=== PATIENT | male | born 1965 | race Caucasian/White ===

== ENCOUNTER 2023-10-23 12:50 | Outpatient (OUT) | payer MEDICARE, MEDICAID, SELFPAY ==
--- NOTE | 2023-10-23 12:53 | VEIN_ITS ---
Patient Name: KEEGAN AUSTIN MR#: [id number] : 1965 Exam Date: 10/23/2023 Ordering Doctor: DR RUBI MATTHEWS M.D. RADIOLOGY REPORT PROCEDURE: VC EXT VENOUS REFLUX TERRELL LMTD COMPARISON: None. INDICATIONS: Pain due to varicose veins of bilateral legs I83.813 TECHNIQUE: Duplex imaging of the lower extremity to assess the deep and superficial venous system for the presence of deep or superficial venous incompetence and to document the location and severity of disease. The study includes evaluation of the great saphenous vein (GSV), anterior accessory saphenous vein (AASV) and small saphenous vein (SSV). Patient scanned in reverse Trendelenburg and standing. FINDINGS: RIGHT LOWER EXTREMITY: Saphenofemoral Junction Reflux: Yes 12.4mm 2.0 sec GSV: Diam (mm) Reflux/ Time (sec) Proximal Thigh 4.6 Yes 1.2 Mid Thigh N/A Distal Thigh N/A Prox Calf N/A Mid Calf N/A Saphenopopliteal Junction Reflux: 6.4mm Yes 1.3 SSV: Proximal Calf 6.1 Yes 0.9 Mid Calf 4.8 Yes 0.5 AASV: Proximal Thigh 8.7 Yes 1.4 Mid Thigh No Distal Thigh No Thrombi: No acute or chronic thrombus. Compressibility: Normal. Flow: Severe deep venous reflux. Preforator: Mid medial lower leg 3.6 mm with 2.3s reflux. Tech Note: Previously treated GSV and AASV. Distal GSV is patent 5.8 mm with 0.3s reflux. Incompetent varicose vein mid medial lower leg measures 4.0 mm with 0.9s reflux. Incompetent varicose vein mid posterior calf measures 4.0 mm with 1.2s reflux. 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 Compressibility: Partial compressibility of distal FV and popliteal. Flow: Severe deep venous reflux. Wall Insulation Sprayer: Prox posterior calf 3.5 mm with 0.4s reflux. Distal medial lower leg measures 2.8 mm with 0.3s reflux. Tech Note: Previously treated GSV. Incompetent varicose vein distal medial ankle measures 2.4 mm with 0.6s reflux. Varicose vein proximal anterior/medial lower leg measures 4.0 mm with 0.8s reflux. Proximal posterior calf varicose vein off SSV measures 4.1 mm with 1.2s reflux. CONCLUSION: 1. Mildly dilated and incompetent small saphenous veins bilaterally. 2. Multiple dilated incompetent branch saphenous varicosities within lower extremities bilaterally. Dictated by: Byron Gonzalez M.D. on 10/23/2023 at 14:09 Approved by: Byron Gonzalez M.D. on 10/23/2023 at 14:20
--- NOTE | 2023-10-23 12:53 | VEIN_ITS ---
Patient Name: KEEGAN AUSTIN MR#: [id number] : 1965 Exam Date: 10/23/2023 Ordering Doctor: DR RUBI MATTHEWS M.D. RADIOLOGY REPORT PROCEDURE: [facility] - OFFICE VISIT INITIAL COMPARISON: None. PROGRESS NOTES: [age] year old male who presents with a 10 year history of dilated bulging veins, discolored veins, leg pain and swelling, muscle cramping. The patient's right leg symptoms are worse than the left. There has been a progression of symptoms over time. This increases with prolonged leg dependency. The patient describes an improvement with rest, elevation, exercise, support stockings, and ibuprofen.. The patient denies any signs and symptoms to suggest arterial ischemia. The patient describes a family history varicose veins on maternal side. The patient has drinking and smoking history of : None. Patient has a past medical history significant for hypertension, prior DVT and superficial thrombophlebitis. See separate history and physical for medication list. Prior treatment for varicose or spider veins. Current use of compression stockings. After review of nurse notes, history and physical exam I discussed at length the pathophysiology of venous hypertension and possible treatments, therapies and strategies available. We discussed at length the importance of elevating the lower extremities above the level of the heart, increased physical activity and compression stocking use. Ultrasound venous reflux study performed today was discussed at length with the patient. The report demonstrates abnormally dilated and incompetent small saphenous veins bilaterally with multiple arising branch saphenous varicosities. PHYSICAL EXAM: The right leg demonstrates several lower extremity varicosities, a few spider veins, no ulceration, mild edema, mild skin discoloration. The left leg demonstrates several varicosities, a few spider veins, no ulceration, mild edema, mild skin discoloration. Both thighs, legs and feet were symmetrically warm to the touch. Good posterior tibial and dorsalis pedis pulses were present bilaterally. VEIN/ Facility EST Comprehensive IMPRESSION: 1. Bilateral distal lower extremity venous insufficiency 2. Bilateral lower extremity varicose veins 3. Mild bilateral lower extremity subcutaneous edema 4. No flow significant arterial disease 5. CEAP: C3, EC, , [place] PLAN: 1. Continued use of compression stockings 2. Elevated legs and increased physical activity symptomatic relief 3. Endovenous laser ablation of right and left small saphenous veins. 4. Microfoam chemical ablation of incompetent branch saphenous varicosities of bilateral lower extremities. Nurse notes, history and physical were reviewed and confirmed, see attached forms. The nurse was present throughout the physical exam and consultation Dictated by: Byron Gonzalez M.D. on 10/23/2023 at 14:20 Approved by: Byron Gonzalez M.D. on 10/23/2023 at 15:23
== END 2023-10-23 12:51 | disposition home or self-care (01) ==
PROVIDERS: PCP Radiology Diagnostic Radiology; Visit Provider Radiology Diagnostic Radiology
DX: I83.813 Varicose veins of bilateral lower extremities with pain (principal)
CPT/HCPCS: 93970; G0463

== ENCOUNTER 2023-11-15 10:27 | Outpatient (OUT) | payer MEDICARE, MEDICAID, SELFPAY ==
--- NOTE | 2023-11-15 10:29 | VEIN_ITS ---
[address] [address] Patient Name: KEEGAN AUSTIN MRN: [id number] date: 1965 Sex: M Assigned Patient Location: Current Patient Location: Accession/Order Number: [id number] Exam Date: 11/15/2023 10:33 Report Date: 11/15/2023 11:36 At the request of: RUBI MATTHEWS Procedure: VC Endovenous Ablation 1VeinLT EXAMINATION: VC Endovenous Ablation 1Vein, left small saphenous vein HISTORY: I83.813 bilateral leg painful varicose veins COMPARISON: No relevant comparison available. TECHNIQUE: The risks and benefits of the procedure had been previously discussed, and were rediscussed at length. Informed written consent was obtained. Cindy Houston and Jose R Shahid assisted. Time out procedure was performed. The left lower extremity was prepared and draped in the usual sterile fashion. Duplex ultrasound probe was draped in a sterile cover, sterile transmission gel was used. Venous mapping was performed with the areas of dilation and large tributaries marked. The total length was 29 cm from the entry 3 cm above the lateral malleolus to 3 cm from the saphenopopliteal junction. The diameter of the wall saphenous vein ranged from 4-6 mm. A 30 gauge needle and 1% buffered lidocaine was used to anesthetize the entry site. A 4 mm incision was made with a scalpel and the saphenous vein was entered percutaneously under direct ultrasound guidance with a micropuncture set, a single stick was successful in gaining access. A micro-guide wire was inserted and the needle removed. A micro-set including a dilator was inserted over the microwire and the needle and dilator were removed. A 0.018 guide wire was inserted through the micro-set and threaded through the saphenous vein. The dilator was removed and an introducer sheath was inserted over the wire. The dilator and wire were removed and the 600 micron fiber was introduced and placed and positioned so that it extended beyond the sheath and was 3 cm peripheral to the saphenopopliteal junction. Final position of the fiber was determined by ultrasound guidance and duplex imaging. Tumescent anesthetic was delivered by ultrasound guidance. 125 cc of fluid was delivered along the entire course of the saphenous vein. The solution consisted of 1000 cc of normal saline with 40 mL of 1% lidocaine and 20 mL of sodium bicarbonate. A final positioning check was made. The energy source was turned on by means of the foot pedal and the fiber and sheath were withdrawn. The total number of Joules delivered was 1366. The laser was active for 171seconds under continuous pulse, average laser use of 8 J. Laser start time 11:24 AM 10/16/2023 . Laser stop time 11:26 AM 10/16/2023 . A duplex ultrasound revealed compressibility and flow at the saphenofemoral junction immediately after the procedure. Hemostasis at the access site was achieved. The skin incision of the saphenous vein was closed with a 4 x 4. A compression stocking was applied. Postop instructions were given. A follow up appointment was recommended and scheduled. The patient tolerated the procedure well and was discharged in good condition . VEIN/VC Endovenous Ablation 1VeinLT IMPRESSION: Technically successful endovenous laser ablation of the left small saphenous vein Electronically authenticated by: RUBI MATTHEWS Date: 11/15/2023 11:36
[2023-11-15] MEDS: 0.9 % SODIUM CHLORIDE 500 ML, LIDOCAINE HCL 20 ML, SODIUM BICARBONATE 10 MEQ INJ (10:31)
[2023-11-15] MEDS: LIDOCAINE HCL 1% 100 MG/10 ML MDV INJ (10:31)
--- OUTSIDE RECORDS SUMMARY | 2023-11-15 10:42 | XMS_ITS | CCD ---
Author Organization [facility] Care Team Providers Care Bid Analyst Name Role Phone Sarah Bruce Primary Care Physician BYRON, DR RUBI Solomon Consulting Unavailable WEST, DR RUBI Solomon Attending Unavailable WEST, DR RUBI Solomon Admitting Unavailable WEST, DR RUBI Solomon Consulting Unavailable WEST, DR RUBI Solomon Attending Unavailable WEST, DR RUBI Solomon Admitting Unavailable ZIEBER, DR ALLISON Gama Consulting Unavailable WEST, DR RUBI Solomon Consulting Unavailable WEST, DR RUBI Solomon Attending Unavailable WEST, DR RUBI Solomon Admitting Unavailable ZIEBER, DR ALLISON Gama Consulting Unavailable WEST, DR RUBI Solomon Consulting Unavailable WEST, DR RUBI Solomon Attending Unavailable WEST, DR RUBI Solomon Admitting Unavailable WEST, DR RUBI Solomon Consulting Unavailable WEST, DR RUBI Solomon Attending Unavailable WEST, DR RUBI Solomon Admitting Unavailable ZIEBER, DR ALLISON Gama Consulting Unavailable WEST, DR RUBI Solomon Consulting Unavailable WEST, DR RUBI Solomon Attending Unavailable WEST, DR RUBI Solomon Admitting Unavailable ZIEBER, DR ALLISON Gama Consulting Unavailable WEST, DR RUBI Solomon Consulting Unavailable WEST, DR RUBI Solomon Attending Unavailable WEST, DR RUBI Solomon Admitting Unavailable WEST, DR RUBI Solomon Consulting Unavailable WEST, DR RUBI Solomon Attending Unavailable WEST, DR RUBI Solomon Admitting Unavailable WEST, DR RUBI Solomon Consulting Unavailable WEST, DR RUBI Solomon Attending Unavailable WEST, DR RUBI Solomon Admitting Unavailable ZIEBER, DR ALLISON Gama Consulting Unavailable WEST, DR RUBI Solomon Consulting Unavailable WEST, DR RUBI Solomon Attending Unavailable WEST, DR RUBI Solomon Admitting Unavailable WEST, DR RUBI Solomon Consulting Unavailable WEST, DR RUBI Solomon Attending Unavailable WEST, DR RUBI Solomon Admitting Unavailable WEST, DR RUBI Solomon Consulting Unavailable WEST, DR RUBI Solomon Attending Unavailable WEST, DR RUBI Solomon Admitting Unavailable WEST, DR RUBI Solomon Consulting Unavailable WEST, DR RBUI Solomon Attending Unavailable WEST, DR RUBI Solomon Admitting Unavailable ZIEBER, DR ALLISON Gama Consulting Unavailable WEST, DR RUBI Solomon Consulting Unavailable WEST, DR RUBI Solomon Attending Unavailable WEST, DR RUBI Solomon Admitting Unavailable ALLSOSARAH Landeros Attending Unavailable Favian SCHMITT Referring Unavailable Ciscosodelfin, Sarah Abbott Admitting Unavailable Sarah Bruce Attending Unavailable Burt, Allison Consulting Unavailable Favian SCHMITT P Admitting Unavailable Favian SCHMITT Attending Unavailable Tulio, Allison Consulting Unavailable Burt, Allison Consulting Unavailable Burt, Allison Consulting Unavailable Burt, Allison Consulting Unavailable Burt, Allison Consulting Unavailable Burt, Allison Consulting Unavailable Burt, Allison Consulting Unavailable Burt, Allison Consulting Unavailable Yaakov Betancourt Attending Unavailable Medications Current Medications Medication Drug Class(es) Dates Sig (Normalized) Sig (Original) acetaminophen 325 mg / HYDROcodone bitartrate 5 mg oral tablet (12 sources) Opioid Agonist Start: 08-18-2020 Curlew 325 mg-5 mg oral tablet 1 tab(s), Oral, q6hr for pain, 10 tab(s), Refill(s) 0 Start Date: 04/14/21 Status: Ordered amLODIPine 2.5 mg oral tablet (6 sources) Dihydropyridine Calcium Channel Harlan Start: 08-04-2020 take 1 tablet by mouth once daily amLODIPine 2.5 mg Tab 2.5 mg = 1 tab(s), Oral, Daily, Refills(s) 0, High blood pressure Start Date: 08/04/20 Status: Ordered bacitracin 0.5 unt/mg topical ointment (5 sources) Start: 09-06-2021 Bacitracin top 500 units/g Oint TUBE (15 gram) 1 mary ann, Topical, QID, 30 gm, Refill(s) 0, [facility]/pharmacy #[id number], 178, cm, 09/06/21 14:56:00 EST, Height/Length Dosing, 132, kg, 09/06/21 14:56:00 EST, Weight Dosing Start Date: 09/06/21 Status: Ordered busPIRone hydrochloride 10 mg oral tablet (6 sources) Start: 07-31-2019 take 2 tablets by mouth twice daily busPIRone 10 mg Tab 20 mg = 2 tab(s), Oral, BID, Refills(s) 0, Anxiety Start Date: 07/31/19 Status: Ordered cephalexin 500 mg oral capsule (1 source) Cephalosporin Antibacterial Start: 09-02-2023 End: 09-09-2023 take 1 capsule by mouth three times daily Keflex 500 mg Cap 500 mg = 1 cap(s), Oral, TID, X 7 day(s), # 21 cap(s), Refills(s) 0, Pharmacy: [facility], 177.8, cm, 09/02/23 8:58:00 EST, Height/Length Dosing, 124.9, kg, 09/02/23 8:58:00 EST, Weight Dosing Start Date: 09/02/23 Stop Date: 09/09/23 Status: Ordered cyclobenzaprine hydrochloride 10 mg oral tablet (6 sources) Muscle Relaxant Start: 12-14-2019 take 1 tablet by mouth three times daily as needed for muscle spasms cyclobenzaprine 10 mg Tab 10 mg = 1 tab(s), Oral, TID, PRN for spasm, # 30 tab(s), Refills(s) 0 Start Date: 12/14/19 Status: Ordered Docusate (6 sources) Start: 12-02-2018 take 8 tablets by mouth at bedtime Dulcolax Stool Softener = 8 tab(s), Oral, Bedtime, Refills(s) 0, Constipation Start Date: 12/02/18 Status: Ordered doxazosin 4 mg oral tablet (6 sources) alpha-Adrenergic Harlan Start: 05-18-2016 take 1 tablet by mouth at bedtime doxazosin 4 mg Tab 4 mg = 1 tab(s), Oral, Bedtime, Refills(s) 0, High blood pressure Start Date: 05/18/16 Status: Ordered ezetimibe 10 mg oral tablet (6 sources) Dietary Cholesterol Absorption Inhibitor Start: 12-09-2014 take 1 tablet by mouth at bedtime Zetia 10 mg Tab 10 mg = 1 tab(s), Oral, Bedtime, Refills(s) 0, High cholesterol Start Date: 12/09/14 Status: Ordered LORazepam 0.5 mg oral tablet (6 sources) Benzodiazepine Start: 08-04-2020 take 1 tablet by mouth once daily LORazepam 0.5 mg Tab 0.5 mg = 1 tab(s), Oral, Daily, Refills(s) 0, Anxiety Start Date: 08/04/20 Status: Ordered meclizine hydrochloride 12.5 mg oral tablet (2 sources) Antiemetic Start: 09-10-2022 take 1 tablet by mouth every six hours as needed for dizziness meclizine 12.5 mg Tab 12.5 mg = 1 tab(s), Oral, q6hr, PRN Dizziness, # 100 tab(s), Refills(s) 0, Pharmacy: [facility]/pharmacy #[id number], 177, cm, 09/08/22 18:23:00 EST, Height/Length Dosing, 121, kg, 09/08/22 18:23:00 EST, Weight Dosing Start Date: 09/10/22 Status: Ordered nortriptyline 25 mg oral capsule (4 sources) Tricyclic Antidepressant Start: 08-04-2020 take 1 capsule by mouth once daily at bedtime nortriptyline 25 mg Cap 25 mg = 1 cap(s), Oral, Once a day (at bedtime), Refills(s) 0, Sleep Start Date: 08/04/20 Status: Ordered omeprazole 40 mg delayed release oral capsule (5 sources) Proton Pump Inhibitor Start: 05-18-2016 omeprazole 40 mg Cap-DR 40 mg = 1 cap(s), Oral, Bedtime, Refills(s) 0, Control of stomach acid Start Date: 05/18/16 Status: Ordered omeprazole 40 mg Cap-DR (1 source) Start: 05-18-2016 omeprazole 40 mg Cap-DR 40 mg = 1 cap(s), Oral, Bedtime, Refills(s) 0, Control of stomach acid Start Date: 05/18/16 Status: Ordered Outpatient physical therapy (2 sources) Start: 09-10-2022 Outpatient physical therapy Outpatient physical therapy, For gait training, Print Requisition, Supply Start Date: 09/10/22 Status: Ordered simvastatin 20 mg oral tablet (6 sources) HMG-CoA Reductase Inhibitor Start: 02-10-2019 take 1 tablet by mouth once daily at bedtime simvastatin 20 mg Tab 20 mg = 1 tab(s), Oral, Once a day (at bedtime), Refills(s) 0, High cholesterol Start Date: 02/10/19 Status: Ordered warfarin sodium 10 mg oral tablet (6 sources) Vitamin K Antagonist Start: 11-30-2011 take 1 tablet by mouth at bedtime Coumadin 10 mg oral tablet 10 mg = 1 tab(s), Oral, Bedtime, Refills(s) 0, Other (see comment) Start Date: 11/30/11 Status: Ordered Completed/Discontinued Medications Medication Drug Class(es) Dates Sig (Normalized) Sig (Original) Betamethasone (6 sources) Corticosteroid Start: 08-04-2020 betamethasone dipropionate topical 0.05% cream 1 mary ann, Topical, Daily Other (see comment), Refill(s) 0 Start Date: 08/04/20 Status: Ordered Start: 08-04-2020 betamethasone dipropionate topical 0.05% cream 1 mary ann, Topical, Daily Other (see comment), Refill(s) 0 Start Date: 08/04/20 Status: Ordered Problems Active Problems Problem Classification Problem Date Documented Da te Episodic/Chronic Acquired foot deformities (6 sources) Acquired hallux valgus 08-04-2020 Chronic Acute myocardial infarction (6 sources) Myocardial infarction 09-11-2013 Chronic Comment on above: at age 20 yrs Anxiety disorders (7 sources) Anxiety; Translations: [Anxiety disorder] Onset: 3 08-18-2020 Chronic Disorders of lipid metabolism (7 sources) Hyperlipidemia; Translations: [Hyperlipidemia, unspecified] Onset: 3 02-12-2019 Chronic Esophageal disorders (7 sources) Gastroesophageal reflux disease; Translations: [Gastroesophageal reflux disease without esophagitis] Onset: 3 08-18-2020 Chronic Essential hypertension (6 sources) Hypertensive disorder 02-12-2019 Chronic Genitourinary symptoms and ill-defined conditions (6 sources) Nocturia 05-18-2016 Episodic Hypertension with complications and secondary hypertension (1 source) Hypertensive urgency ; Translations: [Hypertensive urgency] Onset: 3 Chronic Mood disorders (6 sources) Depressive disorder 02-12-2019 Chronic Open wounds of extremities (1 source) Open wound of foot; Translations: [Puncture wound without foreign body, unspecified foot, initial encounter] Onset: 4 Episodic Other circulatory disease (1 source) Disorder of respiratory system; Translations: [Other specified symptoms and signs involving the circulatory and respiratory systems] Onset: 3 Episodic Other connective tissue disease (1 source) Pain in lower limb; Translations: [Pain in unspecified lower leg] Onset: 2 Episodic Other connective tissue disease (6 sources) Impingement syndrome of shoulder region 09-09-2014 Episodic Comment on above: right Other connective tissue disease (1 source) Pain in right lower limb; Translations: [Pain in right leg] Onset: 2 Episodic Other injuries and conditions due to external causes (6 sources) Nerve injury 08-18-2020 Episodic Comment on above: right side Other screening for suspected conditions (not mental disorders or infectious disease) (1 source) Coag./bleeding tests abnormal; Translations: [Abnormal coagulation profile] Onset: 2 Episodic Peripheral and visceral atherosclerosis (4 sources) 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 Spondylosis; intervertebral disc disorders; other back problems (6 sources) Neck pain 07-31-2019 Episodic Substance-related disorders (13 sources) Smoker; Translations: [Nicotine dependence] Onset: 3 02-10-2019 Chronic Comment on above: Added secondary to d ocumentation in Social History. patient quit smoking in 2001 Syncope (1 source) Syncope and collapse; Translations: [Syncope and collapse] Onset: 3 Episodic Unclassified (6 sources) Blood clot (morphologic abnormality) 11-30-2011 Varicose veins of lower extremity (4 sources) Varicose veins of bilateral lower extremities with pain; Translations: [VARICOSE VNS TERRELL LOW EXTREM W/PAIN] Onset: 2 Episodic Past or Other Problems Problem Classification Problem Date Documented Da te Episodic/Chronic Conditions associated with dizziness or vertigo (2 sources) Dizziness and giddiness; Translations: [Dizziness and giddiness] Onset: 09-08-2022 Episodic Unclassified (4 sources) neck problems( Confirmed ) 11-30-2011 Unclassified (2 sources) neck problems 11-30-2011 Results Test Name Value Interpretation Reference Range Facility ED Note-Physicianon 09-03-19 ED Note-Physician Basic Information Time Seen: Anastasia VILLAR Everton 09/02/2023 08:55 Chief Complaint c/o piece of metal stuck in left heel. History of Present Illness 58-year-old male comes into the ED for evaluation of a left foot puncture wound and concerns for retained foreign body. He states he stepped on a piece of metal this morning. Family tried to remove the object but were not successful. He is concerned there is no metal in his foot. He has localized pain to the area. No other complaints or concerns. Review of Systems A 10 point review of systems is negative except as noted above. Medical and Surgical History: Reviewed and noted Social history: Lives at home Tobacco: Denies Physical Exam Vitals & Measurements T: 36.4 ?C(Oral) HR: 71(Peripheral) RR: 16 BP: 188/86 SpO2: 97% HT: 177.8 cm WT: 124.9 kg BMI: 39.51 Nurses notes and vital signs reviewed and patient is not hypoxic. General: The patient appears well, resting comfortably. Skin: Warm, dry. Head: Atraumatic. Neck: No JVD. Eye: Normal conjunctiva. Ears, Nose, Mouth, and Throat: Moist mucous membranes. Cardiovascular: Strong distal pulses. Chest wall: Respiratory: Respirations are nonlabored. Back: Normal range of motion. Musculoskeletal: There is a small puncture wound to the plantar aspect of the left foot of the calcaneus. No obvious foreign bodies. No significant soft tissue swelling. No bleeding or drainage. Gastrointestinal: Urological: Neurological: Awake and alert. No focal deficits. Follows commands. Psychiatric: Cooperative. Medical Decision Making Imaging shows no evidence of foreign body. The patient's wound was visualized with otoscope magnification. There is a small piece of debris that was removed with fine point tweezers. No other foreign bodies are appreciated. Tetanus is updated. He is started on prophylactic antibiotics and is discharged home PCP follow-up. Patient was encouraged to return to the ED if symptoms worsen or change. Assessment/Plan Puncture wound of foot (S91.339A: Puncture wound without foreign body, unspecified foot, initial encounter) Orders: cephalexin, 500 mg = 1 cap(s), Oral, TID, X 7 day(s), # 21 cap(s), Refills(s) 0, Pharmacy: [facility], 177.8, cm, 09/02/23 8:58:00 EST, Height/Length Dosing, 124.9, kg, 09/02/23 8:58:00 EST, Weight Dosing tetanus/diphtheria/pe rtussis, acel (Tdap), 0.5 mL, Injection, Intramuscular-Immuniz ation, Once, Stop date 09/02/23 9:49:00 EST, STAT, Start date 09/02/23 9:49:00 EST XR Foot 3+ Views Left Disposition Plan Patient Discharge Condition Disposition: Discharged home Condition: Improved and stable Counseled: Patient and/or family were counseled to workup, results, treatment plan and follow-up recommendations Discharge Prescription List Prescriptions Keflex 500 mg Cap, 500 mg= 1 cap(s), Oral, TID Follow-up With When Contact Information Sarah Bruce In 3 days 09/05/2023 EST [facility] [place] [id number] [employer] (1) Additional Instructions: Patient Education Puncture Wound Attestation I performed a substantive part of the MDM during the patient?s E/M visit. I personally made or approved the documented management plan and acknowledge its risk of complications. (Independent Interpretation) My (EKG/X-Ray/US/CT) interpretation as above. (Discussion) Management/test interpretation discussed with APC. This report was transcribed using voice recognition software. Every effort was made to ensure accuracy, however, inadvertently computerized ceramic painter mistakes may be present. Appropriate healthcare PPE was used in evaluating this patient. Problem List/Past Medical History Ongoing Acid reflux Anxiety Blood clot Depression DVT (deep venous thrombosis) Hyperlipidemia Hypertension Impingement syndrome of shoulder Nerve damage Smoker Historical Heart attack neck problems Smoker Procedure/Surgical History Bunionectomy (08/18/2020), Cheilectomy (08/18/2020), Arthroscopy of knee (12/18/2019), Cervical spinal fusion (08/04/2019), Epidural injection of cervical spine using fluoroscopic guidance (06/17/2019), Epidural injection of cervical spine using fluoroscopic guidance (05/20/2019), Epidural injection of cervical spine using fluoroscopic guidance (04/08/2019), Colonoscopy (2016), right shoulder arthroscopy with glenohumeral debridement, subacromial decompression, partial distal clavulectomy (09/21/2014), Shoulder (2013), neck surgery. Medications Inpatient tetanus/diphtheria/pe rtussis, acel (Tdap) 5 units-2.5 units-18.5 mcg/0.5 mL intramuscular suspensio, 0.5 mL, Intramuscular-Immuniz ation, Once Home amLODIPine 2.5 mg Tab, 2.5 mg= 1 tab(s), Oral, Daily Bacitracin top 500 units/g Oint TUBE (15 gram), 1 mary ann, Topical, QID betamethasone dipropionate topical 0.05% cream, 1 mary ann, Topical, Daily, PRN busPIRone 10 mg Tab, 20 mg= 2 tab(s), Oral, BID, Not taking Coumadin 10 mg oral tablet, 10 mg= 1 tab(s), Oral (more content not included)... [facility] Comment on above: Result Comment: Elec tronically Signed By: Everton Oconnor PA-C\.br\Date and Time Signed: 09/02/23 09:52 EST\.br\Electronically Co-Signed By: Yaakov Betancourt DO\.br\Date and Time Co-Signed: 09/03/23 07:08 EST Consent for Treatmenton Consent for Treatment [id number] [facility] Consent for Treatment [id number] [facility] Discharge Instructionson Discharge Instructions [id number] [facility] ED Clinical Summaryon 2023 ED Clinical Summary [address] [address] ED Clinical Summary Person Information Name: KEEGAN AUSTIN Megan/[facility]_Malcolm Age: 58 Years : 1965 Sex: Male Language: Zambian PCP: Sarah Bruce DO Marital Status: Phone: [phone] Visit Id: Visit Reason: Foot pain-swelling; PIECE OF METAL IN LEFT FOOT Speciality: Acuity: 4 Enc Type: Emergency Med Service: Emergency Arrival: 09/02/2023 08:49:21 Discharge: 09/02/2023 10:07:42 LOS: 000 01:18 Checkin: 09/02/2023 08:49:21 Checkout: 09/02/2023 10:07:42 Dispo Type: Home (Routine DC) EVENTS: Event Name Event Status Request Date/Time Start Date/Time Complete Date/Time Arrive Complete 09/02/2023 08:49:21 09/02/2023 08:49:21 09/02/2023 08:49:21 Document Home Meds Request 09/02/2023 08:49:21 Triage Complete 09/02/2023 08:49:21 09/02/2023 08:58:54 09/02/2023 08:58:54 Bed Assign Complete 09/02/2023 08:54:06 09/02/2023 08:54:06 09/02/2023 08:54:06 Dr Exam Complete 09/02/2023 08:54:06 09/02/2023 08:55:40 09/02/2023 08:55:40 RN Exam Complete 09/02/2023 08:54:06 09/02/2023 09:10:19 09/02/2023 09:10:19 Registration Complete 09/02/2023 08:55:40 09/02/2023 08:55:44 09/02/2023 09:03:51 Dr Exam Complete 09/02/2023 09:00:43 09/02/2023 09:00:43 09/02/2023 09:00:43 X-Ray Complete 09/02/2023 09:03:05 09/02/2023 09:10:30 09/02/2023 09:25:00 Reg Complete Request 09/02/2023 09:03:51 Reg Bed Request Complete 09/02/2023 09:03:51 09/02/2023 09:03:51 09/02/2023 09:03:51 Wet Read Complete 09/02/2023 09:25:00 09/02/2023 09:30:07 09/02/2023 09:30:07 Meds Admin Complete 09/02/2023 09:49:48 09/02/2023 10:07:06 Discharge Complete 09/02/2023 09:50:12 09/02/2023 10:07:47 09/02/2023 10:07:47 Transfer Complete 09/02/2023 10:07:47 09/02/2023 10:07:47 09/02/2023 10:07:47 AD[address]: [address] [facility] [id number] PHYS DOC NOTES: MEDICAL INFORMATION: Prescriptions Given: New Medications [facility], [address] [facility] [place], [place] [id number], [phone] cephalexin (Keflex 500 mg Cap) 1 Capsules By Mouth 3 times a day for 7 Days. Refills: 0. Medications to Continue with No Changes Other Medications acetaminophen-hydroco done (Curlew 325 mg-5 mg oral tablet) 1 Tablets By Mouth every 6 hours as needed Pain 4-7. acetaminophen-hydroco done (Curlew 325 mg-5 mg oral tablet) 1 Tablets By Mouth every 6 hours as needed for pain. Refills: 0. amlodipine (amLODIPine 2.5 mg Tab) 1 Tablets By Mouth every day. bacitracin topical (Bacitracin top 500 units/g Oint TUBE (15 gram)) 1 Application Topical 4 times a day. Refills: 0. betamethasone topical (betamethasone dipropionate topical 0.05% cream) 1 Application Topical every day as needed Other (see comment). busPIRone (busPIRone 10 mg Tab) 2 Tablets By Mouth 2 times a day. cyclobenzaprine (cyclobenzaprine 10 mg Tab) 1 Tablets By Mouth 3 times a day as needed for spasm. doxazosin (doxazosin 4 mg Tab) 1 Tablets By Mouth at bedtime. ezetimibe (Zetia 10 mg Tab) 1 Tablets By Mouth at bedtime. lorazepam (LORazepam 0.5 mg Tab) 1 Tablets By Mouth every day. meclizine (meclizine 12.5 mg Tab) 1 Tablets By Mouth every 6 hours as needed Dizziness. Refills: 0. Misc Prescription (Outpatient physical therapy) 0. For gait training. Refills: 0. omeprazole (omeprazole 40 mg Cap-DR) 1 Capsules By Mouth at bedtime. simvastatin (simvastatin 20 mg Tab) 1 Tablets By Mouth once a day (at bedtime). warfarin (Coumadin 10 mg oral tablet) 1 Tablets By Mouth at bedtime. PATIENT EDUCATION INFORMATION: Instructions: Puncture Wound Follow up: With: Address: When: Sarah Bruce [place] [place] [place] [address] Business (1) In 3 days 09/05/2023 DIAGNOSIS: Puncture wound of foot Normal [facility] ED Patient Education Noteon 09-02-2023 ED Patient Education Note Dermatology Puncture Wound A puncture wound is an injury that is caused by a sharp, thin object that penetrates your skin. Usually, a puncture wound does not leave a large opening in your skin, so it may not bleed a lot. However, when you get a puncture wound, dirt or other materials (foreign bodies) can be forced into your wound and can break off inside. This increases the chance of infection, such as tetanus. There are many sharp, pointed objects that can cause puncture wounds, including teeth, nails, splinters of glass, fishhooks, and needles. Treatment may include washing out the wound with a germ-free (sterile) salt-water solution and having the wound opened surgically to remove a foreign object. The wound may be closed with stitches (sutures), skin glue, or adhesive strips and covered with antibiotic ointment and a bandage (dressing). Depending on what caused the injury, you may also need a tetanus shot or a rabies shot. Follow these instructions at home: Medicines ? Take or apply [id number] and prescription medicines only as told by your health care provider. ? If you were prescribed antibiotics, take or apply them as told by your health care provider. Do not stop using the antibiotic even if you start to feel better. Bathing ? Keep the dressing clean and dry as told by your health care provider. ? Do not take baths, swim, or use a hot tub until your health care provider approves. Ask your health care provider if you may take showers. You may only be allowed to take sponge baths. Wound care ? Follow instructions from your health care provider about how to take care of your wound. Make sure you: ? Wash your hands with soap and water for at least 20 seconds before and after you change your dressing. If soap and water are not available, use hand medical affairs director. ? Change your dressing as told by your health care provider. ? Leave sutures, skin glue, or adhesive strips in place. These skin closures may need to stay in place for 2 weeks or longer. If adhesive strip edges start to loosen and curl up, you may trim the loose edges. Do not remove adhesive strips completely unless your health care provider tells you to do that. ? Clean the wound as told by your health care provider. ? Do not scratch or pick at the wound. ? Check your wound every day for signs of infection. Check for: ? Redness, swelling, or pain. ? Fluid or blood. ? Warmth. ? Pus or a bad smell. General instructions ? Raise (elevate) the injured area above the level of your heart while you are sitting or lying down. ? If your puncture wound is in your foot, ask your health care provider if you need to avoid putting weight on your foot and for how long. Do not use the injured limb to support your body weight until your health care provider says that you can. Use crutches as told by your health care provider. ? Keep all follow-up visits. This is important. Contact a health care provider if: ? You received a tetanus or rabies shot and you have swelling, severe pain, redness, or bleeding at the injection site. ? You have any of these signs of wound infection: ? Redness, swelling, or pain. ? Fluid or blood. ? Warmth. ? Pus or a bad smell. ? Your sutures come out. ? You notice something coming out of your wound, such as wood or glass. ? Your pain is not controlled with medicine. ? You develop numbness around your wound. Get help right away if: ? You develop severe swelling around your wound. ? You have a red streak going away from your wound. ? You develop painful skin lumps. ? The wound is on your hand or foot and you: ? Cannot properly move a finger or toe. ? Notice that your fingers or toes look pale or bluish. Summary ? A puncture wound is an injury that is caused by a sharp, thin object that penetrates your skin. ? Treatment may include washing out the wound and having the wound opened surgically to remove a foreign object, ? The wound may be closed with stitches (sutures), skin glue, or adhesive strips and covered with antibiotic ointment and a bandage (dressing). ? Follow instructions from your health care provider about how to take care of your wound. ? Contact a health care provider if you have redness, swelling, or pain at the site of your wound. This information is not intended to replace advice given to you by your health care provider. Make sure you discuss any questions you have with your health care provider. Document Revised: 07/18/2022 Document Reviewed: 07/18/2022 Elsevier Patient Education ? 2022 [employer] Normal [facility] ED Patient Summaryon 024 ED Patient Summary [address] [address] Patient Discharge Instructions Person Information Name: KEEGAN AUSTIN Age: 58 Years Arrival Date: 09/02/2023 08:49:21 Discharge Diagnosis: Puncture wound of foot Primary Care Physician: Sarah Bruce DO Provider Information Primary Provider: Yaakov Betancourt DO Advanced Animal Behaviourist:Everton Oconnor PA-C The exam and treatment you received in the Emergency Department were for an urgent problem and are not intended as complete care. It is important that you follow up with a doctor, nurse practitioner, or physician?s ophthalmic assistant for ongoing care. If your symptoms become worse or you do not improve as expected and you are unable to reach your usual health care provider, you should return to the Emergency Department. We are available 24 hours a day. KEEGAN AUSTIN has been given the following list of patient education materials, prescriptions and follow-up instructions: Follow-up Instructions: With: Address: When: [place] [address] Business (1) In 3 days 09/05/2023 In the event that this physician does not participate in your insurance network, please consult with your insurance company to find a nearby participating provider. Patient Education Materials: Puncture Wound A MESSAGE TO ALL PATIENTS REGARDING OPIOIDS PRESCRIPTION OPIOIDS: WHAT YOU NEED TO KNOW Prescription opioids can be used to help relieve dshrsduh-fr-cljwmt pain and are often prescribed following a surgery or injury, or for certain health conditions. These medications can be an important part of the treatment but also come with serious risks. It is important to work with your healthcare provider to make sure you are getting the safest, most effective care. WHAT ARE THE RISKS AND SIDE EFFECTS OF OPIOID USE? Prescription opioids carry serious risks of addiction and overdose, especially with prolonged use. An opioid overdose, often marked by slowed breathing, can cause sudden . The use of prescription opioids can have a number of side effects as well, even when taken as directed: ? Tolerance?meaning you might need to take more of the medication for the same pain relief ? Physical dependence?meaning you have symptoms of withdrawal when a medication is stopped ? Increased sensitivity to pain ? Constipation ? Nausea, vomiting, and dry mouth ? Sleepiness and dizziness ? Confusion ? Depression ? Low levels of testosterone that can result in lower sex drive, energy, and strength ? Itching and sweating RISKS ARE GREATER WITH: ? History of drug misuse, substance use disorder, or overdose ? Mental health conditions (such as depression or anxiety) ? Sleep apnea ? Older age (65 years and older) ? Avoid alcohol while taking prescription opioids. Also, unless specifically advised by your health care provider, medications to avoid include: ? Benzodiazepines (such as Xanax or Valium) ? Muscle relaxants (such as Soma or Flexeril) ? Hypnotics (such as Ambien or Lunesta) ? Other prescription opioids KNOW YOUR OPTIONS Talk to your health care provider about ways to manage your pain that don?t involve prescription opioids. Some of these options may actually work better and have fewer risks and side effects. Options may include: ? Pain relievers such as acetaminophen, ibuprofen, and naproxen ? Some medication that are also used for depression or seizures ? Physical therapy and exercise ? Cognitive behavioral therapy, a psychological, goal-directed approach, in which patients learn how to modify physical, behavioral, and emotional triggers of pain and stress. IF YOU ARE PRESCRIBED OPIOIDS FOR PAIN: ? Never take opioids in greater amounts or more often than prescribed. ? Follow up with your primary health care provider. o Work together to create a plan on how to manage your pain. o Talk about ways to help manage your pain that don?t involve prescription opioids. o Talk about any and all concerns and side effects. ? Help prevent misuse and abuse o Never sell or share prescription opioids. o Never use another person?s prescription opioids. ? Store prescription opioids in a secure place and out of reach of others (this may include visitors, children, friends, and family). ? Safely dispose of unused prescription opioids: Find your community drug take-back program or your pharmacy mail-back program, or flush them down the toilet, following guidance from the Food and Drug Administration (www.fda.gov/Drugs/Re sourcesForYou). ? Visit www.cdc.gov/drugoverd ose to learn about the risks of opioids abuse and overdose. ? If you believe you may be struggling with addiction, tell your health customer care manager and ask for guidance or call [facility]?S National Helpline at 0-383-560-GNWX. k Source (more content not included)... Normal [facility] Vaccinationson 09-02-2023 Vaccinations [id number] #1.00TIFF Normal [facility] XR Foot 3+ Views Lefton XR Foot 3+ Views Left Exam Date/Time: 09/02/2023 09:25 EST Reason for Exam: Pain, Traumatic Report IMPRESSION: No acute osseous findings. No radiopaque foreign body. EXAMINATION/TECHNIQUE : XR Foot 3+ Views Left HISTORY: Pain to the left heel. Possible foreign body. COMPARISON: None available. RESULT: No evidence for acute fracture. No dislocation. Moderate degenerative changes of the first MTP joint. Other scattered mild to moderate degenerative changes throughout the foot, especially of the midfoot. Mild hallux valgus. Chronic appearing well-corticated densities at the base of the fifth metatarsal. Os peroneum. Small plantar and posterior calcaneal enthesophytes. Vascular calcifications. No radiopaque foreign body. No other significant abnormality. Ordering Provider: Everton Oconnor FINAL REPORT Dictated: 09/02/2023 10:46 am Flaco Merlos MD Signed (Electronic Signature): 09/02/2023 10:46 am Signed by: Flaco Merlos MD Transcribed by: USHA Technologist: LEVON Technical Comments Radiation Dose: Kar in mGy = na DAP = na [facility] Consent for Treatmenton 040 Consent for Treatment [id number]# 1.00CD:127 [facility] Nonvisit Note - PTon 023 Nonvisit Note - PT Spoke with pt this date- he is symptom free and in no need of PT vestibular therapy at this time. Plan to hold chart open 30 days. Normal [facility] Coding Summary.on 09-14-2022 Coding Summary. CD:[id number] G h0bWw+PGhlYWQ+MB3MLBN fH65taFCtfO1zQ1GXGYnF SywgQVBQTElOSyIgbmFtZ R2adKZsQKQp IC8+DX4aYEDtSxxlgYQub 4Z0fND9A28yhf9sDOefyO W1BXPeAaNpaaskc7trqLu 6IDcuNmluOyBt AOSypQ56SHB1nU37Gh09q MOyoUYlq8vanZv0LiNyRK NmEQY0dZqrCAzqs6WaLAY qX46shIFrl6V3 HDIjmKcifZMeNyExeDZ0g U7sZJqijnxkl7nkytmmVr u2jo35hYEga9Y6uTX8L5W dxwH9XZHkvMKb DwcoaIKEiX5umzfrd9nxt fifFsQbKJFnZHi7GSt3LF CtxGqkHgUoMT48GFG8YRY fiiOsJ3HoYYCl nPyhUjF8n8B4Fw7ZA4IZH peiJ9OCLLYJMAlbbPJ+PC 13bs87W9IyWjqkEfm6AOT kBQK3hLV9dZ7k XRRaIFjmq0R9gFX9R8Zve vFbvr4ny4glAZZjFIgcN8 0ogBPrx1U8XNZsqGX3DEJ zpCvjZiKwmX51 Oyc+UTBmnXubp1BoAasot 7eoq3brfBt4LeguGKMtsb UdwTyjQNP1y8YdAk4lJLS jgJF9mGH5fX5w BlHkYlM5LMvyU158TaAwg NIlRudaH64bX8MekEQ+PH ZxTqq6AMZafZggTV1eU4Q hZGRpbmctbGVm kHxgDB7jQHKrfrumUTBdw V2nTODnC0g2EvSjDiF0HY nyA7EjYUCfwwerIy74mJ6 gGpJfHbM5EGqf E9MhtbR4LERpvKHdWIpmS MF9R08du5X5CPRvDDTrWN O0jID7lL0czPbhbrjauAB mdDsgdmVydGlj NXplHJmeD524ONTqeHzwR kNvZGluZyBEYXRlOiAgMD MvMTcvMjAyMzwvdGQ+PHR nYIZ0tDqkYBJx mDDaCEemIe1rgHckaPkhF L9cUQQvntsoUTTjpU9kHC SqgOPfaOmpKO7aMZEfrmw vk619IxIeXPA0 LJKviYWrD6UivX0iRgYfJ WLcUMEcD4LvsAHqBYmgU8 37DFzdKaJ1DBQuetNdM9K sLWFsaWduOiB0 s5C7Pa2Hz3AfzighY4Vgs SNuMgUkYhhyEYy9F4UhWm wvdHI+HQ24BIAdWT12ALm 5CBT0uHurKIvx GIYpT4XpkA7wDdMfMBFcM GRkOyc+PHRhYmxlIHdpZH RoPScxMDAlJyBzdHlsZT0 sNt3pQEYhWUVu mWfufCZqLfMce8dkGAUuJ OdaUK5kfNsxL9BfdGY4MX Tfa1c7La32E05nS1UmiTX +IWOqiYV5uRH2 dR9eXfNcAgC5FTviX862Q sSqtANgNcvti2ufv1vmbC f1DbM7GGLnrvUfbCtqXZH 0p6XlYb02T45x IHdpZHRoPSIxNSUiIHZhb Eyyhf8icO7xQr6+PGNvbC P1mDU2nZ7yYhUtQmX4ASa qY892DyMxdLQa Tqoyl1sep7wrpOa0LmGhG FNdsaIykJvhJNF7c8ZxSm 07Y3QvwXeji0VoZrm9xg4 2mWAoc9Z1aJI0 X9NpEHLnbuaimELlqQwyV N8jPYCtjingRTKhzE7uYC ScR7h3VhNfMfY8WTucY8H kxvZ7MZYfeXRp ZUWplTLXmT2oscisy2pew wykJxNeTDEoGWn0LEu6QY MzhNvxYpUlGJY7ScZ7DVZ 2pGRiyN5grJod yicxhL8iAgn+UWB1fRDsf HZOLB5yMnmgzMA+PHRkIH X4jOlgUKqwQBLlzI9bMCI wY2i4XtNiSkF1 UJmgS0CcklH3ICSbkROlY WXyrXEJbP2rmijrw8yksk reAfObHSUdKFi7YJs7KEB saWduOiBsZWZ0 GmY7CXY8oQSlqB3wdYhir tqrzD9cIfc+QmlydGggRG J6DXb2E0IrWgl2HTHnfUv pCI9unVUrYDbm Rp0liSkbdFfvAD6eVLGzv wusd585XpWah4agPMGuoN WjRHeyXSO0B78kw8D1BCW sUDEdOQP5iDQ6 sY0rnPlkrsgutSQelWlzx yXmhTtrXJgrWSnjQ924ER DbfUkaQiZrDIw8D1EfXml 6FMEoxIvkFI7n sYEaCBusQs9ovCwtaHaoM Y7jHJTjfxroi296XqPlz9 hmEEIziQNhRPanQDS3L67 om7K1WFJjKWDb GSB6hKO7jW0opRwwlevdq GVmdDsgdmVydGljYWwtYW wvA846RSDmuWahUwBjbZd 7Y3JsFdw7DAGw rBfhFN3fmRKsKIqbGq2ni KgybTjqVI6pZHIalrwxh5 09ItGry4jjVKNnaLCpZQh sVSI9X02ds1Y6 TWTpNQEpGQG7fNJ3gL4dm GlnbjogbGVmdDsgdmVydG uoKCmtBMtgM744TVJtoTr nPlBhdGllbnQg YSrhIMf4V0EvJsgokTL+P G65WKQmIK14xERgqGInk2 rvtNm9AySnFUHhSJN1wBz uSFiry3YaAZCr V50psPGqj0M9XDPsjYshp HLvSrQptPN6lF3fKLelss xbt6voclpyQrybv5dstg5 5mC58Y43dJCij ZHRoPSIzMCUiIHZhbGlnb b7ywZ6bLr0+FTIawTB2dV W7vH1bQVQgMhG6YFltX60 9InRvcCIvPjxj f3gwk6bpmCo5XtN8LPFix eIjkBbrKFG9j0NbIs52Y9 9sIHdpZHRoPSIyMCUiIHZ zqDkfoq9lmI3m Ii8+JGSgrUK6wEM3zM8qY fIrOgO8WQdtF986TbVknZ VtFhtwE32pX8WoaYY+PHR wIyc9DKXszHuq VM2bmXFgRDplSs3nMTP2P xFuLbDrLBlyG8NcIAUosz dgaeahsJM4EGWmHVAwmG4 4Jg8dcQmyQZTj hKQXfR3ojvhdr6kbctixE sPhOBFjVDi5LAg1LCRueV cbVbBaQCD0QjW7AQB7kZP vkZ5knAzpexgj oH1pM7AxKRCarxudBh73z Y3hWkHfMeL9WKcfHpu+QV GWNLBPWD1ITQRgQGGIXUO OFE7zIEodjUP+ CVWqRYY4kFrfZJxjMQTlq I2wNSFcE3j9ChCgYhJ9VG uzK1WsWSFfbfcwUh70bE1 rCyMaEeG2DMvz V1ZzbpL9COWmtHSfLRwrG RR3E46un6J8JLGiEJFxBB L7oMR4yJ6tbRmerwlmqFP mdDsgdmVydGlj EJxjGWctF263CQPohAnlB yA5MfKsQpX2IsX1G0LvDh d1IHGyrKkcPS2efQZtAJc lTj3ihOnldEkn IA2mCXUucrwwUHZhhY6rM TUbjXThgLkuSR5kKMCdtf qcc220PyAjRVU9YXIexPE qE1QpgY6tVqAp YCQsAUZkP4OmxUVqMHrpQ 522KCmfRpV8YZWopmDvJ8 CoGGUreMjlWkD7c7T2Aw4 1NyBZZWFyczwv dGQ+ZCTzBIN0iIjzLChkS MXlmA6hXRNyI3l0JcHgKz G7BUhhQ9HpMAKejzirKe6 7qS8eSdLsDdZ6 LKytD3NxntE0KWGbpAYsV KajWML1R85cr5L3NIWcDX XwYGA0dVI5oM8dzThubht gbGVmdDsgdmVy lQjzEGinWVtvX046XOBuo SeqJw5oiRL6X4DaXpe6VK MkgLonTO2phTReYMooUx4 lfQrejMpcOB9y AYBtvxipRADcdN9pZPYsi DJvrMmlMO3gEEEdmrpmm6 46GtRhSDS7HEAamTOaP6Q weK2hIqPaAHRr JEHxW5AynDWaXTbgG508Y PjkYaF0AQXychZqE9PmCB OyeLorVeS5k6P3Ko4XGJP 4ycPlrfz5L1Pq PjwvdHI+NT60UOGbPL24p LTjuNSaw3eipQz4BoGnVH QlYCX2iEnsPSrzf6DhTTS tS60ftJTxk7X9 YEUjfRbljOFaIaHrsYB5b A1lPXnszikti4ufkmlvBi zej0oknj97hS59T62eLFx pZHRoPSIzMCUi XJNwiRqhwf3jhW8fRk3+P DZwyXQ6rVQ8gM1wRqFoOh Z5PFxyY989RrWlwWDwVyx qo3vkm5ireJs4 BySbHFWdwyGtfDgbMWT5u 8QhSr34G55lXMwqTIQmYT VxPHNqAVYzdXsxvl6muO3 wIi8+EJ2cy1tw je43hG48oNU+NDYpMCT4n WibRIwwGWBsxD7fUJbbZv R4OSCvSvXibX86kOTtRLc yAd8oeLrzwKjr QI1yPAUptfxgx485HsFez 4duEBEfkCLzMKakNEP9X8 0qs0Q2JWZpWXRrNHJ6pFD 6jA5nsQwlnunt bGVmdDsgdmVydGljYWwtY NgrO721UHQxsPoyEcOnjK ZnO0vzicTGPD6zRqpqgBL +JHQtKQW8yMcu IPmdCNUlzM2mKHElB1y9T pSgGgR6GIthN0AoisD3OA JjpMOcEFRmbHHWnP6xyya gm2stqueuEiXa QEVmRMz3IIk5EZYhuZkjT wYpDXC3UmL3HCH3aILruW 2cbPjcwzgvnY6bQsc+Rkl OOjwvdGQ+PHRk YHU9zYwiUSyrTGDyvD0zW ULjY9p5BfZoBnH0DQlqQ6 FdjyJ1RLRadOUtMSFvgLV DcR0seuech7hw stdhFfAlNDEsIDk1MAu2M VWqtRziRqFmTHF8EiY5GF O3rSTdnF3sgYunnewsqO9 wOyc+TVJOOjwv dGQ+AVAiIQI4zFbeBKjzJ TFkoG2fXOOdZ8i6ZbAoFs M7DQftF9EshuW4AZVepKG zIEYpiXFXmR4h bapna1wtzccuUvPyLBZzE Rg3ELp1IEDjiCzeInNiDQ H2IgN4BKX7uISowZ9xbSa qgmjzsT2xLzt+ DKW1VNL0AR25KJ81U8SqN jwvdGFibGU+PHRhYmxlIH dpZHRoPScxMDAlJyBzdHl gZD8eSr5fKWFi LWNv (more content not included)... [facility] Consent for Treatmenton 08-29 Consent for Treatment [id number]#1 .00CD:[address] [facility] Insurance Correspondenceon 0 09-14-2022 Insurance Correspondence [id number]# 1.00CD:[address] [facility] PT - Assessmentson PT - Assessments [id number]# 1.00CD:[address] [facility] PT - Assessments [id number]# 1.00CD:[address] [facility] PT - Assessments [id number]# 1.00CD:[address] [facility] PT - Home Exercise Programon 09-14-2022 PT - Home Exercise Program [id number]# 1.00CD:[address] [facility] PT - Orderson 09-14-2022 PT - Orders [id number]# 1.00CD:127 Normal [facility] Coding Summary.on 09-11-2022 Coding Summary. CD:[id number] G h0bWw+PGhlYWQ+NQ2MFJF zJ63goZLjbU4sL1MTYYvJ SywgQVBQTElOSyIgbmFtZ A8odDJbMAZn IC8+OY4rTRVzVzmrqZAxr 4L4aPX0T71grq9dHQjbgC Z1OWBhOvFkxgdsy6lpmYq 6IDcuNmluOyBt FBHjbJ32TAG4aD23Jx93z PHtwQQlv9flhNd4JeSoJX YcCYD7kDxrYAkez9CzIWH tJ67bvURbl0V5 NMFqvDsehMTgHzNazLA1r L1wCYgjuchqd3sffiuuZk r7xy18yTAxi1V5pGO5V1Z gptF1ZPXnuLXz OmyhmFUUdM2saxbrh4euf gyjSdTcCHFbCYp2USe5QT GifRdePiLlWF47MJQ0XLC tzdXsG6DrYPUw uDygEaW2f7D9Ol6ZF3RUY ogkH0GXJKPRJXaknUL+PC 51bv21L9OrTkwcRoy9IQS pCPI9vUN8aG3j WJQiFXhlo7J2rHK1Q7Ijq cQogv1sc1vkYPEjYCanT9 1jsFDxc5Z1WDKqyIU7BGS hwJhqRpLiwF45 Oyc+SOFhhSzpb3NvRcclf 6qjx6rmvOo5YrxrZYAgdf SdwDynDHI3y4OeZd9mQUI svJW7hFE7vH0t TtObTyO8LPgiW272FaGkg LTzQxaxT77xB6HorUH+PH MqKpf0VCZhkJlwEM8cI5G hZGRpbmctbGVm fLogNF4iXTHwhxpzDHOfs Q1hFYJyK8i9IrOrFsP8GK aaN5MvRWUyhsodTj18oU7 gJuTvRxS2SXgx R3KqgjM2EOBtlINsECwfE AK7F49xz6C4PADaDAVqJS A2hCC9pO6dvJftbpknlUO mdDsgdmVydGlj HAyeTStmL288PIIhjIrfK kNvZGluZyBEYXRlOiAgMD MvMTQvMjAyMzwvdGQ+PHR iXHW2wOqnTFTq nOXwHHybRv7piGzwwXoxO R2iKIUckuglTGCtwI7tVM WrnXMdrPyePU7iNBTscoz rd100RfQoSLX8 ZYXvqJIuC4UfaC8rAtFsF OPqYKPeP6KuwDUaXFbmP7 24PUltRxJ2CAYsroKuK5G sLWFsaWduOiB0 a7G3Jo4Kq7JduruiH3Gxk REpJdDyWenqHWo1U5DaEh wvdHI+WG64ODRgEO00NOk 0DLF0sMhzGFsg FPLaA7BltW3jLkOnKPWbT GRkOyc+PHRhYmxlIHdpZH RoPScxMDAlJyBzdHlsZT0 xUk8gELFzRSDb yQpidKXlTrEze7siGZCtF HhyHQ2opVgpP6RltIV4XD Gtp2i0Fq07L88pK5WcwWN +GDNnlUU3vIO6 pE4ySxSaWeN1EYpwV045D jVuqJDlWniif6nfp2shkK e6XeC0YOCklpIxbXozEAR 6j6IpCs05V88d IHdpZHRoPSIxNSUiIHZhb Kvhww7tpB8gAc6+PGNvbC J4uGT6vW0jPzHgUsO3HNm xE086NbQgqVQi Hzjxi1grl8sdzFf3KaMlC FWxizDwnJrwIFX4o1FpMq 00K7RjtDnju9GnEtx8ty0 2zCSts7F9fAD2 J1IfUVKklbzkhOOrlScxC R5dXYCxgmouPMTzkW0tDM OsI1i0AcCqFjB8XWqoU0K lrvK2DJOlcKOt GDLipMVRiH9mbwztb0qde ypuHoHfMRGiKCa3FUz8PB OexDhoVtTmCCE4IeY4CSG 1qIYmqU9bbOmm lgcdcO0qSbt+MWY7vAKbg IZBUP7pKmoyjQT+PHRkIH F2hSpaKSjrYKXcbW7dHXV tQ7o6AtAnRaX7 HTidX0DqrtY7OAWljFJzT RChlDCDhU9afjrxn0khsi ysRlLaBPClVQy6BNg5TWD saWduOiBsZWZ0 TbG5KEK8kFQxmP7ncKyvh jnmcL9jJxt+QmlydGggRG V1ABh4V4YxXgm4APVmoHo pVD2usHNtDVxm Bw6frEryqQhrXR7hNZIhc qxyf853WqYma4rxTCIqlI SyYKgzKAS8Q01hw9S0DHM vDANbBVG8yGC6 zK5vjThaukmflWPhzLlao mOipJglSWdlKCrsB610KG UbiPozSzMgVIh1K4FtKel 9MAFjkBnpWM0b zLSkEKvpBn4ulMgowWvaS U3cHUMoagkdn447KgAtj9 ioNINcmMLjTCodNMM5I07 pk0A0BDSjUAJc AYR6hTI4zM0haMombglku GVmdDsgdmVydGljYWwtYW joU463LORddJdfDuVteMn 5B4ZjMre3FJWf bYkmDU2swRKjIPlqPd3rb CbpyLcaGS9eOAFvqgyyu9 52SmDzi7siOQIikVMiSJn eBHG5E45ux7B9 XKGvFCQgLNL1uTP4qA8pk GlnbjogbGVmdDsgdmVydG zgVEkeMTdzY430RZSwvWg nPlBhdGllbnQg QFhdAPe3M7HiCrddhZH+P Y02SRKeWN82gPGsaPVwz0 pbhIb2TmNxOTNzBNG9xFq pEPzxq3ZwBQPv V44vlDQux7N7SHOjlMhgz DVcTsSveJA3iE4fLMfmof vqi7wezierCuwye2cdjs0 3lL78U90uXQnn ZHRoPSIzMCUiIHZhbGlnb p2ggH5hSz2+YNLnqVX5rB A4bU6dSMOaHeK1BIavC73 9InRvcCIvPjxj p5lbf7aycNs4CpB9IZLcz rRopEhaEUV9z7OeZo59Y7 9sIHdpZHRoPSIyMCUiIHZ vmJbqpc9xcZ5j Ii8+APMtjPO9dPB9qN6dM xImJjL5KKknG095XtJztX GoDqisK46kA1AoiGB+PHR xWbs7UBIezOqa UC5kpEWpVXrnSb8wWQM4N nChUvZeNIvrG0EwBJZhlk nsevfqnOX8WIDoYDTqsE2 5Og4nrAemQHDm aVGXoT2jnuxhx1fclsmuW dIsZMHfSJl9YHi6EVUrcH eyTuJlGGE6AhY0VLW7uCU stP9bsSrkwjbw eU7fB2YnPRMbksefXu87e N7dGeSgYbV6QWrtNbi+QV VUOKTRYT1ZNMFsAQYTUJJ NEA6dPLoxpVC+ DILbWCI0qKwpXVmrGKUac M5gDWSzZ6x8WcUxQaJ3NM mcR6HtASCagguuIx83zP8 iQoDrQqW6JTkz E2PhmlB9SCTjbUBaTVxzG OS6I77cx7Q6EMNxEXZdAB O8xYO5iG9saFeguwoyaBU mdDsgdmVydGlj GTzsPOlmZ222DKTagShiK jV6AnMzBhQ4VjZ3K0EwNf y2UCZciUwpRD3oiCKgGPf bIy5nmVjmnPgq AG2gNWFfdxqmMLOlnO6jM NWjpRLpjWvePB4iTESbca lcc231EhJqAHC5QFPxxDX tD7YawA8hDlVd INSgJUXdR0ZoqYHeDSqlL 926DUcjTfC3QIVrjvMxJ7 YtCPYklOvmOmM1l2I0Vb6 1NyBZZWFyczwv dGQ+DKXhQSC8dMzlWLmaA QMvkB8vJCWtN0o2JgDqZz J2ZImtP9JiSBCetpalUn2 0nU0dReUcVsY1 XYkvI6NxtqH1GIUkcILeX MbgANG7P82hj3L1SFFaWN ZvRRN7vXK1sZ5stIeodyl gbGVmdDsgdmVy fKbeMSebIJmbL589LZCzf YjpGf3xxIZ0R9WnCed0OY HjhWxeIO4onWHnQXxaEy6 ccVennJlbJT0z MPSkvacfUTQzsF8eOJJfm UWyrIldSD0cOOWzuikaa5 94GgYsFGZ0VLOiuFSkJ1U iiW8dZkZhHZJv OSFsO5DkoBGsNXjcS832N VidAlW6CYDnvsPtR2TjRD PkfSylMgC1o8J8Mc9KStB lcnZhdGlvbjwv dGQ+HC96ey68T1PxMnydJ rw5LRIdDUZ1bWG2fX4lPW TkPMoua1Y5eWL5N1LgxpK ydb1rc6usDIKa TKlsY33ifIYve3G2YFDxh ZB6RHVwnHhuDwEwxB96Fq c+MYFumFevx6EeOrdlt4u kw0fhaGo0SkPp FNZcqxQyzPrsSZP1n7DuL o80B07wABeeZRAfRPLiWS AhVDAdgXiwih6sbB2kHj4 +LJOpqWR2sOB3 xC8qPjIbLeG8TKufC730A xMtwNZnHpzcu0dct2vdsG f4TyKqDPXsaiAxnZrxJMS 8g7JmGg70S8Iv vXvlf3FmBsf7be82vUQwf 7C8hXH0C9UhFGNeqhfgfY HeqDfnLM8pZKCpcjltZCG yfC0cYHAoL3k8 WnPiHgH1OOluB3PojuA3R PXxiBXgGCHhsYNIiI7cdy gfc0cvwzwiMaVhBTKnAQb 0CWy8YUIfnVuh ApCqOIZ3SmX2NMS7cZFgb Z8pgDsrwadoyF8qHmq+UG e4j4gmdHXxBF4lbXP0AW2 0ZQ94vGOkv3G9 bJQ1U1OeTXVudcgrjytrb ER5AGGiKALxoQ72Gr3ijA olNy4nVYAjCIS3RRGgbAJ gU4KssK5rFqOc WGQbHRWeG4OohSSnTLrrN 324SZllUiZ0OUXdctZcT6 GhHICcaGffTyN2o5C5Bl1 ONG12FB54IT60 cUOgw9U3yLR9E2WmCPRwq ybnhprzrYY8EFTvHBCjtT 71Gw4ypLupQw8bCTWbSWF 6IVGlxOJbW9Iy jJ5qRzNwYTMpHAArL6Wvi SYkYHnnW597YLjeEkS0NO EzecXgX9EcZPAvgHqkCwU 9s7E8Wf0HYh01 ES93DJ14mRAnv8F7qED1B 6ZnFPXugkoookayzTY0FD BqGTUpbD17Sn9hkAfyRw8 zLVMaOTG2BDPv oOTzZ5XnzH8vYkVuEVXfO DZgL2VmfECrNCraN803GU vyAoH4HEXhsaGjQ3PiUFF olWaiGrN8o5D5 Zb3ZFPdyipr9B7IdRxrkp HI+JH84JHMoSQ71iBVoeK Pij5kfgFj0IvRlGTWjZEJ 8zIliDRguq1Iw ZXIt (more content not included)... Normal [facility] ED Note-Physicianon 09-12-19 ED Note-Physician Basic Information Time Seen: Jennifer Liang PA-C 09/08/2022 18:38 Chief Complaint Pt. came here d/t dizziness, lightheadedness and blurring of vision for a week now. pt said he was in [facility] and they took his Temp and it was 87F, BP high when they took it, feels short of breath, cold and clammy. TAkes coumadin daily. Denies weakness,. History of Present Illness Patient is a 57-year-old male with complicated medical history that includes poorly controlled HTN, DVT (on Coumadin), anxiety, HLD and obesity who presents to the ED with his mother today at the referral of [facility] pharmacist after they checked his blood pressure and it was in the 200s. He says they also took his temperature and it was 87. On arrival to the ED patient's pressure is greater than 220 systolic and greater than 110 diastolic. He says he is on doxazosin for his blood pressure. Amlodipine is also listed he is not sure whether he takes this. Patient says that he has had 3-4 falls this past week secondary to dizziness. He describes it as room spinning dizziness like I am on a boat . He says he catches himself every time he is about to fall. Denies hitting his head nor losing consciousness. He he said occasionally feels short of breath. Denies any chest pain. Occasionally gets palpitations does not have any right now. Patient denies any vomiting but endorses nausea. Denies any ear pain, tinnitus, numbness, tingling, extremity weakness. Review of Systems A 10 point review of systems is negative except as noted above. Medical and Surgical History: Reviewed and noted Social history: Lives at home Substance use: Denies Physical Exam Vitals & Measurements T: 36.5 ?C(Oral) HR: 68(Monitored) RR: 16 BP: 139/89 SpO2: 96% HT: 177 cm WT: 121 kg BMI: 38.62 Appearance: Obese. Anxious appearing, alert and awake. Speaking in complete sentences. Vital signs reviewed, per tensive otherwise WNL Skin: Cool and clammy Head: Normocephalic, atraumatic NECK: Supple. Nml Inspection with good ROM, no JVD Eyes: PERRL. Vision grossly intact. EOMI. Reports dizziness with eye movement. Denies pain with eye movement. No nystagmus. ENT: Buccal mucosa pink and moist. Uvula is midline. Normal facial symmetry. Bilateral TMs clear. Hearing grossly normal Respiratory: LCTA b/l with normal bilateral excursion. No wheezes, rhonchi, rales. Cardiovascular: Hypertensive. RRR, no murmurs. 2+ symmetrical radial and dorsalis pedis pulses. Normal cap refill. No LE edema. Chest wall: Normal chest wall appearance and motion. Abdomen/GI: Obese abdomen. Tender LLQ. Soft, nondistended. No guarding, rigidity, rebound tenderness. NABS x4. Neuro: Alert and awake, speech Clear, cranial nerves grossly intact. No focal neurological deficit observed. Normal sensation to light touch in all 4 extremities. Normal gait. Extremities: No deformity noted on exam. Patient spontaneously moves all 4 extremities. Psych: Cooperative. Anxious Mood. Affect appropriate to context. Medical Decision Making Limitations to history: None Nursing Notes: Reviewed and utilized the nursing notes. MDM: Patient is a 57-year-old male presents to the ED for evaluation of dizziness and high blood pressure. Initially on arrival patient's blood pressure was greater than 200 systolic and greater than 100 diastolic with both automatic and manual blood pressure check. With his dizziness concern for hypertensive emergency. Have ordered head CT and 10 mg hydralazine. Prior to receiving any medication, patient's blood pressure improved to 140s systolic over 110s diastolic. I checked patient's medication list and he is not on amlodipine nor is he taking any of his anxiety medications. I feel that most likely his dizziness is from labile hypertension especially given the fact that he is on Coumadin however posterior CVA is on the differential. He does have normal test of skew and no nystagmus on exam along with no focal neurological symptoms so my suspicion for CVA is low. We will obtain up to include troponin and coags. On reassessment, patient's pressure seems stable but now he is complaining of chest pain. He reports the pain is in his left chest. Describes it as enough to be noticeable and uncomfortable but not crushing or horrible. I usually get chest pain like this with my anxiety attacks. Have added a second troponin. Patient to be given 1 mg of Ativan. Still waiting for head CT results. Imaging: I personally reviewed head CT and interpreted as no evidence of intracranial bleed. Radiologist reads as no ICH. No midline shift or mass effect. Territorial pryor-white matter differentiation is maintained throughout. Ventricles and sulci are commensurate with age. On reassessment, patient still anxious. I feel that it would be best to admit him for further management of his blood pressure and possible MRI head neck for further evaluation of posterior CVA. I discussed this with patient and he is agreeable to admit. The patient was discussed with hospitalis (more content not included)... Normal [facility] Comment on above: Result Comment: Elec tronically Signed By: Jennifer Liang PA-C\.br\Date and Time Signed: 09/08/22 21:53 EST\.br\Electronically Co-Signed By: Abdi Barger MD\.br\Date and Time Co-Signed: 09/11/22 07:21 EDT Insurance Correspondence Off iceon 09-11-2022 Insurance Correspondence Office [id number]:127 Normal [facility] COAGULATIONOrdered By: Helena Hopkins on 09-10-2022 INR Coag (PPP) [Relative time] 2.0 {INR} Invalid Interpretation Code [facility] [place] Comment on above: Result Comment: Resu lts Verified By Repeat Analysis PT Coag (PPP) [Time] 22.8 s High 9.4 - 1 2.5 second(s) [facility] [place] Discharge Instructionson Discharge Instructions [id number]:127 Normal [facility] Discharge Note-Nursingon Discharge Note-Nursing KEEGAN AUSTIN :1965 Visit Date:09/08/2022 Inpatient Discharge Instructions Your Care Team Admitting Physician - OSKAR LAZARO, Favian Landeros Consulting Physician - Tulio LAZARO, Allison aYncey MD, Miky Davies Reason for Your Visit blurry vision with a headache and dizzyness for a week saw pharmacist at [facility] who sent him to hospital Your Diagnosis Dizziness Syncope Labile hypertension Anxiety Hypertensive urgency Hyperlipidemia Smoker DVT (deep venous thrombosis) Acid reflux BPPV (benign paroxysmal positional vertigo) Dizziness Hypertension Shortness of breath Tests Performed Automated Diff Basic Metabolic Panel Capillary Glucose POC CBC w/ Auto Diff CMP eGFR HgbA1c -- Results Pending -- Lactic Acid Lipid Panel Magnesium Level PT PT & PTT Troponin Troponin 3 Hr. UA With Cult Reflex Head or Brain CT w/o Contrast MRA Head w/o Contrast MRA Neck w/o Contrast MRI Brain w/o Contrast XR Chest Single View Please visit your patient portal for your results or contact your primary care physician. This Is Your Medications List [facility] [place] ([place] physical therapy) acetaminophen-hydroco done (Curlew 325 mg-5 mg oral tablet) acetaminophen-hydroco done (Curlew 325 mg-5 mg oral tablet) amlodipine (amLODIPine 2.5 mg Tab) bacitracin topical (Bacitracin top 500 units/g Oint TUBE (15 gram)) betamethasone topical (betamethasone dipropionate topical 0.05% cream) busPIRone (busPIRone 10 mg Tab) cyclobenzaprine (cyclobenzaprine 10 mg Tab) docusate (Dulcolax Stool Softener) doxazosin (doxazosin 4 mg Tab) ezetimibe (Zetia 10 mg Tab) lorazepam (LORazepam 0.5 mg Tab) meclizine (meclizine 12.5 mg Tab) omeprazole (omeprazole 40 mg Cap-DR) simvastatin (simvastatin 20 mg Tab) warfarin (Coumadin 10 mg oral tablet) [Image Removed: STOP]Stop taking these medications nortriptyline (nortriptyline 25 mg Cap) Procedure History Bunionectomy (08/18/2020), Cheilectomy (08/18/2020), Arthroscopy of knee (12/18/2019), Cervical spinal fusion (08/04/2019), Epidural injection of cervical spine using fluoroscopic guidance (06/17/2019), Epidural injection of cervical spine using fluoroscopic guidance (05/20/2019), Epidural injection of cervical spine using fluoroscopic guidance (04/08/2019), Colonoscopy (2016), right shoulder arthroscopy with glenohumeral debridement, subacromial decompression, partial distal clavulectomy (09/21/2014), Shoulder (2012), neck surgery. Discharge Vitals Temperature (Oral) 36.4 ?C Heart Rate (Monitored) 76 Respiratory Rate 16 Blood Pressure 150/96 Blood Pressure 152/108(Standing) Blood Pressure 123/86(Supine) Weight 124.9 kg What to do next Instructions From Your Doctor Event Name Event Result Discharge Restrictions No restrictions Discharge Diet(s) Low Sodium- 2000 mg Pending Diagnostic Test Results None Pharmacy Information [facility] New Follow Up Appointments after Discharge Follow Up with Tulio LAZARO, MIGEUL Matthews When: 09/17/2022 10:00 AM EDT Where: [address] [place] [address]- Business (1) Follow Up with Sarah Bruce When: 09/12/2022 09:00 AM EDT Comments: Appointment is with Kirstin Joshi. Call physician if symptoms worsen Where: [address] [place] [address]- Business (1) Medications What How Much When Why Instructions Next Dose New meclizine (meclizine 12.5 mg Tab) 1 Tablets By Mouth Every 6 hours as needed for Dizziness Pickup at [facility]/pharmacy #[id number] Take as needed for dizziness every 6 hours New Misc Prescription (Outpatient physical therapy) 0 Dizziness BPPV (benign paroxysmal positional vertigo) For gait training Printed Prescription Unchanged acetaminophen-hydroco done (Curlew 325 mg-5 mg oral tablet) 1 Tablets By Mouth Every 6 hours as needed for for pain Dislocation of right thumb Take as needed for severe pain Unchanged amlodipine (amLODIPine 2.5 mg Tab) 1 Tablets By Mouth Every day 09/11/22 @ 9am Unchanged bacitracin topical (Bacitracin top 500 units/ g Oint TUBE (15 gram)) 1 Application Topical 4 times a day 09/10/22 @ 12pm, 4pm, and 8pm Unchanged betamethasone topical (betamethasone dipropionate topical 0.05% cream) 1 Application Topical Every day as needed for Other (see comment) 09/11/22 @ 9am Unchanged busPIRone (busPIRone 10 mg Tab) 2 Tablets By Mouth 2 times a day 09/10/22 @ 9pm Unchanged cyclobenzaprine (cyclobenzaprine 10 mg Tab) 1 Tablets By Mouth 3 times a day as needed for for spasm Take as needed for muscle spasms up to 3x a day Unchanged docusate (Dulcolax Stool Softener) 8 Tablets By Mouth At bedtime 09/10/22 @ 9pm Unchanged doxazosin (doxazosin 4 mg Tab) 1 Tablets By Mouth At bedtime 09/10/22 @ 9pm Unchanged ezetimibe (Zetia 10 mg Tab) 1 Tablets By Mouth At bedtime 09/10/12 @ 9pm Unchanged lorazepam (LORazepam 0.5 mg Tab) 1 Tablets (more content not included)... Normal [facility] [id number] 09-10-2022 HbA1c (Bld) [Mass fraction] 5.4 % Normal <=5.9 [facility] Comment on above: Performed By: #### [id number] ####[facility] [address] [place] [address] Inpatient Clinical Summaryon 09-10-2022 Inpatient Clinical Summary [place] [id number] Clinical Summary Person Information: Name: KEEGAN AUSTIN Age: 57 Years : 1965 Sex: Male PCP: Sarah Bruce DO Marital Status: Phone: [phone] Race: White Ethnicity: Non- or Language: Zambian Visit Id: Visit Reason: Hypertension; Dizziness; Shortness of breath; DIZZINESS, LABILE HYPERTENSION, ANXIETY Speciality: Acuity: Enc Type: Observation Med Service: Medical Arrival: 09/08/2022 18:08:16 Discharge: Dispo Type: Admitted as IP to this Hosp Address: [facility] [id number] Provider Notes: Diagnosis: 1:Dizziness; 2:Syncope; 3:Labile hypertension; 4:Anxiety; 5:Hypertensive urgency; 6:Hyperlipidemia; 7:Smoker; 8:DVT (deep venous thrombosis); 9:Acid reflux Problems Active Nerve damage Acid reflux Anxiety Hypertension Hyperlipidemia Depression DVT (deep venous thrombosis) Smoker Impingement syndrome of shoulder Blood clot Smoking Status: Former Smoker Functional Status: Sensory Deficits: History of Falls: Immediately prior to hospitalization Mobility Assistance Prior to Admission: Independent ADLs: Independent Current Level of Assistance for Self-Care/Mobility: Cognitive Status: Oriented x 3 Allergies No Known Allergies Measurements: Height: 177.80 cm Weight: 124.9 kg Blood Pressure: 125 mmHg / 89 mmHg BMI: 38.28 kg/m2 Procedures No Procedures Documented Immunizations No Immunizations Documented This Visit Final Med List: acetaminophen-hydroco done (Curlew 325 mg-5 mg oral tablet) 1 Tablets By Mouth every 6 hours as needed Pain 4-7. acetaminophen-hydroco done (Curlew 325 mg-5 mg oral tablet) 1 Tablets By Mouth every 6 hours as needed for pain. Refills: 0. amlodipine (amLODIPine 2.5 mg Tab) 1 Tablets By Mouth every day. bacitracin topical (Bacitracin top 500 units/g Oint TUBE (15 gram)) 1 Application Topical 4 times a day. Refills: 0. betamethasone topical (betamethasone dipropionate topical 0.05% cream) 1 Application Topical every day as needed Other (see comment). busPIRone (busPIRone 10 mg Tab) 2 Tablets By Mouth 2 times a day. cyclobenzaprine (cyclobenzaprine 10 mg Tab) 1 Tablets By Mouth 3 times a day as needed for spasm. docusate (Dulcolax Stool Softener) 8 Tablets By Mouth at bedtime. doxazosin (doxazosin 4 mg Tab) 1 Tablets By Mouth at bedtime. ezetimibe (Zetia 10 mg Tab) 1 Tablets By Mouth at bedtime. lorazepam (LORazepam 0.5 mg Tab) 1 Tablets By Mouth every day. meclizine (meclizine 12.5 mg Tab) 1 Tablets By Mouth every 6 hours as needed Dizziness. Refills: 0. omeprazole (omeprazole 40 mg Cap-DR) 1 Capsules By Mouth at bedtime. simvastatin (simvastatin 20 mg Tab) 1 Tablets By Mouth once a day (at bedtime). warfarin (Coumadin 10 mg oral tablet) 1 Tablets By Mouth at bedtime. Care Team Members: Attending Physician: Favian SCHMITT MD Consulting Physician: Allison Antunez MD; Bc LAZARO, Miky Davies Referring Physician: Follow up: With: Address: When: Sarah Bruce [address] [place] [address] Business (1) Within 7 to 10 days Comments: Call for followup appointment Call physician if symptoms worsen With: Address: When: Allison Antunez MD [facility] [address] [place] [address] Within 2 to 4 weeks Patient Education Information: Benign Positional Vertigo Normal [facility] Inpatient Patient Summaryon 09-10-2022 Inpatient Patient Summary [address] [address] Patient Discharge Instructions PERSON INFORMATION Name: KEEGAN AUSTIN Date of : 1965 Current Date: 09/10/2022 09:11:47 PHYSICIANS Admitting Physician: Favian SCHMITT MD Primary Care Physician: Sarah Bruce DO PCP Comment: Discharge Diagnosis: 1:Dizziness; 2:Syncope; 3:Labile hypertension; 4:Anxiety; 5:Hypertensive urgency; 6:Hyperlipidemia; 7:Smoker; 8:DVT (deep venous thrombosis); 9:Acid reflux Condition at Discharge: Stable KEEGAN AUSTIN has been given the following list of follow-up instructions, prescriptions, and patient education materials: PATIENT FOLLOW-UP INFORMATION Diet: Low Sodium- 2000 mg Discharge Activity: Discharge Restrictions: No restrictions Wound Care Instructions: Remove Your Dressing In Days Call Your Doctor For: IF UNABLE TO CONTACT YOUR PHYSICIAN AND YOU FEEL IT IS AN EMERGENCY, GO TO THE NEAREST EMERGENCY ROOM OR CALL 911 Home Treatment: Devices/Equipment: None Special Services: Additional Instructions: Primary Care Physician to provide the following pending test results: None Follow up: With: Address: When: Sarah Bruce [address] [place] [address] Business (1) Within 7 to 10 days Comments: Call for followup appointment Call physician if symptoms worsen With: Address: When: [facility]io [facility] [address] [place] [address] Within 2 to 4 weeks In the event that this physician does not participate in your insurance network, please consult with your insurance company to find a nearby participating provider. Comment: GEOVANNA Kyle STEPHEN L, have received the attached patient education materials/instruction s and have verbalized understanding: Patient Signature Date Clinican/Nurse Signature Date HERE ARE THE MEDICATION CHANGES THAT OCCURRED DURING YOUR HOSPITAL STAY New Medications [id number], [address] [place], [place] [id number], [phone] meclizine (meclizine 12.5 mg Tab) 1 Tablets By Mouth every 6 hours as needed Dizziness. Refills: 0. Last Dose: ____Next Dose: ____ Medications to Continue with No Changes Other Medications acetaminophen-hydroco done (Curlew 325 mg-5 mg oral tablet) 1 Tablets By Mouth every 6 hours as needed Pain 4-7., nerve damage Last Dose: ____Next Dose: ____ acetaminophen-hydroco done (Curlew 325 mg-5 mg oral tablet) 1 Tablets By Mouth every 6 hours as needed for pain. Refills: 0. Last Dose: ____Next Dose: ____ amlodipine (amLODIPine 2.5 mg Tab) 1 Tablets By Mouth every day. Last Dose: ____Next Dose: ____ bacitracin topical (Bacitracin top 500 units/g Oint TUBE (15 gram)) 1 Application Topical 4 times a day. Refills: 0. Last Dose: ____Next Dose: ____ betamethasone topical (betamethasone dipropionate topical 0.05% cream) 1 Application Topical every day as needed Other (see comment)., psoriasis Last Dose: ____Next Dose: ____ busPIRone (busPIRone 10 mg Tab) 2 Tablets By Mouth 2 times a day. Last Dose: ____Next Dose: ____ cyclobenzaprine (cyclobenzaprine 10 mg Tab) 1 Tablets By Mouth 3 times a day as needed for spasm. Last Dose: ____Next Dose: ____ docusate (Dulcolax Stool Softener) 8 Tablets By Mouth at bedtime. Last Dose: ____Next Dose: ____ doxazosin (doxazosin 4 mg Tab) 1 Tablets By Mouth at bedtime. Last Dose: ____Next Dose: ____ ezetimibe (Zetia 10 mg Tab) 1 Tablets By Mouth at bedtime. Last Dose: ____Next Dose: ____ lorazepam (LORazepam 0.5 mg Tab) 1 Tablets By Mouth every day. Last Dose: ____Next Dose: ____ omeprazole (omeprazole 40 mg Cap-DR) 1 Capsules By Mouth at bedtime. Last Dose: ____Next Dose: ____ simvastatin (simvastatin 20 mg Tab) 1 Tablets By Mouth once a day (at bedtime). Last Dose: ____Next Dose: ____ warfarin (Coumadin 10 mg oral tablet) 1 Tablets By Mouth at bedtime., JESSICA SMITH Dr[facility] Last Dose: ____Next Dose: ____ No Longer Take the Following Medications nortriptyline (nortriptyline 25 mg Cap) 1 Capsules By Mouth once a day (at bedtime). Comment: MEDICATION LIST PROVIDED FOR YOU IS A LIST OF YOUR CURRENT MEDICATIONS. PLEASE CARRY THIS WITH YOU AT ALL TIMES. acetaminophen-hydroco done (Curlew 325 mg-5 mg oral tablet) 1 Tablets By Mouth every 6 hours as needed (more content not included)... [facility] Interdisciplinary Note - Sravan e Manageron 09-10-2022 Interdisciplinary Note - Cleaner And Dyer Patient DC before CRM to room to make rounds Unsure if patient had DC needs Normal [facility] Comment on above: Result Comment: Elec tronically Signed By: Em Farmer\.denae\Date and Time Signed: 09/10/22 15:55 EDT MRA Head w/o Contraston 08-29 MRA Head w/o Contrast Exam Date/Time: 09/09/2022 15:23 EDT Reason for Exam: TIA Report IMPRESSION: THERE IS NO EVIDENCE OF SIGNIFICANT STENOSIS OR LARGE VESSEL CUT OFF. CLINICAL HISTORY: TIA COMPARISON: NONE. FINDINGS: The visualized portions of the intracranial circulation including the cavernous carotid arteries, the supraclinoid carotid arteries and the carotid bifurcations are within normal limits. The A1 and A2 segments of the anterior cerebral arteries are unremarkable. The middle cerebral arteries are without stenosis or cut off to the level of bifurcation. The M2 and M3 segments are within normal limits. The posterior circulation demonstrates codominant vertebral arteries. The basilar artery is within normal limits and the posterior cerebral arteries are unremarkable. Ordering Provider: Favian SCHMITT FINAL REPORT Dictated: 09/10/2022 8:57 am Scooter Tovar MD, V. Signed (Electronic Signature): 09/10/2022 8:57 am Signed by: Scooter Tovar MD, V. Transcribed by: USHA Technologist: AYAN Technical Comments None Normal [facility] MRA Neck w/o Contraston 08-29 MRA Neck w/o Contrast Exam Date/Time: 09/09/2022 15:23 EDT Reason for Exam: TIA Report IMPRESSION: There is no hemodynamically significant stenosis of the internal carotid arteries. Evaluation of the vertebral arteries is limited due to the presence of orthopedic hardware. EXAMINATION: MRA Neck w/o Contrast DATE AND TIME:09/09/2022 1:07 PM CLINICAL HISTORY: Stroke symptoms TIA COMPARISON: Cervical spine x-rays from 04/18/2021 TECHNIQUE: [id number] images of the common carotid arteries, carotid bifurcations and internal and external carotid arteries are performed including 3-dimensional MIP reconstructions. MRA NECK FINDINGS Carotid: There is no hemodynamically significant stenosis, vascular dissection or aneurysm of the right common or internal carotid arteries. There is no hemodynamically significant stenosis, vascular dissection or aneurysm in the left common or internal carotid arteries. Cervical Vertebral Arteries: Patency: Evaluation is limited due to metallic artifact. There is no focal stenosis aneurysm or dissection in the visualized portions. Vertebral arteries are codominant. Ordering Provider: Favian SCHMITT FINAL REPORT Dictated: 09/10/2022 9:01 am Scooter Tovar MD, V. Signed (Electronic Signature): 09/10/2022 9:01 am Signed by: Scooter Tovar MD, V. Transcribed by: USHA Technologist: AYAN Technical Comments None Normal [facility] MRI Brain w/o Contraston MRI Brain w/o Contrast Exam Date/Time: 09/09/2022 15:23 EDT Reason for Exam: TIA Report IMPRESSION: There are no acute intracranial changes, no evidence of ischemia or hemorrhage. There are no regions of signal abnormality. EXAMINATION: MRI Brain w/o Contrast CLINICAL HISTORY: TIA COMPARISONS: Brain CT from 09/08/2022 TECHNIQUE: Multiplanar multisequence images of the brain were obtained without contrast. Diffusion perfusion imaging was obtained. BRAIN MRI FINDINGS: There are no extra-axial collections. There is no evidence of hemorrhage. There are no areas of perfusion diffusion signal abnormality to suggest ischemia. The susceptibility images do not demonstrate evidence of hemosiderin deposition within the brain parenchyma or the leptomeninges. There is preservation of the pryor-white matter differentiation. There are a few foci of T2/FLAIR increased signal in the subcortical and periventricular white matter without associated edema or mass effect. The sulci and ventricles are within normal limits without evidence of hydrocephalus. The midline structures are intact, the corpus callosum is within normal limits. The region of the pineal gland and the sella turcica are unremarkable. There are no space-occupying lesions in the posterior fossa. The basilar cisterns are patent. The craniocervical junction is unremarkable. The visualized portions of the orbits are within normal limits, the globes are intact. The visualized portions of the paranasal sinuses are within normal limits. The calvarium and soft tissues are unremarkable. Report Ordering Provider: Favian SCHMITT FINAL REPORT Dictated: 09/10/2022 8:54 am Scooter Tovar MD, V. Signed (Electronic Signature): 09/10/2022 8:54 am Signed by: Scooter Tovar MD, V. Transcribed by: USHA Technologist: AYAN Technical Comments None Normal [facility] Message from Medicareon 08-29 Message from Medicare [id number] .[id number]:127 Normal [facility] PTon 09-10-2022 INR Coag (PPP) [Relative time] 2.0 {INR} Invalid Interpretation Code [facility] Comment on above: Result Comment: Resu lts Verified By Repeat Analysis INR results are specifically intended to assess patients stabilized on long-term Anticoagulation therapy suggested INR?s ?Less Intensive Anticoagulation? 2.0 ? 3.0 Conventional Range 3.0 ? 4.5 Performed By: #### 2 [id number] #### [facility] [address] [place] [address] PT Coag (PPP) [Time] 22.8 second(s) High 9.4-12.5 [facility] Comment on above: Result Comment: 15 d ays - 4 weeks 1 - 5 months 6 -11 months 1 ? 5 years 6 ? 10 years 11 -17 years Mean: 11.2 (9.5 ? 12.6) Mean: 11.0 (9.7 ? 12.8) Mean: 11.0 (9.8 ? 13.0) Mean: 11.3 (9.9 ? 13.4) Mean: 11.7 (10.0 ? 14.6) Mean: 11.8 (10.0 - 14.1) Pediatric Reference ranges were obtained from a study by Bryan Raines et al. prepared from 1437 samples obtained at 7 different centers using the same coagulation reagent and instrumentation as [facility] [place] Currently there are no coagulation studies available worldwide for children to 14 days, and no normal ranges. Performed By: #### 2 [id number] #### [facility] [address] [place] [address] Progress Note - Pharmacyon 0 09-10-2022 Progress Note - Pharmacy Pharmacy to Dose Warfarin Indication for warfarin therapy: DVT Target INR: 2.0-3.0 Ordering Provider: Favian Schmitt Taking warfarin prior to admission: Yes Home regimen: 10 mg daily per Med Rec Total weekly dose: 70 mg INR values/Dose given: 09/08/22 INR: 2.8 - no dose ordered/given by telepharmacy 09/09/22 INR: 2.3 - 15 mg 09/10/22 INR: 2.0 Scheduled dose for today: Other comments: 09/10/22: INR continues to trend down likely from omitted dose 09/08. Will given another booster of 12.5 mg for today. 09/09/22: INR is therapeutic, patient last received warfarin on 09/07/22, per med rec. Patient takes at bedtime and no dose was ordered on 09/08/22 by telepharmacy. Therefore, plan to give a booster dose of 15 mg tonight due to INR dropping from 2.8 to 2.3 over night. Home Dose Recommendation: TBD Please contact pharmacy at ext. [phone] with any questions. dose for today of 12.5 mg Normal [facility] Progress Note-Physicianon Progress Note-Physician Assessment/Plan Reason for consult: ASSESSMENT: Dizziness with position change or movement may be 2 things simultaneously here: 1. Vertigo, peripheral in nature. Initially with episodes of room spinning, these have decreased in intensity and are now more like a boat like sensation. Angular movements such as sitting up out of bed can set it off. MRI of brain is without any findings concerning for a central vertigo syndrome. Anterior and posterior circulation appear to be intact, with some slight visualization limitations in the neck related to his cervical hardware. 2. Orthostatic hypotension with syncope. 3 events. Syncopal events pretty clearly preceded by presyncopal symptoms. Do not suspect seizure. Orthostatic vital signs here were unremarkable. PLAN: 1. Continue home warfarin 2. No clear indication for the continuation of the aspirin 81 mg daily that was started here 3. No other recommendations at this time 4. He is going to have outpatient vestibular physical therapy 1. Dizziness (R42: Dizziness and giddiness) 2. Syncope (R55: Syncope and collapse) 3. Labile hypertension (R09.89: Other specified symptoms and signs involving the circulatory and respiratory systems) 4. Anxiety (F41.9: Anxiety disorder, unspecified) 5. Hypertensive urgency (I16.0: Hypertensive urgency) 6. Hyperlipidemia (E78.5: Hyperlipidemia, unspecified) 7. Smoker (F17.200: Nicotine dependence, unspecified, uncomplicated) 8. DVT (deep venous thrombosis) (I82.409: Acute embolism and thrombosis of unspecified deep veins of unspecified lower extremity) 9. Acid reflux (K21.9: Gastro-esophageal reflux disease without esophagitis) Subjective He is feeling much better today. He can move his head around and ambulate without any significant dizziness symptoms. Review of Systems GEN: No fevers or chills. CV/PULM: No chest pain at this time. No shortness of breath. No palpitations. NEURO: No headaches. No loss of vision. No double vision. No dysphagia. No speech changes. No focal weakness. No sensory loss. Objective Vitals & Measurements T: 36.3 ?C(Oral) HR: 89(Monitored) RR: 18 BP: 125/89 BP: 152/108(Standing) BP: 123/86(Supine) SpO2: 95% WT: 124.9 kg Intake & Output This visit (24 hour periods starting at 07:00 EDT) 09/09/22 * 09/08/22 09/07/22 Total Summary Intake mL 2 201 -- Output mL 900 300 -- Fluid Balance -898 -99 -- Intake (4) Oral Intake mL -- 200 -- hydrALAZINE mL -- 0.5 -- lorazepam mL -- 0.5 -- ondansetron mL 2 -- -- Total 2 201 -- Output (1) Urine Voided mL 900 300 -- Total 900 300 -- Counts (0) * This column has not completed the indicated time period. Indicates a 23 hour day. Physical Exam GEN: General appearance normal. Well-kempt. No distress. No visualized deformities or trauma. CARDIO/VASC: Limbs without significant edema and appear well-perfused. PULM: Normal work of breathing. SKIN: Visualized skin is intact and without lesions aside from age-related findings. MS: Affect is normal. Patient is alert and generally oriented. Normal attention. LANG: Speech is fluent and non-dysarthric. EYES: Pupils equal/reactive/consen sual. Ocular motility full. No pathologic nystagmus. CN: Facial sensation normal. Hearing acuity normal. Face without droop and with normal motor function. MOTOR: Muscle bulk normal. Muscle tone normal. Muscle strength normal. No tremors. REFLEXES: Reflexes normoactive in the upper extremities and +3/4 at bilateral patella with crossed adductors SENSORY: Light touch normal. Vibratory sensation intact in distal extremities. CEREBELLAR: No limb ataxia. Lab Results PT: 26.3 second(s) High (09/09/22 07:56:00) INR: 2.3 (09/09/22 07:56:00) Diagnostic Results (09/08/2022 19:[address] Head or Brain w/o Contrast) * Final Report * Reason For Exam Headache POWERSCRIBE REPORT IMPRESSION: NO ACUTE FINDINGS. CT BRAIN WITHOUT INTRAVENOUS CONTRAST MEDIUM. History: Dizziness, blurring vision. Technical factors: CT imaging of the brain was obtained and formatted as 5 mm contiguous axial images. 2.5 mm contiguous axial images were obtained through the osseous structures. Sagittal and coronal reconstruction obtained during postprocessing. Comparison: February 10, 2019. Findings: Extra-axial spaces: Normal. Intracranial hemorrhage: None. Ventricular system: Without anomaly. Basal Cisterns: Normal. Cerebral Parenchyma: Without anomaly.. Midline Shift: None. Cerebellum: Normal. Paranasal sinuses and mastoid air cells: Normal. Visualized Orbits: Normal. All CT scans at this facility use dose modulation, iterative reconstruction, and/or weight based dosing when appropriate to reduce radiation dose to as low as reasonably achievable. Ordering Provider: Jennifer Liang Signature Line FINAL REPORT Dictated: 09/09/2022 (more content not included)... Normal [facility] Comment on above: Result Comment: Elec tronically Signed By: Teri Moore RN\.br\Date and Time Signed: 09/10/22 06:57 EDT\.br\Electronically Co-Signed By: Familia Acosta DO\.br\Date and Time Co-Signed: 09/10/22 10:18 EDT Auto Diffon 09-09-2022 Basophils/100 WBC (Bld) 1.1 % Normal 0.0-2.0 [facility] Comment on above: Order Comment: Order Added by Discern Expert. Performed By: #### 1 [id number], 5209585, 0948383, 5365865, 0475929, [id number] #### [facility] [address] [place] [address] Basophils/Leukocytes Auto (Bld) [Pure # fraction] 0.1 E9/L Normal 0.0-0.2 [facility] Comment on above: Order Comment: Order Added by Discern Expert. Performed By: #### 1 [id number], 8548379, 9077032, 7833751, 6172955, 8909819 #### [facility] [address] [place] [address] Eosinophils/100 WBC (Bld) 3.1 % Normal 0.0-8.0 [facility] Comment on above: Order Comment: Order Added by Discern Expert. Performed By: #### 1 5519189, 3683939, 9672154, 4521843, 1793227, 3639713 #### [facility] [address] [place] [address] Eosinophils/Leukocytes Auto (Bld) [Pure # fraction] 0.3 E9/L Normal 0.0-0.5 [facility] Comment on above: Order Comment: Order Added by Discern Expert. Performed By: #### 1 2524859, 7219135, 9460279, 6102369, 0050683, 6576401 #### [facility] [address] [place] [address] Lymphocytes/100 WBC (Bld) 25.3 % Normal 14.0-50.0 [facility] Comment on above: Order Comment: Order Added by Discern Expert. Performed By: #### 1 [id number], 5758185, 9658561, 5643898, 9680909, 7249550 #### [facility] [address] [place] [address] Lymphocytes/Leukocytes Auto (Bld) [Pure # fraction] 2.4 E9/L Normal 1.0-4.0 [facility] Comment on above: Order Comment: Order Added by Stephanie Expert. Performed By: #### 1 7311157, 7723463, 8080904, 0562627, 1610980, 9751975 #### [facility] [address] [place] [address] Monocytes/100 WBC (Bld) 8.7 % Normal 4.0-14.0 [facility] Comment on above: Order Comment: Order Added by Discern Expert. Performed By: #### 1 4297926, 1426502, 2813835, 1382836, 2732977, 7249353 #### [facility] [address] [place] [address] Monocytes/Leukocytes Auto (Bld) [Pure # fraction] 0.8 E9/L Normal 0.2-1.0 [facility] Comment on above: Order Comment: Order Added by Discern Expert. Performed By: #### 1 7795872, 9513453, 5729354, 7482604, 9917315, 5717763 #### [facility] [address] [place] [address] Neutrophils/100 WBC (Bld) 61.8 % Normal 36.0-75.0 [facility] Comment on above: Order Comment: Order Added by Discern Expert. Performed By: #### 1 3920584, 1082339, 1059568, 5558829, 4697536, 4682074 #### [facility] [address] [place] [address] Neutrophils/Leukocytes Auto (Bld) [Pure # fraction] 5.8 E9/L Normal 2.0-7.5 [facility] Comment on above: Order Comment: Order Added by Discern Expert. Performed By: #### 1 5360762, 8552352, 0302105, 6080019, 7336967, 1402961 #### [facility] [address] [place] [address] BMPon 09-09-2022 Anion gap [Moles/Vol] 17 mmol/L High 6-16 [facility] Comment on above: Performed By: #### 1 9212579, 7106692, 2876457, 1814299, 0576966, 1709727 #### [facility] [address] [place] [address] Calcium [Mass/Vol] 8.9 mg/dL Normal 8.9-11.1 [facility] Comment on above: Performed By: #### 1 7284414, 9685701, 3362604, 1278155, 1725332, 9534405 #### [facility] [address] [place] [address] Chloride [Moles/Vol] 100 mmol/L Low 101-111 [facility] Comment on above: Performed By: #### 1 4455656, 4682055, 4694217, 2615403, 4986490, 6138731 #### [facility] [address] [place] [address] CO2 [Moles/Vol] 21 mmol/L Normal 21-31 [facility] Comment on above: Performed By: #### 1 1794060, 6882700, 4081812, 2321418, 4040765, 6238952 #### [facility] [address] [place] [address] Creatinine [Mass/Vol] 1.0 mg/dL Normal 0.5-1.3 [facility] Comment on above: Performed By: #### 1 2978213, 8932980, 4589665, 1094219, 1574319, 2661614 #### [facility] [address] [place] [address] Glucose [Mass/Vol] 96 mg/dL Normal 55-199 [facility] Comment on above: Result Comment: If t his glucose result represents a fasting glucose, interpretation should refer to the following reference range: 55-99 mg/dL Performed By: #### 1 4480537, 9484467, 9275741, 8342086, 9658968, 7651671 #### [facility] [address] [place] [address] Potassium [Moles/Vol] 4.0 mmol/L Normal 3.5-5.3 [facility] Comment on above: Performed By: #### 1 9259661, 3772139, 1409248, 6591185, 4746760, 8767557 #### [facility] [address] [place] [address] Sodium [Moles/Vol] 134 mmol/L Low 135-145 [facility] Comment on above: Performed By: #### 1 0036536, 9699634, 6694033, 2080492, 7742741, 1527635 #### [facility] [address] [place] [address] Urea nitrogen [Mass/Vol] 14 mg/dL Normal 5-21 [facility] Comment on above: Performed By: #### 1 1553957, 1673473, 0939651, 5175729, 7848967, 5968689 #### [facility] [address] [place] [address] Urea nitrogen/Creatinine [Mass ratio] 14 No Units Normal 10-20 [facility] Comment on above: Performed By: #### 1 5089360, 8969969, 8777663, 6955614, 5691881, 9036340 #### [facility] [address] [place] [address] CBC w/ Auto Diffon Erythrocyte distribution width (RBC) [Ratio] 13.9 % Normal 10.9-14.2 [facility] Comment on above: Performed By: #### 1 7515644, 7448920, 6076995, 4368347, 1907621, 2927827 #### [facility] [address] [place] [address] Hematocrit (Bld) [Volume fraction] 51.6 % High 37.7-49.0 [facility] Comment on above: Performed By: #### 1 2393297, 8098995, 0216619, 7502119, 5865781, 2952392 #### [facility] [address] [place] [address] Hemoglobin (Bld) [Mass/Vol] 17.8 g/dL High 13.5-17.5 [facility] Comment on above: Performed By: #### 1 9705413, 5025480, 5809924, 0903089, 3937837, 9196419 #### [facility] [address] [place] [address] MCH (RBC) [Entitic mass] 29.2 pg Normal 27.0-34.0 [facility] Comment on above: Performed By: #### 1 0194298, 7954347, 9351436, 1313427, 8269337, 6347008 #### [facility] [address] [place] [address] MCHC (RBC) [Mass/Vol] 34.5 g/dL Normal 31.4-36.0 [facility] Comment on above: Performed By: #### 1 5056909, 5387069, 5028660, 9373431, 3723168, 4857230 #### [facility] [address] [place] [address] MCV (RBC) [Entitic vol] 84.6 fL Normal 80.0-100.0 [facility] Comment on above: Performed By: #### 1 9992958, 6013637, 4422428, 1010783, 4777626, 2942357 #### [facility] [address] [place] [address] Platelet mean volume (Bld) [Entitic vol] 9.8 fL Normal 6.4-10.8 [facility] Comment on above: Performed By: #### 1 3750739, 4085689, 7261001, 0948328, 5536784, 1436992 #### [facility] [address] [place] [address] Platelets (Bld) [#/Vol] 212.0 E9/L Normal 150.0-500.0 [facility] Comment on above: Performed By: #### 1 8464905, 8314891, 2147699, 8275530, 9514962, 4802920 #### [facility] [address] [place] [address] RBC (Bld) [#/Vol] 6.1 E12/L High 4.3-5.9 [facility] Comment on above: Performed By: #### 1 3991012, 4891226, 6719085, 7779233, 0740471, 1513736 #### [facility] [address] [place] [address] WBC corrected for nucl RBC Auto (Bld) [#/Vol] 9.5 E9/L Normal 4.0-11.0 [facility] Comment on above: Performed By: #### 1 1462742, 0888819, 6825183, 3120600, 3209177, 9575172 #### [facility] [address] [place] [address] CHEMISTRYOrdered By: SYSTEM SYSTEM on 09-09-2022 Anion gap [Moles/Vol] 17 mmol/L High 6 - 16 mEq/L [facility] Calcium [Mass/Vol] 8.9 mg/dL Normal 8.9 - 11. 1 mg/dL [facility] Chloride [Moles/Vol] 100 mmol/L Low 101 - 1 11 mmol/L [facility] Cholesterol [Mass/Vol] 139 mg/dL Normal 120 - 200 mg/dL [facility] Cholesterol in HDL [Mass/Vol] 41 mg/dL Invalid Interpretation Code [facility] Cholesterol in LDL [Mass/Vol] 82 mg/dL Normal <=129mg/dL [facility] Cholesterol in VLDL [Mass/Vol] 23 mg/dL Normal 7 - 40 mg/dL [facility] CO2 [Moles/Vol] 21 mmol/L Normal 21 - 31 mmol/L [facility] Creatinine [Mass/Vol] 1.0 mg/dL Normal 0.5 - 1.3 mg/dL [facility] GFR/1.73 sq M.predicted among blacks MDRD (S/P/Bld) [Vol rate/Area] mL/min/1.73 m2 Normal >=59mL/min/1 .73 m2 [facility] S GFR/1.73 sq M.predicted among non-blacks MDRD (S/P/Bld) [Vol rate/Area] mL/min/1.73 m2 Normal >=59mL/min/1 .73 m2 FT Chem S Glucose [Mass/Vol] 96 mg/dL Normal 55 - 199 mg/dL [facility] Magnesium [Mass/Vol] 2.3 mg/dL Normal 1.3 - 2 .4 mg/dL [facility] Potassium [Moles/Vol] 4.0 mmol/L Normal 3.5 - 5.3 mmol/L [facility] Sodium [Moles/Vol] 134 mmol/L Low 135 - 145 mmol/L [facility] [place] Triglyceride [Mass/Vol] 116 mg/dL Normal <=149mg/dL [facility] [place] [facility] Urea nitrogen [Mass/Vol] 14 mg/dL Normal 5 - 21 mg/dL [facility] [place]isol Urea nitrogen/Creatinine [Mass ratio] 14 mg/mg Normal 10 - 20 [facility] [place] [facility] COAGULATIONOrdered By: Emeli Chen on 09-09-2022 INR Coag (PPP) [Relative time] 2.3 {INR} Invalid Interpretation Code [facility] [place] Coag PT Coag (PPP) [Time] 26.3 s High 9.4 - 1 2.5 second(s) [facility] [place] Head or Brain w/o Contras ton 09-09-2022 CT Head or Brain w/o Contrast Exam Date/Time: 09/08/2022 19:11 EST Reason for Exam: Headache Report IMPRESSION: NO ACUTE FINDINGS. CT BRAIN WITHOUT INTRAVENOUS CONTRAST MEDIUM. History: Dizziness, blurring vision. Technical factors: CT imaging of the brain was obtained and formatted as 5 mm contiguous axial images. 2.5 mm contiguous axial images were obtained through the osseous structures. Sagittal and coronal reconstruction obtained during postprocessing. Comparison: February 10, 2019. Findings: Extra-axial spaces: Normal. Intracranial hemorrhage: None. Ventricular system: Without anomaly. Basal Cisterns: Normal. Cerebral Parenchyma: Without anomaly.. Midline Shift: None. Cerebellum: Normal. Paranasal sinuses and mastoid air cells: Normal. Visualized Orbits: Normal. All CT scans at this facility use dose modulation, iterative reconstruction, and/or weight based dosing when appropriate to reduce radiation dose to as low as reasonably achievable. Report Ordering Provider: Jennifer Liang FINAL REPORT Dictated: 09/09/2022 8:37 am Kirill Moncada MD Signed (Electronic Signature): 09/09/2022 8:37 am Signed by: Kirill Moncada MD Transcribed by: USHA Technologist: ALE [facility] Consultation Noteon 09-10-19 Consultation Note Chief Complaint blurry vision with a headache and dizzyness for a week saw pharmacist at [facility] who sent him to hospital Reason for Consultation Syncope History of Present Illness 57-year-old male with no prior cardiac history. Does have history of DVT hypertension hyperlipidemia. Very difficult historian sounds like he was hypertensive at the pharmacy in [facility] and apparently he was also hypothermic. He was sent to the hospital for this reason. He has been having lightheadedness dizziness and apparently has had 3 syncopal events that were unwitnessed the patient would just feel woozy and then find himself on the floor. He denies any chest pain or shortness of breath. Review of Systems Constitutional: no fever, no sweats, no weakness Skin: no rash, no lesions, nobruising/petechiae ENMT: no sore throat, no congestion, no hoarseness Respiratory: no shortness of breath, no cough, no orthopnea, no wheezing Cardiovascular: no chest pain, no palpitations, no edema Gastrointestinal: no nausea, no vomiting, no diarrhea, no GI bleeding Genitourinary: no anuria/oliguria no hematuria Musculoskeletal: no back pain, no trauma Neurologic: no headache, no dizziness, no numbness, no weakness Psychiatric: no sleeping problems, no irritability, no anxiety/depression. Heme/Lymph: no bleeding tendency, no bruising tendency Allergy/Immunologic: no recurrent infections, no impaired immunity Additional ROS info: Except as noted in the above Review of Systems and in the History of Present Illness all other systems have been reviewed and are negative or noncontributory. Physical Exam Vitals & Measurements T: 36.4 ?C(Oral) TMIN: 36.4 ?C(Oral) TMAX: 36.7 ?C(Oral) HR: 78(Monitored) RR: 18 BP: 155/99 BP: 152/108(Standing) BP: 123/86(Supine) SpO2: 98% HT: 177.80 cm WT: 121 kg General: alert, no acute distress Skin: warm, dry intact Head: atraumatic, normocephalic Neck: Trachea midline, no JVD, no bruit Eye: normal conjunctiva, sclera clear ENMT: oral mucosa moist Cardiovascular: regular rate and rhythm, nomurmur normal peripheral perfusion Respiratory: Lungs CTA, respirations non labored Chest wall: no deformity. Gastrointestinal: soft, non distended, no tenderness, no guarding. Back: No tenderness, Normal ROM, Normal alignment. Extremities: no edema, no deformity, no trauma Neurological: oriented x 4, LOC appropriate for agesensation equal & normal bilaterally, speech normal Psychiatric: cooperative, affect appropriate for age, normal judgement, normal psychiatric thoughts. Images EKG: Normal sinus rhythm no ischemia Assessment/Plan 57-year-old male with syncope of unclear etiology. No high risk features for arrhythmia. Does have history of hypertension hyperlipidemia and could have coronary disease we are not seeing any arrhythmias on the monitor however. No ACS type symptoms either. I will continue to monitor with you likely can be discharged follow-up as an outpatient. Thank for the consult 1. Dizziness (R42: Dizziness and giddiness) 2. Labile hypertension (R09.89: Other specified symptoms and signs involving the circulatory and respiratory systems) 3. Anxiety (F41.9: Anxiety disorder, unspecified) 4. Hypertensive urgency (I16.0: Hypertensive urgency) 5. Hyperlipidemia (E78.5: Hyperlipidemia, unspecified) 6. Smoker (F17.200: Nicotine dependence, unspecified, uncomplicated) 7. DVT (deep venous thrombosis) (I82.409: Acute embolism and thrombosis of unspecified deep veins of unspecified lower extremity) 8. Acid reflux (K21.9: Gastro-esophageal reflux disease without esophagitis) Problem List/Past Medical History Ongoing Acid reflux Anxiety Blood clot Depression DVT (deep venous thrombosis) Hyperlipidemia Hypertension Impingement syndrome of shoulder Nerve damage Smoker Historical Heart attack neck problems Smoker Procedure/Surgical History Bunionectomy (08/18/2020), Cheilectomy (08/18/2020), Arthroscopy of knee (12/18/2019), Cervical spinal fusion (08/04/2019), Epidural injection of cervical spine using fluoroscopic guidance (06/17/2019), Epidural injection of cervical spine using fluoroscopic guidance (05/20/2019), Epidural injection of cervical spine using fluoroscopic guidance (04/08/2019), Colonoscopy (2016), right shoulder arthroscopy with glenohumeral debridement, subacromial decompression, partial distal clavulectomy (09/21/2014), Shoulder (2012), neck surgery. Medications Inpatient acetaminophen 325 mg Tab, 650 mg= 2 tab(s), Oral, q6hr, PRN acetaminophen-hydroco done 325 mg-5 mg oral tablet, 1 tab(s), Oral, q6hr, PRN Al hydroxide/Mg hydroxide/simethicone 200 mg-200 mg-20 mg/5 mL oral suspension, 30 mL, Oral, q6hr, PRN amLODIPine 2.5 mg Tab, 2.5 mg= 1 tab(s), Oral, Daily aspirin 81 mg Oral EC Tab, 81 mg= 1 tab(s), Oral, Daily busPIRone 10 mg Tab, 20 mg= 2 tab(s), Oral, BID Colace 100 mg Cap, 100 mg= 1 cap(s), Oral, BID coumadin PHARMACY TO DOSE, Pharmacy to dose, Oral, As Dire (more content not included)... Normal [facility] Comment on above: Result Comment: Elec tronically Signed By: Bc LAZARO, Miky Davies\.br\Date and Time Signed: 09/09/22 14:50 EDT Consultation Note Chief Complaint blurry vision with a headache and dizzyness for a week saw pharmacist at [facility] who sent him to hospital Reason for Consultation TIA History of Present Illness 57-year-old man. History of lower extremity DVT on warfarin. History of hyperlipidemia, hypertension, traumatic cervical injury status post cervical surgery. For the past weeks he has had dizziness complaints. The dizziness does not occur at rest or when seated, reclined, or supine. The active getting up to move around causes a boat like sensation or room spinning sensation. He says he has had some pretty significant room spinning vertigo episodes in the past week but that seems to be improving and now his vertigo is more like a off-balance boat like sensation. She also says that with prolonged standing he has gotten lightheaded and blacked out, finding himself coming to on the carpeted floor. None of those syncopal events have been witnessed. He thinks he has had 3 syncopal events. At times with the dizziness he can feel clammy. He was at [facility] and was feeling dizzy and had his blood pressure checked and it was greater than 200 systolic and the pharmacist there recommended he go in for immediate medical evaluation. Review of Systems GEN: No fevers or chills. CV/PULM: No chest pain at this time. No shortness of breath. No palpitations. NEURO: No headaches. No loss of vision. No double vision. No dysphagia. No speech changes. No focal weakness. No sensory loss. Physical Exam Vitals & Measurements T: 36.4 ?C(Oral) TMIN: 36.4 ?C(Oral) TMAX: 36.7 ?C(Oral) HR: 66(Monitored) RR: 18 BP: 150/93 SpO2: 97% HT: 177.80 cm WT: 121 kg GEN: General appearance normal. Well-kempt. No distress. No visualized deformities or trauma. CARDIO/VASC: Limbs without significant edema and appear well-perfused. PULM: Normal work of breathing. SKIN: Visualized skin is intact and without lesions aside from age-related findings. MS: Affect is normal. Patient is alert and generally oriented. Normal attention. LANG: Speech is fluent and non-dysarthric. EYES: Pupils equal/reactive/consen sual. Ocular motility full. No pathologic nystagmus. CN: Facial sensation normal. Hearing acuity normal. Face without droop and with normal motor function. MOTOR: Muscle bulk normal. Muscle tone normal. Muscle strength normal. No tremors. REFLEXES: Reflexes normoactive in the upper extremities and +3/4 at bilateral patella with crossed adductors SENSORY: Light touch normal. Vibratory sensation intact in distal extremities. CEREBELLAR: No limb ataxia. Assessment/Plan Reason for consult: ASSESSMENT: Dizziness with position change or movement may be 2 things simultaneously here: 1. Vertigo. Initially with episodes of room spinning, these have decreased in intensity and are now more like a boat like sensation. Angular movements such as sitting up out of bed can set it off. Most likely peripheral, but central vertigo syndromes will have to be a consideration given his cerebrovascular risk factors (vascular disease, hypertensive urgency/emergency). 2. Orthostatic hypotension with syncope. 3 events. Syncopal events pretty clearly preceded by presyncopal symptoms. Do not suspect seizure. PLAN: 1. MRI brain pending 2. MRA head and neck pending 3. Continue home warfarin 4. Aspirin 81 mg daily started here 5. Check orthostatic vital signs 6. Further recommendations to follow 1. Dizziness (R42: Dizziness and giddiness) 2. Labile hypertension (R09.89: Other specified symptoms and signs involving the circulatory and respiratory systems) 3. Anxiety (F41.9: Anxiety disorder, unspecified) 4. Hypertensive urgency (I16.0: Hypertensive urgency) 5. Hyperlipidemia (E78.5: Hyperlipidemia, unspecified) 6. Smoker (F17.200: Nicotine dependence, unspecified, uncomplicated) 7. DVT (deep venous thrombosis) (I82.409: Acute embolism and thrombosis of unspecified deep veins of unspecified lower extremity) 8. Acid reflux (K21.9: Gastro-esophageal reflux disease without esophagitis) Problem List/Past Medical History Ongoing Acid reflux Anxiety Blood clot Depression DVT (deep venous thrombosis) Hyperlipidemia Hypertension Impingement syndrome of shoulder Nerve damage Smoker Historical Heart attack neck problems Smoker Procedure/Surgical History Bunionectomy (08/18/2020), Cheilectomy (08/18/2020), Arthroscopy of knee (12/18/2019), Cervical spinal fusion (08/04/2019), Epidural injection of cervical spine using fluoroscopic guidance (06/17/2019), Epidural injection of cervical spine using fluoroscopic guidance (05/20/2019), Epidural injection of cervical spine using fluoroscopic guidance (04/08/2019), Colonoscopy (2016), right shoulder arthroscopy with glenohumeral debridement, subacromial decompression, partial distal clavulectomy (09/21/2014), Shoulder (2012), neck surgery. Medications Inpatient acetaminophen 325 mg Tab, 650 mg= 2 tab(s), Oral, q6hr, PRN acetaminophen-hydroco done (more content not included)... Normal [facility] Comment on above: Result Comment: Elec tronically Signed By: Kinsey Shoemaker RN\.br\Date and Time Signed: 09/09/22 09:09 EDT\.br\Electronically Co-Signed By: Familia Acosta DO\.br\Date and Time Co-Signed: 09/09/22 09:24 EDT ED Clinical Summaryon 2022 ED Clinical Summary [address] [address] ED Clinical Summary Person Information Name: KEEGAN AUSTIN Megan/[facility] Age: 57 Years : 1965 Sex: Male Language: Zambian PCP: Sarah Bruce DO Marital Status: Phone: [phone] Visit Id: Visit Reason: Hypertension; Dizziness; Shortness of breath; DIZZINESS, LABILE HYPERTENSION, ANXIETY Speciality: Acuity: 1 Enc Type: Observation Med Service: Medical Arrival: 09/08/2022 18:08:16 Discharge: LOS: 000 04:56 Checkin: 09/08/2022 18:08:16 Checkout: 09/08/2022 23:04:06 Dispo Type: Admitted as IP to this [facility] EVENTS: Event Name Event Status Request Date/Time Start Date/Time Complete Date/Time Arrive Complete 09/08/2022 18:08:16 09/08/2022 18:08:16 09/08/2022 18:08:16 Document Home Meds Request 09/08/2022 18:08:16 Triage Complete 09/08/2022 18:08:16 09/08/2022 18:23:23 09/08/2022 18:23:23 Bed Assign Complete 09/08/2022 18:12:24 09/08/2022 18:12:24 09/08/2022 18:12:24 Dr Exam Complete 09/08/2022 18:12:24 09/08/2022 18:38:25 09/08/2022 18:38:25 RN Exam Complete 09/08/2022 18:12:24 09/08/2022 19:01:40 09/08/2022 19:01:40 EKG Complete 09/08/2022 18:14:53 09/08/2022 18:20:53 Pending Labs Complete 09/08/2022 18:17:44 09/08/2022 18:17:44 09/08/2022 18:17:45 Registration Complete 09/08/2022 18:38:25 09/08/2022 18:50:11 09/08/2022 18:50:11 Meds Admin Complete 09/08/2022 18:39:39 09/08/2022 18:41:09 CT Complete 09/08/2022 18:39:39 09/08/2022 18:58:05 09/08/2022 19:11:10 Reg Complete Request 09/08/2022 18:50:11 Pending Labs Inlab 09/08/2022 19:00:48 Lab Inlab 09/08/2022 19:00:48 Urine Collect Complete 09/08/2022 19:00:48 09/08/2022 20:07:52 Patient Care Request 09/08/2022 19:00:48 X-Ray Complete 09/08/2022 19:00:48 09/08/2022 19:11:22 RT Request 09/08/2022 19:00:48 Wet Read Request 09/08/2022 19:11:22 Pending Labs Complete 09/08/2022 19:18:38 09/08/2022 19:18:38 09/08/2022 19:18:45 Lab Complete 09/08/2022 19:18:38 09/08/2022 19:18:38 09/08/2022 19:18:45 Pending Labs Complete 09/08/2022 19:28:17 09/08/2022 19:28:17 09/08/2022 19:46:43 Lab Complete 09/08/2022 19:28:17 09/08/2022 19:28:17 09/08/2022 19:46:43 Meds Admin Complete 09/08/2022 20:53:31 09/08/2022 21:03:38 Consult Request 09/08/2022 21:06:46 Hospitalist Consult Request 09/08/2022 21:06:46 Pending Labs Complete 09/08/2022 21:07:16 09/08/2022 22:06:35 Patient Care Request 09/08/2022 21:09:15 Consult Request 09/08/2022 21:09:15 Pending Labs Request 09/08/2022 21:09:15 Lab Request 09/08/2022 21:09:15 Meds Admin Request 09/08/2022 21:09:15 MRI Request 09/08/2022 21:09:15 RT Request 09/08/2022 21:09:15 Bed Request Request 09/08/2022 21:09:15 Reg Bed Request Request 09/08/2022 21:09:15 Admit Request 09/08/2022 21:09:15 Meds Admin Request 09/08/2022 21:09:34 Pending Labs Inlab 09/08/2022 21:13:04 09/08/2022 21:13:04 Meds Admin Request 09/08/2022 21:20:43 Patient Care Request 09/08/2022 23:02:32 Patient Care Request 09/08/2022 23:02:32 Patient Care Request 09/08/2022 23:02:33 Patient Care Request 09/08/2022 23:02:33 [address]: [address] [facility] [id number] PHYS DOC NOTES: MEDICAL INFORMATION: Prescriptions Given: Medications to Continue with No Changes Other Medications acetaminophen-hydroco done (Curlew 325 mg-5 mg oral tablet) 1 Tablets By Mouth every 6 hours as needed Pain 4-7. acetaminophen-hydroco done (Curlew 325 mg-5 mg oral tablet) 1 Tablets By Mouth every 6 hours as needed for pain. Refills: 0. amlodipine (amLODIPine 2.5 mg Tab) 1 Tablets By Mouth every day. bacitracin topical (Bacitracin top 500 units/g Oint TUBE (15 gram)) 1 Application Topical 4 times a day. Refills: 0. betamethasone topical (betamethasone dipropionate topical 0.05% cream) 1 Application Topical every day as needed Other (see comment). busPIRone (busPIRone 10 mg Tab) 2 Tablets By Mouth 2 times a day. cyclobenzaprine (cyclobenzaprine 10 mg Tab) 1 Tablets By Mouth 3 times a day as needed for spasm. docusate (Dulcolax Stool Softener) 8 Tablets By Mouth at bedtime. doxazosin (doxazosin 4 mg Tab) 1 Tablets By Mouth at bedtime. ezetimibe (Zetia 10 mg Tab) 1 Tablets By Mouth at bedtime. lorazepam (LORazepam 0.5 mg Tab) 1 Tablets By Mouth every day. nortriptyline (nortriptyline 25 mg Cap) 1 Capsules By Mouth once a day (at bedtime). omeprazole (omeprazole 40 mg Cap-DR) 1 Capsules By Mouth at bedtime. simvastatin (simvastatin 20 mg Tab) 1 Tablets By Mouth once a day (at bedtime). warfarin (Coumadin 10 mg oral tablet) 1 Tablets By Mouth at bedtime. PATIENT EDUCATION INFORMATION: Instructions: Follow up: DIAGNOSIS: 1:Dizziness; 2:Labile hypertension; 3:Anxiety; 4:Hypertensive urgency; 5:Hyperlipidemia; 6:Smoker; 7:DVT (deep venous thrombosis); 8:Acid reflux Normal [facility] ED Patient Education Noteon 09-09-2022 ED Patient Education Note Normal [facility] ED Patient Summaryon 023 ED Patient Summary [place] [id number] Patient Discharge Instructions Person Information Name: KEEGAN AUSTIN Age: 57 Years Arrival Date: 09/08/2022 18:08:16 Discharge Diagnosis: 1:Dizziness; 2:Labile hypertension; 3:Anxiety; 4:Hypertensive urgency; 5:Hyperlipidemia; 6:Smoker; 7:DVT (deep venous thrombosis); 8:Acid reflux Primary Care Physician: Sarah Bruce DO Provider Information Primary Provider: Advanced Animal Behaviourist:Jennifer Liang PA-C The exam and treatment you received in the Emergency Department were for an urgent problem and are not intended as complete care. It is important that you follow up with a doctor, nurse practitioner, or physician?s ophthalmic assistant for ongoing care. If your symptoms become worse or you do not improve as expected and you are unable to reach your usual health care provider, you should return to the Emergency Department. We are available 24 hours a day. KEEGAN AUSTIN has been given the following list of patient education materials, prescriptions and follow-up instructions: Follow-up Instructions: In the event that this physician does not participate in your insurance network, please consult with your insurance company to find a nearby participating provider. Patient Education Materials: A MESSAGE TO ALL PATIENTS REGARDING OPIOIDS PRESCRIPTION OPIOIDS: WHAT YOU NEED TO KNOW Prescription opioids can be used to help relieve rswnbiyo-vm-smlkpr pain and are often prescribed following a surgery or injury, or for certain health conditions. These medications can be an important part of the treatment but also come with serious risks. It is important to work with your healthcare provider to make sure you are getting the safest, most effective care. WHAT ARE THE RISKS AND SIDE EFFECTS OF OPIOID USE? Prescription opioids carry serious risks of addiction and overdose, especially with prolonged use. An opioid overdose, often marked by slowed breathing, can cause sudden . The use of prescription opioids can have a number of side effects as well, even when taken as directed: ? Tolerance?meaning you might need to take more of the medication for the same pain relief ? Physical dependence?meaning you have symptoms of withdrawal when a medication is stopped ? Increased sensitivity to pain ? Constipation ? Nausea, vomiting, and dry mouth ? Sleepiness and dizziness ? Confusion ? Depression ? Low levels of testosterone that can result in lower sex drive, energy, and strength ? Itching and sweating RISKS ARE GREATER WITH: ? History of drug misuse, substance use disorder, or overdose ? Mental health conditions (such as depression or anxiety) ? Sleep apnea ? Older age (65 years and older) ? Avoid alcohol while taking prescription opioids. Also, unless specifically advised by your health care provider, medications to avoid include: ? Benzodiazepines (such as Xanax or Valium) ? Muscle relaxants (such as Soma or Flexeril) ? Hypnotics (such as Ambien or Lunesta) ? Other prescription opioids KNOW YOUR OPTIONS Talk to your health care provider about ways to manage your pain that don?t involve prescription opioids. Some of these options may actually work better and have fewer risks and side effects. Options may include: ? Pain relievers such as acetaminophen, ibuprofen, and naproxen ? Some medication that are also used for depression or seizures ? Physical therapy and exercise ? Cognitive behavioral therapy, a psychological, goal-directed approach, in which patients learn how to modify physical, behavioral, and emotional triggers of pain and stress. IF YOU ARE PRESCRIBED OPIOIDS FOR PAIN: ? Never take opioids in greater amounts or more often than prescribed. ? Follow up with your primary health care provider. o Work together to create a plan on how to manage your pain. o Talk about ways to help manage your pain that don?t involve prescription opioids. o Talk about any and all concerns and side effects. ? Help prevent misuse and abuse o Never sell or share prescription opioids. o Never use another person?s prescription opioids. ? Store prescription opioids in a secure place and out of reach of others (this may include visitors, children, friends, and family). ? Safely dispose of unused prescription opioids: Find your community drug take-back program or your pharmacy mail-back program, or flush them down the toilet, following guidance from the Food and Drug Administration (www.fda.gov/Drugs/Re sourcesForYou). ? Visit www.cdc.gov/drugoverd ose to learn about the risks of opioids abuse and overdose. ? If you believe you may be struggling with addiction, tell your health customer care manager and ask for guidance or call [facility]?S National Helpline at 2-074-562-WSNE. i Source: US Department of Health and Human Ser (more content not included)... Normal [facility] HEMATOLOGYOrdered By: SYSTEM SYSTEM on 09-09-2022 Basophils/100 WBC (Bld) 1.1 % Normal 0.0 - 2.0 % [facility] Basophils/Leukocytes Auto (Bld) [Pure # fraction] 0.1 E9/L Normal 0.0 - 0.2 E9/L [facility] Eosinophils/100 WBC (Bld) 3.1 % Normal 0.0 - 8.0 % [facility] Eosinophils/Leukocytes Auto (Bld) [Pure # fraction] 0.3 E9/L Normal 0.0 - 0.5 E9/L [facility] Lymphocytes/100 WBC (Bld) 25.3 % Normal 14.0 - 50.0 % [facility] Lymphocytes/Leukocytes Auto (Bld) [Pure # fraction] 2.4 E9/L Normal 1.0 - 4.0 E9/L [facility] Monocytes/100 WBC (Bld) 8.7 % Normal 4.0 - 14.0 % [facility] Monocytes/Leukocytes Auto (Bld) [Pure # fraction] 0.8 E9/L Normal 0.2 - 1.0 E9/L [facility] Neutrophils/100 WBC (Bld) 61.8 % Normal 36.0 - 75.0 % [facility] Neutrophils/Leukocytes Auto (Bld) [Pure # fraction] 5.8 E9/L Normal 2.0 - 7.5 E9/L [facility] HEMATOLOGYOrdered By: Elana Hendricks on 09-09-2022 Erythrocyte distribution width (RBC) [Ratio] 13.9 % Normal 10.9 - 14.2 % [facility] Hematocrit (Bld) [Volume fraction] 51.6 % High 37.7 - 49.0 % [facility] Hemoglobin (Bld) [Mass/Vol] 17.8 g/dL High 13.5 - 17.5 gm/dL [facility] MCH (RBC) [Entitic mass] 29.2 pg Normal 27.0 - 34.0 pg [facility] MCHC (RBC) [Mass/Vol] 34.5 g/dL Normal 31.4 - 36.0 gm/dL [facility] [place] [facility] MCV (RBC) [Entitic vol] 84.6 fL Normal 80.0 - 100.0 fL [facility] [place] [facility] Platelet mean volume (Bld) [Entitic vol] 9.8 fL Normal 6.4 - 10.8 fL [facility] [place] [facility] Platelets (Bld) [#/Vol] 212.0 E9/L Normal 150.0 - 500.0 E9/L [facility] [place] [facility] RBC (Bld) [#/Vol] 6.1 E12/L High 4.3 - 5.9 E12/L [facility] [place] [facility] WBC corrected for nucl RBC Auto (Bld) [#/Vol] 9.5 E9/L Normal 4.0 - 11.0 E9/L [facility] [place] [facility] Insurance Correspondence Off iceon 09-09-2022 Insurance Correspondence Office [id number] .[id number]:127 Normal [facility] Interdisciplinary Note - Sravan e Manageron 09-09-2022 Interdisciplinary Note - [employer] entered the room to discuss dc planning. PCP, DME and insurance discussed. Patient is alert and involved in justice of care. Contact information provided and whiteboard updated. Pt's mother will transport. PT will hold on eval due to symptoms. Pending MRIs, and cardiology. Pt has FWW, rollator and cane at home. ANt dc TBD. CRM to follow. Normal [facility] Comment on above: Result Comment: Elec tronically Signed By: Elana Hobbs.denae\Date and Time Signed: 09/09/22 12:54 EDT Lipid Panelon 09-09-2022 Cholesterol [Mass/Vol] 139 mg/dL Normal 120-200 [facility] Comment on above: Performed By: #### 1 [id number] #### [facility] [address] [place] [address] Cholesterol in HDL [Mass/Vol] 41 mg/dL Invalid Interpretation Code [facility] Comment on above: Result Comment: HDL > or equal to 60 mg/dL: Low cardiovascular risk HDL < 40 mg/dL : High cardiovascular risk Performed By: #### 1 [id number], [id number], [id number], [id number], [id number] #### [facility] [address] [place] [address] Cholesterol in LDL [Mass/Vol] 82 mg/dL Normal <=129 [facility] Comment on above: Performed By: #### 1 [id number], [id number], 0455443, [id number], [id number] #### [facility] [address] [place] [address] Cholesterol in VLDL [Mass/Vol] 23 mg/dL Normal 7-40 [facility] Comment on above: Performed By: #### 1 [id number], 7871206, [id number], 5870204, [id number] #### [facility] [address] [place] [address] Triglyceride [Mass/Vol] 116 mg/dL Normal <=149 [facility] Comment on above: Performed By: #### 1 [id number], [id number], 5554101, 2241970, [id number], [id number] #### [facility] [address] [place] [address] Magnesiumon 09-09-2022 Magnesium [Mass/Vol] 2.3 mg/dL Normal 1.3-2.4 [facility] Comment on above: Performed By: #### 1 [id number], [id number], 8634036, 8721255, 7365067, [id number] #### [facility] [address] [place] [address] Monitor Recordon 09-09-2022 Monitor Record [id number] .00CD:127 Normal [facility] Monitor Record [id number]#1 .00CD:127 Normal [facility] Monitor Record [id number] .00CD:127 Normal [facility] Monitor Record [id number]#1 .00CD:127 Normal [facility] PTon 09-09-2022 INR Coag (PPP) [Relative time] 2.3 {INR} Invalid Interpretation Code [facility] Comment on above: Order Comment: pleas e add on if possible to 09/09/22 am labs. thank you Result Comment: INR results are specifically intended to assess patients stabilized on long-term Anticoagulation therapy suggested INR?s ?Less Intensive Anticoagulation? 2.0 ? 3.0 Conventional Range 3.0 ? 4.5 Performed By: #### 2 [id number] #### [facility] [address] [place] [address] PT Coag (PPP) [Time] 26.3 second(s) High 9.4-12.5 [facility] Comment on above: Order Comment: pleas e add on if possible to 09/09/22 am labs. thank you Result Comment: 15 d ays - 4 weeks 1 - 5 months 6 -11 months 1 ? 5 years 6 ? 10 years 11 -17 years Mean: 11.2 (9.5 ? 12.6) Mean: 11.0 (9.7 ? 12.8) Mean: 11.0 (9.8 ? 13.0) Mean: 11.3 (9.9 ? 13.4) Mean: 11.7 (10.0 ? 14.6) Mean: 11.8 (10.0 - 14.1) Pediatric Reference ranges were obtained from a study by Bryan Raines et al. prepared from 1437 samples obtained at 7 different centers using the same coagulation reagent and instrumentation as [facility] [place] Currently there are no coagulation studies available worldwide for children to 14 days, and no normal ranges. Performed By: #### 2 [id number] #### [facility] [address] [place] [address] Progress Note - Pharmacyon 0 09-09-2022 Progress Note - Pharmacy Pharmacy to Dose Warfarin Indication for warfarin therapy: DVT Target INR: 2.0-3.0 Ordering Provider: Favian Schmitt Taking warfarin prior to admission: Yes Home regimen: 10 mg daily per Med Rec Total weekly dose: 70 mg INR values/Dose given: 09/08/22 INR: 2.8 - no dose ordered/given by telepharmacy 09/09/22 INR: 2.3 - Scheduled dose for today: 15 mg Other comments: 09/09/22: INR is therapeutic, patient last received warfarin on 09/07/22, per med rec. Patient takes at bedtime and no dose was ordered on 09/08/22 by telepharmacy. Therefore, plan to give a booster dose of 15 mg tonight due to INR dropping from 2.8 to 2.3 over night. Home Dose Recommendation: TBD Please contact pharmacy at ext. [phone] with any questions. Normal [facility] Progress Note-Physicianon Progress Note-Physician Assessment/Plan 1. Dizziness (R42: Dizziness and giddiness) Episodes of dizziness started this week + Syncopal episodes , 3 events in the last week MRI brain MRA head, and neck Meclizine as needed Aspirin 81 mg daily Telemetry PT for BPPV Follow-up orthostatic vitals Neurology consult, discussed in the morning 2-syncope : See #1 2. Labile hypertension (R09.89: Other specified symptoms and signs involving the circulatory and respiratory systems) Continue with chronic medications once reconciled 3. Anxiety (F41.9: Anxiety disorder, unspecified) Continue with as needed Ativan Buspirone, nortriptyline 4. Hypertensive urgency (I16.0: Hypertensive urgency) See above Permissive hypertension for 24 hours and then goal is to be normotensive by discharge 5. Hyperlipidemia (E78.5: Hyperlipidemia, unspecified) Simvastatin 6. Smoker (F17.200: Nicotine dependence, unspecified, uncomplicated) Recommended cessation 7. DVT (deep venous thrombosis) (I82.409: Acute embolism and thrombosis of unspecified deep veins of unspecified lower extremity) On Coumadin 8. Acid reflux (K21.9: Gastro-esophageal reflux disease without esophagitis) Protonix 1. Dizziness (R42: Dizziness and giddiness) 2. Syncope (R55: Syncope and collapse) 3. Labile hypertension (R09.89: Other specified symptoms and signs involving the circulatory and respiratory systems) 4. Anxiety (F41.9: Anxiety disorder, unspecified) 5. Hypertensive urgency (I16.0: Hypertensive urgency) 6. Hyperlipidemia (E78.5: Hyperlipidemia, unspecified) 7. Smoker (F17.200: Nicotine dependence, unspecified, uncomplicated) 8. DVT (deep venous thrombosis) (I82.409: Acute embolism and thrombosis of unspecified deep veins of unspecified lower extremity) 9. Acid reflux (K21.9: Gastro-esophageal reflux disease without esophagitis) Orders: Consult to Cardiology This report was transcribed using voice recognition software , Every effort was made to ensure accuracy , however, inadvertently computerized ceramic painter mistakes may be present . Subjective The patient was seen in the morning, states feeling better but still having dizziness especially when he change his position, movement + Syncope at home No chest pain no shortness of breath Review of Systems Except as noted above, all other systems have been reviewed and are negative or noncontributory. Objective Vitals & Measurements T: 36.4 ?C(Oral) TMIN: 36.4 ?C(Oral) TMAX: 36.7 ?C(Oral) HR: 72(Monitored) RR: 18 BP: 133/71 BP: 152/108(Standing) BP: 123/86(Supine) SpO2: 99% HT: 177.80 cm WT: 121 kg Intake & Output This visit (24 hour periods starting at 07:00 EDT) 09/09/22 * 09/08/22 09/07/22 Total Summary Intake mL 2 201 -- Output mL -- 300 -- Fluid Balance 2 -99 -- Intake (4) Oral Intake mL -- 200 -- hydrALAZINE mL -- 0.5 -- lorazepam mL -- 0.5 -- ondansetron mL 2 -- -- Total 2 201 -- Output (1) Urine Voided mL -- 300 -- Total -- 300 -- Counts (0) * This column has not completed the indicated time period. Indicates a 23 hour day. Physical Exam General: alert, no acute distress on Room air ENMT: TM's clear, oral mucosa moist, no pharyngeal erythema or exudate Cardiovascular: regular rate and rhythm, normal peripheral perfusion Respiratory: Lungs CTA, respirations non labored Abdomen: Soft, nontender, without rebound or rigidity, positive bowel sounds Extremities: no deformity, no trauma Genitourinary: Deferred Skin: Intact Hematological: No signs of large bruising/ecchymosis or petechiae Neurological: oriented x 4, LOC appropriate for age, CN II-XII intact, motor strength equal & normal bilaterally, sensation equal & normal bilaterally, speech normal Psych: He is anxious about being in the hospital. Lab Results WBC: 9.5 E9/L (09/09/22 06:12:00) RBC: 6.1 E12/L High (09/09/22 06:12:00) HGB: 17.8 gm/dL High (09/09/22 06:12:00) Hct: 51.6 % High (09/09/22 06:12:00) MCV: 84.6 fL (09/09/22 06:12:00) MCH: 29.2 pg (09/09/22 06:12:00) MCHC: 34.5 gm/dL (09/09/22 06:12:00) RDW: 13.9 % (09/09/22 06:12:00) Platelet: 212 E9/L (09/09/22 06:12:00) MPV: 9.8 fL (09/09/22 06:12:00) Neutro Auto: 61.8 % (09/09/22 06:12:00) Lymph Auto: 25.3 % (09/09/22 06:12:00) [place] Auto: 8.7 % (09/09/22 06:12:00) Eos Auto: 3.1 % (09/09/22 06:12:00) Basophil Auto: 1.1 % (09/09/22 06:12:00) Neutro Absolute: 5.8 E9/L (09/09/22 06:12:00) Lymph Absolute: 2.4 E9/L (09/09/22 06:12:00) [place] Absolute: 0.8 E9/L (09/09/22 06:12:00) Eos Absolute: 0.3 E9/L (09/09/22 06:12:00) Basophil Absolute: 0.1 E9/L (09/09/22 06:12:00) PT: 26.3 second(s) High (09/09/22 07:56:00) INR: 2.3 (09/09/22 07:56:00) PTT: 50.7 second(s) High (09/08/22 19:16:00) Glucose Lvl: 96 mg/dL (09/09/22 06:12:00) BUN: 14 mg/dL (09/09/22 06:12:00) Creatinine: 1 mg/dL (09/09/22 06:12:00) eGFR: >60 (09/09/22 06:12:00) eGFR AA: >60 (0 (more content not included)... Normal [facility] Comment on above: Result Comment: Elec tronically Signed By: Debra LAZARO, Jose\.br\Date and Time Signed: 09/09/22 16:14 EDT RAD - MRI Screening Formon 0 09-09-2022 RAD - MRI Screening Form [id number]# 1.00CD:127 Normal [facility] Troponin 3 Hr.on 09-09-2022 Troponin I.cardiac [Mass/Vol] 13.20 pg/mL Low 15.90-38.40 [facility] Comment on above: Result Comment: The 95% CI (Confidence Interval) PPV (Positive Predictive Value) for myocardial infarction in females is 38 pg/mL, in males 51 pg/mL. The results should be used in conjunction with clinical conditions of myocardial infarction. (Access High Sensitivity Troponin I Instructions For Use, Christofer Kika, January 2018) Performed By: #### 1 [id number] ####[facility] [id number] [place] [address] XR Chest Single Viewon 09-09 XR Chest Single View Exam Date/Time: 09/08/2022 19:11 EST Reason for Exam: Shortness of breath (SOB) Report IMPRESSION: NO ACUTE CARDIOPULMONARY DISEASE. CLINICAL HISTORY: Shortness of breath (SOB) COMPARISON: August 04, 2019 FINDINGS: Remote internal fixation cervical spine.. Cardiopericardial silhouette normal. Pulmonary vasculature normal. Right diaphragm elevated. Lungs clear. Ordering Provider: Jennifer Liang FINAL REPORT Dictated: 09/09/2022 8:28 am Kirill Moncada MD Signed (Electronic Signature): 09/09/2022 8:28 am Signed by: Kirill Moncada MD Transcribed by: USHA Technologist: ALE Technical Comments Radiation Dose: Ka,r in mGy = na DAP = na Normal [facility] eGFRon 09-09-2022 GFR/1.73 sq M.predicted among blacks MDRD (S/P/Bld) [Vol rate/Area] mL/min/{1.73_m2} Normal >=59 [facility] Comment on above: Order Comment: Order added by Discern Expert. Result Comment: eGFR is race adjusted. AA=. Performed By: #### 1 [id number], [id number], [id number], 5983936, [id number], [id number] #### [facility] [address] [place] [address] GFR/1.73 sq M.predicted among non-blacks MDRD (S/P/Bld) [Vol rate/Area] mL/min/{1.73_m2} Normal >=59 [facility] Comment on above: Order Comment: Order added by Stephanie Expert. Result Comment: Instrument Designer chu kidney disease could be indicated at eGFR's of less than 60 mL/min/1.73m2. Kidney failure is indicated at less than 15 mL/min/1.73m2. Performed By: #### 1 [id number], [id number], [id number], 5871733, [id number], [id number] #### [facility] [address] [place] [address] Auto Diffon 09-08-2022 Basophils/100 WBC (Bld) 1.0 % Normal 0.0-2.0 [facility] Comment on above: Order Comment: Order Added by Discern Expert. Performed By: #### 7 [id number], [id number], 0591764, 2452332, 8724018, [id number] ####[facility] [address] [place] [address] Basophils/Leukocytes Auto (Bld) [Pure # fraction] 0.1 E9/L Normal 0.0-0.2 [facility] Comment on above: Order Comment: Order Added by Stephanie Expert. Performed By: #### 7 [id number], 18908777, 9615750, 46214029, 1961994, 6525073, 7186070, 9856653 ####[address] [place] [address] Eosinophils/100 WBC (Bld) 3.7 % Normal 0.0-8.0 [facility] Comment on above: Order Comment: Order Added by Discern Expert. Performed By: #### 7 [id number], 83632260, 1224170, 39317578, 6723374, 0977374, 9311856, 9242997 ####[address] [place] [address] Eosinophils/Leukocytes Auto (Bld) [Pure # fraction] 0.3 E9/L Normal 0.0-0.5 [facility] Comment on above: Order Comment: Order Added by Discern Expert. Performed By: #### 7 39039929, 82689972, 9787153, 56067170, 2677757, 1242622, 6519466, 6992458 ####[address] [place] [address] Lymphocytes/100 WBC (Bld) 26.3 % Normal 14.0-50.0 [facility] Comment on above: Order Comment: Order Added by Discern Expert. Performed By: #### 7 94084138, 22926492, 3873943, 69495090, 4443966, 0054005, 0709569, 6989635 ####[address] [place] [address] Lymphocytes/Leukocytes Auto (Bld) [Pure # fraction] 2.1 E9/L Normal 1.0-4.0 [facility] Comment on above: Order Comment: Order Added by Discern Expert. Performed By: #### 7 [id number], 65315274, 7572475, 00788855, 3282476, 7530426, 0473893, 0933888 ####[address] [place] [address] Monocytes/100 WBC (Bld) 8.1 % Normal 4.0-14.0 [facility] Comment on above: Order Comment: Order Added by Discern Expert. Performed By: #### 7 43449153, 83196946, 6565756, 51005133, 8869151, 7370720, 9578830, 3472092 ####[address] [place] [address] Monocytes/Leukocytes Auto (Bld) [Pure # fraction] 0.6 E9/L Normal 0.2-1.0 [facility] Comment on above: Order Comment: Order Added by Discern Expert. Performed By: #### 7 85251607, 02497384, 6015788, 27692437, 7531716, 5083953, 9951482, 1829112 ####[address] [place] [address] Neutrophils/100 WBC (Bld) 60.9 % Normal 36.0-75.0 [facility] Comment on above: Order Comment: Order Added by Discern Expert. Performed By: #### 7 [id number], 07443002, 9630503, 62729073, 1823898, 7270373, 1484476, 6437282 ####[address] [address] Neutrophils/Leukocytes Auto (Bld) [Pure # fraction] 4.9 E9/L Normal 2.0-7.5 [facility] Comment on above: Order Comment: Order Added by Discern Expert. Performed By: #### 7 07177918, 04208529, 0743731, 74510046, 0763274, 8165248, 7918866, 3288139 ####[address] [place] [address] CBC w/ Auto Diffon 3 Erythrocyte distribution width (RBC) [Ratio] 13.7 % Normal 10.9-14.2 [facility] Comment on above: Performed By: #### 7 01665788, 08988651, 1726355, 60846063, 4382574, 4398766, 2302893, 3884569 ####[address] [place] [address] Hematocrit (Bld) [Volume fraction] 54.2 % High 37.7-49.0 [facility] Comment on above: Performed By: #### 7 83219651, 09799212, 0607287, 28718549, 8221580, 7608340, 8341922, 0254952 ####[facility] [address] [place] [address] Hemoglobin (Bld) [Mass/Vol] 18.4 g/dL High 13.5-17.5 [facility] Comment on above: Performed By: #### 7 88068393, 61498844, 6723127, 47082616, 7146032, 3054596, 0045522, 6282957 ####[facility] [address] [place] [address] MCH (RBC) [Entitic mass] 28.7 pg Normal 27.0-34.0 [facility] Comment on above: Performed By: #### 7 44485693, 97020314, 0299237, 22188790, 8969951, 7809788, 2602581, 7227693 ####[facility] [address] [place] [address] MCHC (RBC) [Mass/Vol] 33.9 g/dL Normal 31.4-36.0 [facility] Comment on above: Performed By: #### 7 66880666, 91832453, 7117058, 07523892, 1420460, 1538385, 3199058, 6148824 ####[facility] [address] [place] [address] MCV (RBC) [Entitic vol] 84.7 fL Normal 80.0-100.0 [facility] Comment on above: Performed By: #### 7 56305610, 04387633, 2775131, 38530297, 2821017, 8846105, 5079250, 3401220 ####[facility] [address] [place] [address] Platelet mean volume (Bld) [Entitic vol] 9.1 fL Normal 6.4-10.8 [facility] Comment on above: Performed By: #### 7 61758287, 62435455, 4984216, 37619122, 6505705, 5804362, 2459175, 3443354 ####[facility] [address] [place] [address] Platelets (Bld) [#/Vol] 212.0 E9/L Normal 150.0-500.0 [facility] Comment on above: Performed By: #### 7 51627906, 69882999, 6765806, 52178654, 0776164, 0390883, 0155756, 4922677 ####[facility] [address] [place] [address] RBC (Bld) [#/Vol] 6.4 E12/L High 4.3-5.9 [facility] Comment on above: Performed By: #### 7 75823305, 09287278, 0692159, 05538980, 8090013, 4756775, 3696403, 2421831 ####[facility] [address] [place] [address] WBC corrected for nucl RBC Auto (Bld) [#/Vol] 8.0 E9/L Normal 4.0-11.0 [facility] Comment on above: Performed By: #### 7 34861464, 49770580, 7668254, 08460243, 3030393, 5390603, 8656869, 9140866 ####[facility] [address] [place] [address] CHEMISTRYOrdered By: SYSTEM SYSTEM on 09-08-2022 Troponin I.cardiac [Mass/Vol] 13.20 pg/mL Low 15.90 - 38.40 pg/mL [facility] Remisol Albumin [Mass/Vol] 4.6 g/dL Normal 3.3 - 5.0 gm/dL [facility] Remisol Albumin/Globulin [Mass ratio] 1.5 {ratio} Normal 1.1 - 2.2 [facility] Remisol ALP [Catalytic activity/Vol] 40 [iU]/d Normal 21 - 98 Int._Unit/L [facility] Remisol ALT No additional P-5'-P [Catalytic activity/Vol] 27 [iU]/d Normal 6 - 46 Int._Unit/L [facility] Remisol Anion gap [Moles/Vol] 13 mmol/L Normal 6 - 16 mEq/L F [facility] Remisol AST [Catalytic activity/Vol] 26 [iU]/d Normal 5 - 43 Int._Unit/L [facility] Remisol Bilirubin [Mass/Vol] 1.0 mg/dL Normal 0.0 - 1 .1 mg/dL [facility] Calcium [Mass/Vol] 8.8 mg/dL Low 8.9 - 11. 1 mg/dL [facility] Chloride [Moles/Vol] 106 mmol/L Normal 101 - 1 11 mmol/L [facility] CO2 [Moles/Vol] 21 mmol/L Normal 21 - 31 mmol/L [facility] Creatinine [Mass/Vol] 0.9 mg/dL Normal 0.5 - 1.3 mg/dL [facility] GFR/1.73 sq M.predicted among blacks MDRD (S/P/Bld) [Vol rate/Area] mL/min/1.73 m2 Normal >=59mL/min/1 .73 m2 [facility] [place] S GFR/1.73 sq M.predicted among non-blacks MDRD (S/P/Bld) [Vol rate/Area] mL/min/1.73 m2 Normal >=59mL/min/1 .73 m2 [facility] [place] Chem S Globulin (S) [Mass/Vol] 3.1 g/dL Normal 1.4 - 4.0 gm/dL [facility] Glucose [Mass/Vol] 102 mg/dL Normal 55 - 199 mg/dL [facility] Lactate [Mass/Vol] 1.3 mmol/L Normal 0.5 - 2.2 mmol/L [facility] Potassium [Moles/Vol] 3.6 mmol/L Normal 3.5 - 5.3 mmol/L [facility] Protein [Mass/Vol] 7.7 g/dL Normal 6.0 - 7.8 gm/dL [facility] Sodium [Moles/Vol] 136 mmol/L Normal 135 - 145 mmol/L [facility] Remisol Troponin I.cardiac [Mass/Vol] 12.70 pg/mL Low 15.90 - 38.40 pg/mL [facility] [place] Remisol Urea nitrogen [Mass/Vol] 12 mg/dL Normal 5 - 21 mg/dL [facility] Urea nitrogen/Creatinine [Mass ratio] 13 mg/mg Normal 10 - 20 [facility] [place] Remisol CHEMISTRYOrdered By: Kitty Hopkins on 09-08-2022 HbA1c (Bld) [Mass fraction] 5.4 % Normal <=5.9% [facility] [place] ChemAutoSS CHEMISTRYOrdered By: Lab ROP User on 09-08-2022 Glucose [Mass/Vol] 131 mg/dL High 55 - 99 mg/dL [facility] [place] POC Subsection Comment on above: Result Comment: Serenity cheatham RN/ POC Device SN [id number] Invalid Interpretation Code [facility] [place] POC Subsection POC User ID [id number] Invalid Interpretation Code [facility] POC Subsection POC Username SHAHBAZ CIFUENTES Invalid Interpretation Code [facility] [place] POC Subsection CMPon 09-08-2022 Albumin [Mass/Vol] 4.6 g/dL Normal 3.3-5.0 [facility] Comment on above: Performed By: #### 7 [id number], 30200721, 5748364, 06808605, 1119594, 5145011, 8360842, 0564894 ####[facility] [address] [place] [address] Albumin/Globulin (S) [Mass conc ratio] 1.5 Normal 1.1-2.2 [facility] Comment on above: Performed By: #### 7 77936822, 75328983, 9797341, 68367338, 4563703, 2440229, 4040042, 8247268 ####[facility] [address] [place] [address] ALP [Catalytic activity/Vol] 40 Int._Unit/L Normal 21-98 [facility] Comment on above: Performed By: #### 7 65835638, 03582417, 1164145, 13347699, 6325066, 2480371, 6328688, 1517572 ####[facility] [address] [place] [address] ALT No additional P-5'-P [Catalytic activity/Vol] 27 Int._Unit/L Normal 6-46 [facility] Comment on above: Performed By: #### 7 14678100, 83412749, 5513746, 98296328, 3342138, 5594252, 8200053, 9669094 ####[facility] [address] [place] [address] AST [Catalytic activity/Vol] 26 Int._Unit/L Normal 5-43 [facility] Comment on above: Performed By: #### 7 08861967, 16409473, 8536568, 44576689, 3102239, 5296882, 3894812, 3207703 ####[facility] [address] [place] [address] Bilirubin [Mass/Vol] 1.0 mg/dL Normal 0.0-1.1 [facility] Comment on above: Performed By: #### 7 42625019, 32250211, 6000951, 18301543, 3766612, 1706994, 1208373, 6678029 ####[facility] [address] [place] [address] Creatinine [Mass/Vol] 0.9 mg/dL Normal 0.5-1.3 [facility] Comment on above: Performed By: #### 7 47354347, 74207470, 1285788, 02753682, 5737155, 8191155, 1575256, 9605037 ####[facility] [address] [place] [address] Globulin (S) [Mass/Vol] 3.1 g/dL Normal 1.4-4.0 [facility] Comment on above: Performed By: #### 7 78364889, 48614964, 0226733, 18837751, 2304335, 7899514, 0500400, 4610931 ####[facility] [address] [place] [address] Protein [Mass/Vol] 7.7 g/dL Normal 6.0-7.8 [facility] Comment on above: Performed By: #### 7 81298239, 12285369, 2273387, 25205297, 9527281, 7860797, 4332011, 5484683 ####[facility] [address] [place] [address] Urea nitrogen [Mass/Vol] 12 mg/dL Normal 5-21 [facility] Comment on above: Performed By: #### 7 86535129, 33787539, 5447989, 49973503, 9713810, 1178136, 8246120, 2306581 ####[facility] [address] [place] [address] Urea nitrogen/Creatinine [Mass ratio] 13 No Units Normal 10-20 [facility] Comment on above: Performed By: #### 7 19943591, 76000969, 2197218, 19127605, 5794420, 7492813, 9833311, 2069061 ####[facility] [address] [place] [address] Anion gap [Moles/Vol] 13 mmol/L Normal 6-16 [facility] Comment on above: Performed By: #### 7 89172191, 63012002, 3441448, 46575791, 1877813, 9914122, 2190176, 5458462 ####[facility] [address] [place] [address] Calcium [Mass/Vol] 8.8 mg/dL Low 8.9-11.1 [facility] Comment on above: Performed By: #### 7 74376751, 81035324, 2016166, 34164882, 1131782, 2812509, 8002232, 1886645 ####[facility] [address] [place] [address] Chloride [Moles/Vol] 106 mmol/L Normal 101-111 [facility] Comment on above: Performed By: #### 7 80090286, 65456359, 7400048, 04527632, 2956193, 6105703, 2089214, 7398983 ####[facility] [address] [place] [address] CO2 [Moles/Vol] 21 mmol/L Normal 21-31 [facility] Comment on above: Performed By: #### 7 44580190, 02440841, 7652737, 67047677, 8381605, 2379131, 8365928, 2392012 ####[facility] [address] [place] [address] Glucose [Mass/Vol] 102 mg/dL Normal 55-199 [facility] Comment on above: Result Comment: If t his glucose result represents a fasting glucose, interpretation should refer to the following reference range: 55-99 mg/dL Performed By: #### 7 94864977, 57477541, 1909913, 77483979, 0966285, 3923579, 8489277, 9755006 ####[facility] [address] [place] [address] Potassium [Moles/Vol] 3.6 mmol/L Normal 3.5-5.3 [facility] Comment on above: Performed By: #### 7 93742019, 59485338, 9631581, 13529262, 8175454, 4785372, 6587776, 7815121 ####[facility] [address] [place] [address] Sodium [Moles/Vol] 136 mmol/L Normal 135-145 [facility] Comment on above: Performed By: #### 7 82416094, 73172892, 4713106, 81291300, 2435530, 5878873, 3176440, 0208367 ####[facility] [address] [place] [address] COAGULATIONOrdered By: Maya Cook on 09-08-2022 aPTT Coag (PPP) [Time] 50.7 s High 25.1 - 36.5 second(s) [facility] [place] Auto Coag INR Coag (PPP) [Relative time] 2.8 {INR} Invalid Interpretation Code [facility] [place] Auto Coag PT Coag (PPP) [Time] 32.1 s High 9.4 - 1 2.5 second(s) [facility] [place] Auto Coag Capillary Glucose POCon 08-29 Glucose [Mass/Vol] 131 mg/dL High 55-99 [facility] Comment on above: Result Comment: Serenity cheatham RN/ Performed By: #### 2 [id number] ####[facility] [address] [place] [address] Consent for Treatmenton 08-29 Consent for Treatment [id number]:127 Normal [facility] HEMATOLOGYOrdered By: SYSTEM SYSTEM on 09-08-2022 Basophils/100 WBC (Bld) 1.0 % Normal 0.0 - 2.0 % [facility] HemeAutoSS Basophils/Leukocytes Auto (Bld) [Pure # fraction] 0.1 E9/L Normal 0.0 - 0.2 E9/L [facility] HemeAutoSS Eosinophils/100 WBC (Bld) 3.7 % Normal 0.0 - 8.0 % [facility] HemeAutoSS Eosinophils/Leukocytes Auto (Bld) [Pure # fraction] 0.3 E9/L Normal 0.0 - 0.5 E9/L [facility] HemeAutoSS Lymphocytes/100 WBC (Bld) 26.3 % Normal 14.0 - 50.0 % [facility] HemeAutoSS Lymphocytes/Leukocytes Auto (Bld) [Pure # fraction] 2.1 E9/L Normal 1.0 - 4.0 E9/L [facility] HemeAutoSS Monocytes/100 WBC (Bld) 8.1 % Normal 4.0 - 14.0 % [facility] HemeAutoSS Monocytes/Leukocytes Auto (Bld) [Pure # fraction] 0.6 E9/L Normal 0.2 - 1.0 E9/L [facility] HemeAutoSS Neutrophils/100 WBC (Bld) 60.9 % Normal 36.0 - 75.0 % [facility] HemeAutoSS Neutrophils/Leukocytes Auto (Bld) [Pure # fraction] 4.9 E9/L Normal 2.0 - 7.5 E9/L [facility] HemeAutoSS HEMATOLOGYOrdered By: Reji Tuttle on 09-08-2022 Erythrocyte distribution width (RBC) [Ratio] 13.7 % Normal 10.9 - 14.2 % [facility] HemeAutoSS Hematocrit (Bld) [Volume fraction] 54.2 % High 37.7 - 49.0 % [facility] HemeAutoSS Hemoglobin (Bld) [Mass/Vol] 18.4 g/dL High 13.5 - 17.5 gm/dL [facility] HemeAutoSS MCH (RBC) [Entitic mass] 28.7 pg Normal 27.0 - 34.0 pg [facility] HemeAutoSS MCHC (RBC) [Mass/Vol] 33.9 g/dL Normal 31.4 - 36.0 gm/dL [facility] HemeAutoSS MCV (RBC) [Entitic vol] 84.7 fL Normal 80.0 - 100.0 fL [facility] HemeAutoSS Platelet mean volume (Bld) [Entitic vol] 9.1 fL Normal 6.4 - 10.8 fL [facility] HemeAutoSS Platelets (Bld) [#/Vol] 212.0 E9/L Normal 150.0 - 500.0 E9/L [facility] HemeAutoSS RBC (Bld) [#/Vol] 6.4 E12/L High 4.3 - 5.9 E12/L [facility] HemeAutoSS WBC corrected for nucl RBC Auto (Bld) [#/Vol] 8.0 E9/L Normal 4.0 - 11.0 E9/L [facility] HemeAutoSS Lactic Acidon 09-08-2022 Lactate [Mass/Vol] 1.3 mmol/L Normal 0.5-2.2 [facility] Comment on above: Performed By: #### 7 [id number], 74616476, 5902747, 42904554, 1153632, 5381595, 7588191, 5027113 ####[facility] [address] [place] [id number] No Panel InformationOrdered By: ANGPROCESSSERVER MICROBIOLOGY on 09-08-2022 Blood Culture Charcoal No growth at 1 da y. Final to follow at 7 days. [facility] Blood Culture Charcoal No growth at 1 da y. Final to follow at 7 days. [facility] PT & PTTon 09-08-2022 aPTT Coag (PPP) [Time] 50.7 second(s) High 25.1-36.5 [facility] Comment on above: Result Comment: Para meter 15 days - 4 weeks 1 - 5 months 6 - 11 months 1 - 5 years 6 - 10 years 11 - 17 years PTT Mean: 35.4 (27.6-45.6) Mean: 33.5 (24.8-40.7) Mean: 32.4 (25.1-40.7) Mean: 31.6 (24.0-39.2) Mean: 31.6 (26.9-38.7) Mean: 31.0 (24.6-38.4) Pediatric Reference ranges were obtained from a study by Bryan Raines et al. prepared from 1437 samples obtained at 7 different centers using the same coagulation reagent and instrumentation as [facility] [place]. Currently there are no coagulation studies available worldwide for children to 14 days, and no normal ranges. Heparin therapeutic range (represented by Anti-Factor Xa activity of 0.2 - 0.4 U/mL) corresponds to PTT of 56.6 - 109.0 sec. Performed By: #### 7 [id number], 17518600, 6653269, 92145169, 2309602, 3396546, 2716941, 5530813 ####[facility] [address] [place] [address] INR Coag (PPP) [Relative time] 2.8 {INR} Invalid Interpretation Code [facility] Comment on above: Result Comment: INR results are specifically intended to assess patients stabilized on long-term Anticoagulation therapy suggested INR?s ?Less Intensive Anticoagulation? 2.0 ? 3.0 Conventional Range 3.0 ? 4.5 Performed By: #### 7 00542760, 95407512, 0150780, 00352148, 8717709, 9206757, 5468807, 2784962 ####[facility] [address] [place] [address] PT Coag (PPP) [Time] 32.1 second(s) High 9.4-12.5 [facility] Comment on above: Result Comment: 15 d ays - 4 weeks 1 - 5 months 6 -11 months 1 ? 5 years 6 ? 10 years 11 -17 years Mean: 11.2 (9.5 ? 12.6) Mean: 11.0 (9.7 ? 12.8) Mean: 11.0 (9.8 ? 13.0) Mean: 11.3 (9.9 ? 13.4) Mean: 11.7 (10.0 ? 14.6) Mean: 11.8 (10.0 - 14.1) Pediatric Reference ranges were obtained from a study by Bryan Raines et al. prepared from 1437 samples obtained at 7 different centers using the same coagulation reagent and instrumentation as [facility] [place]. Currently there are no coagulation studies available worldwide for children to 14 days, and no normal ranges. Performed By: #### 7 45617934, 35464009, 4630719, 72308324, 4671441, 3420823, 7511907, 1069080 ####[facility] [address] [place] [address] RAD - Preliminary Cat Scan R eporton 09-08-2022 RAD - Preliminary Cat Scan Report [id number]# 1.00CD:127 Normal [facility] Troponinon 09-08-2022 Troponin I.cardiac [Mass/Vol] 12.70 pg/mL Low 15.90-38.40 [facility] Comment on above: Order Comment: pt in ct...mmf 09/08/2022 19:08:58 EST Result Comment: The 95% CI (Confidence Interval) PPV (Positive Predictive Value) for myocardial infarction in females is 38 pg/mL, in males 51 pg/mL. The results should be used in conjunction with clinical conditions of myocardial infarction. (Access High Sensitivity Troponin I Instructions For Use, Christofer Replise, January 2018) Performed By: #### 7 [id number], 53485115, 9332254, 38208204, 9128327, 4693117, 2353770, 7972357 ####[facility] [address] [place] [address] UA With Cult Reflexon 2022 Epithelial cells.squamous LM.HPF (Urine sed) [#/Area] 0-2 Normal 0-2 [facility] Comment on above: Performed By: #### 1 [id number] #### [facility] [address] [place] [address] [place].plasma/[place] .RBC (Bld) [Mass ratio] 0-3 Normal 0-3 [facility] Comment on above: Performed By: #### 1 [id number] #### [facility] [address] [place] [address] Mucus Ql (Urine sed) 1+ Normal [facility] Comment on above: Performed By: #### 1 [id number] #### [facility] [address] [place] [address] WBC LM.HPF (Urine sed) [#/Area] 0-5 Normal 0-5 [facility] Comment on above: Performed By: #### 1 [id number] #### [facility] [address] [place] [address] Bilirubin Ql (U) Negative Normal Negative [facility] Comment on above: Performed By: #### 1 7276578 #### [facility] [address] [place] [address] Clarity (U) CLEAR Normal Clear [facility] Comment on above: Performed By: #### 1 6451544 #### [facility] [address] [place] [address] Color (U) YELLOW Normal Yellow [facility] Comment on above: Performed By: #### 1 5403414 #### [facility] [address] [place] [address] Glucose Test strip (U) [Mass/Vol] Negative Normal Negative [facility] Comment on above: Performed By: #### 1 [id number] #### [facility] [address] [place] [address] Hemoglobin Ql (U) Negative Normal Negative [facility] Comment on above: Performed By: #### 1 6535804 #### [facility] [address] [place] [address] Ketones (U) [Mass/Vol] Negative Normal Negative [facility] Comment on above: Performed By: #### 1 3680068 #### [facility] [address] [place] [address] Nitrite Ql (U) Negative Normal Negative [facility] Comment on above: Performed By: #### 1 7073546 #### [facility] [address] [place] [address] pH (U) 6.0 [pH] Invalid Interpretation Code 5.0-9.0 [facility] Comment on above: Performed By: #### 1 8207585 #### [facility] [address] [place] [address] Protein (U) [Mass/Vol] Negative Normal Negative [facility] Comment on above: Performed By: #### 1 [id number] #### [facility] [address] [place] [address] Specific gravity (U) [Rel density] 1.025 Invalid Interpretation Code 1.005-1.030 [facility] Comment on above: Performed By: #### 1 [id number] #### [facility] [address] [place] [address] Type of Urine collection method Random Urine Normal [facility] Comment on above: Performed By: #### 1 [id number] #### [facility] [address] [place] [address] Urobilinogen Qn (U) 1.0 {Arash'U}/dL Normal 0.0-1.0 [facility] Comment on above: Performed By: #### 1 7844906 #### [facility] [address] [place] [address] WBC Auto Ql (U) Negative Normal Negative [facility] Comment on above: Performed By: #### 1 [id number] #### [facility] [address] [place] [address] URINALYSISOrdered By: Maya Cook on 09-08-2022 Bilirubin Ql (U) Negative (09/08/22 7:41 PM) Normal Negative [facility] UA Auto SS Clarity (U) Clear (09/08/22 7:41 PM) Normal Clear [facility] UA Auto SS Color (U) Yellow (09/08/22 7:41 PM) Normal Yellow [facility] UA Auto SS Epithelial cells.squamous LM.HPF (Urine sed) [#/Area] 0-2 /HPF Normal 0-2/HPF [facility] Aut o SS Glucose Test strip (U) [Mass/Vol] Negative (09/08/22 7:41 PM) Normal Negative [facility] UA Auto SS Hemoglobin Ql (U) Negative (09/08/22 7:41 PM) Normal Negative [facility] UA Auto SS Ketones (U) [Mass/Vol] Negative (09/08/22 7:41 PM) Normal Negative [facility] UA Auto SS [place].plasma/[place] .RBC (Bld) [Mass ratio] 0-3 /HPF Normal 0-3/HPF [facility] UA Auto SS Mucus Ql (Urine sed) 1+ (09/08/22 7:41 PM) Normal [facility] UA Auto SS Nitrite Ql (U) Negative (09/08/22 7:41 PM) Normal Negative [facility] UA Auto SS pH (U) 6.0 *NA* (09/08/22 7:41 PM) Invalid Interpretation Code 5.0 - 9.0 [facility] [place] [place] Protein (U) [Mass/Vol] Negative (09/08/22 7:41 PM) Normal Negative [facility] UA Auto SS Specific gravity (U) [Rel density] 1.025 *NA* (09/08/22 7:41 PM) Invalid Interpretation Code 1.005 - 1.030 [facility] [place] UA Spec Desc Random Urine (09/08/22 7:41 PM) Normal [facility] [place] [place] Auto SS Urobilinogen Qn (U) [id number] {Arash'U}/dL Normal 0.0 - 1.0 EU/dL FT UA Auto SS WBC Auto Ql (U) Negative (09/08/22 7:41 PM) Normal Negative FT UA Auto SS WBC LM.HPF (Urine sed) [#/Area] 0-5 /HPF Normal 0-5/HPF [facility] [place] eGFRon 09-08-2022 GFR/1.73 sq M.predicted among blacks MDRD (S/P/Bld) [Vol rate/Area] mL/min/{1.73_m2} Normal >=59 [facility] Comment on above: Order Comment: Order added by Discern Expert. Result Comment: eGFR is race adjusted. AA=. Performed By: #### [id number] ####[facility] [id number] [place] [address] GFR/1.73 sq M.predicted among non-blacks MDRD (S/P/Bld) [Vol rate/Area] mL/min/{1.73_m2} Normal >=59 [facility] Comment on above: Order Comment: Order added by Discern Expert. Result Comment: Instrument Designer chu kidney disease could be indicated at eGFR's of less than 60 mL/min/1.73m2. Kidney failure is indicated at less than 15 mL/min/1.73m2. Performed By: #### [id number], [id number] ####[facility] [id number] [place] [address] VC CONSULT FOLLOWUPon 2021 VC CONSULT FOLLOWUP Patient: KEEGAN AUSTIN Exam Date: 05/15/2022 : 1965 Gender:M Ordering : DR RUBI MATTHEWS M.D. Admission #: [id number] Family : Order #: [id number] CLICK HERE TO VIEW EXAM RADIOLOGY REPORT PROCEDURE: VEIN CENTER CONSULTATION FOLLOWUP VEIN CENTER - OFFICE VISIT FOLLOW UP COMPARISON: VC CONSULT FOLLOWUP, 04/27/2022. VC CONSULT FOLLOWUP, 04/11/2022. PROGRESS NOTES: The patient reports no significant pain following micro foam chemical ablation of the right leg. Patient did not require oral analgesics. The patient has worn his compression stocking. The patient has lost approximately 40 pounds since the beginning of his treatments and is now able walk. The patient has followed our recommendations to walk 20-30 minutes once or twice per day since the procedure. The patient reports marked improvement in his initial presenting symptoms with no residual swelling. The patient is very happy with his treatments. Physical exam demonstrates no significant swelling period no residual patent varicose veins. A few scattered thrombosed veins can be palpated. Review of the ultrasound performed the same day demonstrates occlusive thrombus extending throughout the treated right leg varicose veins with no deep vein thrombus. No significant incompetent residual varicose veins observed. The patient's treatments are now complete. I suggested a follow-up in 12-24 months. IMPRESSION: 1. Successful ablation of incompetent right leg varicose veins 2. The patient's treatment plan is complete with good result PLAN: Follow-up in 12-24 months Nurse notes, history and physical were reviewed and confirmed, see attached forms. The nurse was present throughout the physical exam and consultation Dictated by: Rubi Matthews MD on 05/15/2022 at 09:27 Approved by: Rubi Matthews MD on 05/15/2022 at 09:29 [facility] VC EXT VENOUS RT LIMITEDon 1 07-15-2021 VC EXT VENOUS RT LIMITED Patient: KEEGAN AUSTIN Exam Date: 05/15/2022 : 1965 Gender:M Ordering : DR RUBI MATTHEWS M.D. Admission #: [id number] Family : Order #: [id number] CLICK HERE TO VIEW EXAM RADIOLOGY REPORT PROCEDURE: VEIN CENTER EXTREMITY VENOUS RIGHT LIMITED COMPARISON: VC EXT VENOUS RT LIMITED, 03/19/2022. VC EXT VENOUS RT LIMITED, 12/26/2021. INDICATIONS: Phlebitis of superficial veins of lower extremity I80.01 TECHNIQUE: Lower extremity robertson scale and Duplex Doppler evaluation of the deep venous system from the inguinal ligament through the calf veins. FINDINGS: REGION: Right lower extremity. THROMBI: Negative for DVT. Varithena induced thrombus visualized at dist/ant thigh and at distal GSV. COMPRESSIBILITY: Non-compressible segments. FLOW: Areas of no flow. OTHER: Patent varicose vein dist/med calf 2.3mm with 0s reflux. *Exam performed in accordance with [facility] practice guidelines- Peripheral venous ultrasound, September 24, 2009. CONCLUSION: Post ablation occlusion of treated right leg incompetent varicose veins. No significant residual incompetent varicose veins are observed Dictated by: Rubi Matthews MD on 05/15/2022 at 09:17 Approved by: Rubi Matthews MD on 05/15/2022 at 09:19 [facility] VC INJ FOAM SCLERO W US MLTI on 05-08-2022 VC INJ FOAM SCLERO W US MLTI Patient: KEEGAN AUSTIN Exam Date: 05/08/2022 : 1965 Gender:M Ordering : DR RUBI MATTHEWS M.D. Admission #: [id number] Family : Order #: [id number] CLICK HERE TO VIEW EXAM RADIOLOGY REPORT PROCEDURE: VEIN CENTER INJECTION FOAM SCLEROSING SOLUTION WITH ULTRASOUND MULTIPLE VEINS, right leg. No charge for the left COMPARISON: VC INJ FOAM SCLERO W US MLTI, 04/16/2022. Pre-operative Diagnosis: CEAP class C4b venous insufficiency with pain, tenderness, edema and incompetent right great saphenous vein and branch saphenous tributaries/varicose veins, chronic venous insufficiency right leg secondary to venous incompetence Post-operative Diagnosis: CEAP class C4b venous insufficiency with pain, tenderness, edema and incompetent right great saphenous vein and branch saphenous tributaries/varicose veins, chronic venous insufficiency right leg secondary to venous incompetence Procedure Performed: 1. Ultrasound-guided microfoam chemical ablation with Varithena(r) 2. Intraoperative ultrasound guidance Physician: Rubi Matthews M.D. Anesthesia: None Indications for Procedure: 56-year-old male who presents with a long history of lower extremity pains and swelling. The patient failed conservative medical therapy including medical compression stockings, exercise and analgesics. Prior procedures include intravenous laser ablation and micro foam chemical ablation Multiple incompetent varicosities of the right leg. Duplex scan showed reflux and enlarged diameters up to 6 mm. The patient underwent informed consent including management options where the complications of infection, bleeding, pain, and skin injury were discussed. Particular attention was spent discussing thrombus extension and deep vein thrombosis as well as the possibility of pulmonary embolus and treatment with oral or injectable blood thinners. Procedure: The patient walked to the procedure room. All applicable staff donned appropriate apparel. A procedure timeout was performed to confirm correct patient, correct extremity, correct procedure, and correct room set-up including presence of all applicable supplies, devices, and drugs. A duplex ultrasound, performed by myself confirmed the location and incompetence of incompetent varicose veins and their course marked on the skin together with the dilated tributaries. The extent of treatment of the vein and the associated varicosities was determined through ultrasound mapping. The patient was placed on the operating room table. The limb was prepped. The skin was punctured with a butterfly needle through the skin with the venous access needle and advanced under ultrasound guidance. The target limb was positioned at 45 degrees of elevation in relation to the torso utilizing a foam. The Varithena(r) canister was previously activated and the canister was primed and purged as required in the instructions for use. The following injections were made: 3 mL aliquot of Varithena(r) was drawn into a sterile syringe. Injection into a 4 mm varicose vein right distal anterior right thigh 2 mL aliquot of Varithena(r) was drawn into a sterile syringe. Injection into the distal right great saphenous vein 3 mL aliquot of Varithena(r) was drawn into a sterile syringe. Injection into a 4 mm varicose vein distal left anterior thigh Varithena(r) was slowly administered at 0.5-1.0 cc/second with close observation by ultrasound of its course in the GSV and varicose veins. A total volume of 8 mL of Varithena(r) was used. During administration of Varithena(r), the patient was asked to dorsiflex the ankle to limit flow of Varithena(r) into perforating veins. Once appropriate spasm had been confirmed in the treated veins, the vascular catheter was removed from the leg and light pressure was applied over the puncture site for hemostasis The common femoral and deep superficial veins were then evaluated for flow and compressibility prior to dressing placement. The lower extremity was kept elevated at 45 degrees above the horizontal and cording material was applied over the saphenous segments and tributaries to allow for eccentric compression over the target vessels including the targeted saphenous vein(s). A multilayer dressing was applied consisting of foam pads, coban and thigh-high 20-30 mm Hg compression elastic support hose were placed on the patient. The leg was lowered only after compression had been applied and the patient was immediately ambulatory. The patient ambulated 10 minutes under supervision and was without apparent concerns at time of release Post-care instructions include advising patient to keep post-treatment bandages in place and dry for 48 hours, avoid extended periods of inactivity, avoid heavy exercise for one week, wear compression stockings on the treated leg continuously for two weeks, to walk daily for 10 minutes over the next cadence (more content not included)... Normal [facility] VC CONSULT FOLLOWUPon 2021 VC CONSULT FOLLOWUP Patient: KEEGAN AUSTIN Exam Date: 04/27/2022 : 1965 Gender:M Ordering : DR RUBI MATTHEWS M.D. Admission #: [id number] Family : Order #: [id number] CLICK HERE TO VIEW EXAM RADIOLOGY REPORT PROCEDURE: VEIN CENTER CONSULTATION FOLLOWUP VEIN CENTER - OFFICE VISIT FOLLOW UP COMPARISON: VC CONSULT FOLLOWUP, 04/11/2022. VC CONSULT FOLLOWUP, 03/19/2022. PROGRESS NOTES: The patient reports no significant pain or discomfort following micro foam chemical ablation of the left leg. The patient did not require oral analgesics. The patient did wear his compression stocking. The patient has followed our recommendations to walk 20-30 minutes once or twice per day since the procedure. The patient reports remarkable improvement in his initial presenting symptoms and he is now able to stand, walk and exercise. The patient has lost 35 pounds since beginning his treatments here. Review of the ultrasound performed the same day demonstrates occlusive thrombus extending throughout the treated vein, see separate report, consistent with a successful ablation. No thrombus extending into or beyond the saphenofemoral junction. The patient expressed a desire to proceed with treatment of incompetent right leg varicose veins with micro foam chemical ablation. IMPRESSION: 1. Successful ablation of incompetent left leg varicose veins 2. Persistent incompetent right leg varicose veins PLAN: Micro foam chemical ablation right leg Nurse notes, history and physical were reviewed and confirmed, see attached forms. The nurse was present throughout the physical exam and consultation Dictated by: Rubi Matthews MD on 04/27/2022 at 11:27 Approved by: Rubi Matthews MD on 04/27/2022 at 11:29 Normal [facility] VC EXT VENOUS LT LIMITEDon 1 VC EXT VENOUS LT LIMITED Patient: KEEGAN AUSTIN Exam Date: 04/27/2022 : 1965 Gender:M Ordering : DR RUBI MATTHEWS M.D. Admission #: [id number] Family : Order #: [id number] CLICK HERE TO VIEW EXAM RADIOLOGY REPORT PROCEDURE: VEIN CENTER EXTREMITY VENOUS LEFT LIMITED COMPARISON: VC EXT VENOUS LT LIMITED, 04/11/2022. INDICATIONS: Phlebitis of superficial veins of lower extremity I80.02 TECHNIQUE: Lower extremity robertson scale and Duplex Doppler evaluation of the deep venous system from the inguinal ligament through the calf veins. FINDINGS: REGION: Left lower extremity. THROMBI: Negative for DVT. Varithena induced thrombus visualized at dist/med calf and extends up to prox calf. COMPRESSIBILITY: Non-compressible segments. FLOW: Areas of no flow. OTHER: Patent varicose vein mid/ant thigh 2.8mm with 0.8s reflux. *Exam performed in accordance with [facility] practice guidelines- Peripheral venous ultrasound, September 24, 2009. CONCLUSION: Post ablation occlusion of treated left leg incompetent varicose veins Dictated by: Rubi Matthews MD on 04/27/2022 at 11:09 Approved by: Rubi Matthews MD on 04/27/2022 at 11:10 Normal [facility] VC INJ FOAM SCLERO W US MLTI on 04-16-2022 VC INJ FOAM SCLERO W US MLTI Patient: KEEGAN AUSTIN Exam Date: 04/16/2022 : 1965 Gender:M Ordering : DR RUBI MATTHEWS M.D. Admission #: [id number] Family : Order #: [id number] CLICK HERE TO VIEW EXAM RADIOLOGY REPORT PROCEDURE: VEIN CENTER INJECTION FOAM SCLEROSING SOLUTION WITH ULTRASOUND MULTIPLE VEINS COMPARISON: None. Pre-operative Diagnosis: CEAP class C4b venous insufficiency with pain, tenderness, edema and incompetent branch saphenous vein, chronic venous insufficiency left leg secondary to venous incompetence Post-operative Diagnosis: CEAP class C4b venous insufficiency with pain, tenderness, edema and incompetent branch saphenous vein, chronic venous insufficiency left leg secondary to venous incompetence Procedure Performed: 1. Ultrasound-guided microfoam chemical ablation with Varithena(r) 2. Intraoperative ultrasound guidance Physician: Allison Gonzalez M.D. Anesthesia: None. Indications for Procedure: 56 year old male. Symptoms including lower extremity pain, swelling, throbbing for many years despite conservative medical therapy including medical compression stockings, exercise and analgesics. Prior procedures include: Endovenous laser ablation. Multiple incompetent varicosities of the left leg. Duplex scan showed reflux and enlarged diameters up to 5 mm. The patient has undergone informed consent including management options where the complications of infection, bleeding, pain, and skin injury were discussed. Particular attention was spent discussing thrombus extension and deep vein thrombosis as well as the possibility of pulmonary embolus and treatment with oral or injectable blood thinners. Procedure: The patient walked to the procedure room. All applicable staff donned appropriate apparel. A procedure timeout was performed to confirm correct patient, correct extremity, correct procedure, and correct room set-up including presence of all applicable supplies, devices, and drugs. A duplex ultrasound, performed by myself confirmed the location and incompetence of branch saphenous varicosities and their course was marked on the skin together with the dilated tributaries. The extent of treatment of the veins and the associated varicosities was determined through ultrasound mapping. The skin was prepped and then punctured with a butterfly needle and advanced under ultrasound guidance. The Varithena(r) canister was activated and the canister was primed and purged as required in the instructions for use. Varithena(r) was drawn into a sterile syringe. Varithena(r) was slowly administered at 0.5-1.0 cc/second with close observation by ultrasound of its course in the vessels. Total volume utilized was: 8 mL within an incompetent branch saphenous varicosity 5 millimeters diameter within the distal medial lower left leg. Following administration of Varithena(r), the leg was elevated and the patient was asked to repeatedly dorsiflex the ankle to limit flow of Varithena(r) into perforating veins. Once appropriate spasm had been confirmed in the treated veins, the vascular catheter was removed from the leg and light pressure was applied over the puncture site for hemostasis The common femoral and deep superficial veins were then evaluated for flow and compressibility prior to dressing placement. The lower extremity was kept elevated at 45 degrees above the horizontal and cording material was applied over the saphenous segments and tributaries to allow for eccentric compression over the target vessels including the targeted saphenous vein(s). A multilayer dressing was applied consisting of foam pads, coban and thigh-high 20-30 mm Hg compression elastic support hose were placed on the patient. The leg was lowered only after compression had been applied and the patient was immediately ambulatory. The patient ambulated 10 minutes under supervision and was without apparent concerns at time of release Post-care instructions include advising patient to keep post-treatment bandages in place and dry for 48 hours, avoid extended periods of inactivity, avoid heavy exercise for one week, wear compression stockings on the treated leg continuously for two weeks, to walk daily for 10 minutes over the next month. The patient was instructed to take an anti-inflammatory medicine as needed and to follow up for color duplex scan of the Saphenous veins, the treated branch saphenous varicosities, the adjacent deep veins, and additional treatment within 7 days. PERSONNEL: Jose R Shahid R.N. Dictated by: Allison Gonzalez M.D. on 04/16/2022 at 14:54 Approved by: Allison Gonzalez M.D. on 04/16/2022 at 14:58 Normal [facility] VC CONSULT FOLLOWUPon 2021 VC CONSULT FOLLOWUP Patient: KEEGAN AUSTIN Exam Date: 04/11/2022 : 1965 Gender:M Ordering : DR RUBI MATTHEWS M.D. Admission #: [id number] Family : Order #: [id number] CLICK HERE TO VIEW EXAM RADIOLOGY REPORT PROCEDURE: VEIN CENTER CONSULTATION FOLLOWUP VEIN CENTER - OFFICE VISIT FOLLOW UP COMPARISON: VC CONSULT FOLLOWUP, 03/19/2022. VC CONSULT FOLLOWUP, 01/05/2022. PROGRESS NOTES: The patient reports moderate discomfort of the left leg following intravenous laser ablation of the left great saphenous vein. The patient is on hydrocodone for additional back pain and did not require any pain medications . The patient did wear his compression stocking. The patient has followed our recommendations to walk 20-30 minutes once or twice per day since the procedure. The patient reports some mild improvement in left leg symptoms. Physical exam demonstrates few small areas of bruising likely related to tumescence injection measuring up to 3 cm in diameter. Thrombosed great saphenous vein can be palpated partially. Scattered varicose veins are observed. No erythema or warmth to suggest cellulitis or thrombophlebitis. No active ulceration Review of the ultrasound performed the same day demonstrates occlusive thrombus extending throughout the treated left great saphenous vein with heat induced thrombus 1.6 cm from the saphenofemoral junction. The left anterior accessory saphenous vein is partially occluded the remaining vein is very small and does not demonstrate reflux, therefore does not need treated at this time The patient expressed a desire to proceed with treatment of incompetent varicose veins with micro foam chemical ablation. IMPRESSION: 1. Successful ablation of the left great saphenous vein 2. Persistent bilateral incompetent varicose veins PLAN: Micro foam chemical ablation, left leg before right Nurse notes, history and physical were reviewed and confirmed, see attached forms. The nurse was present throughout the physical exam and consultation Dictated by: Rubi Matthews MD on 04/11/2022 at 12:20 Approved by: Rubi Matthews MD on 04/11/2022 at 12:22 Normal [facility] VC EXT VENOUS LT LIMITEDon 1 VC EXT VENOUS LT LIMITED Patient: KEEGAN AUSTIN Exam Date: 04/11/2022 : 1965 Gender:M Ordering : DR RUBI MATTHEWS M.D. Admission #: [id number] Family : Order #: [id number] CLICK HERE TO VIEW EXAM RADIOLOGY REPORT PROCEDURE: VEIN CENTER EXTREMITY VENOUS LEFT LIMITED COMPARISON: None. INDICATIONS: Phlebitis and thrombophlebitis of superficial veins of left lower extremity I80.02 TECHNIQUE: Lower extremity robertson scale and Duplex Doppler evaluation of the deep venous system from the inguinal ligament through the calf veins. FINDINGS: REGION: Left lower extremity. THROMBI: Negative for DVT. Chronic thrombus in popliteal vein. Heat induced thrombus in the left GSV 1.8 cm from SFJ and extends to the distal lower leg. COMPRESSIBILITY: Non-compressible segments. FLOW: Areas of no flow. *Exam performed in accordance with [facility] practice guidelines- Peripheral venous ultrasound, September 24, 2009. CONCLUSION: Post ablation occlusion of the left great saphenous vein with heat induced thrombus 1.8 cm from the saphenofemoral junction Dictated by: Rubi Matthews MD on 04/11/2022 at 13:17 Approved by: Rubi Matthews MD on 04/11/2022 at 13:18 Normal [facility] VC ENDOVENOUS ABL 1ST V LTon 04-04-2022 VC ENDOVENOUS ABL 1ST V LT Patient: KEEGAN AUSTIN. Exam Date: 04/04/2022 : 1965 Gender:M Ordering : DR RUBI MATTHEWS M.D. Admission #: [id number] Family : Order #: [id number] CLICK HERE TO VIEW EXAM RADIOLOGY REPORT PROCEDURE: VEIN CENTER ENDOVENOUS ABLATION FIRST VEIN LEFT GREAT SAPHENOUS VEIN COMPARISON: None. INDICATIONS: Pain co-occurrent and due to varicose veins of bilateral legs I83.813 OPERATIVE REPORT: The risks and benefits of the procedure had been previously discussed, and were rediscussed at length. Informed written consent was obtained by and Jose R cruz. Time out procedure was performed. The left lower extremity was prepared and draped in the usual sterile fashion to allow knee flexion in the sterile field. Duplex ultrasound probe was draped in a sterile cover, sterile transmission gel was used. Venous mapping was performed with the areas of dilation and large tributaries marked. The total length was 60 cm from the entry 6 cm above the medial malleolus to 3 cm below the saphenofemoral junction. The diameter of the greater saphenous vein ranged from 5-12 mm. A 30 gauge needle and 1% buffered lidocaine was used to anesthetize the entry site. A 4 mm incision was made with a scalpel and the saphenous vein was entered percutaneously under direct ultrasound guidance with a micropuncture set, two sticks were successful in gaining access. A micro-guide wire was inserted and the needle removed. A micro-set including a dilator was inserted over the microwire and the needle and dilator were removed. A 0.018 guide wire was inserted through the micro-set and threaded through the saphenous vein to the saphenofemoral junction. The dilator was removed and an introducer sheath was inserted over the wire until the end of the sheath entered the saphenofemoral junction. The dilator and wire were removed and the 600 micron fiber was introduced and placed and positioned so that it extended beyond the sheath and was 3 cm peripheral to the saphenofemoral femoral junction. Final position of the fiber was determined by ultrasound guidance and duplex imaging. Tumescent anesthetic was delivered by ultrasound guidance. 350 cc of fluid was delivered along the entire course of the saphenous vein. The solution consisted of 500 cc of normal saline with 20mL of 1% lidocaine and 10 mL of sodium bicarbonate. A final positioning check was made. The energy source was turned on by means of the foot pedal and the fiber and sheath were withdrawn. The total number of Joules delivered was 3424. The laser was active for 428 seconds under continuous pulse, average laser use of 8 J. Laser start time 3:16 p.m. April 04, 2022. Laser stop time 3:25 p.m. April 04, 2022. . A duplex ultrasound revealed compressibility and flow at the saphenofemoral junction immediately after the procedure. Hemostasis at the access site was achieved. The skin incision of the saphenous vein was closed with a 4 x 4. A compression stocking was applied. Postop instructions were given. A follow up appointment was recommended and scheduled. The patient tolerated the procedure well and was discharged in good condition. CONCLUSION: 1. Technically successful endovenous laser ablation of the left great saphenous vein. Dictated by: Rubi Matthews MD on 04/04/2022 at 15:26 Approved by: Rubi Matthews MD on 04/04/2022 at 15:30 Normal [facility] VC CONSULT FOLLOWUPon 2021 VC CONSULT FOLLOWUP Patient: KEEGAN AUSTIN Exam Date: 03/19/2022 : 1965 Gender:M Ordering : DR RUBI MATTHEWS M.D. Admission #: [id number] Family : Order #: [id number] CLICK HERE TO VIEW EXAM RADIOLOGY REPORT PROCEDURE: VEIN CENTER CONSULTATION FOLLOWUP VEIN CENTER - OFFICE VISIT FOLLOW UP COMPARISON: VC CONSULT FOLLOWUP, 01/05/2022. PROGRESS NOTES: The patient reports that improvement in right leg symptoms. There has been interval reduction in varicosities. The patient has followed our recommendations to walk 20-30 minutes once or twice per day since the procedure. Physical exam demonstrates bruising of proximal medial right thigh without evidence of infection. Persistent varicosities are identified along the legs bilaterally. Review of the ultrasound performed the same day demonstrates occlusive thrombus extending throughout the treated vein, see separate report, consistent with a successful ablation. No thrombus extending into or beyond the saphenofemoral junction. The patient expressed a desire to proceed with treatment of left great saphenous vein. The patient was informed that treatment was a process and would require several procedures/sessions. IMPRESSION: 1. Successful ablation of the right anterior accessory saphenous vein 2. Persistent varicose veins and lower extremity symptoms PLAN: Endovenous laser ablation of left great saphenous vein. Nurse notes, history and physical were reviewed and confirmed, see attached forms. The nurse was present throughout the physical exam and consultation Dictated by: Allison Gonzalez M.D. on 03/19/2022 at 09:53 Approved by: Allison Gonzalez M.D. on 03/19/2022 at 09:55 Normal [facility] VC EXT VENOUS RT LIMITEDon 0 03-19-2022 VC EXT VENOUS RT LIMITED Patient: KEEGAN AUSTIN Exam Date: 03/19/2022 : 1965 Gender:M Ordering : DR RUBI MATTHEWS M.D. Admission #: [id number] Family : Order #: [id number] CLICK HERE TO VIEW EXAM RADIOLOGY REPORT PROCEDURE: VEIN CENTER EXTREMITY VENOUS RIGHT LIMITED COMPARISON: VC EXT VENOUS RT LIMITED, 12/26/2021. INDICATIONS: Phlebitis of superficial veins of lower extremity I80.01 TECHNIQUE: Lower extremity robertson scale and Duplex Doppler evaluation of the deep venous system from the inguinal ligament through the calf veins. FINDINGS: REGION: Right lower extremity. THROMBI: Negative for DVT. Heat induced thrombus arising 1.9mm from the SFJ. The thrombus extends from groin to mid thigh. COMPRESSIBILITY: Non-compressible segments. FLOW: Areas of no flow. OTHER: CONCLUSION: 1. Successful post ablation occlusion of right anterior accessory saphenous vein. Dictated by: Allison Gonzalez M.D. on 03/19/2022 at 09:52 Approved by: Allison Gonzalez M.D. on 03/19/2022 at 09:53 [facility] VC ENDOVENOUS ABL 1ST V RTon 03-16-2022 VC ENDOVENOUS ABL 1ST V RT Patient: KEEGAN AUSTIN Exam Date: 03/16/2022 : 1965 Gender:M Ordering : DR RUBI MATTHEWS M.D. Admission #: [id number] Family : Order #: [id number] CLICK HERE TO VIEW EXAM RADIOLOGY REPORT PROCEDURE: VEIN CENTER ENDOVENOUS ABLATION FIRST VEIN RIGHT ANTERIOR ACCESSORY SAPHENOUS VEIN COMPARISON: VC ENDOVENOUS ABL 1ST V RT, 12/21/2021. INDICATIONS: Pain co-occurrent and due to varicose veins of bilateral legs I83.813 OPERATIVE REPORT: The risks and benefits of the procedure had been previously discussed, and were rediscussed at length. Informed written consent was obtained by and Jose R cruz. Time out procedure was performed. The right lower extremity was prepared and draped in the usual sterile fashion to allow knee flexion in the sterile field. Duplex ultrasound probe was draped in a sterile cover, sterile transmission gel was used. Venous mapping was performed with the areas of dilation and large tributaries marked. The total length was 15 cm from the entry mid thigh to 3 cm below the saphenofemoral junction. The diameter of the greater saphenous vein ranged from 5-9 mm. A 30 gauge needle and 1% buffered lidocaine was used to anesthetize the entry site. A 4 mm incision was made with a scalpel and the saphenous vein was entered percutaneously under direct ultrasound guidance with a micropuncture set, a single stick was successful in gaining access. A micro-guide wire was inserted and the needle removed. A micro-set including a dilator was inserted over the microwire and the needle and dilator were removed. A 0.018 guide wire was inserted through the micro-set and threaded through the saphenous vein to the saphenofemoral junction. The dilator was removed and an introducer sheath was inserted over the wire until the end of the sheath entered the saphenofemoral junction. The dilator and wire were removed and the 600 micron fiber was introduced and placed and positioned so that it extended beyond the sheath and was 3 cm peripheral to the saphenofemoral femoral junction. Final position of the fiber was determined by ultrasound guidance and duplex imaging. Tumescent anesthetic was delivered by ultrasound guidance. 100 cc of fluid was delivered along the entire course of the saphenous vein. The solution consisted of 500 cc of normal saline with 20mL of 1% lidocaine and 10 mL of sodium bicarbonate. A final positioning check was made. The energy source was turned on by means of the foot pedal and the fiber and sheath were withdrawn. The total number of Joules delivered was 682. The laser was active for 85 seconds under continuous pulse, average laser use of 8 J. Laser start time 10:32 a.m. March 16, 2022. Laser stop time 10:34 a.m. March 16, 2022. A duplex ultrasound revealed compressibility and flow at the saphenofemoral junction immediately after the procedure. Hemostasis at the access site was achieved. The skin incision of the saphenous vein was closed with a 4 x 4. A compression stocking was applied. Postop instructions were given. A follow up appointment was recommended and scheduled. The patient tolerated the procedure well and was discharged in good condition. CONCLUSION: 1. Technically successful endovenous laser ablation of the right anterior accessory saphenous vein. Dictated by: Rubi Matthews MD on 03/16/2022 at 10:39 Approved by: Rubi Matthews MD on 03/16/2022 at 10:40 Normal [facility] VC CONSULT FOLLOWUPon 2021 VC CONSULT FOLLOWUP Patient: KEEGAN AUSTIN Exam Date: 01/05/2022 : 1965 Gender:M Ordering : DR RUBI MATTHEWS M.D. Admission #: [id number] Family : Order #: [id number] CLICK HERE TO VIEW EXAM RADIOLOGY REPORT PROCEDURE: VEIN CENTER CONSULTATION FOLLOWUP VEIN CENTER - OFFICE VISIT FOLLOW UP COMPARISON: VC CONSULT FOLLOWUP, 12/26/2021. PROGRESS NOTES: The patient reports bilateral lower extremity swelling and right lower extremity pain. The patient was in the emergency department yesterday for evaluation at which time there was determined to be no infection or deep vein thrombus. Patient notes that he has been walking, but has not been wearing compression stockings since endovenous laser ablation of the right great saphenous vein on December 21, 2021. Physical exam demonstrates bilateral lower extremity swelling. No erythema or signs of infection at entry sites. Review of the ultrasound performed the same day demonstrates occlusive thrombus extending throughout the treated vein, see separate report, consistent with a successful ablation. No thrombus extending into or beyond the saphenofemoral junction. No deep vein thrombus. The patient expressed a desire to proceed with treatment. IMPRESSION: 1. Successful ablation of the right great saphenous vein 2. Persistent incompetent veins and bilateral leg symptoms PLAN: 1. Microfoam chemical ablation of incompetent branch saphenous varicosities. Nurse notes, history and physical were reviewed and confirmed, see attached forms. The nurse was present throughout the physical exam and consultation Dictated by: Allison Gonzalez M.D. on 01/05/2022 at 11:40 Approved by: Allison Gonzalez M.D. on 01/05/2022 at 11:44 Normal [facility] VC EXT VENOUS TERRELL LIMITEDon 01-05-2022 VC EXT VENOUS TERRELL LIMITED Patient: KEEGAN AUSTIN. Exam Date: 01/05/2022 : 1965 Gender:M Ordering : DR RUBI MATTHEWS M.D. Admission #: [id number] Family : Order #: [id number] CLICK HERE TO VIEW EXAM RADIOLOGY REPORT PROCEDURE: VEIN CENTER EXTREMITY VENOUS BILATERAL LIMITED COMPARISON: None. INDICATIONS: Phlebitis of superficial veins of lower extremity i80.03 TECHNIQUE: Lower extremity robertson scale and Duplex Doppler evaluation of the deep venous system from the inguinal ligament through the calf veins. FINDINGS: REGION: Right lower extremity. THROMBI: None. Negative. COMPRESSIBILITY: Normal compressibility. FLOW: Normal waveform and antegrade flow between 5 and 20 cm/s. OTHER: Negative. REGION: Left lower extremity. THROMBI: Chronic appearing thrombus.Chronic thrombus with partial compression seen distal FV and Pop V. COMPRESSIBILITY: Partial compressibility of segments. FLOW: Normal waveform and antegrade flow between 5 and 20 cm/s. OTHER: Negative. CONCLUSION: 1. No deep vein thrombus within the right or left lower extremity. 2. Successful post ablation occlusion of treated right great saphenous vein. Dictated by: Allison Gonzalez M.D. on 01/05/2022 at 11:20 Approved by: Allison Gonzalez M.D. on 01/05/2022 at 11:39 Normal [facility] CHEMISTRYOrdered By: SYSTEM SYSTEM on 01-04-2022 Anion gap [Moles/Vol] 12 mmol/L Normal 6 - 16 mEq/L F [facility] Remisol Calcium [Mass/Vol] 9.0 mg/dL Normal 8.9 - 11. 1 mg/dL FT Remisol Chloride [Moles/Vol] 102 mmol/L Normal 101 - 1 11 mmol/L FT Remisol CO2 [Moles/Vol] 30 mmol/L Normal 21 - 31 mmol/L FT Remisol Creatinine [Mass/Vol] 1.0 mg/dL Normal 0.5 - 1.3 mg/dL FT Remisol GFR/1.73 sq M.predicted among blacks MDRD (S/P/Bld) [Vol rate/Area] mL/min/1.73 m2 Normal >=59mL/min/1 .73 m2 FT Chem S GFR/1.73 sq M.predicted among non-blacks MDRD (S/P/Bld) [Vol rate/Area] mL/min/1.73 m2 Normal >=59mL/min/1 .73 m2 [facility] [place] S Glucose [Mass/Vol] 95 mg/dL Normal 55 - 199 mg/dL FT Remisol Potassium [Moles/Vol] 4.9 mmol/L Normal 3.5 - 5.3 mmol/L [facility] [place]isol Sodium [Moles/Vol] 139 mmol/L Normal 135 - 145 mmol/L [facility] [place] Remisol Urea nitrogen [Mass/Vol] 12 mg/dL Normal 5 - 21 mg/dL [facility] [place] Remisol Urea nitrogen/Creatinine [Mass ratio] 12 mg/mg Normal 10 - 20 [facility] [place] Remisol VC CONSULT FOLLOWUPon 2021 VC CONSULT FOLLOWUP Patient: KEEGAN AUSTIN Exam Date: 12/26/2021 : 1965 Gender:M Ordering : DR RUBI MATTHEWS M.D. Admission #: [id number] Family : Order #: [id number] CLICK HERE TO VIEW EXAM RADIOLOGY REPORT PROCEDURE: VEIN CENTER CONSULTATION FOLLOWUP VEIN CENTER - OFFICE VISIT FOLLOW UP COMPARISON: None. PROGRESS NOTES: The patient reports mild discomfort in the right leg following intravenous laser ablation of the right great saphenous vein. The patient did not require oral analgesics. The patient did wear his compression stocking as directed. The patient had difficulty following our recommendations to walk 20-30 minutes once or twice per day as he is immobile and uses a cane. The patient reports significant decrease in right leg tiredness following the procedure. Physical exam demonstrates a large bruising along the medial thigh measuring 25 x 10 cm likely related to tumescence injection. The great saphenous vein can be palpated which causes the patient some discomfort. No areas of erythema or warmth to suggest cellulitis or thrombophlebitis. No active ulceration Review of the ultrasound performed the same day demonstrates occlusive thrombus extending throughout the treated right great saphenous vein with heat induced thrombus 3.9 cm from the saphenofemoral junction. The patient expressed a desire to proceed with treatment of right anterior accessory saphenous vein with intravenous laser ablation. IMPRESSION: 1. Successful ablation of the right great saphenous vein 2. 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 The nurse was present throughout the physical exam and consultation Dictated by: Rubi Matthews MD on 12/26/2021 at 11:37 Approved by: Rubi Matthews MD on 12/26/2021 at 11:39 Normal [facility] VC EXT VENOUS RT LIMITEDon 0 12-26-2021 VC EXT VENOUS RT LIMITED Patient: KEEGAN AUSTIN Exam Date: 12/26/2021 : 1965 Gender:M Ordering : DR RUBI MATTHEWS M.D. Admission #: [id number] Family : Order #: [id number] CLICK HERE TO VIEW EXAM RADIOLOGY REPORT PROCEDURE: VEIN CENTER EXTREMITY VENOUS RIGHT LIMITED COMPARISON: None. INDICATIONS: Phlebitis and thrombophlebitis of superficial veins of right lower extremity I80.01 TECHNIQUE: Lower extremity robertson scale and Duplex Doppler evaluation of the deep venous system from the inguinal ligament through the calf veins. FINDINGS: REGION: Right lower extremity. THROMBI: Negative for DVT. Heat induced thrombus seen 3.9cm from SFJ. The heat induced thrombus extends from groin to prox calf. The GSV becomes patent again at mid calf/below area of insertion. COMPRESSIBILITY: Noncompressibility corresponding to thrombus FLOW: Absent flow corresponding to thrombus *Exam performed in accordance with [facility] practice guidelines- Peripheral venous ultrasound, September 24, 2009. CONCLUSION: Post ablation occlusion of the right great saphenous vein with heat induced thrombus 3.9 cm from the saphenofemoral junction Dictated by: Rubi Matthews MD on 12/26/2021 at 11:24 Approved by: Rubi Matthews MD on 12/26/2021 at 11:25 Normal [facility] VC ENDOVENOUS ABL 1ST V RTon 12-21-2021 VC ENDOVENOUS ABL 1ST V RT Patient: KEEGAN AUSTIN Exam Date: 12/21/2021 : 1965 Gender:M Ordering : DR RUBI MATTHEWS M.D. Admission #: [id number] Family : Order #: [id number] CLICK HERE TO VIEW EXAM RADIOLOGY REPORT PROCEDURE: VEIN CENTER ENDOVENOUS ABLATION FIRST VEIN RIGHT COMPARISON: None. INDICATIONS: Pain co-occurrent and due to varicose veins of bilateral legs I83.813 OPERATIVE REPORT: The risks and benefits of the procedure had been previously discussed, and were rediscussed at length. Informed written consent was obtained by me and Jose R cruz. Time out procedure was performed. The right lower extremity was prepared and draped in the usual sterile fashion to allow knee flexion in the sterile field. Duplex ultrasound probe was draped in a sterile cover, sterile transmission gel was used. Venous mapping was performed with the areas of dilation and large tributaries marked. The total length was 47 cm from the entry mid calf to 3 cm below the saphenofemoral junction. The diameter of the greater saphenous vein ranged from 10 mm. A 30 gauge needle and 1% buffered lidocaine was used to anesthetize the entry site. A 4 mm incision was made with a scalpel and the saphenous vein was entered percutaneously under direct ultrasound guidance with a micropuncture set, a single stick was successful in gaining access. A micro-guide wire was inserted and the needle removed. A micro-set including a dilator was inserted over the microwire and the needle and dilator were removed. A 0.018 guide wire was inserted through the micro-set and threaded through the saphenous vein to the saphenofemoral junction. The dilator was removed and an introducer sheath was inserted over the wire until the end of the sheath entered the saphenofemoral junction. The dilator and wire were removed and the 600 micron fiber was introduced and placed and positioned so that it extended beyond the sheath and was 3 cm peripheral to the saphenofemoral femoral junction. Final position of the fiber was determined by ultrasound guidance and duplex imaging. Tumescent anesthetic was delivered by ultrasound guidance. Three hundred seventy-five cc of fluid was delivered along the entire course of the saphenous vein. The solution consisted of 500 cc of normal saline with 20mL of 1% lidocaine and 10 mL of sodium bicarbonate. A final positioning check was made. The energy source was turned on by means of the foot pedal and the fiber and sheath were withdrawn. The total number of Joules delivered was July 30, 2074. The laser was active for 3 or 97 seconds under continuous pulse, average laser use of 8 J. Laser start time 9:48 a.m. December 21, 2021. Laser stop time 9:55 a.m. December 21, 2021. A duplex ultrasound revealed compressibility and flow at the saphenofemoral junction immediately after the procedure. Hemostasis at the access site was achieved. The skin incision of the saphenous vein was closed with a 4 x 4. A compression stocking was applied. Postop instructions were given. A follow up appointment was recommended and scheduled. The patient tolerated the procedure well and was discharged in good condition. CONCLUSION: 1. Technically successful endovenous laser ablation of the right great saphenous vein. Dictated by: Allison Gonzalez M.D. on 12/21/2021 at 10:00 Approved by: Allison Gonzalez M.D. on 12/21/2021 at 10:02 Normal [facility] CTA ABD FAUSTO WWO CON LE RUNO FFon 12-01-2021 CTA ABD FAUSTO WWO CON LE RUNOFF EXAMINATION: CTA ABD FAUSTO WWO CON LE RUNOFF HISTORY: Bilateral lower limb atherosclerosis pain at rest co-occurrent and due to atherosclerosis COMPARISON: No relevant comparison available. TECHNIQUE: After obtaining the patient's consent, CT images of the abdomen, pelvis, and lower extremities were obtained without and with non-ionic intravenous contrast material. Multi-planar reformatted/3-D images were created to optimize visualization of vascular anatomy. Dose reduction techniques were achieved by using automated exposure control and/or adjustment of mA and/or kV according to patient size and/or use of iterative reconstruction technique. FINDINGS: AORTA: Minimal atherosclerotic disease. No aneurysm or dissection. Normal renal and mesenteric vessels. ILIAC: Mild atherosclerotic disease of the common iliac arteries bilaterally. No aneurysm or dissection. RIGHT LEG: A few scattered areas of minimal atherosclerotic disease. No significant stenosis or occlusion. LEFT LEG: A few scattered areas of minimal atherosclerotic disease. No significant stenosis or occlusion. LUNG BASES: No visible pulmonary or pleural disease. LIVER: Contains several rounded hypodensities up to 2.5 cm in diameter, nonspecific but favoring cysts or hemangiomas. BILIARY: No visible dilatation or calcification. PANCREAS: No lesion, fluid collection, ductal dilatation, or atrophy. SPLEEN: No enlargement or focal lesion. ADRENALS: No mass or enlargement. KIDNEYS: 2 large benign-appearing right renal cysts. No mass, obstruction, or calcification. BOWEL/MESENTERY: No visible mass, obstruction, or bowel wall thickening. Normal appendix. RETROPERITONEUM: No mass or adenopathy. ABDOMINAL WALL: No mass or hernia. URINARY BLADDER: No visible focal wall thickening, lesion, or calculus. PELVIC NODES: No adenopathy. PELVIC ORGANS: No visible mass. Pelvic organs appropriate for patient age. BONES: No bony lesion or fracture. OTHER: IMPRESSION: 1. Mild atherosclerotic disease. No area of significant narrowing or findings to account for patient's symptoms. Electronically authenticated by: ALLISON GONZALEZ Date: 2021-12-01 16:44 Normal [facility] Complete Blood Count with Au to Diffon 11-30-2021 Basophils (Bld) [#/Vol] 0.10 10*3/uL Normal 0.00-0.20 [facility] Comment on above: Performed By: #### C MP, CBCAD #### [facility] [address] [place], [place] [id number] Basophils/100 WBC (Bld) 1.1 % Normal [facility] Comment on above: Performed By: #### C MP, CBCAD #### [facility] [address] [place], [place] [id number] Eosinophils (Bld) [#/Vol] 0.20 10*3/uL Normal 0.02-0.50 [facility] Comment on above: Performed By: #### C MP, CBCAD #### [facility] [address] [place], [place] [id number] Eosinophils/100 WBC (Bld) 2.2 % Normal [facility] Comment on above: Performed By: #### C MP, CBCAD #### [facility] [address] [place], [place] [id number] Erythrocyte distribution width (RBC) [Ratio] 13.6 % Normal 11.0-15.0 [facility] Electrical Engineer Comment on above: Performed By: #### C MP, CBCAD #### [facility] [address] [place], [place] [id number] Hematocrit (Bld) [Volume fraction] 51.3 % High 38.5-50.0 [facility] Comment on above: Performed By: #### C MP, CBCAD #### [facility] [address] [place], [place] [id number] Hemoglobin (Bld) [Mass/Vol] 16.5 g/dL Normal 13.0-17.1 [facility] [employer] Comment on above: Performed By: #### C MP, CBCAD #### [facility] [address] [place], [place] [id number] Lymphocytes (Bld) [#/Vol] 1.8 10*3/uL Normal 0.9-3.9 [facility] Comment on above: Performed By: #### C MP, CBCAD #### [facility] [address] [place], [place] [id number] Lymphocytes/100 WBC (Bld) 20.0 % Normal [facility] Comment on above: Performed By: #### C MP, CBCAD #### [facility] [address] [place], [place] [id number] MCH (RBC) [Entitic mass] 27.7 pg Normal 27.0-33.0 [facility] Comment on above: Performed By: #### C MP, CBCAD #### [facility] [address] [place], [place] [id number] MCHC (RBC) [Mass/Vol] 32.2 g/dL Normal 32.0-36.0 [facility] Comment on above: Performed By: #### C MP, CBCAD #### [facility] [address] [place], [place] [id number] MCV (RBC) [Entitic vol] 86 fL Normal 80-100 [facility] Comment on above: Performed By: #### C MP, CBCAD #### [facility] [address] [place], [place] [id number] Monocytes (Bld) [#/Vol] 0.7 10*3/uL Normal 0.2-0.9 [facility] Comment on above: Performed By: #### C MP, CBCAD #### [facility] [address] [place], [place] [id number] Monocytes/100 WBC (Bld) 8.2 % Normal [facility] Comment on above: Performed By: #### C MP, CBCAD #### [facility] [address] [place], [place] [id number] Neutrophils (Bld) [#/Vol] 6.1 10*3/uL Normal 1.5-7.8 [facility] Comment on above: Performed By: #### C MP, CBCAD #### [facility] [address] [place], [place] [id number] Neutrophils/100 WBC (Bld) 68.1 % Normal [facility] Comment on above: Performed By: #### C MP, CBCAD #### [facility] [address] [place], [place] [id number] Platelet mean volume (Bld) [Entitic vol] 11.90 fL Normal 7.50-12.50 [facility] Comment on above: Performed By: #### C MP, CBCAD #### [facility] [address] [place], [place] [id number] Platelets (Bld) [#/Vol] 224 10*3/uL Normal 140-400 [facility] Comment on above: Performed By: #### C MP, CBCAD #### [facility] [address] [place], [place] [id number] RBC (Bld) [#/Vol] 5.95 10*6/uL High 4.20-5.80 [facility] Comment on above: Performed By: #### C MP, CBCAD #### [facility] [address] [place], [place] [id number] RDW-SD 42.8 fL Normal 37.0-50.0 [facility] Comment on above: Performed By: #### C MP, CBCAD #### [facility] [address] [place], [place] [id number] WBC (Bld) [#/Vol] 9.0 10*3/uL Normal 3.8-11.0 [facility] Comment on above: Performed By: #### C MP, CBCAD #### [facility] [address] [place], [place] [id number] Comprehensive Metabolic Pane [facility] 11-30-2021 Albumin [Mass/Vol] 4.6 g/dL Normal 3.6-5.1 [facility] Comment on above: Performed By: #### C MP, CBCAD #### [facility] [address] [place], [place] [id number] Albumin/Globulin [Mass ratio] 1.8 {ratio} Normal 1.0-2.5 [facility] Comment on above: Performed By: #### C MP, CBCAD #### [facility] [address] [place], [place] [id number] ALP [Catalytic activity/Vol] 44 U/L Normal 40-129 [facility] Comment on above: Performed By: #### C MP, CBCAD #### [facility] [address] [place], [place] [id number] ALT [Catalytic activity/Vol] 30 U/L Normal 9-46 [facility] Comment on above: Result Comment: 05/31 Female reference range changed. Performed By: #### C MP, CBCAD #### [facility] [address] [place], [place] [id number] Anion gap [Moles/Vol] 18 mmol/L Normal 12-20 [facility] Comment on above: Result Comment: Effe ctive 07/06/2019 reference range changed. Performed By: #### C MP, CBCAD #### [facility] [address] [place], [place] [id number] AST [Catalytic activity/Vol] 29 U/L Normal 10-40 [facility] Comment on above: Performed By: #### C MP, CBCAD #### [facility] [address] [facility] [place] [place] [id number] Bilirubin [Mass/Vol] 0.49 mg/dL Normal 0.30-1.[address] [facility] Comment on above: Performed By: #### C MP, CBCAD #### [facility] [address] [facility] [place], [place] [id number] BUN/CREA 14 Ratio Normal 6-22 [facility] Comment on above: Performed By: #### C MP, CBCAD #### [facility] [address] [place], [place] [id number] Calcium [Mass/Vol] 9.6 mg/dL Normal 8.6-10.2 [facility] Comment on above: Performed By: #### C MP, CBCAD #### [facility] [address] [place], [place] [id number] Chloride [Moles/Vol] 102 mmol/L Normal 98-[address] [facility] Comment on above: Performed By: #### C MP, CBCAD #### [facility] [address] [place], [place] [id number] CO2 [Moles/Vol] 24 mmol/L Normal 20-31 [facility] Comment on above: Performed By: #### C MP, CBCAD #### [facility] [address] [place], [place] [id number] Creatinine [Mass/Vol] 1.0 mg/dL Normal 0.7-1.4 [facility] Comment on above: Performed By: #### C MP, CBCAD #### [facility] [address] [place], [place] [id number] eGFRAA 96 mL/min/1.73m2 Normal >60 [facility] Comment on above: Performed By: #### C MP, CBCAD #### [facility] [address] [place], [place] [id number] eGFRNAA 79 mL/min/1.73m2 Normal >60 [facility] Comment on above: Performed By: #### C MP, CBCAD #### [facility] [address] [place], [place] [id number] Globulin (S) [Mass/Vol] 2.6 g/dL Normal 1.9-3.7 [facility] [employer] Comment on above: Performed By: #### C MP, CBCAD #### [facility] [address] [place], [place] [id number] Glucose [Mass/Vol] 77 mg/dL Normal 65-99 [facility] [employer] Comment on above: Result Comment: For FASTING Glucose --- ADA reference ranges: Normal 65-99 mg/dl Prediabetes 100-125 Diabetes >/= 126 Performed By: #### C MP, CBCAD #### [facility] [address] [place], [place] [id number] Potassium [Moles/Vol] 4.8 mmol/L Normal 3.5-5.5 [facility] Comment on above: Performed By: #### C MP, CBCAD #### [facility] [address] [place], [place] [id number] Protein [Mass/Vol] 7.2 g/dL Normal 6.1-8.1 [facility] [employer] Comment on above: Performed By: #### C MP, CBCAD #### [facility] [address] [place], [place] [id number] Sodium [Moles/Vol] 140 mmol/L Normal 135-146 [facility] [employer] Comment on above: Performed By: #### C MP, CBCAD #### [facility] [address] [id number] Urea nitrogen [Mass/Vol] 14 mg/dL Normal 7-25 [facility] [employer] Comment on above: Performed By: #### C MP, CBCAD #### [facility] [address], [place] [id number] Q - CULTURE,URINE,ROUTINEon 11-30-2021 CULTURE, URINE, ROUTINE SEE NOTE Normal [facility] [employer] Comment on above: Order Comment: [facility] Testing performed at: [facility], [address] [place] [address], [address] [place] [address], [phone], Screen Printing Paster: Miguel Angel Kern MD [facility] Collection Date/Time: [id number] [facility] Results Received Date/Time: [facility] Reported Date/Time: Result Comment: CULT URE, URINE, ROUTINE Micro Number: [id number] Test Status: Final Specimen Source: Urine Specimen Quality: Adequate Result: No Growth Performed By: #### [id number] #### [facility] [address] [place] [address] Q - CULTURE,URINE,ROUTINEon 11-21-2021 CULTURE, URINE, ROUTINE SEE NOTE Abnormal [facility] [employer] Electrical Engineer Comment on above: Order Comment: [facility] performed at: [facility], [address] [place] [address], [address] [place] [address], [phone], Screen Printing Paster: Miguel Angel Kern MD [facility] Collection Date/Time: [id number] [facility] Results Received Date/Time: [id number] [facility] Reported Date/Time: [id number] FASTING: NO Result Comment: CULT URE, URINE, ROUTINE Micro Number: [id number] Test Status: Final Specimen Source: Urine Specimen Quality: Adequate Result: Greater than 100,000 CFU/mL of Escherichia coli E.coli INT NINI AMOX/CLAVULANATE S <=2 AMPICILLIN S <=2 AMP/SULBACTAM S <=2 CEFAZOLIN NR <=4 2 CEFEPIME S <=1 CEFTRIAXONE S <=1 CIPROFLOXACIN S <=0.25 ERTAPENEM S <=0.5 GENTAMICIN S <=1 IMIPENEM S <=0.25 LEVOFLOXACIN S <=0.12 NITROFURANTOIN S <=16 PIP/TAZOBACTAM S <=4 TOBRAMYCIN S <=1 TRIMETHOPRIM/SULFA S <=20 S=Susceptible I=Intermediate R=Resistant * = Not Tested NR = Not Reported NN = See Therapy Comments THERAPY COMMENTS Note 1: For infections other than uncomplicated UTI caused by E. coli, K. pneumoniae or P. mirabilis: Cefazolin is resistant if NINI > or = 8 mcg/mL. (Distinguishing susceptible versus intermediate for isolates with NINI < or = 4 mcg/mL requires additional testing.) Note 2: For uncomplicated UTI caused by E. coli, K. pneumoniae or P. mirabilis: Cefazolin is susceptible if NINI <32 mcg/mL and predicts susceptible to the oral agents cefaclor, cefdinir, cefpodoxime, cefprozil, cefuroxime, cephalexin and loracarbef. Performed By: #### 6 [id number] #### [facility] [address] [place] [address] VC COMP CONSULTATIONon 11-15 [facility] COMP CONSULTATION Patient: KEEGAN LOPEZ Exam Date: 11/15/2021 : 1965 Gender:M Ordering : DR RUBI MATTHEWS M.D. Admission #: [id number] Family : Order #: [id number] CLICK HERE TO VIEW EXAM RADIOLOGY REPORT PROCEDURE: [facility] VEIN CENTER CONSULTATION VEIN CENTER - OFFICE VISIT INITIAL COMPARISON: None. PROGRESS NOTES: 56-year-old male who presents with a 20 year history of lower extremity pain swelling and varicose veins. The patient complains of bilateral leg pain left worse than the right. The patient describes the pain as aching burning throbbing with occasional sharp pain. The patient rates pain as an 8 on a scale of 1-10. Patient's symptoms are exacerbated by prolonged sitting and standing and are relieved by rest, leg elevation, support stockings which she has worn for nearly 20 years and prescription oxycodone. The patient has had 5 episodes of deep vein thrombus in the left leg with the 1st episode in 2002 followed by 4 additional episodes despite being on Coumadin during that time. The patient's last episode was in 2020 where he was seen in [facility] requiring Lovenox injections. The patient has had difficulty remaining therapeutic on Coumadin. The patient has never been worked up for hypercoagulability. The patient has worn knee high compression stockings since 2002. 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 The patient does exercise daily by walking. The patient denies any signs and symptoms to suggest arterial ischemia. The patient describes a family history significant for varicose veins in his mother who is a current active patient in the vein center. Type 2 diabetes in his father. Heart disease and cancer in a maternal grandmother. The patient has never smoked. The patient does not use alcohol. No illicit drug use. 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 No history of deep venous thrombus or pulmonary embolus. See separate history and physical for medication list. No prior treatment for varicose or spider veins. Nursing notes were reviewed. I counseled the patient on low-impact exercise including cycling, leg elevation and the importance of continued weight loss. Proper use of compression stockings was discussed at length After history and physical exam I discussed at length the pathophysiology of venous hypertension and possible treatments, therapies and strategies available. We discussed at length the importance of elevating the lower extremities above the level of the heart, increased physical activity and compression stocking use. Discussed at length with the patient that given his hypercoagulable state and 5 episodes of left leg deep vein thrombus with extensive residual scarring in the deep system, we had to take great care to not close off the superficial system that is while diseased likely a adequate pathway for venous return. This would be to prevent venous ischemia if he were to have occlusive deep vein thrombus in an additional episode in the future. I am comfortable treating the incompetent left branch saphenous tributaries but not the great, small or anterior accessory saphenous vein at this time. We discussed intravenous laser ablation and micro foam chemical ablation at length. The patient's questions were answered. Risks and benefits were explained. Alternatives including conservative treatment with bilateral thigh-high compression stockings and surgical ligation and stripping were discussed. Ultrasound venous reflux study performed the same day was discussed at length with the patient. The report demonstrates severe right great and moderate left great saphenous vein venous insufficiency with dilatation period mild bilateral small saphenous vein venous insufficiency. Moderate bilateral anterior accessory saphenous vein venous insufficiency. Dilated incompetent bilateral perforating veins. Bilateral moderate incompetent branch saphenous tributaries/varicose veins PHYSICAL EXAM: The right leg demonstrates moderate scattered varicose reticular and minimal spider veins. There is significant skin thickening mid calf and distal, lipodermatosclerosis. Some mild scattered hemosiderin staining. Subcutaneous edema. No active ulceration. The left leg demonstrates moderate scattered varicose reticular and minimal spider veins. Moderate subcutaneous edema. No active ulceration. Minimal scattered hemosiderin staining. Entire right leg is asymmetrically cold to the touch with poor capillary refill the toes. The right tibial and dorsalis pedis pulses could not (more content not included)... Normal [facility] VC VENOUS REFLUX TERRELL LMTon 0 11-15-2021 VC VENOUS REFLUX TERRELL LMT Patient: KEEGAN AUSTIN Exam Date: 11/15/2021 : 1965 Gender:M Ordering : DR RUBI MATTHEWS M.D. Admission #: [id number] Family : Order #: [id number] CLICK HERE TO VIEW EXAM RADIOLOGY REPORT PROCEDURE: VEIN CENTER ULTRASOUND VENOUS REFLUX BILATERAL LIMTED COMPARISON: None. INDICATIONS: Pain co-occurrent and due to varicose veins of bilateral legs I83.813 TECHNIQUE: Duplex imaging of the lower extremity to assess the deep and superficial venous system for the presence of deep or superficial venous incompetence and to document the location and severity of disease. The study includes evaluation of the great saphenous vein (GSV), anterior accessory saphenous vein (AASV) and small saphenous vein (SSV). Patient scanned in reverse Trendelenburg and standing. FINDINGS: RIGHT LOWER EXTREMITY: Saphenofemoral Junction Reflux: Yes 12.1mm 3.4 sec GSV: Diam (mm) Reflux/ Time (sec) Proximal Thigh 9.8 Yes 3.9 Mid Thigh 6.9 Yes 3.6 Distal Thigh 6.0 Yes 3.9 Prox Calf 4.6 Yes 3.2 Mid Calf 3.7 Yes 3.9 Saphenopopliteal Junction Reflux: 6.0mm Yes 1.4 SSV: Proximal Calf 5.8 Yes 0.5 Mid Calf 3.6 Yes 0.9 AASV: Proximal Thigh 5.7 Yes 3.8 Mid Thigh 4.6 Yes 0.4 Distal Thigh Thrombi: No acute or chronic thrombus. Compressibility: Normal. Flow: Deep venous reflux in popliteal vein. Preforator: Dist/med calf 2.9 mm, 1.6s. Mid/medial calf 3.5mm, 0.4s. Prox/med calf 3.0mm. Tech Note: Proximal/medial calf varicosity measures 4.5 mm with 2.9s reflux. Dist/medial calf varicose vein measures 4.0 mm with 2.6s reflux. Distal/anterior incompetent varicose vein measures 3.5 mm with 0.5s reflux. LEFT LOWER EXTREMITY: Saphenofemoral Junction Reflux: Yes 11.1 mm 1.8 sec GSV: Diam (mm) Reflux/Time (sec) Proximal Thigh 11.5 Yes 1.9 Mid Thigh 8.9 Yes 0.6 Distal Thigh 6.9 Yes 1.5 Prox Calf 5.6 Yes 0.8 Mid Calf 4.6 Yes 0.4 Saphenopopliteal Junction Relux: 6.3 mm Yes 1.9 SSV: Proximal Calf 5.8 Yes 1.2 Mid Calf 4.8 Yes 0.4 AASV: Proximal Thigh 3.5 Yes 4.3 Mid Thigh 2.4 Yes 1.0 Distal Thigh Thrombi: Chronic non-occlusive thrombus visualized in prox femoral vein, distal femoral vein, and popliteal vein. Compressibility: Partial compressible segments in area of chronic thrombus. Flow: Deep venous reflux in popliteal vein. Test Tube Maker: Mid/post calf perf 5.9 mm, 1.0s. Multiple perfs medial lower leg. Mid calf off GSV 4.2mm, 0.8s. Tech Note: Mid calf posterior varicose vein off of SSV measures 5.7 mm with 0.5s reflux. Medial knee varicosity measures 5.0 mm with 1.1s reflux. Posterior/prox calf varicose vein measures 4.7 mm with 0.8s reflux. CONCLUSION: 1. Severe right great saphenous and moderate left great saphenous vein venous insufficiency with associated dilatation 2. Mild bilateral small saphenous vein venous insufficiency with mild dilatation 3. Moderate bilateral anterior accessory saphenous vein venous insufficiency 4. Bilateral incompetent dilated perforating veins 5. Moderate bilateral incompetent branch saphenous tributary/varicose veins Dictated by: Rubi Matthews MD on 11/15/2021 at 14:13 Approved by: Rubi Matthews MD on 11/15/2021 at 14:18 Normal [facility] COAGULATIONOrdered By: Shoshana Solano on 10-19-2021 aPTT Coag (PPP) [Time] 64.8 s High 25.1 - 36.5 second(s) [facility] INR Coag (PPP) [Relative time] 3.6 {INR} Invalid Interpretation Code [facility] PT Coag (PPP) [Time] 42.5 s High 10.2 - 12.9 second(s) [facility] SR-XR Spine Cervical 2 or 3 Views IMPORTon 08-17-2019 SR-XR Spine Cervical 2 or 3 Views IMPORT Images were obtained outside of [facility] [id number] Normal [facility] SR-XR Spine Cervical 2 or 3 Views IMPORTon 08-05-2019 SR-XR Spine Cervical 2 or 3 Views IMPORT Images were obtained outside of [facility] [id number] Normal [facility] Vital Signs Date Time Vital Sign Value Performing Clinician Niyah ayoub 09-02-2023 08:56-0500 Body temperature 97.52 [degF] Yaakov Betancourt [facility] 09-02-2023 08:56-0500 Diastolic blood pressure 86 mm[Hg] Yaakov Betancourt [facility] 09-02-2023 08:56-0500 Heart rate 71 /min Yaakov Betancourt [facility] 09-02-2023 08:56-0500 Respiratory rate 16 /min Yaakov Betancourt [facility] 09-02-2023 08:56-0500 SaO2% (BldA) [Mass fraction] 97 % Yaakov Betancourt [facility] 03-04-2024 08:56-0500 Systolic blood pressure 188 mm[Hg] Yaakov Betancourt [facility] 09-10-2022 09:00-0400 Hourly Rounding [facility] 09-10-2022 09:00-0400 Promise to Return [facility] 09-10-2022 08:00-0400 Hourly Rounding [facility] 09-10-2022 08:00-0400 [facility] 09-10-2022 07:51-0400 SaO2% (BldA) [Mass fraction] 97 % [facility] 09-10-2022 07:00-0400 Body temperature 97.52 [degF] [facility] 09-10-2022 07:00-0400 Diastolic blood pressure 96 mm[Hg] [facility] 09-10-2022 07:00-0400 Heart rate 76 /min [facility] 09-10-2022 07:00-0400 Hourly Rounding [facility] 09-10-2022 07:00-0400 [facility] 09-10-2022 07:00-0400 Respiratory rate 16 /min [facility] 09-10-2022 07:00-0400 Systolic blood pressure 150 mm[Hg] [facility] 09-10-2022 02:32-0400 Blood Pressure Location [facility] 09-10-2022 02:32-0400 Body temperature 97.34 [degF] [facility] 09-10-2022 02:32-0400 Diastolic blood pressure 89 mm[Hg] [facility] 09-10-2022 02:32-0400 Heart rate 89 /min [facility] 09-10-2022 02:32-0400 SaO2% (BldA) [Mass fraction] 95 % [facility] 09-10-2022 02:32-0400 Systolic blood pressure 125 mm[Hg] [facility] 09-09-2022 20:00-0400 Blood Pressure Location [facility] 09-09-2022 20:00-0400 Body temperature 97.34 [degF] [facility] 09-09-2022 20:00-0400 Diastolic blood pressure 90 mm[Hg] [facility] 09-09-2022 20:00-0400 Heart rate 72 /min [facility] 09-09-2022 20:00-0400 Mean blood pressure 113 mm[Hg] [facility] 09-09-2022 20:00-0400 Systolic blood pressure 160 mm[Hg] [facility] 09-09-2022 15:58-0400 Mean blood pressure 91 mm[Hg] [facility] 09-09-2022 11:08-0400 Mean blood pressure 117 mm[Hg] [facility] 09-09-2022 04:15-0400 Mean blood pressure 112 mm[Hg] [facility] 09-09-2022 04:15-0400 Respiratory rate 18 /min [facility] 09-08-2022 23:28-0500 Heart rate 67 /min [facility] 09-08-2022 23:00-0500 Mean blood pressure 104 mm[Hg] [facility] 09-08-2022 23:00-0500 Respiratory rate 19 /min [facility] 09-08-2022 22:59-0500 Heart rate 82 /min [facility] 09-08-2022 22:59-0500 Respiratory rate 16 /min [facility] 09-08-2022 22:54-0500 Respiratory rate 16 /min [facility] 09-08-2022 18:18-0500 gluc 131 mg/dL [facility] 09-08-2022 18:18-0500 gluc Favian SCHMITT [facility] 01-04-2022 12:12-0400 Body temperature 98.24 [degF] [facility] 01-04-2022 12:12-0400 Diastolic blood pressure 80 mm[Hg] [facility] 01-04-2022 12:12-0400 Heart rate 80 /min [facility] 01-04-2022 12:12-0400 Respiratory rate 18 /min [facility] 01-04-2022 12:12-0400 SaO2% (BldA) [Mass fraction] 96 % [facility] 01-04-2022 12:12-0400 Systolic blood pressure 140 mm[Hg] [facility] 10-19-2021 15:39-0400 Body temperature 98.24 [degF] Sarah Allsop [facility] 10-19-2021 15:39-0400 Diastolic blood pressure 90 mm[Hg] Sarah Allsop [facility] 10-19-2021 15:39-0400 Heart rate 81 /min Sarah Allsop [facility] 10-19-2021 15:39-0400 Respiratory rate 18 /min Sarah Allsop [facility] 10-19-2021 15:39-0400 SaO2% (BldA) [Mass fraction] 97 % Sarah Allsop [facility] 10-19-2021 15:39-0400 Systolic blood pressure 150 mm[Hg] Sarah Allsop [facility] Encounters Encounter Date Encounter Type Care Provider Facility Start: 09-02-2023 End: 09-02-2023 Emergency department patient visit [facility] Facility[place] [place] Start: 09-02-2023 End: 09-02-2023 Emergency department patient visit Yaakov Betancourt [facility] Start: 07-25-2023 End: 07-25-2023 ambulatory SARAH BRUCE Not Available Start: 09-14-2022 End: 11-29-2022 ambulatory Favian SCHMITT Facility[place] Start: 09-08-2022 End: 09-10-2022 ambulatory Allison Antunez Facility[place] [facility] Start: 09-08-2022 End: 09-10-2022 Observation Favian SCHMITT [facility] Start: 05-15-2022 End: 05-16-[address] RUBI MATTHEWS Facility:[facility] Start: 05-08-2022 End: 05-09-[address] RUBI MATTHEWS Facility:[facility] Start: 04-27-2022 End: 04-28-[address] RUBI MATTHEWS Facility:[facility] Start: 04-16-2022 End: 04-17-[address] RUBI MATTHEWS Facility:[facility] Start: 04-11-2022 End: 04-12-[address] RUBI MATTHEWS Facility:[facility] Start: 04-04-2022 End: 04-05-[address] RUBI MATTHEWS Facility:[facility] Start: 03-19-2022 End: 03-20-[address] RUBI MATTHEWS Facility:[facility] Start: 03-16-2022 End: 03-17-[address] RUBI MATTHEWS Facility:[facility] Start: 01-10-2022 End: 01-10-2022 Patient encounter procedure Sarah Bruce [facility] Start: 01-05-2022 End: 01-06-[address] RUBI MATTHEWS Facility:[facility] Start: 01-04-2022 End: 01-04-2022 Emergency department patient visit Ronald Awad [facility] Start: 12-26-2021 End: 12-27-[address] RUBI MATTHEWS Facility:[facility] Start: 12-21-2021 End: 12-22-[address] RUBI MATTHEWS Facility:[facility] Start: 12-19-2021 End: 12-28-2021 Pre-admission assessment Sarah Bruce [facility] Start: 12-01-2021 End: 12-02-[address] RUBI MATTHEWS Facility:[facility] Start: 11-15-2021 End: 11-16-[address] RUBI MATTHEWS Facility:[facility] Start: 10-31-2021 End: 11-01-[address] RUBI MATTHEWS Facility:[facility] Start: 10-19-2021 End: 10-19-2021 Emergency department patient visit Sarah Bruce [facility] Procedures Date Procedure Procedure Detail Performing Clinician Start: 08-18-2020 Cheilectomy Sarah hope Start: 08-18-2020 Excision of bunion Geovanna andrewbree Allsop Comment on above: tim Start: 12-18-2019 Arthroscopy of knee Mariah nifbree Allsop Comment on above: Left Start: 08-04-2019 Cervical arthrodesis Nils kalie Allsodelfin Comment on above: 1. Exploration of pr evious C5-7 fusion 2. Posterior segmental spine instrumentation C3-T1 with globus Quartex titanium screw and joshua system 3. Local autograft and allograft for spine surgery 4. C3, C4, partial C5 laminectomies 5. Posterolateral fusion C3-4, 4-5, and C7-T1 Start: 06-17-2019 Epidural injection o f cervical spine using fluoroscopic guidance Sarah Bruce Comment on above: C7-T1 o% relief Start: 05-20-2019 Epidural injection o f cervical spine using fluoroscopic guidance Sarah Bruce Comment on above: C7-T1 NIA- 100% reli ef x 2 days only then returned Start: 04-08-2019 Epidural injection o f cervical spine using fluoroscopic guidance Sarah Bruce Comment on above: C7-T1 NIA 80% relief Start: 07-01-2016 Jarocho V[place] jayy Start: 09-21-2014 right shoulder arthr oscopy with glenohumeral debridement, subacromial decompression, partial distal clavulectomy Sarah Bruce Start: 07-01-2012 Entire shoulder nabil on (body structure) Sarah Bruce Comment on above: Left shoulder scope neck surgery Sarah Bruce Immunizations Immunization Date Immunization Notes Care Provider Chiquita grigsby 09-02-2023 tetanus toxoid, redu zenia diphtheria toxoid, and acellular pertussis vaccine, adsorbed Yaakov Betancourt [facility] 09-06-2021 tetanus toxoid, redu zenia diphtheria toxoid, and acellular pertussis vaccine, adsorbed; Translations: [Boostrix (Tdap)] Sarah Bruce [facility] 07-19-2015 tetanus toxoid, redu zenia diphtheria toxoid, and acellular pertussis vaccine, adsorbed Sarahdon Bruce [facility] Payers Date Payer Category Payer Unknown [id number] .16.84 [id number] 1965 Unknown [id number] 0.1.170869.3.579.2.593 1965 Unknown [id number] .16.84 0.1.159088.3.579.2.593 1965 Unknown [id number] .16.84 0.1.053417.3.579.2.593 1965 Unknown [id number] .16.84 0.1.428528.3.579.2.593 1965 Unknown [id number] 2.16.84 0.1.591151.3.579.2.593 1965 Unknown [id number] 2.16.84 0.1.120245.3.579.2.593 1965 Unknown [id number] 2.16.84 0.1.158465.3.579.2.593 1965 Unknown [id number] 2.16.84 0.1.553739.3.579.2.593 1965 Unknown [id number] 2.16.84 0.1.140309.3.579.2.593 1965 Unknown [id number] 2.16.84 0.1.988945.3.579.2.593 1965 Unknown [id number] 2.16.84 0.1.048297.3.579.2.593 1965 Unknown [id number] 2.16.84 0.1.330779.3.579.2.593 1965 Unknown [id number] 2.16.84 0.1.009117.3.579.2.593 1965 Unknown [id number] 2.16.84 0.1.741725.3.579.2.1259 1965 Unknown [id number] 2.16.8 40.1.424593.3.579.2.727 1965 Unknown [id number] 2.16.8 40.1.934749.3.579.2.727 1965 Unknown [id number] 2.16.8 40.1.212094.3.579.2.727 1959 Medicaid [id number] 1959 Unknown [id number] Social History Date Type Detail Facility Start: 12-23-2018 Tobacco smoking status Smokele ss tobacco user within last 30 days [facility] Sex Assigned At Male [facility] Tobacco [facility] Comment on above: former smoker Tobacco smoking status No Smokin g Status Entered [facility] Medical Equipment Procedure Code Equipment Code Equipment Origin al Text Equipment Identifier Dates FDA Start: 08-04-2019 FDA Start: 08-04-2019 FDA Start: 08-04-2019 FDA Start: 08-04-2019 FDA Start: 08-04-2019 FDA Start: 08-04-2019 FDA Start: 08-04-2019 FDA Start: 08-04-2019 FDA Start: 08-04-2019 FDA Start: 08-18-2020 1 mary ann, Topical, QID, 30 gm, Refill(s) 0, [id number], 178, cm, 09/06/21 14:56:00 EST, Height/Length Dosing, 132, kg, 09/06/21 14:56:00 EST, Weight Dosing Start: 09-06-2021 CERVICAL FUSION Maximus Rosa MD A 2 Unknown Neck FDA Start: 08-04-2019 CERVICAL FUSION PARDEEP Knapp MD, Maximus A 08/04/19 Unknown Neck FDA Start: 08-04-2019 CERVICAL FUSION POSTERIOR Ra LAZARO, Maximus A 08/04/19 Unknown Neck FDA Start: 08-04-2019 CERVICAL FUSION POSTERIOR Ra LAZARO, Maximus A 08/04/19 Unknown Neck FDA Start: 08-04-2019 CERVICAL FUSION POSTERIOR Maximus Knapp MD A 08/04/19 Unknown Neck FDA Start: 08-04-2019 CERVICAL FUSION POSTERIOR Ra LAZARO, Maximus A 08/04/19 Unknown Neck FDA Start: 08-04-2019 CERVICAL FUSION PARDEEP Knapp MD, Maximus [place] 08/04/19 Unknown Neck FDA Start: 08-04-2019 CERVICAL FUSION POSTERIOR Ra LAZARO, Maximus A 08/04/19 Unknown Neck FDA Start: 08-04-2019 CERVICAL FUSION POSTERIOR Ra LAZARO, Maximus A 08/04/19 Unknown Neck FDA Start: 08-04-2019 BUNIONECTOMY Dol ce DPM, Michael D 08/18/20 Non Biological Toe FDA Start: 08-18-2020 CERVICAL FUSION POSTERIOR Ra LAZARO, Maximus A 08/04/19 Unknown Neck FDA Start: 08-04-2019 CERVICAL FUSION PARDEEP Knapp MD, Maximus A 08/04/19 Unknown Neck FDA Start: 08-04-2019 CERVICAL FUSION PARDEEP Knapp MD, Maximus A 08/04/19 Unknown Neck FDA Start: 08-04-2019 CERVICAL FUSION POSTERIOR Ra LAZARO, Maximus A 08/04/19 Unknown Neck FDA Start: 08-04-2019 CERVICAL FUSION POSTERIOR Ra LAZARO, Maximus A 08/04/19 Unknown Neck FDA Start: 08-04-2019 CERVICAL FUSION POSTERIOR Ra LAZARO, Maximus A 08/04/19 Unknown Neck FDA Start: 08-04-2019 CERVICAL FUSION POSTERIOR Ra LAZARO, Maximus A 08/04/19 Unknown Neck FDA Start: 08-04-2019 CERVICAL FUSION POSTERIOR Ra LAZARO, Maximus A 08/04/19 Unknown Neck FDA Start: 08-04-2019 CERVICAL FUSION POSTERIOR Ra LAZARO, Maximus A 08/04/19 Unknown Neck FDA Start: 08-04-2019 BUNIONECTOMY Dol ce DPMehul, Michael Milena 08/18/20 Non Biological Toe FDA Start: 08-18-2020 CERVICAL FUSION POSTERIOR Ra LAZARO, Maximus A 08/04/19 Unknown Neck FDA Start: 08-04-2019 CERVICAL FUSION POSTERIOR Ra LAZARO, Maximus A 08/04/19 Unknown Neck FDA Start: 08-04-2019 CERVICAL FUSION POSTERIOR Ra LAZARO, Maximus A 08/04/19 Unknown Neck FDA Start: 08-04-2019 CERVICAL FUSION POSTERIOR Ra LAZARO, Maximus A 08/04/19 Unknown Neck FDA Start: 08-04-2019 CERVICAL FUSION POSTERIOR Ra LAZARO, Maximus A 08/04/19 Unknown Neck FDA Start: 08-04-2019 CERVICAL FUSION POSTERIOR Ra LAZARO, Maximus A 08/04/19 Unknown Neck FDA Start: 08-04-2019 CERVICAL FUSION POSTERIOR Ra LAZARO, Maximus A 08/04/19 Unknown Neck FDA Start: 08-04-2019 CERVICAL FUSION POSTERIOR Ra LAZARO, Maximus A 08/04/19 Unknown Neck FDA Start: 08-04-2019 CERVICAL FUSION POSTERIOR Ra LAZARO, Maximus A 08/04/19 Unknown Neck FDA Start: 08-04-2019 BUNIONECTOMY Dol ce DPMehul, Michael D 08/18/20 Non Biological Toe FDA Start: 08-18-2020 CERVICAL FUSION POSTERIOR Ra LAZARO, Maximus A 08/04/19 Unknown Neck FDA Start: 08-04-2019 CERVICAL FUSION POSTERIOR Ra LAZARO, Maximus A 08/04/19 Unknown Neck FDA Start: 08-04-2019 CERVICAL FUSION PARDEEP Knapp MD, Maximus A 08/04/19 Unknown Neck FDA Start: 08-04-2019 CERVICAL FUSION POSTERIOR Ra LAZARO, Maximus A 08/04/19 Unknown Neck FDA Start: 08-04-2019 CERVICAL FUSION POSTERIOR Ra LAZARO, Maximus A 08/04/19 Unknown Neck FDA Start: 08-04-2019 CERVICAL FUSION POSTERIOR Ra LAZARO, Maximus A /10/18 Unknown Neck FDA Start: 08-04-2019 CERVICAL FUSION POSTERIOR Ra LAZARO, Maximus A 08/04/19 Unknown Neck FDA Start: 08-04-2019 CERVICAL FUSION POSTERIOR Ra LAZARO, Maximus A 08/04/19 Unknown Neck FDA Start: 08-04-2019 CERVICAL FUSION POSTERIOR Ra LAZARO, Maximus A 08/04/19 Unknown Neck FDA Start: 08-04-2019 BUNIONECTOMY Dol ce DPM, Michael D 08/18/20 Non Biological Toe FDA Start: 08-18-2020 CERVICAL FUSION POSTERIOR Ra LAZARO, Maximus A 08/04/19 Unknown Neck FDA Start: 08-04-2019 CERVICAL FUSION PARDEEP Knapp MD, Maximus A 08/04/19 Unknown Neck FDA Start: 08-04-2019 CERVICAL FUSION PARDEEP Knapp MD, Maximus A 08/04/19 Unknown Neck FDA Start: 08-04-2019 CERVICAL FUSION POSTERIOR Ra LAZARO, Maximus A 08/04/19 Unknown Neck FDA Start: 08-04-2019 CERVICAL FUSION POSTERIOR Ra LAZARO, Maximus A 08/04/19 Unknown Neck FDA Start: 08-04-2019 CERVICAL FUSION POSTERIOR Ra LAZARO, Maximus A 08/04/19 Unknown Neck FDA Start: 08-04-2019 CERVICAL FUSION POSTERIOR Ra LAZARO, Maximus A 08/04/19 Unknown Neck FDA Start: 08-04-2019 CERVICAL FUSION PARDEEP Knapp MD, Maximus A 08/04/19 Unknown Neck FDA Start: 08-04-2019 CERVICAL FUSION POSTERIOR Ra LAZARO, Maximus A 08/04/19 Unknown Neck FDA Start: 08-04-2019 BUNIONECTOMY Dol ce DPM, Michael D 08/18/20 Non Biological Toe FDA Start: 08-18-2020 Functional Status Date Assessment Result Facility 09-02-2023 Functional Status N/A [facility] 09-08-2022 Functional Status No [facility] 09-08-2022 Functional Status [facility] 01-04-2022 Functional Status N/A [facility] Clinical Notes 10-19-2021 to 09-02-2023 Note Date & Type Note Facility 09-02-2023 Hospital Discharg e instructions Patient Education 09/02/2023 10:07:48 Puncture Wound Puncture Wound A puncture wound is an injury that is caused by a sharp, thin object that penetrates your skin. Usually, a puncture wound does not leave a large opening in your skin, so it may not bleed a lot. However, when you get a puncture wound, dirt or other materials (foreign bodies) can be forced into your wound and can break off inside. This increases the chance of infection, such as tetanus. There are many sharp, pointed objects that can cause puncture wounds, including teeth, nails, splinters of glass, fishhooks, and needles. Treatment may include washing out the wound with a germ-free (sterile) salt-water solution and having the wound opened surgically to remove a foreign object. The wound may be closed with stitches (sutures), skin glue, or adhesive strips and covered with antibiotic ointment and a bandage (dressing). Depending on what caused the injury, you may also need a tetanus shot or a rabies shot. Follow these instructions at home: Medicines Take or apply pyqq-djb-hjywunj and prescription medicines only as told by your health care provider. If you were prescribed antibiotics, take or apply them as told by your health care provider. Do not stop using the antibiotic even if you start to feel better. Bathing Keep the dressing clean and dry as told by your health care provider. Do not take baths, swim, or use a hot tub until your health care provider approves. Ask your health care provider if you may take showers. You may only be allowed to take sponge baths. Wound care Follow instructions from your health care provider about how to take care of your wound. Make sure you: ?Wash your hands with soap and water for at least 20 seconds before and after you change your dressing. If soap and water are not available, use hand medical affairs director. ?Change your dressing as told by your health care provider. ?Leave sutures, skin glue, or adhesive strips in place. These skin closures may need to stay in place for 2 weeks or longer. If adhesive strip edges start to loosen and curl up, you may trim the loose edges. Do not remove adhesive strips completely unless your health care provider tells you to do that. Clean the wound as told by your health care provider. Do not scratch or pick at the wound. Check your wound every day for signs of infection. Check for: ?Redness, swelling, or pain. ?Fluid or blood. ?Warmth. ?Pus or a bad smell. General instructions Raise (elevate) the injured area above the level of your heart while you are sitting or lying down. If your puncture wound is in your foot, ask your health care provider if you need to avoid putting weight on your foot and for how long. Do not use the injured limb to support your body weight until your health care provider says that you can. Use crutches as told by your health care provider. Keep all follow-up visits. This is important. Contact a health care provider if: You received a tetanus or rabies shot and you have swelling, severe pain, redness, or bleeding at the injection site. You have any of these signs of wound infection: ?Redness, swelling, or pain. ?Fluid or blood. ?Warmth. ?Pus or a bad smell. Your sutures come out. You notice something coming out of your wound, such as wood or glass. Your pain is not controlled with medicine. You develop numbness around your wound. Get help right away if: You develop severe swelling around your wound. You have a red streak going away from your wound. You develop painful skin lumps. The wound is on your hand or foot and you: ?Cannot properly move a finger or toe. ?Notice that your fingers or toes look pale or bluish. Summary A puncture wound is an injury that is caused by a sharp, thin object that penetrates your skin. Treatment may include washing out the wound and having the wound opened surgically to remove a foreign object, The wound may be closed with stitches (sutures), skin glue, or adhesive strips and covered with antibiotic ointment and a bandage (dressing). Follow instructions from your health care provider about how to take care of your wound. Contact a health care provider if you have redness, swelling, or pain at the site of your wound. This information is not intended to replace advice given to you by your health care provider. Make sure you discuss any questions you have with your health care provider. Document Revised: 07/18/2022 Document Reviewed: 07/18/2022 [employer] Patient Education 2022 [employer] Follow Up Care 09/02/2023 08:52:55 With:Sarah Bruce Address: [address] [place] [id number] Business (1) When:09/05/2023 09:50:08 [facility] 09-16-2022 Note Microbiology PROCEDURE: Blood Culture Charcoal [R1] SOURCE: Blood BODY SITE: Arm R COLLECTED DATE/TIME: 09/08/2022 19:23 EST RECEIVED DATE/TIME: 09/08/2022 22:25 EST START DATE/TIME: 09/08/2022 22:25 EST FREE TEXT SOURCE: Peripheral vein site #2 Aurand PA-C, Jennifer E. Aurand PA-C, Jennifer E. FINAL REPORTS Final Report [] Verified Date/Time: 09/16/2022 07:00 EDT No growth at 7 days. Performing Locations R1: This test was performed at: [facility], [address] [place] [address], [address] [place] [address], [facility] Comment on above: Performed By: #### [id number] #### [facility] [address] [place] [id number] 09-16-2022 Note Microbiology PROCEDURE: Blood Culture Charcoal [R1] SOURCE: Blood BODY SITE: Arm L COLLECTED DATE/TIME: 09/08/2022 19:16 EST RECEIVED DATE/TIME: 09/08/2022 22:25 EST START DATE/TIME: 09/08/2022 22:25 EST FREE TEXT SOURCE: Peripheral vein site #1 Aurand PA-C, Jennifer E. Aurand PA-C, Jennifer E. FINAL REPORTS Final Report [] Verified Date/Time: 09/16/2022 07:00 EDT No growth at 7 days. Performing Locations R1: This test was performed at: [facility], [address] [place] [address], [id number], [facility] Comment on above: Performed By: #### [id number] #### [facility] [address] [place] [address] 09-10-2022 Evaluation + Plan note Extrac bobby from: Title:Discharge Note Author:Favian SCHMITT MD te:09/10/22 Discharged to - Home independently Discharge Diet(s): Low Sodium- 2000 mg (09/10/22 09:11:00) Prescriptions Bacitracin top 500 units/g Oint TUBE (15 gram), 1 mary ann, Topical, QID meclizine 12.5 mg Tab, 12.5 mg= 1 tab(s), Oral, q6hr, PRN Curlew 325 mg-5 mg oral tablet, 1 tab(s), Oral, q6hr, PRN Outpatient physical therapy, 0 Home amLODIPine 2.5 mg Tab, 2.5 mg= 1 tab(s), Oral, Daily betamethasone dipropionate topical 0.05% cream, 1 mary ann, Topical, Daily, PRN busPIRone 10 mg Tab, 20 mg= 2 tab(s), Oral, BID, Not taking Coumadin 10 mg oral tablet, 10 mg= 1 tab(s), Oral, Bedtime cyclobenzaprine 10 mg Tab, 10 mg= 1 tab(s), Oral, TID, PRN doxazosin 4 mg Tab, 4 mg= 1 tab(s), Oral, Bedtime Dulcolax Stool Softener, 8 tab(s), Oral, Bedtime LORazepam 0.5 mg Tab, 0.5 mg= 1 tab(s), Oral, Daily Curlew 325 mg-5 mg oral tablet, 1 tab(s), Oral, q6hr, PRN omeprazole 40 mg Cap-DR, 40 mg= 1 cap(s), Oral, Bedtime simvastatin 20 mg Tab, 20 mg= 1 tab(s), Oral, Once a day (at bedtime) Zetia 10 mg Tab, 10 mg= 1 tab(s), Oral, Bedtime With When Contact Information Sarah Bruce Within 7 to [address] [place] [address]- Business (1) Additional Instructions: Call for followup appointment Call physician if symptoms worsen Tulio LAZARO, MIGUEL Matthews Within 2 to 4 weeks [facility] [address] [place] [address]- Additional Instructions: Benign Positional Vertigo Extracted from: Title:APSO Note- Neurology Author:Sajan Moore RN Date:09/10/22 Reason for consult: ASSESSMENT: Dizziness with position change or movement may be 2 things simultaneously here: 1. Vertigo, peripheral in nature. Initially with episodes of room spinning, these have decreased in intensity and are now more like a boat like sensation. Angular movements such as sitting up out of bed can set it off. MRI of brain is without any findings concerning for a central vertigo syndrome. Anterior and posterior circulation appear to be intact, with some slight visualization limitations in the neck related to his cervical hardware. 2. Orthostatic hypotension with syncope. 3 events. Syncopal events pretty clearly preceded by presyncopal symptoms. Do not suspect seizure. Orthostatic vital signs here were unremarkable. PLAN: 1. Continue home warfarin 2. No clear indication for the continuation of the aspirin 81 mg daily that was started here 3. No other recommendations at this time 4. He is going to have outpatient vestibular physical therapy 1. Dizziness (R42: Dizziness and giddiness) 2. Syncope (R55: Syncope and collapse) 3. Labile hypertension (R09.89: Other specified symptoms and signs involving the circulatory and respiratory systems) 4. Anxiety (F41.9: Anxiety disorder, unspecified) 5. Hypertensive urgency (I16.0: Hypertensive urgency) 6. Hyperlipidemia (E78.5: Hyperlipidemia, unspecified) 7. Smoker (F17.200: Nicotine dependence, unspecified, uncomplicated) 8. DVT (deep venous thrombosis) (I82.409: Acute embolism and thrombosis of unspecified deep veins of unspecified lower extremity) 9. Acid reflux (K21.9: Gastro-esophageal reflux disease without esophagitis) Extracted from: Title:Consult Note Author:Bc LAZARO, Kristin Abbott. Date:09/09/22 57-year-old male with syncop e of unclear etiology. No high risk features for arrhythmia. Does have history of hypertension hyperlipidemia and could have coronary disease we are not seeing any arrhythmias on the monitor however. No ACS type symptoms either. I will continue to monitor with you likely can be discharged follow-up as an outpatient. Thank for the consult 1. Dizziness (R42: Dizziness and giddiness) 2. Labile hypertension (R09.89: Other specified symptoms and signs involving the circulatory and respiratory systems) 3. Anxiety (F41.9: Anxiety disorder, unspecified) 4. Hypertensive urgency (I16.0: Hypertensive urgency) 5. Hyperlipidemia (E78.5: Hyperlipidemia, unspecified) 6. Smoker (F17.200: Nicotine dependence, unspecified, uncomplicated) 7. DVT (deep venous thrombosis) (I82.409: Acute embolism and thrombosis of unspecified deep veins of unspecified lower extremity) 8. Acid reflux (K21.9: Gastro-esophageal reflux disease without esophagitis) Extracted from: Title:APSO Note Author:Debra LAZARO, Abeer Date: 1. Dizziness (R42: Dizziness and giddiness) Episodes of dizziness started this week + Syncopal episodes , 3 events in the last week MRI brain MRA head, and neck Meclizine as needed Aspirin 81 mg daily Telemetry PT for BPPV Follow-up orthostatic vitals Neurology consult, discussed in the morning 2-syncope : See #1 2. Labile hypertension (R09.89: Other specified symptoms and signs involving the circulatory and respiratory systems) Continue with chronic medications once reconciled 3. Anxiety (F41.9: Anxiety disorder, unspecified) Continue with as needed Ativan Buspirone, nortriptyline 4. Hypertensive urgency (I16.0: Hypertensive urgency) See above Permissive hypertension for 24 hours and then goal is to be normotensive by discharge 5. Hyperlipidemia (E78.5: Hyperlipidemia, unspecified) Simvastatin 6. Smoker (F17.200: Nicotine dependence, unspecified, uncomplicated) Recommended cessation 7. DVT (deep venous thrombosis) (I82.409: Acute embolism and thrombosis of unspecified deep veins of unspecified lower extremity) On Coumadin 8. Acid reflux (K21.9: Gastro-esophageal reflux disease without esophagitis) Protonix 1. Dizziness (R42: Dizziness and giddiness) 2. Syncope (R55: Syncope and collapse) 3. Labile hypertension (R09.89: Other specified symptoms and signs involving the circulatory and respiratory systems) 4. Anxiety (F41.9: Anxiety disorder, unspecified) 5. Hypertensive urgency (I16.0: Hypertensive urgency) 6. Hyperlipidemia (E78.5: Hyperlipidemia, unspecified) 7. Smoker (F17.200: Nicotine dependence, unspecified, uncomplicated) 8. DVT (deep venous thrombosis) (I82.409: Acute embolism and thrombosis of unspecified deep veins of unspecified lower extremity) 9. Acid reflux (K21.9: Gastro-esophageal reflux disease without esophagitis) Orders: Consult to Cardiology This report was transcribed using voice recognition software , Every effort was made to ensure accuracy , however, inadvertently computerized ceramic painter mistakes may be present . Extracted from: Title:Consult Note-neurology Author:Fidel Shoemaker RN ichoracio Date:09/09/22 Reason for consult: ASSESSMENT: Dizziness with position change or movement may be 2 things simultaneously here: 1. Vertigo. Initially with episodes of room spinning, these have decreased in intensity and are now more like a boat like sensation. Angular movements such as sitting up out of bed can set it off. Most likely peripheral, but central vertigo syndromes will have to be a consideration given his cerebrovascular risk factors (vascular disease, hypertensive urgency/emergency). 2. Orthostatic hypotension with syncope. 3 events. Syncopal events pretty clearly preceded by presyncopal symptoms. Do not suspect seizure. PLAN: 1. MRI brain pending 2. MRA head and neck pending 3. Continue home warfarin 4. Aspirin 81 mg daily started here 5. Check orthostatic vital signs 6. Further recommendations to follow 1. Dizziness (R42: Dizziness and giddiness) 2. Labile hypertension (R09.89: Other specified symptoms and signs involving the circulatory and respiratory systems) 3. Anxiety (F41.9: Anxiety disorder, unspecified) 4. Hypertensive urgency (I16.0: Hypertensive urgency) 5. Hyperlipidemia (E78.5: Hyperlipidemia, unspecified) 6. Smoker (F17.200: Nicotine dependence, unspecified, uncomplicated) 7. DVT (deep venous thrombosis) (I82.409: Acute embolism and thrombosis of unspecified deep veins of unspecified lower extremity) 8. Acid reflux (K21.9: Gastro-esophageal reflux disease without esophagitis) Extracted from: Title:Admission H & P Author:Favian SCHMITT MD ate:09/08/22 57-year-old male with past m edical history of DVT, hypertension, hyperlipidemia, chronic back and neck pain status post cervical surgery, depression, anxiety presents to emergency department for not feeling well for 1 week. 1. Dizziness (R42: Dizziness and giddiness) Concern for posterior circulation stroke Observation admission as patient does not require more than 2 midnight stay Consult neurology MRI brain to rule out posterior circulation stroke Will get MRA head, and neck Will allow patient to eat as no signs and symptoms of dysphasia or facial droop Supportive care with meclizine and benzodiazepine as needed Aspirin 81 mg daily Telemetry to rule out cardiac arrhythmia- watch for A.fib PT for BPPV 2. Labile hypertension (R09.89: Other specified symptoms and signs involving the circulatory and respiratory systems) Continue with chronic medications once verified, amlodipine, doxazosin 3. Anxiety (F41.9: Anxiety disorder, unspecified) Continue with as needed Ativan Buspirone, nortriptyline 4. Hypertensive urgency (I16.0: Hypertensive urgency) Management as above Permissive hypertension for 24 hours and then goal is to be normotensive by discharge 5. Hyperlipidemia (E78.5: Hyperlipidemia, unspecified) Simvastatin 6. Smoker (F17.200: Nicotine dependence, unspecified, uncomplicated) Recommended cessation 7. DVT (deep venous thrombosis) (I82.409: Acute embolism and thrombosis of unspecified deep veins of unspecified lower extremity) On Coumadin Pharmacy to dose Coumadin INR is therapeutic 8. Acid reflux (K21.9: Gastro-esophageal reflux disease without esophagitis) Protonix Orders: acetaminophen, 650 mg = 2 tab(s), Tab, Oral, q6hr PRN Pain, Routine, Start date 09/08/22 21:08:00 EST, 09/08/22 21:08:00 EST acetaminophen-hydrocodone, 1 tab(s), Tab, Oral, q6hr PRN Pain for 5 day(s), Stop date 09/13/22 21:18:00 EDT, STAT, Start date 09/08/22 21:19:00 EST Al hydroxide/Mg hydroxide/simethicone, 30 mL, Susp-Oral, Oral, q6hr PRN Indigestion, STAT, Start date 09/08/22 21:08:00 EST amlodipine, 2.5 mg = 1 tab(s), Tab, Oral, Daily, Routine, Start date 09/09/22 9:00:00 EDT, 09/08/22 21:19:00 EST aspirin, 81 mg = 1 tab(s), Tab-EC, Oral, Daily, Routine, Start date 09/09/22 9:00:00 EDT, 09/08/22 21:08:00 EST busPIRone, 20 mg = 2 tab(s), Tab, Oral, BID, Routine, Start date 09/09/22 9:00:00 EDT, 09/08/22 21:18:00 EST cyclobenzaprine, 10 mg = 1 tab(s), Tab, Oral, TID PRN Spasm, Routine, Start date 09/08/22 21:18:00 EST, 09/08/22 21:18:00 EST docusate, 100 mg = 1 cap(s), Cap, Oral, BID, Routine, Start date 09/09/22 9:00:00 EDT, 09/08/22 21:19:00 EST doxazosin, 4 mg = 2 tab(s), Tab, Oral, Bedtime, Routine, Start date 09/09/22 21:00:00 EDT, 09/08/22 21:18:00 EST ezetimibe, 10 mg = 1 tab(s), Tab, Oral, Bedtime, Routine, Start date 09/09/22 21:00:00 EDT, 09/08/22 21:19:00 EST hydrALAZINE, 10 mg = 0.5 mL, Injection, IV Push, q6hr PRN Other (see comment), Routine, Start date 09/08/22 21:08:00 EST, 09/08/22 21:08:00 EST lorazepam, 0.5 mg = 1 tab(s), Tab, Oral, Daily, Routine, Start date 09/09/22 9:00:00 EDT, 09/08/22 21:18:00 EST meclizine, 12.5 mg = 1 tab(s), Tab, Oral, q6hr PRN Dizziness, Routine, Start date 09/08/22 21:09:00 EST, 09/08/22 21:09:00 EST nortriptyline, 25 mg = 1 cap(s), Cap, Oral, Once a day (at bedtime), Routine, Start date 09/09/22 21:00:00 EDT, 09/08/22 21:19:00 EST ondansetron, 4 mg = 2 mL, Injection, IV Push, q6hr PRN Nausea, Routine, Start date 09/08/22 21:08:00 EST, 09/08/22 21:08:00 EST pantoprazole, 40 mg = 1 tab(s), Tab-DR, Oral, Bedtime, Routine, Start date 09/09/22 21:00:00 EDT, 09/08/22 21:18:00 EST simvastatin, 20 mg = 2 tab(s), Tab, Oral, Once a day (at bedtime), Routine, Start date 09/09/22 21:00:00 EDT, 09/08/22 21:18:00 EST warfarin, Pharmacy to dose, Tab, Oral, As Directed, Routine, Start date 09/08/22 21:20:00 EST Ambulate with Assistance Below the Knee Intermittent Pneumatic Compression Device Cardiac Diet Cardiac Monitoring Communication Order Communication Order Physician to Nursing Consult to Neurology Dysphagia Screen Evaluate Need For Continued Telemetry Intake and Output Lipid Panel MRA Head w/o Contrast MRA Neck w/o Contrast MRI Brain w/o Contrast Notify Provider Vital Signs Notify Provider Vital Signs Oxygen Protocol Physical Therapy Evaluate Patient, Develop a Plan of Care and Implement Plan Place in Status Precautions Pulse Oximetry Resuscitation Status - Full Stroke Education Stroke Quality Measures Vital Signs Weight Plan discussed with patient at bedside in ER bed #3 Full code as per patient Moderate level of MDM based on addressing above issues This report was transcribed using voice recognition software. Every effort was made to ensure accuracy, however, inadvertently computerized ceramic painter mistakes may be present. Favian Schmitt Hospitalist [facility]03-13-2023 NoteAdmission and Discharge Information Admitting Physician - Favian SCHMITT MD Consulting Physician - Tulio LAZARO, Allison Yancey MD, Miky Davies Admitting Diagnoses: BPPV (benign paroxysmal positional vertigo), 09/10/2022 Discharge Order Date Discharge Patient - Ordered -- 09/10/22 9:11:00 EDT, Home with PT recs Discharge Diagnoses 1. Dizziness, 09/08/2022 2. Syncope, 09/09/2022 3. Labile hypertension, 09/08/2022 4. Anxiety, 09/08/2022 5. Hypertensive urgency, 09/08/2022 6. Hyperlipidemia, 09/08/2022 7. Smoker, 09/08/2022 8. DVT (deep venous thrombosis), 09/08/2022 9. Acid reflux, 09/08/2022 BPPV (benign paroxysmal positional vertigo), 09/10/2022 Dizziness, 09/08/2022 Hypertension, 09/08/2022 Shortness of breath, 09/08/2022 Procedure History Bunionectomy (08/18/2020), Cheilectomy (08/18/2020), Arthroscopy of knee (12/18/2019), Cervical spinal fusion (08/04/2019), Epidural injection of cervical spine using fluoroscopic guidance (06/17/2019), Epidural injection of cervical spine using fluoroscopic guidance (05/20/2019), Epidural injection of cervical spine using fluoroscopic guidance (04/08/2019), Colonoscopy (2016), right shoulder arthroscopy with glenohumeral debridement, subacromial decompression, partial distal clavulectomy (09/21/2014), Shoulder (2012), neck surgery. Hospital Course 57-year-old male with past medical history of hypertension, history of DVT on Coumadin, hyperlipidemia, chronic back and neck pain status post cervical surgery, depression, anxiety presented to emergency department for not feeling well and positional dizziness. Patient was admitted and had MRI along with MRA head and neck which were unremarkable. Patient's symptoms are reproducible and positionalconsistent with BPPV. Patient has improved and has underlying anxiety regarding the issue. He will be set up for outpatient vestibular therapy. Currently is in stable condition and will prescribe meclizine as needed for him. Significant Findings MRA Head w/o Contrast 09/10/22 09:00:48 IMPRESSION: THERE IS NO EVIDENCE OF SIGNIFICANT STENOSIS OR LARGE VESSEL CUT OFF. CLINICAL HISTORY: TIA COMPARISON: NONE. FINDINGS: The visualized portions of the intracranial circulation including the cavernous carotid arteries, the supraclinoid carotid arteries and the carotid bifurcations are within normal limits. The A1 and A2 segments of the anterior cerebral arteries are unremarkable. The middle cerebral arteries are without stenosis or cut off to the level of bifurcation. The M2 and M3 segments are within normal limits. The posterior circulation demonstrates codominant vertebral arteries. The basilar artery is within normal limits and the posterior cerebral arteries are unremarkable. Ordering Provider: Favian SCHMITT Signed By: Scooter Tovar MD, V. 09/09/22 15:23:32 None Signed By: Scooter Tovar MD, V. MRA Neck w/o Contrast 09/10/22 09:04:48 IMPRESSION: There is no hemodynamically significant stenosis of the internal carotid arteries. Evaluation of the vertebral arteries is limited due to the presence of orthopedic hardware. EXAMINATION: MRA Neck w/o Contrast DATE AND TIME:09/09/2022 1:07 PM CLINICAL HISTORY: Stroke symptoms TIA COMPARISON: Cervical spine x-rays from 04/18/2021 TECHNIQUE: [id number] images of the common carotid arteries, carotid bifurcations and internal and external carotid arteries are performed including 3-dimensional MIP reconstructions. MRA NECK FINDINGS Carotid: There is no hemodynamically significant stenosis, vascular dissection or aneurysm of the right common or internal carotid arteries. There is no hemodynamically significant stenosis, vascular dissection or aneurysm in the left common or internal carotid arteries. Cervical Vertebral Arteries: Patency: Evaluation is limited due to metallic artifact. There is no focal stenosis aneurysm or dissection in the visualized portions. Vertebral arteries are codominant. Ordering Provider: Favian SCHMITT Signed By: Scooter Tovar MD, V. 09/09/22 15:23:32 None Signed By: Scooter Tovar MD, V. MRI Brain w/o Contrast 09/10/22 08:57:48 IMPRESSION: There are no acute intracranial changes, no evidence of ischemia or hemorrhage. There are no regions of signal abnormality. EXAMINATION: MRI Brain w/o Contrast CLINICAL HISTORY: TIA COMPARISONS: Brain CT from 09/08/2022 TECHNIQUE: Multiplanar multisequence images of the brain were obtained without contrast. Diffusion perfusion imaging was obtained. BRAIN MRI FINDINGS: There are no extra-axial collections. There is no evidence of hemorrhage. There are no areas of perfusion diffusion signal abnormality to suggest ischemia. The susceptibility images do not demonstrate evidence of hemosiderin deposition within the brain parenchyma or t (more content not included)...[facility]:Result Comment: Electronically Signed By: Favian SCHMITT MD.denae\Date and Time Signed: 09/10/22 09:24 [id number] Hospital Discharge instructions Patient Education 09/10/2022 09:11:46 Benign Positional Vertigo Benign Positional Vertigo Vertigo is the feeling that you or your surroundings are moving when they are not. Benign positional vertigo is the most common form of vertigo. This is usually a harmless condition (benign). This condition is positional. This means that symptoms are triggered by certain movements and positions. This condition can be dangerous if it occurs while you are doing something that could cause harm toyou or others. This includes activities such as driving or operating machinery. What are the causes? In many cases, the cause of this condition is not known. It may be caused by a disturbance in an area of the inner ear that helps your brain to sense movement and balance. This disturbance can be caused by: Viral infection (labyrinthitis). Head injury. Repetitive motion, such as jumping, dancing, or running. What increases the risk? You are more likely to develop this condition if: You are a woman. You are 50 years of age or older. What are the signs or symptoms? Symptoms of this condition usually happen when you move your head or your eyes in different directions. Symptoms may start suddenly, and usually last for less than a minute. They include: Loss of balance and falling. Feeling like you are spinning or moving. Feeling like your surroundings are spinning or moving. Nausea and vomiting. Blurred vision. Dizziness. Involuntary eye movement (nystagmus). Symptoms can be mild and cause only minor problems, or they can be severe and interfere with daily life. Episodes of benign positional vertigo may return (recur) over time. Symptoms may improve over time. How is this diagnosed? This condition may be diagnosed based on: Your medical history. Physical exam of the head, neck, and ears. Tests, such as: ?MRI. ?CT scan. ?Eye movement tests. Your health care provider may ask you to change positions quickly while he or she watches you for symptoms of benign positional vertigo, such as nystagmus. Eye movement may be tested with a variety of exams that are designed to evaluate or stimulate vertigo. ?An electroencephalogram (EEG). This records electrical activity in your brain. ?Hearing tests. You may be referred to a health care provider who specializes in ear, nose, and throat (ENT) problems (loss claim clerk) or a provider who specializes in disorders of the nervous system (neurologist). How is this treated? This condition may be treated in a session in which your health care provider moves your head in specific positions to adjust your inner ear back to normal. Treatment for this condition may take several sessions. Surgery may be needed in severe cases, but this is rare. In some cases, benign positional vertigo may resolve on its own in 2 4 weeks. Follow these instructions at home: Safety Move slowly. Avoid sudden body or head movements or certain positions, as told by your health care provider. Avoid driving until your health care provider says it is safe for you to do so. Avoid operating heavy machinery until your health care provider says it is safe for you to do so. Avoid doing any tasks that would be dangerous to you or others if vertigo occurs. If you have trouble walking or keeping your balance, try using a cane for stability. If you feel dizzy or unstable, sit down right away. Return to your normal activities as told by your health care provider. Ask your health care provider what activities are safe for you. General instructions Take sgam-zyv-cyxtuww and prescription medicines only as told by your health care provider. Drink enough fluid to keep your urine pale yellow. Keep all follow-up visits as told by your health care provider. This is important. Contact a health care provider if: You have a fever. Your condition gets worse or you develop new symptoms. Your family or friends notice any behavioral changes. You have nausea or vomiting that gets worse. You have numbness or a pins and needles sensation. Get help right away if you: Have difficulty speaking or moving. Are always dizzy. Faint. Develop severe headaches. Have weakness in your legs or arms. Have changes in your hearing or vision. Develop a stiff neck. Develop sensitivity to light. Summary Vertigo is the feeling that you or your surroundings are moving when they are not. Benign positional vertigo is the most common form of vertigo. The cause of this condition is not known. It may be caused by a disturbance in an area of the innerear that helps your brain to sense movement and balance. Symptoms include loss of balance and falling, feeling that you or your surroundings are moving, nausea and vomiting, and blurred vision. This condition can be diagnosed based on symptoms, physical exam, and other tests, such as MRI, CT scan, eye movement tests, and hearing tests. Follow safety instructions as told by your health care provider. You will also be told when to contact your health care provider in case of problems. This information is not intended to replace advice given to you by your health care provider. Make sure you discuss any questions you have with your health care provider. Document Released: 03/25/2007 Document Revised: 11/26/2018 Document Reviewed: 11/26/2018 [employer] Patient Education 2020 [employer]. Follow Up Care 09/08/2022 18:09:39 With:Sarah Bruce Address: [address] [place] [phone]- Business (1) When:09/12/2022 09:00:00 Comments:Appointment is with Kirstin Joshi.Call physician if symptoms worsen With:Tulio LAZARO, MIGUEL Matthews Address: [address] [place] [address] [place] [phone]- Business (1) When:09/17/2022 10:00:00 [facility]03-12-2023 NotePT Evaluation done this date. Pt. with on AM-PAC this date. He has no dizziness with activityat this time and is awaiting MRI. Currently with no acute PT needs but if dizziness returns and MRIis clear recommend outpatient vestibular PT.[facility] 09-08-2022 NoteBasic Information Accompanied by: No Accompaniment Source of History: Self Present at Bedside: Medical personnel Referral Source: ED History Limitation: None Chief Complaint Pt. came here d/t dizziness, lightheadedness and blurring of vision for a week now. pt said he was in [employer] and they took his Temp and it was 87F, BP high when they took it, feels short of breath, cold and clammy. TAkes coumadin daily. Denies weakness,. History of Present Illness 57-year-old male with past medical history of DVT, hypertension, hyperlipidemia, chronic back and neck pain status post cervical surgery, depression, anxiety presents to emergency department for not feeling well for 1 week. Patient is having some positional dizziness for a week and thought it was fluid related. Patient has gotten up quickly and will lose his balance and run into the wall. He feltlike he was drunk. Patient was getting up slowly and moving around. This will prevent the dizzinessbut every now and then when he worked on his head quickly towards the left side I will get dizzy. Today at [facility] he was checking his blood pressure after talking to the pharmacist for something forvertigo and was found to have hypertension and hypothermia and was referred to the hospital. Review of Systems Scoring Coker Fall Risk Score: 35 (09/08/22) Physical Exam Vitals & Measurements T: 36.5 ?C(Oral) HR: 62(Monitored) RR: 16 BP: 144/87 SpO2: 96% HT: 177 cm WT: 121 kg General: alert, no acute distress on Room air ENMT: TM's clear, oral mucosa moist, no pharyngeal erythema or exudate Cardiovascular: regular rate and rhythm, normal peripheral perfusion Respiratory: Lungs CTA, respirations non labored Abdomen: Soft, nontender, without rebound or rigidity, positive bowel sounds Extremities: no deformity, no trauma Genitourinary: Deferred Skin: Intact Hematological: No signs of large bruising/ecchymosis or petechiae Neurological: oriented x 4, LOC appropriate for age, CN II-XII intact, motor strength equal & normal bilaterally, sensation equal & normal bilaterally, speech normal Psych: He is anxious about being in the hospital. Lab Results WBC: 8 E9/L (09/08/22 19:06:00) RBC: 6.4 E12/L High (09/08/22 19:06:00) HGB: 18.4 gm/dL High (09/08/22 19:06:00) Hct: 54.2 % High (09/08/22 19:06:00) MCV: 84.7 fL (09/08/22 19:06:00) MCH: 28.7 pg (09/08/22 19:06:00) MCHC: 33.9 gm/dL (09/08/22 19:06:00) RDW: 13.7 % (09/08/22 19:06:00) Platelet: 212 E9/L (09/08/22 19:06:00) MPV: 9.1 fL (09/08/22 19:06:00) Neutro Auto: 60.9 % (09/08/22 19:16:00) Lymph Auto: 26.3 % (09/08/22 19:16:00) [place] Auto: 8.1 % (09/08/22 19:16:00) Eos Auto: 3.7 % (09/08/22 19:16:00) Basophil Auto: 1 % (09/08/22 19:16:00) Neutro Absolute: 4.9 E9/L (09/08/22 19:16:00) Lymph Absolute: 2.1 E9/L (09/08/22 19:16:00) [place] Absolute: 0.6 E9/L (09/08/22 19:16:00) Eos Absolute: 0.3 E9/L (09/08/22:16:00) Basophil Absolute: 0.1 E9/L (09/08/22 19:16:00) PT: 32.1 second(s) High (09/08/22:16:00) INR: 2.8 (09/08/22:16:00) PTT: 50.7 second(s) High (09/08/22 19:16:00) Glucose Lvl: 102 mg/dL (09/08/22:16:00) BUN: 12 mg/dL (09/08/22:16:00) Creatinine: 0.9 mg/dL (09/08/22:16:00) eGFR: >60 (09/08/22:16:00) eGFR AA: >60 (09/08/22:16:00) BUN/Creat Ratio: 13 (09/08/22 19:16:00) Sodium Lvl: 136 mmol/L (09/08/22 19:16:00) Potassium Lvl: 3.6 mmol/L (09/08/22 19:16:00) Chloride: 106 mmol/L (09/08/22:16:00) CO2: 21 mmol/L (09/08/22:16:00) AGAP: 13 mEq/L (09/08/22 19:16:00) Calcium Lvl: 8.8 mg/dL Low (09/08/22:16:00) Alk Phos: 40 Int._Unit/L (09/08/22 19:16:00) ALT: 27 Int._Unit/L (09/08/22 19:16:00) AST: 26 Int._Unit/L (09/08/22 19:16:00) Total Protein: 7.7 gm/dL (09/08/22 19:16:00) Albumin Lvl: 4.6 gm/dL (09/08/22 19:16:00) Globulin: 3.1 gm/dL (09/08/22 19:16:00) A/G Ratio: 1.5 (09/08/22 19:16:00) Bili Total: 1 mg/dL (09/08/22 19:16:00) Lactic Acid Lvl: 1.3 mmol/L (09/08/22 19:16:00) Troponin: 12.7 pg/mL Low (09/08/22 19:16:00) Glucose Cap: 131 mg/dL High (09/08/22 18:16:00) POC Device SN: [id number] (09/08/22 18:16:00) POC User ID: [id number] (09/08/22 18:16:00) POC Username: SHAHBAZ CIFUENTES (09/08/22 18:16:00) UA Spec Desc: Random Urine (09/08/22 19:41:00) UA Color: Yellow2 (09/08/22 19:41:00) UA Clarity: Clear2 (09/08/22 19:41:00) UA Spec Grav: 1.025 (09/08/22 19:41:00) UA pH: 6.0 (09/08/22 19:41:00) UA Protein: NEGATIVE1 (09/08/22 19:41:00) UA Glucose: NEGATIVE1 (09/08/22 19:41:00) UA Ketones: NEGATIVE1 (09/08/22 19:41:00) UA Bili: NEGATIVE1 (09/08/22 19:41:00) UA Blood: NEGATIVE1 (09/08/22 19:41:00) UA Nitrite: NEGATIVE1 (09/08/22 19:41:00) UA Urobilinogen: 1.0 (09/08/22 19:41:00) UA Leuk Est: NEGATIVE1 (09/08/22 19:41:00) UA RBC: 0-3 (09/08/22 19:41:00) UA Squam Epithelial: 0-2 (09/08/22 19:41:00) UA WBC: 0-5 (09/08/22 19:41:00) UA Mucous: 1+ (09/08/22 19:41:00) Images XR Chest Single View * Preliminary * 09/08/22 (more content not included)...[facility]:Result Comment: Electronically Signed By: Favian SCHMITT MD\.br\Date and Time Signed: 09/08/22 21:53 [id number] Hospital Discharge instructions Patient Education 01/04/2022 13:38:43 Musculoskeletal Pain Musculoskeletal Pain Musculoskeletal pain refers to aches and pains in your bones, joints, muscles, and the tissues thatsurround them. This pain can occur in any part of the body. It can last for a short time (acute) ora long time (chronic). A physical exam, lab tests, and imaging studies may be done to find the cause of your musculoskeletal pain. Follow these instructions at home: Lifestyle Try to control or lower your stress levels. Stress increases muscle tension and can worsen musculoskeletal pain. It is important to recognize when you are anxious or stressed and learn ways to manageit. This may include: ?Meditation or yoga. ?Cognitive or behavioral therapy. ?Acupuncture or massage therapy. You may continue all activities unless the activities cause more pain. When the pain gets better, slowly resume your normal activities. Gradually increase the intensity and duration of your activities or exercise. Managing pain, stiffness, and swelling Take plky-gfi-oyaqcxk and prescription medicines only as told by your health care provider. When your pain is severe, bed rest may be helpful. Lie or sit in any position that is comfortable, but get out of bed and walk around at least every couple of hours. If directed, apply heat to the affected area as often as told by your health care provider. Use theheat source that your health care provider recommends, such as a moist heat pack or a heating pad. ?Place a towel between your skin and the heat source. ?Leave the heat on for 20 30 minutes. ?Remove the heat if your skin turns bright red. This is especially important if you are unable to feel pain, heat, or cold. You may have a greater risk of getting burned. If directed, put ice on the painful area. ?Put ice in a plastic bag. ?Place a towel between your skin and the bag. ?Leave the ice on for 20 minutes, 2 3 times a day. General instructions Your health care provider may recommend that you see a physical therapist. This person can help youcome up with a safe exercise program. Do any exercises as told by your physical therapist. Keep all follow-up visits, including any physical therapy visits, as told by your health care providers. This is important. Contact a health care provider if: Your pain gets worse. Medicines do not help ease your pain. You cannot use the part of your body that hurts, such as your arm, leg, or neck. You have trouble sleeping. You have trouble doing your normal activities. Get help right away if: You have a new injury and your pain is worse or different. You feel numb or you have tingling in the painful area. Summary Musculoskeletal pain refers to aches and pains in your bones, joints, muscles, and the tissues thatsurround them. This pain can occur in any part of the body. Your health care provider may recommend that you see a physical therapist. This person can help youcome up with a safe exercise program. Do any exercises as told by your physical therapist. Lower your stress level. Stress can worsen musculoskeletal pain. Ways to lower stress may include meditation, yoga, cognitive or behavioral therapy, acupuncture, and massage therapy. This information is not intended to replace advice given to you by your health care provider. Make sure you discuss any questions you have with your health care provider. Document Released: 06/17/2006 Document Revised: 05/30/2018 Document Reviewed: 07/17/2017 [employer] Patient Education 2020 [employer]. Follow Up Care 01/04/2022 12:03:42 With:Sarah Bruce DO, FAM Address: [address] [place] [phone]- When:01/07/2022 [facility]07-07-2022 Evaluation + Plan noteExtracted from: Title:ED Note Author:Thania Mcgregor PA-C Date :7/7/22 1. Bilateral leg pain (M79.6 04: Pain in right leg) Orders: Basic Metabolic Panel eGFR Extra Blue Tube Extra Lav Tube US LE Venous Duplex Bilateral Future Appointments Appointment Date:01/09/2022 03:00:00 PM Scheduled Provider: Location:[facility] SCAN Appointment Type:CT Abdomen/Pelvis Combo ([facility]) Future Scheduled Tests Radiology* CT Abdomen/Pelvis w/o Contrast 01/09/22 [facility]04-21-2022 Hospital Discharge instructions Patient Education 10/19/2021 17:34:39 Stasis Dermatitis Stasis Dermatitis Stasis dermatitis is a long-term (chronic) skin condition that happens when veins can no longer pump blood back to the heart (poor circulation). This condition causes a red or brown scaly rash or sores (ulcers) from the pooling of blood (stasis). This condition usually affects the lower legs. It may affect one leg or both legs. Without treatment, severe stasis dermatitis can lead to other skin conditions and infections. What are the causes? This condition is caused by poor circulation. What increases the risk? You are more likely to develop this condition if: You are not very active. You stand for long periods of time. You have veins that have become enlarged and twisted (varicose veins). You have leg veins that are not strong enough to send blood back to the heart (venous insufficiency). You have had a blood clot. You have been many times. You have had vein surgery. You are obese. You have heart or kidney failure. You are 50 years of age or older. You have had injuries to your legs in the past. What are the signs or symptoms? Common early symptoms of this condition include: Itchiness in one or both of your legs. Swelling in your ankle or leg. This might get better overnight but be worse again during the day. Skin that looks thin on your ankle and leg. Red or brown bright that develop slowly. Skin that is dry, cracked, or easily irritated. Red, swollen skin that is sore or has a burning feeling. An achy or heavy feeling after you walk or stand for long periods of time. Pain. Later and more severe symptoms of this condition include: Skin that looks shiny. Small, open sores (ulcers). These are often red or purple and leak fluid. Skin that feels hard. Severe itching. A change in the shape or color of your lower legs. Severe pain. Difficulty walking. How is this diagnosed? This condition may be diagnosed based on: Your symptoms and medical history. A physical exam. You may also have tests, including: Blood tests. Imaging tests to check blood flow (Doppler ultrasound). Allergy tests. You may need to see a health care provider who specializes in skin diseases (hot wound spring production supervisor). How is this treated? This condition may be treated with: Compression stockings or an elastic wrap to improve circulation. Medicines, such as: ?Corticosteroid creams and ointments. ?Non-corticosteroid medicines applied to the skin (topical). ?Medicine to reduce swelling in the legs (diuretics). ?Antibiotics. ?Medicine to relieve itching (antihistamines). A bandage (dressing). A wrap that contains zinc and gelatin (Unna boot). Follow these instructions at home: Skin care Moisturize your skin as told by your health care provider. Do not use moisturizers with fragrance. This can irritate your skin. Apply a cool, wet cloth (cool compress) to the affected areas. Do not scratch your skin. Do not rub your skin dry after a bath or shower. Gently pat your skin dry. Do not use scented soaps, detergents, or perfumes. Medicines Take or use uwhf-qdx-kucxioz and prescription medicines only as told by your health care provider. If you were prescribed an antibiotic medicine, take or use it as told by your health care provider.Do not stop taking or using the antibiotic even if your condition improves. Activity Walk as told by your health care provider. Walking increases blood flow. Do calf and ankle exercises throughout the day as told by your health care provider. This will helpincrease blood flow. Raise (elevate) your legs above the level of your heart when you are sitting or lying down. Lifestyle Work with your health care provider to lose weight, if needed. Do not cross your legs when you sit. Do not stand or sit in one position for long periods of time. Wear comfortable, loose-fitting clothing. Circulation in your legs will be worse if you wear tight pants, belts, and waistbands. Do not use any products that contain nicotine or tobacco, such as cigarettes, e- cigarettes, and chewing tobacco. If you need help quitting, ask your health care provider. General instructions If you were asked to use one of the following to help with your condition, follow instructions fromyour health care provider on how to: ?Remove and change any dressing. ?Wear compression stockings. These stockings help to prevent blood clots and reduce swelling in your legs. ?Wear the Unna boot. Keep all follow-up visits as told by your health care provider. This is important. Contact a health care provider if: Your condition does not improve with treatment. Your condition gets worse. You have signs of infection in the affected area. Watch for: ?Swelling. ?Tenderness. ?Redness. ?Soreness. ?Warmth. You have a fever. Get help right away if: You notice red streaks coming from the affected area. Your bone or joint underneath the affected area becomes painful after the skin has healed. The affected area turns darker. You feel a deep pain in your leg or groin. You are short of breath. Summary Stasis dermatitis is a long-term (chronic) skin condition that happens when veins can no longer pump blood back to the heart (poor circulation). Wear compression stockings as told by your health care provider. These stockings help to prevent blood clots and reduce swelling in your legs. Follow instructions from your health care provider about activity, medicines, and lifestyle. Contact a health care provider if you have a fever or have signs of infection in the affected area. Keep all follow-up visits as told by your health care provider. This is important. This information is not intended to replace advice given to you by your health care provider. Make sure you discuss any questions you have with your health care provider. Document Released: 09/26/2006 Document Revised: 11/17/2018 Document Reviewed: 11/17/2018 [employer] Patient Education 2020 [employer] 10/19/2021 17:34:39 Chronic Venous Insufficiency Chronic Venous Insufficiency Chronic venous insufficiency is a condition where the leg veins cannot effectively pump blood from the legs to the heart. This happens when the vein das are either stretched, weakened, or damaged, or when the valves inside the vein are damaged. With the right treatment, you should be able to continue with an active life. This condition is also called venous stasis. What are the causes? Common causes of this condition include: High blood pressure inside the veins (venous hypertension). Sitting or standing too long, causing increased blood pressure in the leg veins. A blood clot that blocks blood flow in a vein (deep vein thrombosis, DVT). Inflammation of a vein (phlebitis) that causes a blood clot to form. Tumors in the pelvis that cause blood to back up. What increases the risk? The following factors may make you more likely to develop this condition: Having a family history of this condition. Obesity. . Living without enough regular physical activity or exercise (sedentary lifestyle). Smoking. Having a job that requires long periods of standing or sitting in one place. Being a certain age. Women in their 40s and 50s and men in their 70s are more likely to develop this condition. What are the signs or symptoms? Symptoms of this condition include: Veins that are enlarged, bulging, or twisted (varicose veins). Skin breakdown or ulcers. Reddened skin or dark discoloration of skin on the leg between the knee and ankle. Brown, smooth, tight, and painful skin just above the ankle, usually on the inside of the leg (lipodermatosclerosis). Swelling of the legs. How is this diagnosed? This condition may be diagnosed based on: Your medical history. A physical exam. Tests, such as: ?A procedure that creates an image of a blood vessel and nearby organs and provides information about blood flow through the blood vessel (duplex ultrasound). ?A procedure that tests blood flow (plethysmography). ?A procedure that looks at the veins using X-ray and dye (venogram). How is this treated? The goals of treatment are to help you return to an active life and to minimize pain or disability.Treatment depends on the severity of your condition, and it may include: Wearing compression stockings. These can help relieve symptoms and help prevent your condition fromgetting worse. However, they do not cure the condition. Sclerotherapy. This procedure involves an injection of a solution that shrinks damaged veins. Surgery. This may involve: ?Removing a diseased vein (vein stripping). ?Cutting off blood flow through the vein (laser ablation surgery). ?Repairing or reconstructing a valve within the affected vein. Follow these instructions at home: Wear compression stockings as told by your health care provider. These stockings help to prevent blood clots and reduce swelling in your legs. Take kynj-wti-lzvhjcs and prescription medicines only as told by your health care provider. Stay active by exercising, walking, or doing different activities. Ask your health care provider what activities are safe for you and how much exercise you need. Drink enough fluid to keep your urine pale yellow. Do not use any products that contain nicotine or tobacco, such as cigarettes, e- cigarettes, and chewing tobacco. If you need help quitting, ask your health care provider. Keep all follow-up visits as told by your health care provider. This is important. Contact a health care provider if you: Have redness, swelling, or more pain in the affected area. See a red streak or line that goes up or down from the affected area. Have skin breakdown or skin loss in the affected area, even if the breakdown is small. Get an injury in the affected area. Get help right away if: You get an injury and an open wound in the affected area. You have: ?Severe pain that does not get better with medicine. ?Sudden numbness or weakness in the foot or ankle below the affected area. ?Trouble moving your foot or ankle. ?A fever. ?Worse or persistent symptoms. ?Chest pain. ?Shortness of breath. Summary Chronic venous insufficiency is a condition where the leg veins cannot effectively pump blood from the legs to the heart. Chronic venous insufficiency occurs when the vein das become stretched, weakened, or damaged, or when valves within the vein are damaged. Treatment depends on how severe your condition is. It often involves wearing compression stockings and may involve having a procedure. Make sure you stay active by exercising, walking, or doing different activities. Ask your health care provider what activities are safe for you and how much exercise you need. This information is not intended to replace advice given to you by your health care provider. Make sure you discuss any questions you have with your health care provider. Document Released: 10/21/2007 Document Revised: 03/10/2019 Document Reviewed: 03/10/2019 [employer] Patient Education 2020 [email or web address] Follow Up Care 10/19/2021 15:32:48 With:Call your PCP tomorrow or follow with the Coumadin clinic regarding your supratherapeutic INR. You may skip tomorrow's dose of Coumadin. Address:Unknown When: Unknown With:Sarah Bruce Address: [address] [place] [address] Business (1) When:10/20/2021 17:30:44 [facility]04-21-2022 Evaluation + Plan noteExtracted from: Title:ED Note Author:Edwin VILLAR Vaishnavi N Terrell e:10/19/21 1. Calf pain (M79.669: Pain in unspecified lower leg) 2. Supratherapeutic INR (R79.1: Abnormal coagulation profile) Orders: PT & PTT US LE Venous Duplex Bilateral 56-year-old male presents to the ED complaining of calf pain, swelling, burning. History of DVT. In the ED patient is afebrile, vital signs are stable, no acute distress. No chest pain, shortness of breath, evidence of PE. Ultrasound shows no evidence of acute DVT. Patient's INR is 3.6 which is supratherapeutic as the patient's goal is 2.5-3. It was discussed the patient he should hold tomorrow's dose of Coumadin and call his PCP or the Coumadin clinic. Patient is to return to the ED with any new or worsening symptoms. Patient voices understanding and is agreeable to plan. [facility] Future Appointments Appointment Date:01/09/2022 03:00:00 PM Scheduled Provider: Location:.[facility] Appointment Type:CT Abdomen/Pelvis Combo (FT) Future Scheduled Tests Radiology* CT Abdomen/Pelvis w/o Contrast [facility] No data available for this section [facility] No data available for this section [facility] No data available for this section [facility] Summary Purpose Family History No Family History Records FoundNo Family History Records FoundNo Family History Records FoundNo Family History Records Found No data available for this section No Family History Records Found Advance Directives No Advanced Directives Records FoundNo Advanced Directives Records FoundNo Advanced Directives Records FoundNo Advanced Directives Records FoundNo Advanced Directives Records Found Additional Source Comments (unrecognized sect ion and content) No Status Records FoundNo Status Records FoundNo Status Records FoundNo Status Records FoundNo Status Records Found INFORMATION SOURCE (unrecogn ized section and content) DATE CREATED AUTHOR 08/21/2019 [facility] DATE CREATED AUTHOR AUTHOR'S ORGANIZ ATION 12/04/2021 [facility] Specialist DATE CREATED AUTHOR AUTHOR'S ORGANIZ ATION 05/19/2022 [facility] DATE CREATED AUTHOR AUTHOR'S ORGANIZ ATION 07/27/2023 [facility] Special[facility] EPIC DATE CREATED AUTHOR AUTHOR'S ORGANIZ ATION 09/07/2023 Khurram Clark [facility] Care Team (unrecognized sect ion and content) Personnel Name: Sarah Bruce DO Milena Address: [address] [place] [address] Personnel Name: Azul HEREDIA Sarah Milena Address: [address] [place] [address] Personnel Name: Azul HEREDIA Sarah Milena Address: [address] [place] [address] Personnel Name: Azul HEREDIA Sarah Milena Address: Address: [address] [place] [address] Personnel Name: Sarah Bruce DO Address: Address: [address] [place] [address] FOR RECORDS PERTAINING TO PATIENTS WHO ARE OR HAVE BEEN ENROLLED IN A CHEMICAL DEPENDENCY/SUBSTANCEABUSE PROGRAM, SOME INFORMATION MAY BE OMITTED. This clinical summary was aggregated from multiple sources. Caution should be exercised in using it in the provision of clinical care. This summary normalizes information from multiple sources, and as a consequence, information in this document may materially change the coding, format and clinical context of patient data. In addition, data may be omitted in some cases. CLINICAL DECISIONS SHOULD BE BASED ON THE PRIMARY CLINICAL RECORDS. [facility] [employer] [facility]. provides no warranty or guarantee of the accuracy or completeness of information in this document.
== END 2023-11-15 10:28 | disposition home or self-care (01) ==
LOC: VC 10:27
PROVIDERS: PCP Radiology Diagnostic Radiology; Visit Provider Radiology Diagnostic Radiology
DX: I83.813 Varicose veins of bilateral lower extremities with pain (principal)
CPT/HCPCS: 36478

== ENCOUNTER 2023-11-22 09:54 | Outpatient (OUT) | payer MEDICARE, MEDICAID, SELFPAY ==
--- NOTE | 2023-11-22 10:04 | VEIN_ITS ---
Patient Name: KEEGAN AUSTIN MR#: [id number] : 1965 Exam Date: 11/22/2023 Ordering Doctor: DR URBI MATTHEWS M.D. RADIOLOGY REPORT PROCEDURE: VC EXT VENOUS LT LIMITED COMPARISON: None. INDICATIONS: I80.02 Phlebitis of superficial veins of left lower extremity TECHNIQUE: Lower extremity robertson scale and Duplex Doppler evaluation of the deep venous system from the inguinal ligament through the calf veins. FINDINGS: REGION: Left lower extremity. THROMBI: Negative for DVT. 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 Heat induced thrombus in left SSV 6.6 mm from SPJ and extends to distal lower leg. COMPRESSIBILITY: Non-compressible segments corresponding to thrombus FLOW: Areas of no flow corresponding to thrombus OTHER: CONCLUSION: 1. Successful post ablation occlusion of left small saphenous vein. Dictated by: Byron Gonzalez M.D. on 11/22/2023 at 10:40 Approved by: Byron Gonzalez M.D. on 11/22/2023 at 10:40
--- NOTE | 2023-11-22 10:04 | VEIN_ITS ---
Patient Name: KEEGAN AUSTIN MR#: [id number] : 1965 Exam Date: 11/22/2023 Ordering Doctor: DR RUBI MATTHEWS M.D. RADIOLOGY REPORT PROCEDURE: [facility] - OFFICE VISIT FOLLOW UP COMPARISON: None. PROGRESS NOTES: The patient reports improvement in leg symptoms. There has been interval reduction in varicosities. The patient has followed our recommendations to walk 20-30 minutes once or twice per day since the procedure. Physical exam demonstrates decrease in varicosities of the leg. Persistent varicosities are identified along the lower extremities bilaterally. Review of the ultrasound performed the same day demonstrates occlusive thrombus extending throughout the treated vein(s), see separate report, consistent with a successful ablation. No thrombus extending into or beyond the saphenofemoral junction. The patient expressed a desire to proceed with treatment of remaining incompetent varicosities and possibly of the right small saphenous vein. The patient was informed that treatment was a process and would require several procedures/sessions. [facility]: 1. Successful ablation of the left small saphenous vein(s). 2. Persistent varicose veins and lower extremity symptoms. PLAN: 1. Microfoam chemical ablation of incompetent branch saphenous varicosities. 2. Reassess right small saphenous vein for possible endovenous laser ablation. Nurse notes, history and physical were reviewed and confirmed, see attached forms. The nurse was present throughout the physical exam and consultation Dictated by: Byron Gonzalez M.D. on 11/22/2023 at 10:40 Approved by: Byron Gonzalez M.D. on 11/22/2023 at 10:42
--- OUTSIDE RECORDS SUMMARY | 2023-11-22 10:16 | XMS_ITS | CCD ---
Author Organization [facility] Care Team Providers Care Oceanographer Assistant Name Role Phone Sarah Bruce Primary Care Physician [phone] [place], DR RUBI Solomon Consulting Unavailable WEST, [...] Solomon Attending Unavailable WEST, DR RUBI Solomon [place] Unavailable WEST, DR RUBI Solomon Consulting Unavailable [...] Solomon Attending Unavailable WEST, DR RUBI Solomon [place] Unavailable WEST, DR RUBI Solomon Consulting Unavailable WEST, DR RUBI Solomon Attending Unavailable WEST, DR RUBI Solomon Admitting Unavailable WEST, DR RUBI Solomon Consulting Unavailable WEST, DR RUBI Solomon Attending Unavailable WEST, DR RUBI Solomon Admitting Unavailable ZIEBER, DR ALLISON Gama Consulting Unavailable WEST, DR RUBI Solomon Consulting Unavailable WEST, DR RUBI Solomon Attending Unavailable WEST, DR RUBI Solomon [place] Unavailable WEST, DR RUBI Solomon Consulting Unavailable [...] Unavailable WEST, DR RUBI Solomon Attending Unavailable [place], DR RUBI Solomon Admitting Unavailable ALLSOSARAH Landeros Attending Unavailable Favian HILL Referring Unavailable Ciscosodelfin, Sarah Abbott Admitting Unavailable Sarah Bruce Attending Unavailable [place], Allison Consulting Unavailable Favian HILL P Admitting Unavailable Favian HILL Attending Unavailable [place], Allison Consulting Unavailable [place], Allison Consulting Unavailable [place], Allison Consulting Unavailable [place], Allison Consulting Unavailable [place], Allison Consulting Unavailable [place], Allison Consulting Unavailable [place], Allison Consulting Unavailable [place], Allison Consulting Unavailable Yaakov Betancourt Attending Unavailable Medications Current Medications Medication Drug Class(es) Dates Sig (Normalized) Sig (Original) acetaminophen 325 mg / HYDROcodone bitartrate 5 mg oral tablet (12 sources) Opioid Agonist Start: 08-18-2020 Larue 325 mg-5 mg oral tablet 1 tab(s), [...] ann, Topical, QID, 30 gm, Refill(s) 0, [facility]/pharmacy #[id number], 178, cm, 09/06/21 14:56:00 EST, Height/Length [...] day(s), # 21 cap(s), Refills(s) 0, Pharmacy: [facility] 1986, 177.8, cm, 09/02/23 8:58:00 EST, Height/Length Dosing, [...] Dizziness, # 100 tab(s), Refills(s) 0, Pharmacy: [facility]/pharmacy #[id number], 177, cm, 09/08/22 18:23:00 EST, Height/Length [...] and visceral atherosclerosis (4 sources) 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 Appropriate healthcare PPE [...] (09/21/2014), Shoulder (2012), neck surgery. Medications Inpatient tetanus/diphtheria/pe rtussis, acel [...] 1 tab(s), Oral (more content not included)... [facility] Comment on above: Result Comment: Elec tronically Signed By: Everton Oconnor PA-C\.br\Date and Time Signed: 09/02/23 09:52 EST\.br\Electronically Co-Signed By: Yaakov Betancourt DO\.br\Date and Time Co-Signed: 09/03/23 07:08 EST Consent for Treatmenton Consent for Treatment [id number]#1 .00[facility]FF [facility] Consent for Treatment [id number]#1 .00TIFF [facility] Discharge Instructionson Discharge Instructions [id number] #1.00TIFF [facility] ED Clinical Summaryon 2023 ED Clinical Summary [place] [id number] ED Clinical Summary Person Information Name: KEEGAN AUSTIN [place] Age: 58 Years : 1965 Sex: Male Language: Sierra Leonean PCP: Sarah Bruce DO Marital Status: Phone: [phone] Visit Id: Visit Reason: Foot pain-swelling; PIECE [...] 10:07:47 09/02/2023 10:07:47 [address]: [address] [facility] [id number] PHYS DOC NOTES: MEDICAL INFORMATION: Prescriptions Given: New Medications [facility], [address] [facility] [address] [place], [place] [id number], [phone] cephalexin (Keflex 500 mg Cap) 1 Capsules By Mouth 3 times a day for 7 Days. Refills: 0. Medications to Continue with No Changes Other Medications acetaminophen-hydroco done (Larue 325 mg-5 mg oral tablet) 1 Tablets By Mouth every 6 hours as needed Pain 4-7. acetaminophen-hydroco done (Larue 325 mg-5 mg oral tablet) 1 Tablets [...] Follow up: With: Address: When: [place] [address] [place] [address] Business (1) In 3 days 09/05/2023 DIAGNOSIS: Puncture wound of foot Normal [facility] ED Patient Education Noteon 09-02-2023 ED [...] at home: Medicines ? Take or apply kiwv-wik-nnjsxpr and prescription medicines only as told by [...] and water are not available, use hand assembly stock supervisor. ? Change your dressing as told by [...] Reviewed: 07/18/2022 Elsevier Patient Education ? 2022 [employer]. Normal [facility] ED Patient Summaryon 024 ED Patient Summary [address] [address] Patient Discharge Instructions Person Information Name: KEEGAN AUSTIN Age: 58 Years Arrival Date: 09/02/2023 08:49:21 Discharge Diagnosis: Puncture wound of foot Primary Care Physician: Sarah Bruce DO Provider Information Primary Provider: Yaakov Betancourt DO [employer] Portfolio Manager:Everton Oconnor PA-C The exam and treatment you received in the Emergency Department were for an urgent problem and are not intended as complete care. It is important that you follow up with a doctor, nurse practitioner, or physician?s respiratory assistant for ongoing care. If your symptoms [...] Follow-up Instructions: With: Address: When: Sarah Bruce [address] [place] [address] Business (1) In 3 days 09/05/2023 In the event that this physician does not participate in your insurance network, please consult with your insurance company to find a nearby participating provider. Patient Education Materials: Puncture Wound A MESSAGE TO ALL PATIENTS REGARDING OPIOIDS PRESCRIPTION OPIOIDS: WHAT YOU NEED TO KNOW Prescription opioids can be used to help relieve xtmnxogm-hb-udojce pain and are often prescribed following a [...] be struggling with addiction, tell your health critical care physician assistant and ask for guidance or call [facility]?S National Helpline at [phone]. a Source (more content not included)... Normal [facility] Vaccinationson 09-02-2023 Vaccinations [id number] #1.00TIFF Normal [facility] XR Foot 3+ Views Lefton XR [...] USHA Technologist: LEVON Technical Comments Radiation Dose: Ka,r in mGy = na DAP = na Normal [facility] Consent for Treatmenton 04-0 Consent for Treatment [id number]# 1.00CD:127 Normal [facility] Nonvisit Note - PTon 023 Nonvisit Note - PT Spoke with pt this date- he is symptom free and in no need of PT vestibular therapy at this time. Plan to hold chart open 30 days. Normal [facility] Coding Summary.on 09-14-2022 Coding Summary. CD:[id number] G h0bWw+PGhlYWQ+AQ7EXZK mT34klPUcgF8oA1EALRdR SywgQVBQTElOSyIgbmFtZ F8evEMlLJUi IC8+ZN8fMFMiTbmreHVjo 9G4mQA7Q61sej3hWOqjnM H2BKOsCqTjrutnq8cyiEn 6IDcuNmluOyBt ETUnaA84DWS1dV53Og17o HBvkZBad1zziPa3AqDaDH AsOHS1qMqpVOwpy2DyYDU vY72ctBKfg3O3 PALipGtiaOTqIdMblHT1h A8sLUfantwhc4wrmrqmHx r9db06zTSjn6A2bPP1P0F uqpF4FFZezXId NuvhkPGCqC3dbabch9uib kkzDwHcDVDeVDa2NUw1XE ZfhRtkErInUU10AGX6NBL kxfLkQ2ImAUVu kDqgXyD0a9T9Wx5DZ1ZVR naqX8AYIFALMLxyxBC+PC 72tp93W1StGrjgGjx5FQC lILD7mSY6bC4x OGPuEKyny5O3rCY1Y6Pmp fZhdx8xw4dlUQHrSJfbA2 9ozXDif6L1GXXmdIT2MXN ggYpuArTqrF12 Oyc+EVQzgXcwg3TvKmqly 8plz8nyuGs3CewyWLZvaj PkgNqvVER7r5CbHe1pWMV yuRY8iYG9gK5b AaPbNvR3HWnaM467EgBsd CKlYxxvM55vZ0NruJJ+PH HfEfl2CZLaiOocPE2eX6U hZGRpbmctbGVm kDbtNI5dEWYmxsvjXQPye N1mDRLeD3q6NjTbWjX6LH zjJ1RmGDZejzbgGa62qU5 tSnVkVsA0TKci T3RbjqL9LPKoaLIhJDqtM SK7I99xj7A8VIJbVIPvXB J2bQB1bI8cqFljqpmygBO mdDsgdmVydGlj XCfhPDmyM339UZBnqMuyQ kNvZGluZyBEYXRlOiAgMD MvMTcvMjAyMzwvdGQ+PHR iUUH3eQfhERRz vMRzWMcvAy1wzHcplWrlM V2uYRBcingbJECtpV4wEG VgmHGawEuoNJ3jUOXokhg rl650DhVoARX1 NNVadXWoB9IpmB7lUwYkU YRmKSCrF3ZvgDHtAAhoD0 52SVetUqS9UIQtnlHaM5X sLWFsaWduOiB0 m1Y0Wq9Et2HzgtttK8Bwr PXvBdDvJtdkGPb9I7BkIb wvdHI+EZ34GRVrXN60APw 8FSJ0lArmKMhx DJFiZ1GlwA3hQcRdAMYyE GRkOyc+PHRhYmxlIHdpZH RoPScxMDAlJyBzdHlsZT0 qDx3zHWQyGPNz qSorlWCwFhDuz5oaSSQrI YnoPR4ojPegW1BpdTR1TT Jiw5w4Fl40T24pR2ReeZT +HUStlCZ2jMU1 gH0tEvUlMiD3WVegD222T nKzzTGaFlbpa2ndm5cueB o5KcA0KECpcaEnhKbbSNI 2j9NmZp98C45i IHdpZHRoPSIxNSUiIHZhb Geypy6hqZ6sSx9+PGNvbC S0pLL0mT4bKuUcHcL7GSt nC373OwTteZLe Fkciu3yfv2ljvIb6TmTfJ FJxulJuzSghRPS2j5CtMg 39M7FbnQjsh9QmYcq6nv3 3bJKft2F8lRX8 V1InIIVgqblcmVFkrSejM E6sWSSjhbsoGQGokA7vHG UqG6l0WsEnNcT0QIvdS1Y nuvE6OSVkxTCo MIZxcLISdC2jazebb0kjq pqvTvCuVCMgOUw6NWn2LT CzqTecBrDzGGX6QzW5QBP 9tLZswO2bhXou chybhM9cUsk+DLQ9zVHtr WDCEH0iAuwotAW+PHRkIH U7hNluIXwkDDCglV2cBOS iC3o4SgGgEjU3 UTqgO4SskmA1QZQunKBvD LJsuIUXnI7zytpme5ceff uyTlKzLLBfYLa3TXf3FXR saWduOiBsZWZ0 TdE8XQG0tGNjwA6yfEawi emdwF0mPgf+QmlydGggRG K1FXx4M8KqWbt4XDJjuXv kOZ6ubLUyCDgu Rf0rwDlulRkyZV8eIUPvm vhtl631LoYiy8lnDAFtxY NrEVrhXNQ0P50lu8T9YUB tCCFyDWA7uAF0 wV9fxSkrocllpAJmiFdjg bVwfRfmDCjhOVubK363YY JqfVpeJnVzIHp4D4MqFwl 2OAVyrNxhCM8a dZVeZAzqZz4ajLlsdSatS V9tJIEpbykfs034XpVdc6 nfHBOfaCEaCAabFLL5S86 zo1F7UKXcKWGq KNJ6wFY9mV3gzPgmuakzd GVmdDsgdmVydGljYWwtYW rjI418UVHzwFxqUmQthXn 7L3OvYkx9MZRn jVmeFG9geOYwKQbfEl3sg RhqdSkoNP7sGNDaqycjs5 83PhBew4yyLZYiiMJqQMg fDVB4S13qx4Y5 NJHoEMFtNWI9kKJ3hY4fx GlnbjogbGVmdDsgdmVydG dzHMvdXDtjO473WMLirMk nPlBhdGllbnQg PSscWQo0V7TiDrlhrLI+P A46YXUfIT62mQUfcRNnb6 cfbAx6RqDeGNPzCNO7qEt yTGddg1UvYHSp O01kgXGbj4R9FTChjZahp AIvZrQcvAF4aG7kTAkgrc yvz6vfdcvkEfiaa8rsup0 3yD12V11zRRuf ZHRoPSIzMCUiIHZhbGlnb l7vxO3hQz8+AVAanJY0qX F9wD5vYEGlTxA8WFetX02 9InRvcCIvPjxj t6jdn7nroAi1EkB9IXAxu bGvnYqvTKP9p5AlLv04J8 9sIHdpZHRoPSIyMCUiIHZ hoUmtta3qdL3a Ii8+BOGbaTA7wJK2eB4rM qOmHeD0DQfkF624AhRbzW YiTbisT21fW5BhdME+PHR dRvq8TEWqcLxp JV0kbAGaGEwzCp3fSBX6R bPyRqXaIOijN8VsCPZcss fukyalxMT1YYYwUCRekX2 6Ll1qaAsgZJIt eCQGqI4fsaaya4esojudP dQkJGKtAAb7JWm9COEirH etOyQmPPQ6WkB1NIG3vVX smM6msRbyordd cR5cI2VfFERiiulbQa82n Y1zIzVbVyN5INwnIbb+QV QSSYFOST4HEORiWNZCLVD YRO3iQPbplSC+ UGYmETR2vCmuTKjbGXPbm G0eIXXdS1t1JeIeZxH0II zfL2TpKSXftecrXb74aX4 kTwWdJeV2NKpi F8UyiuJ1GVAgkHSaFCgqU IC7L07ke5G1MFPkAUTmFA N2kXU1cE1szPixeynrqSO mdDsgdmVydGlj KGyiDNmbG004OPZbvMrbT sN7QvPaYmO7EjF1E9VlGk f0IPIlqXwrKV0vaEDtWGq uGn0dvGflwBnq UY1hPZHbkzvcZJXhdA5gC ZTudKHqkNmxZK1hGNHqsv gis835MfLpRIU4UFUprAQ hL9TyfW6jXzJc SSUtSIRsT5ClmZAsGMaaR 702WLpeRoG7XOOwhnWkZ8 SoIUQlxNttJkZ3f5Q2Nh5 1NyBZZWFyczwv dGQ+FNGbKJJ8qGgzWGfkC EDxiM3cMYIoH6b2UmUeZb C0QPouY3GuYUSmsryaHx5 8jY8rUdKdUzA9 VUloX8KdvdA9XUTdeOKyE CwoDSL1A34fh6U1MUWjWA PaAWW1fET7gO3pkCyxtay gbGVmdDsgdmVy hInbLJigCZsxG766WMJap VbeWz8oySY0J1AyPwy8GP AzzHlwHV3gvPTzZYmwLx2 omFuqqQpvEI0b QQEsdiasBHUcwZ5dLNYcu OYshFpiZH1nPWWhwpnxs8 03ZkZgKVP5TPLgfAXrV5F wyO3uMsRbRNNr WOFnG0MpmKFoIUaoT205T AwtRjK4NMRswwXvB6DrNE AvnEzuFpT2j1F3Kc3NEWK 0joUbtxf3J4Gr PjwvdHI+LX60IODyRD48i URyxWEga0cvgNr8UkBuKH EkUWS5aNliQHsqk8OkHKZ sX71dsIXxr2Z3 VXNpeZnzcOYlNoIiuEF9y C9wCMvupvcwl4kntihkYf ysq1awkj37mF07Q90hUKj pZHRoPSIzMCUi ZLYnkCghxk4foI7pBm4+P CEsrIL5aPK0mU6vCpQtOe R8CLgnW078CaAhdHGeSet wa0etn6ogsBv5 BtCqBBKxsyEkaOaaKXV9e 9InDt02Y50hFLpdQNOoLO YeRNPlWJFvdRwtfo5mvL6 wIi8+EQ3my1av ax89fK26dMI+PWYoMCG4u VulZMmbRMUcnJ9qRBglWw X9ENMgNsOmfV23lUAnBWk jEe4ysPuxfZhj VL4qVHIiygmah951ErOxt 4zfDEUpuNWaMGczHSM5L4 4xa1J7ZMVwGTJnYZF8xET 4uY9fzOmwnqvf bGVmdDsgdmVydGljYWwtY RnvP200CICupPhmAxFfwN LzR1flojVQGR8yBnoawAK +HEKkFPT7cXut UXnxPKRktN1xIMGyW8q0K iMiXmN9UPklR5MgggI9CK WrjMEhYGJdnQSAxB9lkbi kk4cdmykcMoRt KQXmRTs7RMt8YSFsmAwhW wZmRQD0GqY2ISG7uQPpkK 6vdMmmhkblsI3yAqo+Rkl OOjwvdGQ+PHRk DSD9sSjbJYepHEEvqX6nX ACwR1n7YlFxEtU3MZvmB1 SudxJ0TFLliMNhKCUboSO ArF0jfldbb8uv oaxyVfYfQCEiMGe6EZt2Y RNkzAdxPpJaATH8LlH2KH Z0zUHnuS3liBdpjcdstB7 wOyc+TVJOOjwv dGQ+RTJwXSK9rUpeYAzdZ XZdlC6kKJNuT2d3RuAuOq E3PJfjL5NvzzV5FOYjdYC pUPEdjRSJsL6q pxoxt0ypmagcPmKiEGDdA Jc5XLk4LXDvmNraTmPgYE N9EuN3BWC4sGQcuP4jqNb yumijiF1mOur+ TWR4TRI1MV13NQ29Z9KoQ jwvdGFibGU+PHRhYmxlIH dpZHRoPScxMDAlJyBzdHl nOQ2lNp9hQNSy LWNv (more content not included)... [facility] Consent for Treatmenton 08-29 Consent for Treatment [id number]#1 .00CD:127 [facility] Insurance Correspondenceon 0 09-14-2022 Insurance Correspondence [id number]# 1.00CD:127 [facility] PT - Assessmentson PT - Assessments [id number]# 1.00CD:127 [facility] PT - Assessments [id number]# 1.00CD:127 [facility] PT - Assessments [id number]# 1.00CD:127 [facility] PT - Home Exercise Programon 09-14-2022 PT - Home Exercise Program [id number]# 1.00CD:127 [facility] PT - Orderson 09-14-2022 PT - Orders [id number]# 1.00CD:127 Normal [facility] Coding Summary.on 09-11-2022 Coding Summary. CD:[id number] G h0bWw+PGhlYWQ+AY6GMBN uG76ucHCbpW5qB9YNTEpL SywgQVBQTElOSyIgbmFtZ H2mlKMyNUOj IC8+DW2lDBHrDyzqeSKrn 7E0wQF1H29kpt6nJUwvhH D9MZQuHcPtpshwo2lsnDz 6IDcuNmluOyBt UZKnkA71XOF8oD69Lo41g NDyiYZhq9braDx4IzMoQE CzAIY3mObuWWllc8CiLMQ gO21uiYSez0U0 PJVbaCkjsXHyNlSopWK8i S1mDDahckzkm1rhclauRl b2jh10hUEkd0K9dLW7P1E qmgV1NZYczBJc FqvzjHRXqJ9rbtahn8iir apoTpPgDTJyKIl0EXr6HH YtfWpsMmFaKP69JMO6ZRU shzNmR9NfQVXo zFfbLtZ4d9N5Fa9HR7NUG pctP8VWFQSJZZgrbOJ+PC 46xd05Z7PoIpvgZak9LSA mZQD6zTE1bT3l KRWoXGtuz1K6hUY4U0Gvz vZifv6fa6uiOUSzNIfhG2 6uqPQmi9C6WQUhtZF8UKU cyUoxGzDxvF46 Oyc+KKNjkXdni0QxKlouc 9upg3rghEd7EtcwYCEgtm CdzOmqQBS9b9SwEg9jOQK exAZ3cZW7yU6j XcNhOfJ1UZurF435FkJwj RGgEvvqX70sQ4IgyIV+PH OaTry6JFZkhAhvVN4tM8G hZGRpbmctbGVm sIwqYG9kSVJaafoaVBGzm H7hCECbX0y6QlXlYxK2KY ziR4DtTRFgvjdqOp03jC4 jEePjRnW5DTwf V7AxugD4UJKazJLfISmzU QQ6Y83pu8Z9BAOdNIFqVA V0uRR8iQ7kwNnocfoujGV mdDsgdmVydGlj PUvoJJsnL662FGYunUufV kNvZGluZyBEYXRlOiAgMD MvMTQvMjAyMzwvdGQ+PHR tSHP5cGttLJBs xDUfVHfkVl6imXbtoGbxG B8pXDGaahfoKIYgaH6vGT PxjCBptYztNX9dFLOsqay bi483LeNvIKD0 OQVovBXjD5KceT1eEmFkD PAaUFUgY5IbbTJnACciP7 88IYblLhS1JWOcgmOiL7Y sLWFsaWduOiB0 m4R6Fk4Ih3NwmxmzN7Uqb ISeJrRyEmuuHVx3X6XcNw wvdHI+YV31KYCmYB77YPo 8RYT0aVpaJHca QAOrY0WamL0jEwUsMGNcE GRkOyc+PHRhYmxlIHdpZH RoPScxMDAlJyBzdHlsZT0 sNb8xUBShCGSu oBwgkHNfNmMom4ihAFIkC IqxQI7hrVvjP3EddIM6WM Kay3g7Bm57V44uR7DtfXK +YWPodYU2yXP7 xL5bOiZeKpQ9YSpjR971H lLchTSeEropa3drz6vqkD b6CqI7FRZwmsRfgXonOFP 4z7XwLh07P82v IHdpZHRoPSIxNSUiIHZhb Dhujb1qpK8vKk2+PGNvbC W2zJX1lE0pAcAzGaM6RLd kU998YxExbUSx Qftcf2pje6ekfJc4AxNiU MNlcbAgxHltKNM8k1OyEd 22Q7LrnYiin1UtSqt4tv8 1sZZql2W9hGN5 M9XgONSzuuvyzFJjuEcfG F2dYZUzkovfWBOtyQ9cBG HpB6g4BbBdVgT4LTdmP9M jveI2QVKijQTc UGUfcCWWsM6jtrnva8fjk wfcVjYtNXAdWHn3EQz2VK OfxHveDoQfVEU4YzM6BVM 8xPLowQ7gpIvp icrtbX1xRdj+EXO8uGErk GZNGW3wQwjdqTN+PHRkIH C7zClgBXywQGZkuS7wMHK rF6c7WzHsMjS4 LMmgM1UugbD7WWFrqANqY GMpwMCPfF9csodhi2toin boOmBoCSCcRNd9TVn7YNO saWduOiBsZWZ0 HnW1BLQ2kROwuR8dbWmtr rgzpZ6fOns+QmlydGggRG K0RTs4U0BfJey5XCTplXu lOE0ebGRqCNdz Ot2exEyddRlcUH6cMMCwg dfbj368LwNpo8zxJNEnhA RwGDzrDJV6V64ci5P1TIE rVMSuLRI0gBA5 eN4pnPnvqzpcgWFdyYdpb dXwaWueCNoqUXglB101KJ MvtSliEyTzUFu6W7CuVot 5BUCoaAgxYR2i lPWkEBriZp4ssNvinYcaB D8yCUJrwiewy839HqQjt0 dnUDBrhIIfYTifRNF3U22 yo4A0UOAyWUVf FWT5uVA0wM5zzDyelfbyk GVmdDsgdmVydGljYWwtYW szP958EQZcjTunVjDzdCg 3M5EiWup8CDJe hCdnJB4suAQfETepKt9pg YjjsZeyXX5nEQVuxpcph4 76EaVwr0nfQIUvvNSvHFx uXMA9W34dk7F6 CERpDAMmVGW8yEE7zR5dx GlnbjogbGVmdDsgdmVydG haYUoyGYpiH546SMHmeBo nPlBhdGllbnQg BMfaNIr3C8HqMximeQD+P H83FEIjXV39pYDyaAWjl4 qoyZw5LkSyIQBeKQV0kPo bMTysc2NaDHGz H00prRDhq0M6QPRwgYgog QXtEsKfsFN8gW2mYItywu grl6vlzvafAsrgb5nezw1 6wZ20F52yFTmb ZHRoPSIzMCUiIHZhbGlnb e2ykC2cJu9+SPWedAL7sX U4wI7lBLNeCmA9TGqyH23 9InRvcCIvPjxj n0fng8skaRc3LyM0TIRcd uSrzHziZCF3e3PeRd29V5 9sIHdpZHRoPSIyMCUiIHZ ytEvkvb6tyV2t Ii8+ZVExnVM0wKI5zC0sH gNaJeK1DQrtF182MlQenZ FbSwapB00kL4ZzlVN+PHR oUnr1ONYlsYen MJ1tdGPpQIxiCt2iBCZ6M qBpEuRoPIfrY0MdQKPcmn gynfinqAJ3GWSyVRSnzZ8 9Yo3ykMxtTABc sFJOcR5vcbjjo5lcmvsyN lDfXGKyVVw0LKq9AYPkcK glXaVpVBL4IdD8XLF7pMG mmR2muHolhqjk dX9kR2CqRULpwnckBd07n F2rRbCfLsL3FTxlHfd+QV JLZDZCUC2GRJExHCSHZHX NCZ2vRCzjmTG+ WBWaTPT1gQerAShyFLAcx N9uIMSuO0v4FvPyLxK9FT igO9KrTAAsyoqoVb16gC6 bOoHtKdK1GAnv C5GmcnK7LPGtkUDhCFsiV VA8D62pd7A1DIOtKYPsLC A8wHA6rV8nfIfvqizbvAF mdDsgdmVydGlj KAydBYkbN617HMHjfDetT uN9NbDuTtX8EmF6H3IjEg e6NMXksZbkDR0ydGFxGWs lDp4ufVlmmFwd IG8vWHSjmzjkTQYbdY8fP BMhxDMugXbnPF6fHNTzye cbm683LpWmEXZ2WNPidQW qA6CkoI6kOtAp XEUbAFJaI5KajPZyNSmdL 469KWqyAqA7CLNgsuLzH1 PgGWVabEqmMrG3l0J1Wj8 1NyBZZWFyczwv dGQ+WRFtLIH6cTfbPXczW LIrpZ1bBZXdH2j8XuPdUw H1IMfkF6FzLNXsvkqyIp9 6cT6zUwQvWfG5 MGmoR8BqalJ7IFMqlSGkK PgjYBA4Y61zi6D7MMPqUZ QgUDR2qZZ6bA7zaUfusna gbGVmdDsgdmVy yWntZCyfCDegL828VEHmm LkeGo2goHW4N6OxNfj7TP SjzMvvGK4kgQZaWFnnJk5 baQhssDijGN2g PEJkubehIKXicY9gJCVdy CAtyPvsWK3sCYTmojxro1 62ReOsZFD2BQJqnHYmH2K caI5bFaSyKDZu IFQlD9KpgGGlNNuzD134A JcdScL4JVPyaoXbI2KlOJ VfyUneSlL8n0W8Cd7OJsI lcnZhdGlvbjwv dGQ+XK16ck52B1SiXpjzM vr5ZBTrGMD3bHQ8uA7bTN SlXXepm6X8iRW9E2JrhxF twl9hh3emPSIz FIfuJ93cqICxq6B5HQAhd HF6QXCzyPegIcFxbE04Eg c+YEIecFrak3NmYxgqv8t fl6aizVa8LlWm BVIjkoIisKmuDVU6p8OaP r93J67gGAuhMHKlITAmRO FqRQNtiShysu3ioI3lMl8 +GBObnLU2nZM0 bI5aSyFfYdA0DLesC843T uWwqQBaSswtu5zbw0qezO g7SuLpZUAtncMmfTyxWIN 2k6TyZb47T9Sz bLmyu3AgKbb5eq06dMRwe 3Q7jGR0F6EhVXXllwzeuD ZayVrwVW4hSLZcqnwgNHZ gcH7cEKZbZ6q9 LiAzVdX8TGqrB2DmeuK0K JFdmIIuMMThcTLLrY6etx vff9xphebbYjNmCREjSAd 9NHz6ACRssYrt YiDsUJS9ItN8NTQ6kACxg G5ylXgyvjdrwF7zZmv+UG b5v2aupJBgYC7huLS6EB6 1IH59lLCli6W2 eHU2K5WxHVZalhxytdhmr DN1ODIqBBFugI33Go2qwL wxSk1fOAXaJIE4STNexBQ tW4RnqC0wTrUd AAHoFZZsH4IeyYJrUCqrQ 336NErpKlT9PLAiraAjI3 JxIDClpBljRnT5x6U3Kq1 UEO95OB08MV79 iPGjy3V4fHI8W4OgUGBmt efrtqkqtQO2VFLhZHScpS 30Zz4fwIoyYu2nNKMdULB 3NBYdqHMlF8Cm fR1bDpQzBFLiPRUtY2Ysd RGjBApwQ035DFruGmP9WV RlefWiG2RuWUHdlPwuJzJ 0o2T0Ig9EKr66 BI89WB03kLOsh2D8aII9W 1BzLSQcpukkwqgiiNR9NO GzLVHjsX27Hg9whUeaSx7 aALJuTFH1FLGb jJPuO8IhtZ4bSeRnPBSpE WWcS1UgtIHyWKobJ755RJ phXiV5RMLzkwCdL5KfGNN vfMmcRcT8f7F7 Qn6AUFoudid7K4BwQkyoj HI+BR00DYAiOY85jPHelE Avv8bbxRz6NnGkGJGvJXA 8xAynPXepe3Bx ZXIt (more content not included)... Normal [facility] ED Note-Physicianon 09-12-19 ED Note-Physician Basic Information Time Seen: Jennifer Liang PA-C 09/08/2022 18:38 Chief Complaint Pt. came here d/t dizziness, lightheadedness and blurring of vision for a week now. pt said he was in [facility] and they took his Temp and [...] his mother today at the referral of [facility] pharmacist after they checked his blood [...] with hospitalis (more content not included)... Normal [facility] Comment on above: Result Comment: Elec tronically Signed By: Jennifer Liang PA-C\.br\Date and Time Signed: 09/08/22 21:53 EST\.br\Electronically Co-Signed By: Abdi Barger MD\.br\Date and Time Co-Signed: 09/11/22 07:21 EDT Insurance Correspondence Off ice09-11-2022 Insurance Correspondence Office [id number]# 1.00CD:127 Normal [facility] COAGULATIONOrdered By: Helena Hopkins on 09-10-2022 INR Coag (PPP) [Relative time] 2.0 {INR} Invalid Interpretation [place] [facility] Comment on above: Result Comment: Resu lts Verified By Repeat Analysis PT Coag (PPP) [Time] 22.8 s High 9.4 - 1 2.5 second(s) [facility] [place] Discharge Instructionson Discharge Instructions [id number] .00CD:127 Normal [facility] Discharge Note-Nursingon Discharge Note-Nursing KEEGAN AUSTIN :1965 Visit Date:09/08/2022 Inpatient Discharge Instructions Your Care Team Admitting Physician - OSKAR LAZARO, Favian Landeros Consulting Physician - Tulio LAZARO, Allison Yanecy MD, Miky Davies Reason for Your Visit blurry vision with a headache and dizzyness for a week saw pharmacist at [facility] who sent him to hospital Your [...] care physician. This Is Your Medications [place] [facility] [place] ([place]) acetaminophen-hydroco done (Larue 325 mg-5 mg oral tablet) acetaminophen-hydroco done (Larue 325 mg-5 mg oral tablet) amlodipine (amLODIPine [...] Pending Diagnostic Test Results None Pharmacy Information [facility] New Follow Up Appointments after Discharge Follow Up with Tulio LAZARO, MIGUEL Matthews When: 09/17/2022 10:00 AM EDT Where: [address] [place] [phone]- Business (1) Follow Up with Sarah Bruce When: 09/12/2022 09:00 AM EDT Comments: Appointment is with Kirstin Joshi. Call physician if symptoms worsen Where: [address] [place] [address]- Business (1) Medications What How Much When Why Instructions Next Dose New meclizine (meclizine 12.5 mg Tab) 1 Tablets By Mouth Every 6 hours as needed for Dizziness Pickup at [facility]/pharmacy #[id number] Take as needed for dizziness every 6 hours New Misc Prescription (Outpatient physical therapy) 0 Dizziness BPPV (benign paroxysmal positional vertigo) For gait training Printed Prescription Unchanged acetaminophen-hydroco done (Larue 325 mg-5 mg oral tablet) 1 Tablets By Mouth Every 6 hours as needed for for pain Dislocation of right thumb Take as needed for severe pain Unchanged amlodipine (amLODIPine 2.5 mg Tab) 1 Tablets By Mouth Every day 3/14/23 @ 9am Unchanged bacitracin topical (Bacitracin top [...] 1 Tablets (more content not included)... Normal [facility] QnbW3unb 09-10-2022 HbA1c (Bld) [Mass fraction] 5.4 % Normal <=5.9 [facility] Comment on above: Performed By: #### 7 [id number] ####[facility] [address] [place] [address] Inpatient Clinical Summaryon 09-10-2022 Inpatient Clinical Summary [address] [address] Clinical Summary Person Information: Name: KEEGAN AUSTIN Age: 57 Years : 1965 Sex: Male PCP: Sarah Bruce DO Marital Status: Phone: [phone] Race: White Ethnicity: Non- or Language: [place] Leonean Visit Id: Visit Reason: Hypertension; Dizziness; Shortness of breath; DIZZINESS, LABILE HYPERTENSION, ANXIETY Speciality: Acuity: Enc Type: Observation Med Service: Medical Arrival: 09/08/2022 18:08:16 Discharge: Dispo Type: Admitted as IP to this Hosp Address: [facility] [id number] Provider Notes: Diagnosis: 1:Dizziness; 2:Syncope; 3:Labile hypertension; [...] This Visit Final Med List: acetaminophen-hydroco done (Larue 325 mg-5 mg oral tablet) 1 Tablets By Mouth every 6 hours as needed Pain 4-7. acetaminophen-hydroco done (Larue 325 mg-5 mg oral tablet) 1 Tablets [...] bedtime. Care Team Members: Attending Physician: Favian HILL MD Consulting Physician: Allison Antunez MD; Bc LAZARO, Miky Davies Referring Physician: Follow up: With: Address: When: Sarah Bruce [address] [place] [address] Business (1) Within 7 to 10 days Comments: Call for followup appointment Call physician if symptoms worsen With: Address: When: Allison Antunez MD, [facility] [address] [place] [address] Within 2 to 4 weeks Patient Education Information: Benign Positional Vertigo Normal [facility] Inpatient Patient Summaryon 09-10-2022 Inpatient Patient Summary [address] [address] Patient Discharge Instructions PERSON INFORMATION Name: KEEGAN AUSTIN Date of : 1965 Current Date: 09/10/2022 09:11:47 PHYSICIANS Admitting Physician: Favian HILL MD Primary Care Physician: Sarah Bruce DO [...] None Follow up: With: Address: When: Sarah Rochadelfin [address] [place] [address] Business (1) Within 7 to 10 days Comments: Call for followup appointment Call physician if symptoms worsen With: Address: When: Tulio LAZARO, [facility] [address] [place] [address] Within 2 to 4 weeks In the event that this physician does not participate in your insurance network, please consult with your insurance company to find a nearby participating provider. Comment: IGEOVANNA STEPHEN L, have received the attached patient education materials/instruction s and have verbalized understanding: Patient Signature Date Clinican/Nurse Signature Date HERE ARE THE MEDICATION CHANGES THAT OCCURRED DURING YOUR HOSPITAL STAY New Medications [id number], [address] [place] [id number], [phone] meclizine (meclizine 12.5 mg Tab) 1 Tablets By Mouth every 6 hours as needed Dizziness. Refills: 0. Last Dose: ____Next Dose: ____ Medications to Continue with No Changes Other Medications acetaminophen-hydroco done (Larue 325 mg-5 mg oral tablet) 1 Tablets By Mouth every 6 hours as needed Pain 4-7., nerve damage Last Dose: ____Next Dose: ____ acetaminophen-hydroco done (Larue 325 mg-5 mg oral tablet) 1 Tablets [...] WITH YOU AT ALL TIMES. acetaminophen-hydroco done (Larue 325 mg-5 mg oral tablet) 1 Tablets By Mouth every 6 hours as needed (more content not included)... Normal [facility] Interdisciplinary Note - Sravan e Manageron 09-10-2022 Interdisciplinary Note - Inorganic Chemical Technician Patient DC before CRM to room to make rounds Unsure if patient had DC needs Normal [facility] Comment on above: Result Comment: Elec tronically Signed By: Em Farmer\savanna\Date and Time Signed: 09/10/22 15:55 EDT MRA [...] cerebral arteries are unremarkable. Ordering Provider: Favian HILL FINAL REPORT Dictated: 09/10/2022 8:57 am Scooter Tovar MD, V. Signed (Electronic Signature): 09/10/2022 8:57 am Signed by: Scooter Tovar MD, V. Transcribed by: USHA Technologist: AYAN Technical Comments None Normal [facility] MRA Neck w/o Contraston 08-29 MRA [...] COMPARISON: Cervical spine x-rays from 04/18/2021 TECHNIQUE: [id number] images of the common carotid arteries, carotid [...] Vertebral arteries are codominant. Ordering Provider: Favian HILL FINAL REPORT Dictated: 09/10/2022 9:01 am Scooter Tovar MD, V. Signed (Electronic Signature): 09/10/2022 9:01 am Signed by: Scooter Tovar MD, V. Transcribed by: USHA Technologist: AYAN Technical Comments None Normal [facility] MRI Brain w/o Contraston MRI Brain [...] tissues are unremarkable. Report Ordering Provider: Favian HILL FINAL REPORT Dictated: 09/10/2022 8:54 am Scooter Tovar MD, V. Signed (Electronic Signature): 09/10/2022 8:54 am Signed by: Scooter Tovar MD, V. Transcribed by: USHA Technologist: AYAN Technical Comments None Normal [facility] Message from Medicareon 08-29 Message from Medicare [id number] .00CD:127 Normal [facility] PTon 09-10-2022 INR Coag (PPP) [Relative time] 2.0 {INR} Invalid Interpretation Code [facility] Comment on above: Result Comment: Resu lts Verified By Repeat Analysis INR results are specifically intended to assess patients stabilized on long-term Anticoagulation therapy suggested INR?s ?Less Intensive Anticoagulation? 2.0 ? 3.0 Conventional Range 3.0 ? 4.5 Performed By: #### 2 [id number] #### [facility] [address] [place] [address] PT Coag (PPP) [Time] 22.8 second(s) High 9.4-12.5 [facility] Comment on above: Result Comment: 15 [...] ranges were obtained from a study by sweetie Garcia al. prepared from 1437 samples obtained at 7 different centers using the same coagulation reagent and instrumentation as [facility]. Currently there are no coagulation studies available worldwide for children to 14 days, and no normal ranges. Performed By: #### 2 [id number] #### [facility] [address] [place] [address] Progress Note - Pharmacyon 0 09-10-2022 Progress Note - Pharmacy Pharmacy to Dose Warfarin Indication for warfarin therapy: DVT Target INR: 2.0-3.0 Ordering Provider: Favian Hill Taking warfarin prior to admission: Yes Home [...] Recommendation: TBD Please contact pharmacy at ext. [phone] with any questions. dose for today of 12.5 mg Normal [facility] Progress Note-Physicianon Progress Note-Physician Assessment/Plan Reason [...] Dictated: 09/09/2022 (more content not included)... Normal [facility] Comment on above: Result Comment: Elec tronically Signed By: Teri Moore RN\.br\Date and Time Signed: 09/10/22 06:57 EDT\.br\Electronically Co-Signed By: Familia Acosta DO\.br\Date and Time Co-Signed: 09/10/22 10:18 EDT Auto Diffon 09-09-2022 Basophils/100 WBC (Bld) 1.1 % Normal 0.0-2.0 [facility] Comment on above: Order Comment: Order Added by Discern Expert. Performed By: #### 1 [id number], 2474465, 3986245, 8719808, 1193201, 7618132 #### [facility] [address] [place] [address] Basophils/Leukocytes Auto (Bld) [Pure # fraction] 0.1 E9/L Normal 0.0-0.2 [facility] Comment on above: Order Comment: Order Added by Discern Expert. Performed By: #### 1 3890518, 0467714, 2930230, 7034798, 8089969, 0460539 #### [facility] [address] [place] [address] Eosinophils/100 WBC (Bld) 3.1 % Normal 0.0-8.0 [facility] Comment on above: Order Comment: Order Added by Discern Expert. Performed By: #### 1 1639727, 2422169, 5147769, 5255511, 3784159, 2063284 #### [facility] [address] [place] [address] Eosinophils/Leukocytes Auto (Bld) [Pure # fraction] 0.3 E9/L Normal 0.0-0.5 [facility] Comment on above: Order Comment: Order Added by Discern Expert. Performed By: #### 1 2988537, 9006746, 3577529, 3800354, 9086049, 8505060 #### [facility] [address] [place] [address] Lymphocytes/100 WBC (Bld) 25.3 % Normal 14.0-50.0 [facility] Comment on above: Order Comment: Order Added by Stephanie Expert. Performed By: #### 1 3007101, 0767963, 5202087, 3724052, 1872978, 2848828 #### [facility] [address] [place] [address] Lymphocytes/Leukocytes Auto (Bld) [Pure # fraction] 2.4 E9/L Normal 1.0-4.0 [facility] Comment on above: Order Comment: Order Added by Stephanie Expert. Performed By: #### 1 6001311, 3127649, 0621277, 2005811, 0709545, 7472449 #### [facility] [address] [place] [address] Monocytes/100 WBC (Bld) 8.7 % Normal 4.0-14.0 [facility] Comment on above: Order Comment: Order Added by Discern Expert. Performed By: #### 1 8632784, 2362826, 8548512, 7052897, 0051044, 7912437 #### [facility] [address] [place] [address] Monocytes/Leukocytes Auto (Bld) [Pure # fraction] 0.8 E9/L Normal 0.2-1.0 [facility] Comment on above: Order Comment: Order Added by Discern Expert. Performed By: #### 1 2435992, 4457684, 2768573, 5720937, 6618997, 4927018 #### [facility] [address] [place] [address] Neutrophils/100 WBC (Bld) 61.8 % Normal 36.0-75.0 [facility] Comment on above: Order Comment: Order Added by Discern Expert. Performed By: #### 1 4770257, 2032299, 0965197, 8031167, 7620338, 3462142 #### [facility] [address] [place] [address] Neutrophils/Leukocytes Auto (Bld) [Pure # fraction] 5.8 E9/L Normal 2.0-7.5 [facility] Comment on above: Order Comment: Order Added by Discern Expert. Performed By: #### 1 6306875, 4476730, 4012126, 9914978, 3115744, 2205407 #### [facility] [address] [place] [address] BMPon 09-09-2022 Anion gap [Moles/Vol] 17 mmol/L High 6-16 [facility] Comment on above: Performed By: #### 1 0156251, 8696047, 5937504, 0260094, 3073864, 7328746 #### [facility] [address] [place] [address] Calcium [Mass/Vol] 8.9 mg/dL Normal 8.9-11.1 [facility] Comment on above: Performed By: #### 1 8643861, 0749379, 2898798, 7280826, 6832423, 9118835 #### [facility] [address] [place] [address] Chloride [Moles/Vol] 100 mmol/L Low 101-111 [facility] Comment on above: Performed By: #### 1 4693904, 2581492, 7423248, 9143839, 3954168, 6646159 #### [facility] [address] [place] [address] CO2 [Moles/Vol] 21 mmol/L Normal 21-31 [facility] Comment on above: Performed By: #### 1 3585686, 5007631, 9060044, 4007297, 4414748, 7734027 #### [facility] [address] [place] [address] Creatinine [Mass/Vol] 1.0 mg/dL Normal 0.5-1.3 [facility] Comment on above: Performed By: #### 1 7755692, 9220662, 8259521, 2844409, 4134869, 4728721 #### [facility] [address] [place] [address] Glucose [Mass/Vol] 96 mg/dL Normal 55-199 [facility] Comment on above: Result Comment: If t his glucose result represents a fasting glucose, interpretation should refer to the following reference range: 55-99 mg/dL Performed By: #### 1 9699298, 7281756, 9894943, 8453241, 3269014, 8387679 #### [facility] [address] [place] [address] Potassium [Moles/Vol] 4.0 mmol/L Normal 3.5-5.3 [facility] Comment on above: Performed By: #### 1 5993717, 6433790, 1027198, 1200573, 7933056, 4409441 #### [facility] [address] [place] [address] Sodium [Moles/Vol] 134 mmol/L Low 135-145 [facility] Comment on above: Performed By: #### 1 4051444, 4584141, 7858169, 5223345, 7668078, 2148012 #### [facility] [address] [place] [address] Urea nitrogen [Mass/Vol] 14 mg/dL Normal 5-21 [facility] Comment on above: Performed By: #### 1 5958085, 8339150, 5140767, 1157966, 8511607, 6665913 #### [facility] [address] [place] [id number] Urea nitrogen/Creatinine [Mass ratio] 14 No Units Normal 10-20 [facility] Comment on above: Performed By: #### 1 5615370, 8934504, 1701202, 3529186, 0115307, 8103618 #### [facility] [address] [place] [address] CBC w/ Auto Diffon 3 Erythrocyte distribution width (RBC) [Ratio] 13.9 % Normal 10.9-14.2 [facility] Comment on above: Performed By: #### 1 3353322, 5698031, 6360828, 0282776, 1368619, 3002735 #### [facility] [address] [place] [address] Hematocrit (Bld) [Volume fraction] 51.6 % High 37.7-49.0 [facility] Comment on above: Performed By: #### 1 4505343, 8244458, 9460057, 2296168, 7790706, 7782551 #### [facility] [address] [place] [address] Hemoglobin (Bld) [Mass/Vol] 17.8 g/dL High 13.5-17.5 [facility] Comment on above: Performed By: #### 1 0876411, 3700913, 3516300, 8374057, 0081676, 2846097 #### [facility] [address] [place] [address] MCH (RBC) [Entitic mass] 29.2 pg Normal 27.0-34.0 [facility] Comment on above: Performed By: #### 1 1825365, 2949009, 1202141, 1738090, 0496632, 4203040 #### [facility] [address] [place] [address] MCHC (RBC) [Mass/Vol] 34.5 g/dL Normal 31.4-36.0 [facility] Comment on above: Performed By: #### 1 8774704, 1137778, 4556804, 5899543, 1781059, 1875112 #### [facility] [address] [place] [address] MCV (RBC) [Entitic vol] 84.6 fL Normal 80.0-100.0 [facility] Comment on above: Performed By: #### 1 2466374, 6282297, 5890182, 3718572, 9213478, 6688676 #### [facility] [address] [place] [address] Platelet mean volume (Bld) [Entitic vol] 9.8 fL Normal 6.4-10.8 [facility] Comment on above: Performed By: #### 1 3108706, 8115922, 8281506, 0263521, 9683062, 4627311 #### [facility] [address] [place] [address] Platelets (Bld) [#/Vol] 212.0 E9/L Normal 150.0-500.0 [facility] Comment on above: Performed By: #### 1 2622215, 2980718, 4481275, 8090068, 0549454, 1877741 #### [facility] [address] [place] [address] RBC (Bld) [#/Vol] 6.1 E12/L High 4.3-5.9 [facility] Comment on above: Performed By: #### 1 8550868, 2674349, 5888527, 5504197, 2022438, 0896675 #### [facility] [address] [place] [address] WBC corrected for nucl RBC Auto (Bld) [#/Vol] 9.5 E9/L Normal 4.0-11.0 [facility] Comment on above: Performed By: #### 1 8841520, 3042199, 7740787, 5924631, 8513782, 4002211 #### [facility] [address] [place] [address] CHEMISTRYOrdered By: SYSTEM SYSTEM on 09-09-2022 Anion [...] rate/Area] mL/min/1.73 m2 Normal >=59mL/min/1 .73 m2 [facility] Chem S GFR/1.73 sq M.predicted among non-blacks MDRD (S/P/Bld) [Vol rate/Area] mL/min/1.73 m2 Normal >=59mL/min/1 .73 m2 [facility] Chem S Glucose [Mass/Vol] 96 mg/dL Normal 55 - 199 mg/dL [facility] Remisol Magnesium [Mass/Vol] 2.3 mg/dL Normal 1.3 - 2 .4 mg/dL [facility] Remisol Potassium [Moles/Vol] 4.0 mmol/L Normal 3.5 - 5.3 mmol/L [facility] Remisol Sodium [Moles/Vol] 134 mmol/L Low 135 - 145 mmol/L [facility] Triglyceride [Mass/Vol] 116 mg/dL Normal <=149mg/dL [facility] Urea nitrogen [Mass/Vol] 14 mg/dL Normal 5 - 21 mg/dL [facility] Remisol Urea nitrogen/Creatinine [Mass ratio] 14 mg/mg Normal 10 - 20 [facility] Remisol COAGULATIONOrdered By: Emeli Chen on 09-09-2022 INR Coag (PPP) [Relative time] 2.3 {INR} Invalid Interpretation Code [facility] Auto Coag PT Coag (PPP) [Time] 26.3 s High 9.4 - 1 2.5 second(s) [facility] Auto Coag CT Head or Brain w/o [...] Moncada MD Transcribed by: USHA Technologist: ALE Miguel [facility] Consultation Noteon 09-10-19 Consultation Note Chief Complaint blurry vision with a headache and dizzyness for a week saw pharmacist at [facility] who sent him to hospital Reason for Consultation Syncope History of Present Illness 57-year-old male with no prior cardiac history. Does have history of DVT hypertension hyperlipidemia. Very difficult historian sounds like he was hypertensive at the pharmacy in [facility] and apparently he was also hypothermic. [...] As Dire (more content not included)... Normal [facility] Comment on above: Result Comment: Elec tronically Signed By: Bc LZAARO, Miky Davies\.br\Date and Time Signed: 09/09/22 14:50 EDT Consultation Note Chief Complaint blurry vision with a headache and dizzyness for a week saw pharmacist at [facility] who sent him to hospital Reason [...] he can feel clammy. He was at [facility] and was feeling dizzy and had [...] acetaminophen-hydroco done (more content not included)... Normal [facility] Comment on above: Result Comment: Elec tronically Signed By: Kinsey Shoemaker RN\.br\Date and Time Signed: 09/09/22 09:09 EDT\.br\Electronically Co-Signed By: Familia Acosta DO\.br\Date and Time Co-Signed: 09/09/22 09:24 EDT ED Clinical Summaryon 2022 ED Clinical Summary [address] [address] ED Clinical Summary Person Information Name: KEEGAN AUSTIN [facility] Age: 57 Years : 1965 Sex: Male Language: Sierra Leonean PCP: Sarah Bruce DO Marital Status: Phone: [phone] Visit Id: Visit Reason: Hypertension; Dizziness; Shortness of breath; DIZZINESS, LABILE HYPERTENSION, ANXIETY Speciality: Acuity: 1 Enc Type: Observation Med Service: Medical Arrival: 09/08/2022 18:08:16 Discharge: LOS: 000 04:56 Checkin: 09/08/2022 18:08:16 Checkout: 09/08/2022 23:04:06 Dispo Type: Admitted as IP to this [facility] EVENTS: Event Name Event Status Request [...] 23:02:33 Patient Care Request 09/08/2022 23:02:33 ADDRESS: [address] [facility] [id number] PHYS DOC NOTES: MEDICAL INFORMATION: Prescriptions Given: Medications to Continue with No Changes Other Medications acetaminophen-hydroco done (Larue 325 mg-5 mg oral tablet) 1 Tablets By Mouth every 6 hours as needed Pain 4-7. acetaminophen-hydroco done (Larue 325 mg-5 mg oral tablet) 1 Tablets [...] 7:DVT (deep venous thrombosis); 8:Acid reflux Normal [facility] ED Patient Education Noteon 09-09-2022 ED Patient Education Note Normal [facility] ED Patient Summaryon 023 ED Patient Summary [address] [address] Patient Discharge Instructions Person Information Name: KEEGAN AUSTIN Age: 57 Years Arrival Date: 09/08/2022 18:08:16 Discharge Diagnosis: 1:Dizziness; 2:Labile hypertension; 3:Anxiety; 4:Hypertensive urgency; 5:Hyperlipidemia; 6:Smoker; 7:DVT (deep venous thrombosis); 8:Acid reflux Primary Care Physician: Sarah Bruce DO Provider Information Primary Provider: [facility] Portfolio Manager:Jennifer Liang PA-C The exam and treatment you received in the Emergency Department were for an urgent problem and are not intended as complete care. It is important that you follow up with a doctor, nurse practitioner, or physician?s respiratory assistant for ongoing care. If your symptoms [...] opioids can be used to help relieve bejuxhdx-bd-joeams pain and are often prescribed following a [...] be struggling with addiction, tell your health critical care physician assistant and ask for guidance or call [facility]?S National Helpline at 3-124-635-LKHA. f Source: [place] Department of Health and Human Ser (more content not included)... Normal [facility] HEMATOLOGYOrdered By: SYSTEM SYSTEM on 09-09-2022 [...] 34.5 g/dL Normal 31.4 - 36.0 gm/dL [facility]SS MCV (RBC) [Entitic vol] 84.6 fL Normal 80.0 - 100.0 fL [facility]SS Platelet mean volume (Bld) [Entitic vol] 9.8 fL Normal 6.4 - 10.8 fL [facility]SS Platelets (Bld) [#/Vol] 212.0 E9/L Normal 150.0 - 500.0 E9/L [facility]SS RBC (Bld) [#/Vol] 6.1 E12/L High 4.3 - 5.9 E12/L [facility] HemeAutoSS WBC corrected for nucl RBC Auto (Bld) [#/Vol] 9.5 E9/L Normal 4.0 - 11.0 E9/L [facility] HemeAutoSS Insurance Correspondence Off iceon 09-09-2022 Insurance Correspondence Office [id number] .[id number]:127 Normal [facility] Interdisciplinary Note - Sravan e Manageron 09-09-2022 Interdisciplinary Note - Inorganic Chemical Technician CRM entered the room to discuss dc planning. PCP, DME and insurance discussed. Patient is alert and involved in justice of care. Contact information provided and whiteboard updated. Pt's mother will transport. PT will hold on eval due to symptoms. Pending MRIs, and cardiology. Pt has FWW, rollator and cane at home. ANt dc TBD. CRM to follow. Normal [facility] Comment on above: Result Comment: Elec tronically Signed By: Elana Hobbs\Date and Time Signed: 09/09/22 12:54 EDT Lipid Panelon 09-09-2022 Cholesterol [Mass/Vol] 139 mg/dL Normal 120-200 [facility] Comment on above: Performed By: #### 1 8090422, 2569084, 2245620, 2075704, 9325566, 8245566 #### [facility] [address] [place] [address] Cholesterol in HDL [Mass/Vol] 41 mg/dL Invalid Interpretation Code [facility] Comment on above: Result Comment: HDL > or equal to 60 mg/dL: Low cardiovascular risk HDL < 40 mg/dL : High cardiovascular risk Performed By: #### 1 1551014, 7785532, 0394402, 6521105, 6474946, 3493841 #### [facility] [address] [place] [address] Cholesterol in LDL [Mass/Vol] 82 mg/dL Normal <=129 [facility] Comment on above: Performed By: #### 1 2958048, 9098489, 2705592, 1991897, 2113630, 4721217 #### [facility] [address] [place] [address] Cholesterol in VLDL [Mass/Vol] 23 mg/dL Normal 7-40 [facility] Comment on above: Performed By: #### 1 0236743, 3817972, 9897736, 2437194, 4789850, 1797842 #### [facility] [address] [place] [address] Triglyceride [Mass/Vol] 116 mg/dL Normal <=149 [facility] Comment on above: Performed By: #### 1 0812208, 3411262, 7263514, 0688476, 1144896, 5836269 #### [facility] [address] [place] [address] Magnesiumon 09-09-2022 Magnesium [Mass/Vol] 2.3 mg/dL Normal 1.3-2.4 [facility] Comment on above: Performed By: #### 1 5197418, 4163244, 7549967, 8071739, 9843127, 9469168 #### [facility] [address] [place] [address] Monitor Recordon 09-09-2022 Monitor Record [id number] .[id number]:127 Normal [facility] Monitor Record [id number] .00CD:127 Normal [facility] Monitor Record [id number] .00CD:127 Normal [facility] Monitor Record [id number] .00CD:127 Normal [facility] PTon 09-09-2022 INR Coag (PPP) [Relative time] 2.3 {INR} Invalid Interpretation Code [facility] Comment on above: Order Comment: pleas e add on if possible to 09/09/22 am labs. thank you Result Comment: INR results are specifically intended to assess patients stabilized on long-term Anticoagulation therapy suggested INR?s ?Less Intensive Anticoagulation? 2.0 ? 3.0 Conventional Range 3.0 ? 4.5 Performed By: #### 2 [id number] #### [facility] [address] [place] [address] PT Coag (PPP) [Time] 26.3 second(s) High 9.4-12.5 [facility] Comment on above: Order Comment: pleas [...] the same coagulation reagent and instrumentation as [facility]. Currently there are no coagulation studies available worldwide for children to 14 days, and no normal ranges. Performed By: #### 2 119675 #### [facility] [address] [place] [address] Progress Note - Pharmacyon 0 09-09-2022 Progress Note - Pharmacy Pharmacy to Dose Warfarin Indication for warfarin therapy: DVT Target INR: 2.0-3.0 Ordering Provider: Favian Hill Taking warfarin prior to admission: Yes Home [...] Recommendation: TBD Please contact pharmacy at ext. [phone] with any questions. [facility] Progress Note-Physicianon Progress Note-Physician Assessment/Plan 1. Dizziness [...] to ensure accuracy , however, inadvertently computerized respiratory therapist assistant mistakes may be present . Subjective The [...] 06:12:00) Lymph Auto: 25.3 % (09/09/22 06:12:00) [place] Auto: 8.7 % (09/09/22 06:12:00) Eos Auto: 3.1 % (09/09/22 06:12:00) Basophil Auto: 1.1 % (09/09/22 06:12:00) Neutro Absolute: 5.8 E9/L (09/09/22 06:12:00) Lymph Absolute: 2.4 E9/L (09/09/22 06:12:00) [place] Absolute: 0.8 E9/L (09/09/22 06:12:00) Eos Absolute: 0.3 E9/L (09/09/22 06:12:00) Basophil Absolute: 0.1 E9/L (09/09/22 06:12:00) PT: 26.3 second(s) High (09/09/22 07:56:00) INR: 2.3 (09/09/22 07:56:00) PTT: 50.7 second(s) High (09/08/22 19:16:00) Glucose Lvl: 96 mg/dL (09/09/22 06:12:00) BUN: 14 mg/dL (09/09/22 06:12:00) Creatinine: 1 mg/dL (09/09/22 06:12:00) eGFR: >60 (09/09/22 06:12:00) eGFR AA: >60 (0 (more content not included)... Normal [facility] Comment on above: Result Comment: Elec tronically Signed By: Debra LAZARO, Jose\.br\Date and Time Signed: 09/09/22 16:14 EDT RAD - MRI Screening Formon 0 09-09-2022 RAD - MRI Screening Form [id number]# 1.00CD:127 Normal [facility] Troponin 3 Hr.on 09-09-2022 Troponin I.cardiac [Mass/Vol] 13.20 pg/mL Low 15.90-38.40 [facility] Comment on above: Result Comment: The 95% CI (Confidence Interval) PPV (Positive Predictive Value) for myocardial infarction in females is 38 pg/mL, in males 51 pg/mL. The results should be used in conjunction with clinical conditions of myocardial infarction. (Access High Sensitivity Troponin I Instructions For Use, Christofer Kika, January 2018) Performed By: #### 1 [id number] ####[facility] [address] [place] [address] XR Chest Single Viewon 09-09 XR Chest [...] Kirill Moncada MD Transcribed by: USHA Technologist: ORB Technical Comments Radiation Dose: Ka,r in mGy = na DAP = na Normal [facility] eGFRon 09-09-2022 GFR/1.73 sq M.predicted among blacks MDRD (S/P/Bld) [Vol rate/Area] mL/min/{1.73_m2} Normal >=59 [facility] Comment on above: Order Comment: Order added by Discern Expert. Result Comment: eGFR is race adjusted. AA=. Performed By: #### 1 [id number], 6394040, 1252493, 5276215, 2000158, 8992314 #### [facility] [address] [place] [address] GFR/1.73 sq M.predicted among non-blacks MDRD (S/P/Bld) [Vol rate/Area] mL/min/{1.73_m2} Normal >=59 [facility] Comment on above: Order Comment: Order added by Discern Expert. Result Comment: In Flight Refueling System Repairer chu kidney disease could be indicated at eGFR's of less than 60 mL/min/1.73m2. Kidney failure is indicated at less than 15 mL/min/1.73m2. Performed By: #### 1 [id number], 0695776, 9607825, 3736818, 9502041, 1230259 #### [facility] [address] [place] [address] Auto Diffon 09-08-2022 Basophils/100 WBC (Bld) 1.0 % Normal 0.0-2.0 [facility] Comment on above: Order Comment: Order Added by Discern Expert. Performed By: #### 7 [id number], 42815329, 1874156, 67749388, 3935594, 9783043, 2150848, 8240283 ####[facility] [address] [place] [address] Basophils/Leukocytes Auto (Bld) [Pure # fraction] 0.1 E9/L Normal 0.0-0.2 [facility] Comment on above: Order Comment: Order Added by Discern Expert. Performed By: #### 7 [id number], 45380641, 9520736, 75686090, 6352009, 2928458, 1082397, 8561155 ####[address] [place] [address] Eosinophils/100 WBC (Bld) 3.7 % Normal 0.0-8.0 [facility] Comment on above: Order Comment: Order Added by Discern Expert. Performed By: #### 7 56419675, 98980251, 4531413, 01002172, 5505956, 0183967, 2244432, 8607353 ####[address] [place] [address] Eosinophils/Leukocytes Auto (Bld) [Pure # fraction] 0.3 E9/L Normal 0.0-0.5 [facility] Comment on above: Order Comment: Order Added by Discern Expert. Performed By: #### 7 07234161, 67860785, 7774996, 29776209, 9931849, 0295326, 9808167, 2410607 ####[address] [place] [address] Lymphocytes/100 WBC (Bld) 26.3 % Normal 14.0-50.0 [facility] Comment on above: Order Comment: Order Added by Discern Expert. Performed By: #### 7 23974856, 15557599, 2327517, 69339126, 0456088, 4579409, 4381348, 1615311 ####[address] [place] [address] Lymphocytes/Leukocytes Auto (Bld) [Pure # fraction] 2.1 E9/L Normal 1.0-4.0 [facility] Comment on above: Order Comment: Order Added by Discern Expert. Performed By: #### 7 93270899, 87534165, 6160400, 75966902, 4705784, 0319964, 2994780, 6023678 ####[address] [place] [address] Monocytes/100 WBC (Bld) 8.1 % Normal 4.0-14.0 [facility] Comment on above: Order Comment: Order Added by Discern Expert. Performed By: #### 7 13948649, 77994458, 2781694, 43141420, 7150821, 1105139, 1554010, 6614197 ####[address] [place] [address] Monocytes/Leukocytes Auto (Bld) [Pure # fraction] 0.6 E9/L Normal 0.2-1.0 [facility] Comment on above: Order Comment: Order Added by Discern Expert. Performed By: #### 7 02435495, 55998237, 1948270, 47096190, 1753899, 5926801, 7338320, 2072827 ####[address] [place] [address] Neutrophils/100 WBC (Bld) 60.9 % Normal 36.0-75.0 [facility] Comment on above: Order Comment: Order Added by Discern Expert. Performed By: #### 7 20901373, 95943034, 9103532, 80509299, 6394067, 6650848, 1947769, 5068288 ####[address] [place] [address] Neutrophils/Leukocytes Auto (Bld) [Pure # fraction] 4.9 E9/L Normal 2.0-7.5 [facility] Comment on above: Order Comment: Order Added by Discern Expert. Performed By: #### 7 85615608, 14528663, 1498059, 60211674, 3442954, 3309256, 0792688, 3671616 ####[facility] [address] [place] [address] CBC w/ Auto Diffon 3 Erythrocyte distribution width (RBC) [Ratio] 13.7 % Normal 10.9-14.2 [facility] Comment on above: Performed By: #### 7 58427626, 85108142, 1292031, 17299226, 9457293, 1954041, 4868912, 1247483 ####[address] [place] [address] Hematocrit (Bld) [Volume fraction] 54.2 % High 37.7-49.0 [facility] Comment on above: Performed By: #### 7 10750958, 80411820, 4934674, 82966794, 1679255, 7798704, 7227336, 5618881 ####[facility] [address] [place] [address] Hemoglobin (Bld) [Mass/Vol] 18.4 g/dL High 13.5-17.5 [facility] Comment on above: Performed By: #### 7 79772144, 01219455, 6476148, 36477825, 3803114, 6083977, 5946766, 5499106 ####[facility] [address] [place] [address] MCH (RBC) [Entitic mass] 28.7 pg Normal 27.0-34.0 [facility] Comment on above: Performed By: #### 7 79127838, 16045760, 5401314, 90149770, 6408778, 9308715, 0655920, 2695339 ####[facility] [address] [place] [address] MCHC (RBC) [Mass/Vol] 33.9 g/dL Normal 31.4-36.0 [facility] Comment on above: Performed By: #### 7 59130511, 95921911, 1834752, 63437367, 1047166, 6787687, 0903147, 5884483 ####[facility] [address] [place] [address] MCV (RBC) [Entitic vol] 84.7 fL Normal 80.0-100.0 [facility] Comment on above: Performed By: #### 7 29615679, 80552028, 6441776, 98378699, 3285238, 0777169, 0714611, 0329299 ####[facility] [address] [place] [address] Platelet mean volume (Bld) [Entitic vol] 9.1 fL Normal 6.4-10.8 [facility] Comment on above: Performed By: #### 7 54606213, 43727192, 8965217, 34412056, 7743744, 0964043, 6454552, 4692157 ####[facility] [address] [place] [address] Platelets (Bld) [#/Vol] 212.0 E9/L Normal 150.0-500.0 [facility] Comment on above: Performed By: #### 7 06128667, 35878051, 1208740, 69579277, 5990151, 2422589, 1415567, 3812131 ####[facility] [address] [place] [address] RBC (Bld) [#/Vol] 6.4 E12/L High 4.3-5.9 [facility] Comment on above: Performed By: #### 7 65419728, 12774957, 3775576, 47262840, 5674593, 2490513, 7484983, 9766177 ####[facility] [address] [place] [address] WBC corrected for nucl RBC Auto (Bld) [#/Vol] 8.0 E9/L Normal 4.0-11.0 [facility] Comment on above: Performed By: #### 7 19111274, 37352219, 8919366, 91329353, 5562502, 4615844, 4369046, 9877697 ####[facility] [address] [place] [address] CHEMISTRYOrdered By: SYSTEM SYSTEM on 09-08-2022 Troponin [...] mg/dL Low 8.9 - 11. 1 mg/dL [facility] Remisol Chloride [Moles/Vol] 106 mmol/L Normal 101 - 1 11 mmol/L [facility] Remisol CO2 [Moles/Vol] 21 mmol/L Normal 21 - 31 mmol/L [facility] Remisol Creatinine [Mass/Vol] 0.9 mg/dL Normal 0.5 - 1.3 mg/dL FT Remisol GFR/1.73 sq M.predicted among blacks MDRD (S/P/Bld) [Vol rate/Area] mL/min/1.73 m2 Normal >=59mL/min/1 .73 m2 [facility] Chem S GFR/1.73 sq M.predicted among non-blacks MDRD (S/P/Bld) [Vol rate/Area] mL/min/1.73 m2 Normal >=59mL/min/1 .73 m2 [facility] Chem S Globulin (S) [Mass/Vol] 3.1 g/dL [...] 12.70 pg/mL Low 15.90 - 38.40 pg/mL [facility] Remisol Urea nitrogen [Mass/Vol] 12 mg/dL Normal 5 - 21 mg/dL [facility] U[facility] nitrogen/Creatinine [Mass ratio] 13 mg/mg Normal 10 - 20 [facility] Remisol CHEMISTRYOrdered By: Kitty Hopkins on 09-08-2022 HbA1c (Bld) [Mass fraction] 5.4 % Normal <=5.9% [facility] ChemAutoSS CHEMISTRYOrdered By: Lab ROP User on 09-08-2022 Glucose [Mass/Vol] 131 mg/dL High 55 - 99 mg/dL [facility] POC Subsection Comment on above: Result Comment: Serenity cheatham RN/ POC Device SN [id number] Invalid Interpretation Code [facility] POC Subsection POC User ID [id number] Invalid Interpretation Code [facility] POC Subsection POC Username SHAHBAZ CIFUENTES Invalid Interpretation Code [facility] POC Subsection CMPon 09-08-2022 Albumin [Mass/Vol] 4.6 g/dL Normal 3.3-5.0 [facility] Comment on above: Performed By: #### 7 [id number], 08151478, 4025034, 81682036, 2808824, 7806126, 1008675, 9547794 ####[facility] [address] [place] [address] Albumin/Globulin (S) [Mass conc ratio] 1.5 Normal 1.1-2.2 [facility] Comment on above: Performed By: #### 7 49910088, 77561660, 1229712, 01758000, 9969853, 3451386, 9981835, 8158266 ####[facility] [address] [place] [address] ALP [Catalytic activity/Vol] 40 Int._Unit/L Normal 21-98 [facility] Comment on above: Performed By: #### 7 49913022, 43406924, 2078125, 22125012, 3118294, 7437787, 5334181, 0401898 ####[facility] [address] [place] [address] ALT No additional P-5'-P [Catalytic activity/Vol] 27 Int._Unit/L Normal 6-46 [facility] Comment on above: Performed By: #### 7 47293702, 78574263, 0933901, 73277908, 0258970, 4562265, 6521316, 6724503 ####[facility] [address] [place] [address] AST [Catalytic activity/Vol] 26 Int._Unit/L Normal 5-43 [facility] Comment on above: Performed By: #### 7 48407786, 02399590, 1588880, 14795304, 1081851, 8105309, 7166047, 9451176 ####[facility] [address] [place] [address] Bilirubin [Mass/Vol] 1.0 mg/dL Normal 0.0-1.1 [facility] Comment on above: Performed By: #### 7 11905427, 25193889, 9948013, 52424298, 8656824, 5642621, 4307591, 5888042 ####[facility] [address] [place] [address] Creatinine [Mass/Vol] 0.9 mg/dL Normal 0.5-1.3 [facility] Comment on above: Performed By: #### 7 11777913, 46498016, 6740748, 44409550, 1802675, 2843356, 4766609, 0492688 ####[facility] [address] [place] [address] Globulin (S) [Mass/Vol] 3.1 g/dL Normal 1.4-4.0 [facility] Comment on above: Performed By: #### 7 33612661, 92454133, 1216505, 17168077, 8260805, 7486690, 0463716, 7919889 ####[facility] [address] [place] [address] Protein [Mass/Vol] 7.7 g/dL Normal 6.0-7.8 [facility] Comment on above: Performed By: #### 7 73801016, 66982688, 1264751, 63095465, 1821459, 1134364, 2636937, 2183066 ####[facility] [address] [place] [address] Urea nitrogen [Mass/Vol] 12 mg/dL Normal 5-21 [facility] Comment on above: Performed By: #### 7 44706485, 50255444, 5626978, 63193839, 0136203, 5287672, 0802643, 1879283 ####[facility] [address] [place] [address] Urea nitrogen/Creatinine [Mass ratio] 13 No Units Normal 10-20 [facility] Comment on above: Performed By: #### 7 28449861, 94193758, 5872399, 60938860, 3254286, 5315570, 2647488, 5750001 ####[facility] [address] [place] [address] Anion gap [Moles/Vol] 13 mmol/L Normal 6-16 [facility] Comment on above: Performed By: #### 7 23380855, 86380775, 5448703, 50033202, 7412298, 0999407, 9941374, 2871067 ####[facility] [address] [place] [address] Calcium [Mass/Vol] 8.8 mg/dL Low 8.9-11.1 [facility] Comment on above: Performed By: #### 7 38718439, 81887636, 1041639, 21472036, 6470917, 0729695, 7673509, 9747353 ####[facility] [address] [place] [address] Chloride [Moles/Vol] 106 mmol/L Normal 101-111 [facility] Comment on above: Performed By: #### 7 92640683, 00286162, 2877305, 69722974, 7703993, 5909566, 9781490, 9521271 ####[facility] [address] [place] [address] CO2 [Moles/Vol] 21 mmol/L Normal 21-31 [facility] Comment on above: Performed By: #### 7 65862967, 39795408, 5444141, 45016583, 2793844, 7591524, 6786199, 4893856 ####[facility] [address] [place] [address] Glucose [Mass/Vol] 102 mg/dL Normal 55-199 [facility] Comment on above: Result Comment: If t his glucose result represents a fasting glucose, interpretation should refer to the following reference range: 55-99 mg/dL Performed By: #### 7 82904276, 70477301, 7703588, 09932593, 7255258, 4999893, 6185956, 4812557 ####[facility] [address] [place] [address] Potassium [Moles/Vol] 3.6 mmol/L Normal 3.5-5.3 [facility] Comment on above: Performed By: #### 7 60361122, 48704724, 7973583, 38134587, 4331604, 1428603, 7676346, 5264066 ####[facility] [address] [place] [address] Sodium [Moles/Vol] 136 mmol/L Normal 135-145 [facility] Comment on above: Performed By: #### 7 65902816, 64385717, 6260314, 24413150, 6291822, 0817378, 5955732, 8917669 ####[facility] [address] [place] [address] COAGULATIONOrdered By: Maya Cook on 09-08-2022 aPTT Coag (PPP) [Time] 50.7 s High 25.1 - 36.5 second(s) [facility] Auto Coag INR Coag (PPP) [Relative time] 2.8 {INR} Invalid Interpretation Code [facility] Auto Coag PT Coag (PPP) [Time] 32.1 s High 9.4 - 1 2.5 second(s) [facility] Auto Coag Capillary Glucose POCon 08-29 Glucose [Mass/Vol] 131 mg/dL High 55-99 [facility] Comment on above: Result Comment: Serenity cheatham RN/ Performed By: #### 2 24283075 ####[facility] [address] [place] [address] Consent for Treatmenton 08-29 Consent for Treatment [id number]#1 .00CD:127 Normal [facility] HEMATOLOGYOrdered By: SYSTEM SYSTEM on 09-08-2022 [...] 6.4 E12/L High 4.3 - 5.9 E12/L [facility] HemeAutoSS WBC corrected for nucl RBC Auto (Bld) [#/Vol] 8.0 E9/L Normal 4.0 - 11.0 E9/L [facility] HemeAutoSS Lactic Acidon 09-08-2022 Lactate [Mass/Vol] 1.3 mmol/L Normal 0.5-2.2 [facility] Comment on above: Performed By: #### 7 88156446, 26689758, 9222519, 65918956, 2939170, 2371424, 1114900, 5862309 ####[facility] [address] [place] [address] No Panel InformationOrdered By: ANGPROCESSSERVER MICROBIOLOGY on 09-08-2022 Blood Culture Charcoal No growth at 1 da y. Final to follow at 7 days. [facility] Blood Culture Charcoal No growth at 1 da y. Final to follow at 7 days. [facility] PT & PTTon 09-08-2022 aPTT Coag (PPP) [Time] 50.7 second(s) High 25.1-36.5 [facility] Comment on above: Result Comment: Para meter 15 days - 4 weeks 1 - 5 months 6 - 11 months 1 - 5 years 6 - 10 years 11 - 17 years PTT Mean: 35.4 (27.6-45.6) Mean: 33.5 (24.8-40.7) Mean: 32.4 (25.1-40.7) Mean: 31.6 (24.0-39.2) Mean: 31.6 (26.9-38.7) Mean: 31.0 (24.6-38.4) Pediatric Reference ranges were obtained from a study by sweetie Garcia al. prepared from 1437 samples obtained at 7 different centers using the same coagulation reagent and instrumentation as [facility]. Currently there are no coagulation studies available worldwide for children to 14 days, and no normal ranges. Heparin therapeutic range (represented by Anti-Factor Xa activity of 0.2 - 0.4 U/mL) corresponds to PTT of 56.6 - 109.0 sec. Performed By: #### 7 61693018, 14043558, 0241163, 28783656, 6760405, 8831038, 6030342, 6106138 ####[facility] [address] [place] [address] INR Coag (PPP) [Relative time] 2.8 {INR} Invalid Interpretation Code [facility] Comment on above: Result Comment: INR results are specifically intended to assess patients stabilized on long-term Anticoagulation therapy suggested INR?s ?Less Intensive Anticoagulation? 2.0 ? 3.0 Conventional Range 3.0 ? 4.5 Performed By: #### 7 55641886, 28776626, 7029278, 71917789, 3157814, 7060150, 5089013, 5117295 ####[facility] [address] [place] [address] PT Coag (PPP) [Time] 32.1 second(s) High 9.4-12.5 [facility] Comment on above: Result Comment: 15 [...] the same coagulation reagent and instrumentation as [facility]. Currently there are no coagulation studies available worldwide for children to 14 days, and no normal ranges. Performed By: #### 7 95923346, 39191487, 3160314, 24693608, 1553608, 9717459, 9963519, 3962072 ####[facility] [address] [place] [address] RAD - Preliminary Cat Scan R eporton 09-08-2022 RAD - Preliminary Cat Scan Report [id number]# 1.00CD:127 Normal [facility] Troponinon 09-08-2022 Troponin I.cardiac [Mass/Vol] 12.70 pg/mL Low 15.90-38.40 [facility] Comment on above: Order Comment: pt in ct...mmf 09/08/2022 19:08:58 EST Result Comment: The 95% CI (Confidence Interval) PPV (Positive Predictive Value) for myocardial infarction in females is 38 pg/mL, in males 51 pg/mL. The results should be used in conjunction with clinical conditions of myocardial infarction. (Access High Sensitivity Troponin I Instructions For Use, Christofer Kika, January 2018) Performed By: #### 7 93537687, 25118112, 6014569, 24453368, 3395172, 3971846, 0945599, 4772213 ####[facility] [address] [place] [address] UA With Cult Reflexon 2022 Epithelial cells.squamous LM.HPF (Urine sed) [#/Area] 0-2 Normal 0-2 [facility] Comment on above: Performed By: #### 1 1857154 #### [facility] [address] [place] [address] [place].plasma/[place] .RBC (Bld) [Mass ratio] 0-3 Normal 0-3 [facility] Comment on above: Performed By: #### 1 0600334 #### [facility] [address] [place] [address] Mucus Ql (Urine sed) 1+ Normal Fish [facility] Comment on above: Performed By: #### 1 8245982 #### [facility] [address] [place] [address] WBC LM.HPF (Urine sed) [#/Area] 0-5 Normal 0-5 [facility] Comment on above: Performed By: #### 1 0297191 #### [facility] [address] [place] [address] Bilirubin Ql (U) Negative Normal Negative [facility] Comment on above: Performed By: #### 1 6587553 #### [facility] [address] [place] [address] Clarity (U) CLEAR Normal Clear [facility] Comment on above: Performed By: #### 1 2601546 #### [facility] [address] [place] [address] Color (U) YELLOW Normal Yellow [facility] Comment on above: Performed By: #### 1 9743999 #### [facility] [address] [place] [address] Glucose Test strip (U) [Mass/Vol] Negative Normal Negative [facility] Comment on above: Performed By: #### 1 7556862 #### [facility] [address] [place] [address] Hemoglobin Ql (U) Negative Normal Negative [facility] Comment on above: Performed By: #### 1 0797531 #### [facility] [address] [place] [address] Ketones (U) [Mass/Vol] Negative Normal Negative [facility] Comment on above: Performed By: #### 1 3637637 #### [facility] [address] [place] [address] Nitrite Ql (U) Negative Normal Negative [facility] Comment on above: Performed By: #### 1 5973821 #### [facility] [address] [place] [address] pH (U) 6.0 [pH] Invalid Interpretation Code 5.0-9.0 [facility] Comment on above: Performed By: #### 1 4450487 #### [facility] [address] [place] [address] Protein (U) [Mass/Vol] Negative Normal Negative [facility] Comment on above: Performed By: #### 1 7950591 #### [facility] [address] [place] [address] Specific gravity (U) [Rel density] 1.025 Invalid Interpretation Code 1.005-1.030 [facility] Comment on above: Performed By: #### 1 [id number] #### [facility] [address] [place] [address] Type of Urine collection method Random Urine Normal [facility] Comment on above: Performed By: #### 1 4494024 #### [facility] [address] [place] [address] Urobilinogen Qn (U) 1.0 {Arash'U}/dL Normal 0.0-1.0 [facility] Comment on above: Performed By: #### 1 0181958 #### [facility] [address] [place] [address] WBC Auto Ql (U) Negative Normal Negative [facility] Comment on above: Performed By: #### 1 4173339 #### [facility] [address] [place] [address] URINALYSISOrdered By: Maya Cook on 09-08-2022 Bilirubin [...] PM) Normal Negative [facility] UA Auto SS [place].plasma/[place] .RBC (Bld) [Mass ratio] 0-3 /HPF Normal 0-3/HPF [facility] UA Auto SS Mucus Ql (Urine sed) 1+ (09/08/22 7:41 PM) Normal [facility] UA Auto SS Nitrite Ql (U) Negative (09/08/22 7:41 PM) Normal Negative [facility] UA Auto SS pH (U) 6.0 *NA* (09/08/22 7:41 PM) Invalid Interpretation Code 5.0 - 9.0 [facility] UA Auto SS Protein (U) [Mass/Vol] Negative (09/08/22 7:41 PM) Normal Negative [facility] UA Auto SS Specific gravity (U) [Rel density] 1.025 *NA* (09/08/22 7:41 PM) Invalid Interpretation Code 1.005 - 1.030 [facility] Auto SS UA Spec Desc Random Urine (09/08/22 7:41 PM) Normal [facility] UA Auto SS Urobilinogen Qn (U) 1.0153365 {Arash'U}/dL Normal 0.0 - 1.0 EU/dL FT UA Auto SS WBC Auto Ql (U) Negative (09/08/22 7:41 PM) Normal Negative [facility] UA Auto SS WBC LM.HPF (Urine sed) [#/Area] 0-5 /HPF Normal 0-5/HPF [facility] UA Auto SS eGFRon 09-08-2022 GFR/1.73 sq M.predicted among blacks MDRD (S/P/Bld) [Vol rate/Area] mL/min/{1.73_m2} Normal >=59 [facility] Comment on above: Order Comment: Order added by Discern Expert. Result Comment: eGFR is race adjusted. AA=. Performed By: #### 7 [id number], [id number], [id number], [id number], [id number], [id number] ####[facility] [address] [place] [address] GFR/1.73 sq M.predicted among non-blacks MDRD (S/P/Bld) [Vol rate/Area] mL/min/{1.73_m2} Normal >=59 [facility] Comment on above: Order Comment: Order added by Discern Expert. Result Comment: [employer] System Repairer chu kidney disease could be indicated at eGFR's of less than 60 mL/min/1.73m2. Kidney failure is indicated at less than 15 mL/min/1.73m2. Performed By: #### 7 [id number], [id number], [id number], 8891102, [id number], [id number], [id number] ####[facility] [address] [place] [address] VC CONSULT FOLLOWUPon 2021 VC CONSULT FOLLOWUP Patient: KEEGAN AUSTIN Exam Date: 05/15/2022 : 1965 Gender:M Ordering : DR RUBI MATTHEWS M.D. Admission #: [id number] Family : Order #: [id number] CLICK HERE TO VIEW EXAM RADIOLOGY REPORT [...] Rubi Matthews MD on 05/15/2022 at 09:29 [facility] VC EXT VENOUS RT LIMITEDon 1 07-15-2021 VC EXT VENOUS RT LIMITED Patient: KEEGAN AUSTIN. Exam Date: 05/15/2022 : 1965 Gender:M Ordering : DR RUBI MATTHEWS M.D. Admission #: [id number] Family : Order #: [id number] CLICK HERE TO VIEW EXAM RADIOLOGY REPORT [...] Rubi Matthews MD on 05/15/2022 at 09:19 [facility] VC INJ FOAM SCLERO W US MLTI on 05-08-2022 VC INJ FOAM SCLERO W US MLTI Patient: KEEGAN AUSTIN. Exam Date: 05/08/2022 : 1965 Gender:M Ordering : DR RUBI MATTHEWS M.D. Admission #: [id number] Family : Order #: [id number] CLICK HERE TO VIEW EXAM RADIOLOGY REPORT [...] cadence (more content not included)... Normal [facility] VC CONSULT FOLLOWUPon 2021 VC CONSULT FOLLOWUP Patient: KEEGAN AUSTIN Exam Date: 04/27/2022 : 1965 Gender:M Ordering : DR RUBI MATTHEWS M.D. Admission #: [id number] Family : Order #: [id number] CLICK HERE TO VIEW EXAM RADIOLOGY REPORT [...] Matthews MD on 04/27/2022 at 11:29 Normal [facility] VC EXT VENOUS LT LIMITEDon 1 VC EXT VENOUS LT LIMITED Patient: KEEGAN AUSTIN Exam Date: 04/27/2022 : 1965 Gender:M Ordering : DR RUBI MATTHEWS M.D. Admission #: [id number] Family : Order #: [id number] CLICK HERE TO VIEW EXAM RADIOLOGY REPORT [...] Matthews MD on 04/27/2022 at 11:10 Normal [facility] VC INJ FOAM SCLERO W US MLTI on 04-16-2022 VC INJ FOAM SCLERO W US MLTI Patient: KEEGAN AUSTIN Exam Date: 04/16/2022 : 1965 Gender:M Ordering : DR RUBI MATTHEWS M.D. Admission #: [id number] Family : Order #: [id number] CLICK HERE TO VIEW EXAM RADIOLOGY REPORT [...] M.D. on 04/16/2022 at 14:58 Normal [facility] VC CONSULT FOLLOWUPon 2021 VC CONSULT FOLLOWUP Patient: KEEGAN AUSTIN Exam Date: 04/11/2022 : 1965 Gender:M Ordering : DR RUBI MATTHEWS M.D. Admission #: [id number] Family : Order #: [id number] CLICK HERE TO VIEW EXAM RADIOLOGY REPORT [...] Matthews MD on 04/11/2022 at 12:22 Normal [facility] VC EXT VENOUS LT LIMITEDon 1 VC EXT VENOUS LT LIMITED Patient: KEEGAN AUSTIN Exam Date: 04/11/2022 : 1965 Gender:M Ordering : DR RUBI MATTHEWS M.D. Admission #: [id number] Family : Order #: [id number] CLICK HERE TO VIEW EXAM RADIOLOGY REPORT [...] no flow. *Exam performed in accordance with [facility] practice guidelines- Peripheral venous ultrasound, September 24, 2009. 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 Admission #: [id number] Family : Order #: [id number] CLICK HERE TO VIEW EXAM RADIOLOGY REPORT [...] Matthews MD on 04/04/2022 at 15:30 Normal [facility] VC CONSULT FOLLOWUPon 2021 VC CONSULT FOLLOWUP Patient: KEEGAN AUSTIN Exam Date: 03/19/2022 : 1965 Gender:M Ordering : DR RUBI MATTHEWS M.D. Admission #: [id number] Family : Order #: [id number] CLICK HERE TO VIEW EXAM RADIOLOGY REPORT [...] Gonzalez M.D. on 03/19/2022 at 09:55 Normal [facility] VC EXT VENOUS RT LIMITEDon 0 03-19-2022 VC EXT VENOUS RT LIMITED Patient: KEEGAN AUSTIN Exam Date: 03/19/2022 : 1965 Gender:M Ordering : DR RUBI MATTHEWS M.D. Admission #: [id number] Family : Order #: [id number] CLICK HERE TO VIEW EXAM RADIOLOGY REPORT [...] anterior accessory saphenous vein. Dictated by: Allison oGnzalez M.D. on 03/19/2022 at 09:52 Approved by: Allison Gonzalez M.D. on 03/19/2022 at 09:53 Normal [facility] VC ENDOVENOUS ABL 1ST V RTon 03-16-2022 VC ENDOVENOUS ABL 1ST V RT Patient: KEEGAN AUSTIN Exam Date: 03/16/2022 : 1965 Gender:M Ordering : DR RUBI MATTHEWS M.D. Admission #: [id number] Family : Order #: [id number] CLICK HERE TO VIEW EXAM RADIOLOGY REPORT [...] Matthews MD on 03/16/2022 at 10:40 Normal [facility] VC CONSULT FOLLOWUPon 2021 VC CONSULT FOLLOWUP Patient: KEEGAN AUSTIN Exam Date: 01/05/2022 : 1965 Gender:M Ordering : DR RUBI MATTHEWS M.D. Admission #: [id number] Family : Order #: [id number] CLICK HERE TO VIEW EXAM RADIOLOGY REPORT [...] Gonzalez M.D. on 01/05/2022 at 11:44 Normal [facility] VC EXT VENOUS TERRELL LIMITEDon 01-05-2022 VC EXT VENOUS TERRELL LIMITED Patient: KEEGAN AUSTIN Exam Date: 01/05/2022 : 1965 Gender:M Ordering : DR RUBI MATTHEWS M.D. Admission #: [id number] Family : Order #: [id number] CLICK HERE TO VIEW EXAM RADIOLOGY REPORT [...] Gonzalez M.D. on 01/05/2022 at 11:39 Normal [facility] CHEMISTRYOrdered By: SYSTEM SYSTEM on 01-04-2022 Anion gap [Moles/Vol] 12 mmol/L Normal 6 - 16 mEq/L F [facility] Remisol Calcium [Mass/Vol] 9.0 mg/dL Normal 8.9 - 11. 1 mg/dL FT [facility] Chloride [Moles/Vol] 102 mmol/L Normal 101 - 1 11 mmol/L [facility] CO2 [Moles/Vol] 30 mmol/L Normal 21 - 31 mmol/L [facility] Creatinine [Mass/Vol] 1.0 mg/dL Normal 0.5 - 1.3 mg/dL [facility] GFR/1.73 sq M.predicted among blacks MDRD (S/P/Bld) [Vol rate/Area] mL/min/1.73 m2 Normal >=59mL/min/1 .73 m2 [facility] Chem S GFR/1.73 sq M.predicted among non-blacks MDRD (S/P/Bld) [Vol rate/Area] mL/min/1.73 m2 Normal >=59mL/min/1 .73 m2 [facility] Chem S Glucose [Mass/Vol] 95 mg/dL Normal 55 - 199 mg/dL [facility] Remisol Potassium [Moles/Vol] 4.9 mmol/L Normal 3.5 - 5.3 mmol/L [facility] Remisol Sodium [Moles/Vol] 139 mmol/L Normal 135 - 145 mmol/L [facility] Remisol Urea nitrogen [Mass/Vol] 12 mg/dL Normal 5 - 21 mg/dL [facility] Remisol Urea nitrogen/Creatinine [Mass ratio] 12 mg/mg Normal 10 - 20 [facility] Remisol VC CONSULT FOLLOWUPon 2021 VC CONSULT FOLLOWUP Patient: KEEGAN AUSTIN Exam Date: 12/26/2021 : 1965 Gender:M Ordering : DR RUBI MATTHEWS M.D. Admission #: [id number] Family : Order #: [id number] CLICK HERE TO VIEW EXAM RADIOLOGY REPORT [...] Matthews MD on 12/26/2021 at 11:39 Normal [facility] VC EXT VENOUS RT LIMITEDon 0 12-26-2021 VC EXT VENOUS RT LIMITED Patient: KEEGAN AUSTIN Exam Date: 12/26/2021 : 1965 Gender:M Ordering : DR RUBI MATTHEWS M.D. Admission #: [id number] Family : Order #: [id number] CLICK HERE TO VIEW EXAM RADIOLOGY REPORT [...] Matthews MD on 12/26/2021 at 11:25 Normal [facility] VC ENDOVENOUS ABL 1ST V RTon 12-21-2021 VC ENDOVENOUS ABL 1ST V RT Patient: KEEGAN AUSTIN Exam Date: 12/21/2021 : 1965 Gender:Mehul Ordering : DR RUBI MATTHEWS M.D. Admission #: [id number] Family : Order #: [id number] CLICK HERE TO VIEW EXAM RADIOLOGY REPORT PROCEDURE: VEIN CENTER ENDOVENOUS ABLATION FIRST VEIN RIGHT COMPARISON: None. INDICATIONS: Pain co-occurrent and due to varicose veins of bilateral legs I83.813 OPERATIVE REPORT: The risks and benefits of the procedure had been previously discussed, and were rediscussed at length. Informed written consent was obtained by me and Jose R rcuz. Time out procedure was performed. The right [...] Allison Gonzalez M.D. on 12/21/2021 at 10:02 [facility] CTA ABD FAUSTO WWO CON LE [...] ALLISON GONZALEZ Date: 2021-12-01 16:44 Normal [facility] Complete Blood Count with Au to Diffon 11-30-2021 Basophils (Bld) [#/Vol] 0.10 10*3/uL Normal 0.00-0.20 [facility] [employer] Supervisor Comment on above: Performed By: #### C MP, CBCAD #### [facility] [address], [place] [id number] Basophils/100 WBC (Bld) 1.1 % Normal [facility] [employer] Supervisor Comment on above: Performed By: #### C MP, CBCAD #### [facility] [address], [place] [id number] Eosinophils (Bld) [#/Vol] 0.20 10*3/uL Normal 0.02-0.50 [facility] Specialist Comment on above: Performed By: #### C MP, CBCAD #### [facility] [address], [place] [id number] Eosinophils/100 WBC (Bld) 2.2 % Normal [facility] [employer] Supervisor Comment on above: Performed By: #### C MP, CBCAD #### [facility] [address], [place] [id number] Erythrocyte distribution width (RBC) [Ratio] 13.6 % Normal 11.0-15.0 [facility] [employer] Supervisor Comment on above: Performed By: #### C MP, CBCAD #### [facility] [address], [place] [id number] Hematocrit (Bld) [Volume fraction] 51.3 % High 38.5-50.0 [facility] Comment on above: Performed By: #### C MP, CBCAD #### [facility] [address], [place] [id number] Hemoglobin (Bld) [Mass/Vol] 16.5 g/dL Normal 13.0-17.1 [facility] [employer] Supervisor Comment on above: Performed By: #### C MP, CBCAD #### [facility] [address], [place] [id number] Lymphocytes (Bld) [#/Vol] 1.8 10*3/uL Normal 0.9-3.9 [facility] Comment on above: Performed By: #### C MP, CBCAD #### [facility] [address], [place] [id number] Lymphocytes/100 WBC (Bld) 20.0 % Normal [facility] Comment on above: Performed By: #### C MP, CBCAD #### [facility] [address], [place] [id number] MCH (RBC) [Entitic mass] 27.7 pg Normal 27.0-33.0 [facility] Comment on above: Performed By: #### C MP, CBCAD #### [facility] [address], [place] [id number] MCHC (RBC) [Mass/Vol] 32.2 g/dL Normal 32.0-36.0 [facility] Comment on above: Performed By: #### C MP, CBCAD #### [facility] [address], [place] [id number] MCV (RBC) [Entitic vol] 86 fL Normal 80-100 [facility] Comment on above: Performed By: #### C MP, CBCAD #### [facility] [address], [place] [id number] Monocytes (Bld) [#/Vol] 0.7 10*3/uL Normal 0.2-0.9 [facility] Comment on above: Performed By: #### C MP, CBCAD #### [facility] [address], [place] [id number] Monocytes/100 WBC (Bld) 8.2 % Normal [facility] Comment on above: Performed By: #### C MP, CBCAD #### [facility] [address], [place] [id number] Neutrophils (Bld) [#/Vol] 6.1 10*3/uL Normal 1.5-7.8 [facility] Comment on above: Performed By: #### C MP, CBCAD #### [facility] [address], [place] [id number] Neutrophils/100 WBC (Bld) 68.1 % Normal [facility] Comment on above: Performed By: #### C MP, CBCAD #### [facility] [address], [place] [id number] Platelet mean volume (Bld) [Entitic vol] 11.90 fL Normal 7.50-12.50 [facility] Comment on above: Performed By: #### C MP, CBCAD #### [facility] [address], [place] [id number] Platelets (Bld) [#/Vol] 224 10*3/uL Normal 140-400 [facility] Comment on above: Performed By: #### C MP, CBCAD #### [facility] [address], [place] [id number] RBC (Bld) [#/Vol] 5.95 10*6/uL High 4.20-5.80 [facility] Specialist Comment on above: Performed By: #### C MP, CBCAD #### [facility] [address], [place] [id number] RDW-SD 42.8 fL Normal 37.0-50.0 [facility] Specialist Comment on above: Performed By: #### C MP, CBCAD #### [facility] [address], [place] [id number] WBC (Bld) [#/Vol] 9.0 10*3/uL Normal 3.8-11.0 [facility] Comment on above: Performed By: #### C MP, CBCAD #### [facility] [address], [place] [id number] [facility] 11-30-2021 Albumin [Mass/Vol] 4.6 g/dL Normal 3.6-5.1 [facility] Comment on above: Performed By: #### C MP, CBCAD #### [facility] [address], [place] [id number] Albumin/Globulin [Mass ratio] 1.8 {ratio} Normal 1.0-2.5 [facility] Comment on above: Performed By: #### C MP, CBCAD #### [facility] [address], [place] [id number] ALP [Catalytic activity/Vol] 44 U/L Normal 40-129 [place] [employer] Supervisor Comment on above: Performed By: #### C MP, CBCAD #### [facility] [address] [facility] [place] [id number] ALT [Catalytic activity/Vol] 30 U/L Normal 9-46 [facility] Comment on above: Result Comment: 05/31 Female reference range changed. Performed By: #### C MP, CBCAD #### [facility] [address] [facility] [place] [place] [id number] Anion gap [Moles/Vol] 18 mmol/L Normal 12-20 [facility] Comment on above: Result Comment: Effe ctive 07/06/2019 reference range changed. Performed By: #### C MP, CBCAD #### [facility] [address] [facility] [place] [id number] AST [Catalytic activity/Vol] 29 U/L Normal 10-40 [facility] Comment on above: Performed By: #### C MP, CBCAD #### [facility] [address] [facility] [place] [id number] Bilirubin [Mass/Vol] 0.49 mg/dL Normal 0.30-1.20 [facility] Comment on above: Performed By: #### C MP, CBCAD #### [facility] [address], [place] [id number] BUN/CREA 14 Ratio Normal 6-22 [facility] Comment on above: Performed By: #### C MP, CBCAD #### [facility] [address] [facility] [place] [id number] Calcium [Mass/Vol] 9.6 mg/dL Normal 8.6-10.2 [facility] Comment on above: Performed By: #### C MP, CBCAD #### [facility] [address] [facility] [place] [id number] Chloride [Moles/Vol] 102 mmol/L Normal 98-107 [facility] Comment on above: Performed By: #### C MP, CBCAD #### [facility] [address] [facility] [place] [id number] CO2 [Moles/Vol] 24 mmol/L Normal 20-31 [facility] Comment on above: Performed By: #### C MP, CBCAD #### [facility] [address], [place] [id number] Creatinine [Mass/Vol] 1.0 mg/dL Normal 0.7-1.4 [facility] Specialist Comment on above: Performed By: #### C MP, CBCAD #### [facility] [address], [place] [id number] eGFRAA 96 mL/min/1.73m2 Normal >60 [facility] Specialist Comment on above: Performed By: #### C MP, CBCAD #### [facility] [address], [place] [id number] eGFRNAA 79 mL/min/1.73m2 Normal >60 [facility] Specialist Comment on above: Performed By: #### C MP, CBCAD #### [facility] [address], [place] [id number] Globulin (S) [Mass/Vol] 2.6 g/dL Normal 1.9-3.7 [facility] Comment on above: Performed By: #### C MP, CBCAD #### [facility] [address], [place] [id number] Glucose [Mass/Vol] 77 mg/dL Normal 65-99 [facility] [employer] Loading Supervisor Comment on above: Result Comment: For FASTING Glucose --- ADA reference ranges: Normal 65-99 mg/dl Prediabetes 100-125 Diabetes >/= 126 Performed By: #### C MP, CBCAD #### [facility] [address], [place] [id number] Potassium [Moles/Vol] 4.8 mmol/L Normal 3.5-5.5 [facility] Comment on above: Performed By: #### C MP, CBCAD #### [facility] [address] [facility] [place] [id number] Protein [Mass/Vol] 7.2 g/dL Normal 6.1-8.1 [facility] [employer] Supervisor Comment on above: Performed By: #### C MP, CBCAD #### [facility] [address] [facility] [place] [id number] Sodium [Moles/Vol] 140 mmol/L Normal 135-146 [facility] [facility] [place] [employer] [facility] Supervisor Comment on above: Performed By: #### C MP, CBCAD #### [facility] [address] [place] [id number] Urea nitrogen [Mass/Vol] 14 mg/dL Normal 7-25 [facility] Specialist Comment on above: Performed By: #### C MP, CBCAD #### [facility] [address] [place], [place] [id number] Q - CULTURE,URINE,ROUTINEon 11-30-2021 CULTURE, URINE, ROUTINE SEE NOTE Normal [facility] Specialist Comment on above: Order Comment: [facility] Testing performed at: [employer], [employer] [facility], [address] [place] [address], [address] [place] [address], [phone], Audit Intern: Miguel Angel Kern MD [facility] Collection Date/Time: [id number] [facility] Results Received Date/Time: [facility] Reported Date/Time: Result Comment: CULT URE, URINE, ROUTINE Micro Number: [id number] Test Status: Final Specimen Source: Urine Specimen Quality: Adequate Result: No Growth Performed By: #### [id number] #### [facility] [address] [place] [address] Q - CULTURE,URINE,ROUTINEon 11-21-2021 CULTURE, URINE, ROUTINE SEE NOTE Abnormal [facility] Comment on above: Order Comment: [facility] performed at: [employer], [employer] [facility] [place] [facility], [address] [place] [address], [address] [place] [address], [phone], Audit Intern: Miguel Angel Kern MD [facility] Date/Time: [id number] [facility] Results Received Date/Time: [id number] [facility] Reported Date/Time: [id number] FASTING: NO Result Comment: CULT URE, URINE, ROUTINE Micro Number: [id number] Test Status: Final Specimen Source: Urine Specimen [...] 6 [id number] #### [facility] [address] [place] [address] VC COMP CONSULTATIONon 11-15 VC COMP CONSULTATION Patient: KEEGAN LOPEZ Exam Date: 11/15/2021 : 1965 Gender:M Ordering : DR RUBI MATTHEWS M.D. Admission #: [id number] Family : Order #: [id number] CLICK HERE TO VIEW EXAM RADIOLOGY REPORT [...] in 2020 where he was seen in [facility] requiring Lovenox injections. The patient has [...] not (more content not included)... Normal [facility] VC VENOUS REFLUX TERRELL LMTon 0 11-15-2021 VC VENOUS REFLUX TERRELL LMT Patient: KEEGAN AUSTIN Exam Date: 11/15/2021 : 1965 Gender:M Ordering : DR RUBI MATTHEWS M.D. Admission #: [id number] Family : Order #: [id number] CLICK HERE TO VIEW EXAM RADIOLOGY REPORT [...] Flow: Deep venous reflux in popliteal vein. Senior C Developer: Mid/post calf perf 5.9 mm, 1.0s. Multiple [...] Matthews MD on 11/15/2021 at 14:18 Normal [facility] COAGULATIONOrdered By: Shoshana Solnao on 10-19-2021 aPTT Coag (PPP) [Time] 64.8 s High 25.1 - 36.5 second(s) [facility] Auto Coag INR Coag (PPP) [Relative time] 3.6 {INR} Invalid Interpretation Code [facility] Auto Coag PT Coag (PPP) [Time] 42.5 s High 10.2 - 12.9 second(s) [facility] Auto Coag SR-XR Spine Cervical 2 or 3 Views IMPORTon 08-17-2019 SR-XR Spine Cervical 2 or 3 Views IMPORT Images were obtained outside of [facility] [id number] Normal [facility] SR-XR Spine Cervical 2 or 3 Views IMPORTon 08-05-2019 SR-XR Spine Cervical 2 or 3 Views IMPORT Images were obtained outside of [facility] [id number] Normal [facility] Vital Signs Date Time Vital Sign Value Performing Clinician Niyah ayoub 09-02-2023 08:56-0500 Body temperature 97.52 [degF] Yaakov Betancourt [facility] 09-02-2023 08:56-0500 Diastolic blood pressure 86 mm[Hg] Yaakov Betancourt [facility] 09-02-2023 08:56-0500 Heart rate 71 /min Yaakov Betancourt [facility] 09-02-2023 08:56-0500 Respiratory rate 16 /min Yaakov Betancourt [facility] 09-02-2023 08:56-0500 SaO2% (BldA) [Mass fraction] 97 % Yaakov Betancourt [facility] 09-02-2023 08:56-0500 Systolic blood pressure 188 mm[Hg] Yaakov Betancourt [facility] 09-10-2022 09:00-0400 Hourly Rounding [facility] 09-10-2022 09:00-0400 [facility] 09-10-2022 08:00-0400 Hourly Rounding [facility] 09-10-2022 08:00-0400 [facility] 09-10-2022 07:51-0400 SaO2% (BldA) [Mass fraction] 97 % [facility] 09-10-2022 07:00-0400 Body temperature 97.52 [degF] [facility] 09-10-2022 07:00-0400 Diastolic blood pressure 96 mm[Hg] [facility] 09-10-2022 07:00-0400 Heart rate 76 /min [facility] 09-10-2022 07:00-0400 Hourly Rounding [facility] 09-10-2022 07:00-0400 [facility] 09-10-2022 07:00-0400 Respiratory rate 16 /min [facility] 09-10-2022 07:00-0400 Systolic blood pressure 150 mm[Hg] [facility] 09-10-2022 02:32-0400 Blood Pressure Location [facility] 09-10-2022 02:32-0400 Body temperature 97.34 [degF] [facility] 09-10-2022 02:32-0400 Diastolic blood pressure 89 mm[Hg] [facility] 09-10-2022 02:32-0400 Heart rate 89 /min [facility] 09-10-2022 02:32-0400 SaO2% (BldA) [Mass fraction] 95 % [facility] 09-10-2022 02:32-0400 Systolic blood pressure 125 mm[Hg] [facility] 09-09-2022 20:00-0400 Blood Pressure Location [facility] 09-09-2022 20:00-0400 Body temperature 97.34 [degF] [facility] 09-09-2022 20:00-0400 Diastolic blood pressure 90 mm[Hg] [facility] 09-09-2022 20:00-0400 Heart rate 72 /min [facility] 09-09-2022 20:00-0400 Mean blood pressure 113 mm[Hg] [facility] 09-09-2022 20:00-0400 Systolic blood pressure 160 mm[Hg] [facility] 09-09-2022 15:58-0400 Mean blood pressure 91 mm[Hg] [facility] 09-09-2022 11:08-0400 Mean blood pressure 117 mm[Hg] [facility] 09-09-2022 04:15-0400 Mean blood pressure 112 mm[Hg] [facility] 09-09-2022 04:15-0400 Respiratory rate 18 /min [facility] 09-08-2022 23:28-0500 Heart rate 67 /min [facility] 09-08-2022 23:00-0500 Mean blood pressure 104 mm[Hg] [facility] 09-08-2022 23:00-0500 Respiratory rate 19 /min [facility] 09-08-2022 22:59-0500 Heart rate 82 /min [facility] 09-08-2022 22:59-0500 Respiratory rate 16 /min [facility] 09-08-2022 22:54-0500 Respiratory rate 16 /min [facility] 09-08-2022 18:18-0500 gluc 131 mg/dL [facility] 09-08-2022 18:18-0500 gluc Favianzayra [facility] 01-04-2022 12:12-0400 Body temperature 98.24 [degF] [facility] 01-04-2022 12:12-0400 Diastolic blood pressure 80 mm[Hg] [facility] 01-04-2022 12:12-0400 Heart rate 80 /min [facility] 01-04-2022 12:12-0400 Respiratory rate 18 /min [facility] [place] 01-04-2022 12:12-0400 SaO2% (BldA) [Mass fraction] 96 % [facility] [place] 01-04-2022 12:12-0400 Systolic blood pressure 140 mm[Hg] [facility] [place] 10-19-2021 15:39-0400 Body temperature 98.24 [degF] Sarah Allsop [facility] 10-19-2021 15:39-0400 Diastolic blood pressure 90 mm[Hg] Sarah Allsop [facility] 10-19-2021 15:39-0400 Heart rate 81 /min Sarah Allsop [facility] 10-19-2021 15:39-0400 Respiratory rate 18 /min Sarah Allsop [facility] 10-19-2021 15:39-0400 SaO2% (BldA) [Mass fraction] 97 % Sarah Allsop [facility] 10-19-2021 15:39-0400 Systolic blood pressure 150 mm[Hg] Sarah Allsop [facility] Encounters Encounter Date Encounter Type Care Provider Facility Start: 09-02-2023 End: 09-02-2023 Emergency department patient [facility] [place] Start: 09-02-2023 End: 09-02-2023 Emergency department patient visit Yaakov Betancourt [facility] Start: 07-25-2023 End: 07-25-2023 ambulatory SARAH BRUCE Not Available Start: 09-14-2022 End: 11-29-2022 ambulatory Favian HILL [place] Start: 09-08-2022 End: 09-10-2022 ambulatory Allison Antunez [facility] Start: 09-08-2022 End: 09-10-2022 Observation Favian HILL [facility] Start: 05-15-2022 End: 05-16-[address] RUBI [...] End: 01-10-2022 Patient encounter procedure Sarah Bruce [facility] Start: 01-05-2022 End: 01-06-[address] RUBI MATTHEWS Facility:[facility] Start: 01-04-2022 End: 01-04-2022 Emergency department patient visit Ronald Awad [facility] Start: 12-26-2021 End: 12-27-[address] RUBI MATTHEWS Facility:[facility] Start: 12-21-2021 End: 12-22-[address] RUBI MATTHEWS Facility:[facility] Start: 12-19-2021 End: 12-28-2021 Pre-admission assessment Sarah Bruce [facility] Start: 12-01-2021 End: 12-02-[address] RUBI MATTHEWS Facility:[facility] Start: 11-15-2021 End: 11-16-[address] RUBI MATTHEWS Facility:[facility] Start: 10-31-2021 End: 11-01-[address] RUBI MATTHEWS Facility:[facility] Start: 10-19-2021 End: 10-19-2021 Emergency department patient visit Sarah Bruce [facility] Procedures Date Procedure Procedure Detail Performing Clinician Start: 08-18-2020 Cheilectomy Sarah hope Start: 08-18-2020 Excision of bunion Geovanna andrewbree Allsop Comment on above: tim Start: 12-18-2019 Arthroscopy of knee Mariah nifbree Allsop Comment on above: Left Start: 08-04-2019 Cervical arthrodesis Nils jade Allsodelfin Comment on above: 1. Exploration of pr evious C5-7 fusion 2. Posterior segmental spine instrumentation C3-T1 with globus Quartex titanium screw and joshua system 3. Local autograft and allograft for spine surgery 4. C3, C4, partial C5 laminectomies 5. Posterolateral fusion C3-4, 4-5, and C7-T1 Start: 06-17-2019 Epidural injection o f cervical spine using fluoroscopic guidance Sarah Pecksop Comment on above: C7-T1 o% relief Start: 05-20-2019 Epidural injection o f cervical spine using fluoroscopic guidance Sarah Pecksop Comment on above: C7-T1 NIA- 100% reli ef x 2 days only then returned Start: 04-08-2019 Epidural injection o f cervical spine using fluoroscopic guidance Sarah Bruce Comment on above: C7-T1 NIA 80% relief Start: 07-01-2016 Jarocho garciabernarddelfin Start: 09-21-2014 right shoulder arthr oscopy with glenohumeral debridement, subacromial decompression, partial distal clavulectomy Sarah Bruce Start: 07-01-2012 Entire shoulder nabil on (body structure) Sarah Bruce Comment on above: Left shoulder scope neck surgery Sarah Bruce Immunizations Immunization Date Immunization Notes Care Provider Chiquita grigsby 09-02-2023 tetanus toxoid, redu zenia diphtheria toxoid, and acellular pertussis vaccine, adsorbed Yaakov Betancourt [facility] 09-06-2021 tetanus toxoid, redu zenia diphtheria toxoid, and acellular pertussis vaccine, adsorbed; Translations: [Boostrix (Tdap)] Sarah Bruce [facility] 07-19-2015 tetanus toxoid, redu zenia diphtheria toxoid, and acellular pertussis vaccine, adsorbed Sarahisidro Bruce [facility] Payers Date Payer Category Payer Unknown [id number] 1965 Unknown [id number] .16.84 [id number] 1965 Unknown [id number] .16.84 0.1.541973.3.579.2.593 1965 Unknown [id number] .16.84 0.1.492883.3.579.2.593 1965 Unknown [id number] 2.16.84 0.1.752921.3.579.2.593 1965 Unknown [id number] 2.16.84 0.1.885153.3.579.2.593 1965 Unknown [id number] 2.16.84 0.1.180570.3.579.2.593 1965 Unknown [id number] 2.16.84 0.1.685908.3.579.2.593 1965 Unknown [id number] 2.16.84 0.1.448184.3.579.2.593 1965 Unknown [id number] 2.16.84 0.1.559064.3.579.2.593 1965 Unknown [id number] 2.16.84 0.1.441675.3.579.2.593 1965 Unknown [id number] 2.16.84 0.1.756802.3.579.2.593 1965 Unknown [id number] 2.16.84 0.1.841333.3.579.2.593 1965 Unknown [id number] 2.16.84 0.1.478565.3.579.2.593 1965 Unknown [id number] 2.16.84 0.1.216534.3.579.2.1259 1965 Unknown [id number] 2.16.8 40.1.354265.3.579.2.727 1965 Unknown [id number] 2.16.8 40.1.730322.3.579.2.727 1965 Unknown [id number] 2.16.8 40.1.937055.3.579.2.727 1959 Medicaid [id number] 1959 Unknown [id number] Social History Date Type Detail Facility Start: 12-23-2018 Tobacco smoking status Smokele ss tobacco user within last 30 days [facility] Sex Assigned At Male [facility] Tobacco [facility] Comment on above: former smoker Tobacco smoking status No Smokin g Status Entered [facility] Medical Equipment Procedure Code Equipment Code Equipment [...] EST, Weight Dosing Start: 09-06-2021 CERVICAL FUSION PARDEEP Knapp MD, Maximus A [...] Neck FDA Start: 08-04-2019 CERVICAL FUSION PARDEEP Kanpp MD, Maximus A 08/04/19 Unknown Neck FDA Start: 08-04-2019 BUNIONECTOMY Dol ce DPM, Michael D 08/18/20 Non Biological Toe FDA Start: 08-18-2020 CERVICAL FUSION PARDEEP Knapp MD, Maximus A [...] Biological Toe FDA Start: 08-18-2020 CERVICAL FUSION PARDEEP Knapp MD, Maximus A [...] Assessment Result Facility 09-02-2023 Functional Status N/A [facility] 09-08-2022 Functional Status No [facility] 09-08-2022 Functional Status [facility] 01-04-2022 Functional Status N/A [facility] Clinical Notes 10-19-2021 to 09-02-2023 Note Date [...] instructions at home: Medicines Take or apply hsrl-iyn-iduicmb and prescription medicines only as told by [...] and water are not available, use hand assembly stock supervisor. ?Change your dressing as told by your [...] provider. Document Revised: 07/18/2022 Document Reviewed: 07/18/2022 [employer] Patient Education 2022 [employer]. Follow Up Care 09/02/2023 08:52:55 With:Sarah Azul Address: [address] [place] [address] Business (1) When:09/05/2023 09:50:08 [facility] 09-16-2022 Note Microbiology PROCEDURE: Blood Culture Charcoal [...] Locations R1: [facility], [address] [place] [address], [address] [place] [address], [facility] Comment on above: Performed By: #### 2 [id number] #### [facility] [address] [place] [id number] 09-16-2022 Note Microbiology PROCEDURE: Blood Culture Charcoal [...] Locations R1: [facility] performed at: [facility], [address] [place] [address], [id number], [facility] Comment on above: Performed By: #### 1 [id number] #### [facility] [address] [place] [address] 09-10-2022 Evaluation + Plan note Extrac bobby from: Title:Discharge Note Author:Favian HILL MD te:09/10/22 Discharged to - Home independently Discharge Diet(s): Low Sodium- 2000 mg (09/10/22 09:11:00) Prescriptions Bacitracin top 500 units/g Oint TUBE (15 gram), 1 mary ann, Topical, QID meclizine 12.5 mg Tab, 12.5 mg= 1 tab(s), Oral, q6hr, PRN Larue 325 mg-5 mg oral tablet, 1 tab(s), [...] Tab, 0.5 mg= 1 tab(s), Oral, Daily Larue 325 mg-5 mg oral tablet, 1 tab(s), Oral, q6hr, PRN omeprazole 40 mg Cap-DR, 40 mg= 1 cap(s), Oral, Bedtime simvastatin 20 mg Tab, 20 mg= 1 tab(s), Oral, Once a day (at bedtime) Zetia 10 mg Tab, 10 mg= 1 tab(s), Oral, Bedtime With When Contact Information Sarah Bruce Within 7 to [address] [facility] [place] [address]- Business (1) Additional Instructions: Call for followup appointment Call physician if symptoms worsen Tulio LAZARO, MIGUEL Matthews Within [address] to [address] [facility] [place] [address]- Additional Instructions: Benign Positional Vertigo Extracted from: [...] to ensure accuracy , however, inadvertently computerized respiratory therapist assistant mistakes may be present . Extracted from: Title:Consult Note-neurology Author:Fidel Shoemaker RN Date:09/09/22 Reason for consult: ASSESSMENT: Dizziness with [...] Extracted from: Title:Admission H & P Author:Favian HILL MD ate:09/08/22 57-year-old male with past m [...] made to ensure accuracy, however, inadvertently computerized respiratory therapist assistant mistakes may be present. Favian Hill Hospitalist [facility]03-13-2023 NoteAdmission and Discharge Information Admitting Physician - OSKAR LAZARO, Favian Landeros Consulting Physician - Tulio LAZARO, Allison Yancey [...] cerebral arteries are unremarkable. Ordering Provider: Favian HILL Signed By: Scooter Tovar MD, V. 09/09/22 [...] COMPARISON: Cervical spine x-rays from 04/18/2021 TECHNIQUE: Tocl-wg-ypepyh images of the common carotid arteries, carotid [...] Vertebral arteries are codominant. Ordering Provider: Favian HILL Signed By: Scooter Tovar MD, V. 09/09/22 [...] brain parenchyma or t (more content not included)...[facility]:Result Comment: Electronically Signed By: Favian HILL MD\.denae\Date and Time Signed: 09/10/22 09:24 [id number] Hospital Discharge instructions Patient Education 09/10/2022 09:11:46 [...] in ear, nose, and throat (ENT) problems (licensed psychologist manager) or a provider who specializes in disorders [...] are safe for you. General instructions Take xcgv-jmr-revlzee and prescription medicines only as told by [...] 03/25/2007 Document Revised: 11/26/2018 Document Reviewed: 11/26/2018 [employer] Patient Education 2020 [employer]. Follow Up Care 09/08/2022 18:09:39 With:Sarah Bruce Address: [address] [place] [id number]- Business (1) When:09/12/2022 09:00:00 Comments:Appointment is with Kirstin Joshi.Call physician if symptoms worsen With:Tulio LAZARO, MIGUEL Matthews Address: [facility] [address] [place] [id number] Business (1) When:09/17/2022 10:00:00 [facility]03-12-2023 NotePT Evaluation done this date. Pt. with on AM-PAC this date. He has no dizziness with activityat this time and is awaiting MRI. Currently with no acute PT needs but if dizziness returns and MRIis clear recommend outpatient vestibular PT.[facility] 09-08-2022 NoteBasic Information Accompanied by: No [...] side I will get dizzy. Today at [facility] he was checking his blood pressure [...] 19:16:00) Lymph Auto: 26.3 % (09/08/22 19:16:00) [place] Auto: 8.1 % (09/08/22 19:16:00) Eos Auto: 3.7 % (09/08/22:16:00) Basophil Auto: 1 % (09/08/22 19:16:00) Neutro Absolute: 4.9 E9/L (09/08/22 19:16:00) Lymph Absolute: 2.1 E9/L (09/08/22 19:16:00) [place] Absolute: 0.6 E9/L (09/08/22 19:16:00) Eos Absolute: 0.3 E9/L (09/08/22:16:00) Basophil Absolute: 0.1 E9/L (09/08/22:16:00) PT: 32.1 second(s) High (09/08/22:16:00) INR: 2.8 (09/08/22:16:00) PTT: 50.7 second(s) High (09/08/22:16:00) Glucose Lvl: 102 mg/dL (09/08/22:16:00) BUN: 12 mg/dL (09/08/22:16:00) Creatinine: 0.9 mg/dL (09/08/22:16:00) eGFR: >60 (09/08/22:16:00) eGFR AA: >60 (09/08/22:16:00) BUN/Creat Ratio: 13 (09/08/22:16:00) Sodium Lvl: 136 mmol/L (09/08/22:16:00) Potassium Lvl: 3.6 mmol/L (09/08/22:16:00) Chloride: 106 mmol/L (09/08/22:16:00) CO2: 21 mmol/L (09/08/22:16:00) AGAP: 13 mEq/L (09/08/22:16:00) Calcium Lvl: 8.8 mg/dL Low (03/11/23 19:16:00) Alk Phos: 40 Int._Unit/L (09/08/22 19:16:00) ALT: [...] mg/dL High (09/08/22 18:16:00) POC Device SN: [id number] (09/08/22 18:16:00) POC User ID: [id number] (09/08/22 18:16:00) POC Username: SHAHBAZ CIFUENTES (09/08/22 [...] * Preliminary * 09/08/22 (more content not included)...[facility]:Result Comment: Electronically Signed By: OSKAR LAZARO, Favian Landeros\.br\Date and Time Signed: 09/08/22 21:53 [id number] Hospital Discharge instructions Patient Education 01/04/2022 13:38:43 [...] exercise. Managing pain, stiffness, and swelling Take pcnx-adt-ztanmod and prescription medicines only as told by [...] 06/17/2006 Document Revised: 05/30/2018 Document Reviewed: 07/17/2017 [employer] Patient Education 2020 [employer]. Follow Up Care 01/04/2022 12:03:42 With:Sarah Bruce DO, FAM Address: [address] [place] [address]- When:01/07/2022 [facility]07-07-2022 Evaluation + Plan noteExtracted from: Title:ED Note Author:Thania Mcgregor PA-C Date :01/04/22 1. 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 How is this treated? This condition may [...] detergents, or perfumes. Medicines Take or use hctb-lfz-ghpxwkk and prescription medicines only as told by [...] 09/26/2006 Document Revised: 11/17/2018 Document Reviewed: 11/17/2018 [employer] Patient Education 2020 [employer]. 10/19/2021 17:34:39 Chronic Venous Insufficiency Chronic Venous [...] and reduce swelling in your legs. Take lkri-lix-khvxeqe and prescription medicines only as told by [...] 10/21/2007 Document Revised: 03/10/2019 Document Reviewed: 03/10/2019 [employer] Patient Education 2020 [employer] Follow Up Care 10/19/2021 15:32:48 With:Call your PCP tomorrow or follow with the Coumadin clinic regarding your supratherapeutic INR. You may skip tomorrow's dose of Coumadin. Address:Unknown When: Unknown With:Sarah Bruce Address: [address] [place] [address] [facility] (1) When:10/20/2021 17:30:44 [facility]04-21-2022 Evaluation + Plan noteExtracted from: Title:ED Note Author:Vaishnavi Pineda PA-C Terrell e:10/19/21 1. Calf pain (M79.669: Pain [...] voices understanding and is agreeable to plan. [facility] Future Appointments Appointment Date:01/09/2022 03:00:00 PM Scheduled Provider: Location:.CAT SCAN Appointment Type:CT Abdomen/Pelvis Combo (FT) Future Scheduled Tests Radiology* CT Abdomen/Pelvis w/o Contrast 01/09/22 [facility] N[facility] No data available for this section [facility] No data available for this section [facility] No data available for this section [facility] Summary Purpose Family History No Family History [...] section and content) DATE CREATED AUTHOR 08/21/2019 [facility] DATE CREATED AUTHOR AUTHOR'S ORGANIZ ATION 12/04/2021 [facility] dical Specialist DATE CREATED AUTHOR AUTHOR'S ORGANIZ ATION 05/19/2022 [facility] DATE CREATED AUTHOR AUTHOR'S ORGANIZ ATION 07/27/2023 [facility] dical Specialists EPIC DATE CREATED AUTHOR AUTHOR'S ORGANIZ ATION 09/07/2023 Khurram Clark [facility] Care Team (unrecognized sect ion and content) Personnel Name: Azul HEREDIA Sarah Milena Address: [address] [place] [address] Personnel Name: Azul DO Sarah D Address: [address] [place] [address] Personnel Name: Azul HEREDIA Sarah Milena Address: [address] [place] [address] Personnel Name: Azul HEREDIA Sarah Milena Address: Address: [address] [place] [address] Personnel Name: Azul HEREDIA Sarah Milena Address: Address: [address] [place] [address] FOR RECORDS PERTAINING TO PATIENTS WHO ARE [...] BE BASED ON THE PRIMARY CLINICAL RECORDS. [facility]. provides no warranty or guarantee of the accuracy or completeness of information in this document.
== END 2023-11-22 09:55 | disposition home or self-care (01) ==
LOC: VC 09:54
PROVIDERS: PCP Radiology Diagnostic Radiology; Visit Provider Radiology Diagnostic Radiology
DX: I80.02 Phlebitis and thrombophlebitis of superficial vessels of left lower extremity (principal)
CPT/HCPCS: 93971; G0463

== ENCOUNTER 2023-11-28 07:51 | Outpatient (OUT) | payer MEDICARE, MEDICAID, SELFPAY ==
--- NOTE | 2023-11-28 07:55 | VEIN_ITS ---
[address] [address] Patient Name: KEEGAN AUSTIN MRN: [id number] date: 1965 Sex: M Assigned Patient Location: Current Patient Location: Accession/Order Number: [id number] Exam Date: 11/28/2023 07:55 Report Date: 11/28/2023 10:01 At the request of: RUBI MATTHEWS Procedure: VC INJ Foam Sclerosant WUS TIE MAKER PROCEDURE: VC INJ Foam Sclerosant WUS TIE MAKER COMPARISON: None. HISTORY: Pain due to varicose veins of bilateral legs I83.813 Pre-operative Diagnosis: CEAP class C3 venous insufficiency with pain, tenderness, edema and incompetent bilateral saphenous and varicose vein(s), chronic venous insufficiency bilateral leg secondary to venous incompetence Post-operative Diagnosis: CEAP class C3 venous insufficiency with pain, tenderness, edema and incompetent bilateral saphenous and varicose vein(s), chronic venous insufficiency bilateral leg secondary to venous incompetence Procedure Performed: 1. Ultrasound-guided microfoam chemical ablation with Varithenaregistered 2. Intraoperative ultrasound guidance No charge for the right leg Anesthesia: None Indications for Procedure: 58-year-old male who presents with a long history of lower extremity pain and swelling. The patient failed conservative medical therapy including medical compression stockings, exercise and analgesics. Prior procedures include endovenous laser ablation. Multiple incompetent varicosities of the left leg. Duplex scan showed reflux and enlarged diameters up to 3.5 mm. The patient underwent informed consent including management options where the complications of infection, bleeding, pain, and skin injury were discussed. Particular attention was spent discussing thrombus extension and deep vein thrombosis as well as the possibility of pulmonary embolus and treatment with oral or injectable blood thinners. Procedure: The patient walked to the procedure room. All applicable staff donned appropriate apparel. A procedure timeout was performed to confirm correct patient, correct extremity, correct procedure, and correct room set-up including presence of all applicable supplies, devices, and drugs. A duplex ultrasound, performed by myself confirmed the location and incompetence of branch saphenous varicosities and their course was marked on the skin together with the dilated tributaries. The extent of treatment of the vein and the associated varicosities was determined through ultrasound mapping. The skin was prepped and then punctured with a butterfly needle and advanced under ultrasound guidance. The Varithenaregistered canister was activated and the canister was primed and purged as required in the instructions for use. Varithenaregistered was drawn into a sterile syringe. The following injections were made: 8 cc injected into a left 3.5 mm distal medial lower leg varicose vein 7 cc injected into a incompetent patent 7 mm distal right great saphenous vein Varithenaregistered was slowly administered at 0.5-1.0 cc/second with close observation by ultrasound of its course in the vessels. Total volume utilized was: 15cc. Following administration of Varithenaregistered the leg was elevated and the patient was asked to repeatedly dorsiflex the ankle to limit flow of Varithenaregistered into perforating veins. Once appropriate spasm had been confirmed in the treated veins, the vascular catheter was removed from the leg and light pressure was applied over the puncture site for hemostasis. The common femoral and deep superficial veins were then evaluated for flow and compressibility prior to dressing placement. The lower extremity was kept elevated at 45 degrees above the horizontal and cording material was applied over the saphenous segments and tributaries to allow for eccentric compression over the target vessels including the targeted saphenous vein(s). A multilayer dressing was applied consisting of foam pads, coban and thigh-high 20-30 mm Hg compression elastic support hose were placed on the patient. The leg was lowered only after compression had been applied and the patient was immediately ambulatory. The patient ambulated 10 minutes under supervision and was without apparent concerns at time of release. Post-care instructions include advising patient to keep post-treatment bandages in place and dry for 48 hours, avoid extended periods of inactivity, avoid heavy exercise for one week, wear compression stockings on the treated leg continuously for two weeks, to walk daily for 10 minutes over the next month. The patient was instructed to take an anti-inflammatory medicine as needed and to follow up for color duplex scan of the Saphenous veins, the treated branch saphenous varicosities, the adjacent deep veins, and additional treatment within 7 days. PERSONNEL: Jose R Shahid RN Electronically authenticated by: RUBI MATTHEWS Date: 11/28/2023 10:01
== END 2023-11-28 07:52 | disposition home or self-care (01) ==
LOC: VC 07:51
PROVIDERS: PCP Radiology Diagnostic Radiology; Visit Provider Radiology Diagnostic Radiology
DX: I83.813 Varicose veins of bilateral lower extremities with pain (principal)
CPT/HCPCS: 36466

== ENCOUNTER 2023-12-05 09:37 | Outpatient (OUT) | payer MEDICARE, MEDICAID, SELFPAY ==
--- NOTE | 2023-12-05 09:38 | VEIN_ITS ---
Patient Name: KEEGAN AUSTIN MR#: [id number] : 1965 Exam Date: 12/05/2023 Ordering Doctor: DR RUIB MATTHEWS M.D. RADIOLOGY REPORT PROCEDURE: VC EXT VENOUS LT LIMITED COMPARISON: VC EXT VENOUS LT LIMITED, 11/22/2023. INDICATIONS: Phlebitis of superficial veins of lt lower extremity I80.02 TECHNIQUE: Lower extremity robertson scale and Duplex Doppler evaluation of the deep venous system from the inguinal ligament through the calf veins. FINDINGS: REGION: Left lower extremity. THROMBI: Negative for DVT. Varithena induced thrombus visualized at mid/med calf, distal GSV calf, and dist/ant calf. COMPRESSIBILITY: Non-compressible segments corresponding to thrombus FLOW: Areas of no flow corresponding to thrombus OTHER: No patent varicose veins remain. CONCLUSION: 1. Successful post ablation occlusion of bilateral lower extremity treated branch saphenous varicosities. 2. No remaining treatable varicosities at this time within the right or left lower extremity. Dictated by: Byron Gonzalez M.D. on 12/05/2023 at 12:44 Approved by: Byron Gonzalez M.D. on 12/05/2023 at 12:47
--- NOTE | 2023-12-05 09:38 | VEIN_ITS ---
Patient Name: KEEGAN AUSTIN MR#: [id number] : 1965 Exam Date: 12/05/2023 Ordering Doctor: DR RUBI MATTHEWS M.D. RADIOLOGY REPORT PROCEDURE: [facility] - OFFICE VISIT FOLLOW UP COMPARISON: [facility] [place], 11/22/2023. PROGRESS NOTES: The patient reports improvement in leg symptoms. There has been interval reduction in varicosities. The patient has followed our recommendations to walk 20-30 minutes once or twice per day since the procedure. Physical exam demonstrates decrease in varicosities of the leg. No remaining varicosities identified along the right and left leg. Review of the ultrasound performed the same day demonstrates occlusive thrombus extending throughout the treated vein(s), see separate report, consistent with a successful ablation. No thrombus extending into or beyond the saphenofemoral junction. The patient was informed that no further treatment was needed at this time. [facility]: 1. Successful ablation of the treated lower extremity branch saphenous vein(s). 2. No remaining treatable varicosities at this time. PLAN: 1. No additional treatment needed at this time. 2. Follow-up in future as needed. Nurse notes, history and physical were reviewed and confirmed, see attached forms. The nurse was present throughout the physical exam and consultation Dictated by: Byron Gonzalez M.D. on 12/05/2023 at 12:47 Approved by: Byron Gonzalez M.D. on 12/05/2023 at 12:50
== END 2023-12-05 09:38 | disposition home or self-care (01) ==
LOC: VC 09:37
PROVIDERS: PCP Radiology Diagnostic Radiology; Visit Provider Radiology Diagnostic Radiology
DX: I80.02 Phlebitis and thrombophlebitis of superficial vessels of left lower extremity (principal)
CPT/HCPCS: 93971; G0463